=== PATIENT | female | born 2000 | race Caucasian/White ===

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

== ENCOUNTER 2018-01-03 22:32 | Outpatient (CLI) | payer OTHER ==
[2018-01-03 23:14] VITALS: BP 131/63; PULSE 95; RESP 16; TEMP 97.7
--- NOTE | 2018-01-04 09:15 | P.MSEPDOC ---
Presenting Problems - Arrival Data Date of Arrival on Unit: 01/03/18 Time of Arrival on Unit: 22:32 Mode of Transport: Ambulatory - Complaint OB-Reason for Admission/Chief Complaint: Decreased Movement Comment: pt reports she hasn't felt baby movement since last night. Medical History - Information : 1 Para: 0 Term: 0 : 0 Abortions: Spontaneous or Elective: 0 Number of Living Children: 0 - Gestational Age Gestational Age by HEIDY (wks/days): 24 Weeks and 1 Days Review of Systems - Review of Systems Constitutional: No problems Breast: No problems ENT: No problems Cardiovascular: No problems Respiratory: No problems Gastrointestinal: No problems Genitourinary: No problems Musculoskeletal: No problems Neurological: No problems Skin: No problems Vital Signs - Temperature Temperature: 97.7 F Temperature Source: Temporal Artery Scan - Pulse Left Pulse Rate: 95 Pulse Assessment Method: Pulse Oximetry - Respirations Respiratory Rate: 16 Oxygen Delivery Method: Room Air O2 Sat by Pulse Oximetry: 97 - Blood Pressure Right Arm Blood Pressure: 131/63 Blood Pressure Mean: 85 Blood Pressure Source: Automatic Cuff Medical Screen Scoring (Pre) - Cervical Exam Dilation: Exam Deferred Effacement: Exam Deferred Membranes: Intact - Uterine Contractions Frequency: N/A Duration: N/A Intensity: N/A - Maternal Vital Signs Maternal Temperature: N/A Maternal Blood Pressure: N/A Signs of Preeclampsia: N/A Maternal Respirations: N/A - Pain Assessment Pain Location and Character: Generalized Pain Scale Used: Numeric (1 - 10) Pain Intensity: 0 Pain Management Goal: 0 Pain Behavior: None Exhibited, Vocalization - Maternal Trauma Maternal Trauma: N/A - Assessment Baseline FHR: 150 Heart Rate - NICHD Category: Category I (Normal) = 0 NST: Reactive Position: N/A Station: N/A - Total Score Total Score (Pre): 0 - Level of Risk Level of Risk: Low (0-5) Physician Notification (Pre) - Physician Notified Physician Notified Date: 01/03/18 Physician Notified Time: 22:52 Physician/Practitioner Notifed:: Dr. Vance Spoke With: Dr. Vance - Notification Comment Comment: Order for discharge home with follow up instructions at this time. Disposition - Disposition OB Disposition: Discharge to home Discharge Date: 01/03/18 Discharge Time: 22:52 I agree with the RN Medical Screening Exam: Yes Risk & Benefit of care provided described in d/c instruction: Yes Diagnosis: DECREASED MOVEMENTS, SECOND TRIMESTER, FETUS 1
== END 2018-01-03 22:56 | disposition home or self-care (01) ==
LOC: FBPOP 22:32
PROVIDERS: ATTEND Obstetrics & Gynecology
DX: O36.8121 Decreased fetal movements, second trimester, fetus 1 (principal); Z3A.24 24 weeks gestation of pregnancy
CPT/HCPCS: 99213

== ENCOUNTER 2018-02-23 11:57 | Outpatient (CLI) | payer OTHER ==
[2018-02-23 13:52] VITALS: BP 131/60; PULSE 104; RESP 18; TEMP 99
--- NOTE | 2018-02-23 14:50 | P.MSEPDOC ---
Presenting Problems - Arrival Data Date of Arrival on Unit: 02/23/18 Time of Arrival on Unit: 11:57 Mode of Transport: Ambulatory - Complaint OB-Reason for Admission/Chief Complaint: Headache Comment: 1Pt reports to triage with a headache 10/29-states was treated for a migraine at [facility] last night. Pt see's Dr. Parikh-did not call prior to coming to [facility]. Medical History - Information : 1 Para: 0 Term: 0 : 0 Abortions: Spontaneous or Elective: 0 Number of Living Children: 0 - Gestational Age Gestational Age by HEIDY (wks/days): 31 Weeks and 3 Days - History Comment: Pt states hx of bipolar depression and hypothyroid. Review of Systems - Review of Systems Constitutional: No problems Breast: No problems ENT: No problems Cardiovascular: No problems Respiratory: No problems Gastrointestinal: No problems Genitourinary: No problems Musculoskeletal: No problems Neurological: No problems Skin: No problems Vital Signs - Temperature Temperature: 99 F Temperature Source: Oral - Pulse Right Sitting Brachial Pulse Rate: 104 Pulse Assessment Method: Automatic Cuff - Respirations Respiratory Rate: 18 Oxygen Delivery Method: Room Air O2 Sat by Pulse Oximetry: 97 - Blood Pressure Right Arm Sitting Blood Pressure: 131/60 Blood Pressure Mean: 83 Blood Pressure Source: Automatic Cuff Medical Screen Scoring (Pre) - Cervical Exam Dilation: Exam Deferred Effacement: Exam Deferred Membranes: Intact - Uterine Contractions Frequency: N/A - Maternal Vital Signs Maternal Temperature: N/A Maternal Blood Pressure: N/A Maternal Respirations: N/A - Assessment Baseline FHR: 145 Heart Rate - NICHD Category: Category I (Normal) = 0 NST: Reactive Position: N/A Station: N/A - Total Score Total Score (Pre): 0 - Level of Risk Level of Risk: Low (0-5) Physician Notification (Pre) - Physician Notified Physician Notified Date: 02/23/18 Physician Notified Time: 13:28 Physician/Practitioner Notifed:: Miladis Spoke With: Miladis New Order Received: Yes - Notification Comment Comment: Spk c\Dr. Redding, advsd , 31 3, pt of Dr. Parikh, reports with triage c\GROSSMAN 10/29-was treated for a migraine at [facility] last evening. Pt denies nausea , no swelling, no epigastric pain, reflexes 2+, clonus absent. Labs obtained at [facility] on 02/22 and 02/17 reviewed. Pt to be discharged home, to follow up with Dr. Parikh. Disposition - Disposition OB Disposition: Discharge to home, Written follow up instructions reviewed Discharge Date: 02/23/18 Discharge Time: 13:40 I agree with the RN Medical Screening Exam: Yes Risk & Benefit of care provided described in d/c instruction: Yes Diagnosis: RELATED CONDITIONS, UNSPECIFIED, THIRD TRIMESTER
== END 2018-02-23 13:40 | disposition home or self-care (01) ==
LOC: FBPOP 11:57
PROVIDERS: ATTEND Obstetrics & Gynecology
DX: O26.93 Pregnancy related conditions, unspecified, third trimester (principal); Z3A.31 31 weeks gestation of pregnancy
CPT/HCPCS: 59025; G0463; 99213

== ENCOUNTER 2018-06-25 22:44 | Emergency (ER) | payer OTHER ==
--- NOTE | 2018-06-25 23:22 | ED ---
Psych HPI - General Chief Complaint: Psychiatric Symptoms Stated Complaint: Overdose Time Seen by Provider: 06/25/18 22:45 Source: patient Mode of arrival: ambulatory - History of Present Illness Initial Comments: This patient is 18-year-old woman who states that she has history of bipolar disorder, and presents tonight complaint that she had taken 7 Unisom tablets. The patient states that she had been feeling more depressed than usual going on about one-week. The patient states that she had a child approximately 2 months ago and that she has been feeling a little depressed since that time. She denies feeling any homicidal ideation towards the . The patient denies having symptoms related to the overdose. She is not having abdominal pain, nausea or vomiting, chest pain, dyspnea, or other symptoms. She had taken the pills approximately 2-3 hours ago. MD Complaint: suicidal ideation, feels depressed Onset/Timin -: week(s) Associated Psychiatric Symptoms: depression, suicidal ideation Quality: getting worse Improves With: none Worsens With: none - Related Data Home Medications Medication Instructions Recorded Confirmed Levothyroxine Sodium 25 mcg PO DAILY 01/03/18 06/25/18 OXcarbazepine [Trileptal] 300 mg PO BID 06/25/18 06/25/18 Sertraline [Zoloft] 100 mg PO DAILY 06/25/18 06/25/18 Allergies Allergy/AdvReac Type Severity Reaction Status Date / Time vancomycin Allergy Anaphylaxis Verified 06/25/18 22:58 lorazepam [From Ativan] AdvReac Rapid Verified 06/25/18 22:58 Heart Rate Review of Systems ROS Statement: Those systems with pertinent positive or pertinent negative responses have been documented in the HPI. ROS Other: All systems not noted in ROS Statement are negative. Constitutional: Denies: fever, chills Respiratory: Denies: cough, dyspnea Cardiovascular: Denies: chest pain, palpitations Gastrointestinal: Denies: abdominal pain, nausea, vomiting, diarrhea Genitourinary: Denies: dysuria, hematuria Musculoskeletal: Denies: back pain Neurological: Denies: headache, weakness, numbness Psychiatric: Reports: depression, suicidal thoughts. Denies: anxiety, auditory hallucinations, visual hallucinations, homicidal thoughts Past Medical History Past Medical History: No Reported History History of Any Multi-Drug Resistant Organisms: None Reported Past Surgical History: Adenoidectomy, Section, Ear Surgery, Orthopedic Surgery, Tonsillectomy Additional Past Surgical History / Comment(s): Patient states that she has had multiple surgeries to her ears for tube placement. Past Anesthesia/Blood Transfusion Reactions: No Reported Reaction Past Psychological History: Anxiety, Bipolar, Depression Smoking Status: Never smoker - Past Family History Mother Family Medical History: Diabetes Mellitus, Hypertension Father History Unknown: Yes Sister(s) Additional Family Medical History / Comment(s): social anxiety disorder General Exam Limitations: no limitations General appearance: alert, in no apparent distress, obese Head exam: Present: atraumatic, normocephalic Eye exam: Present: normal appearance. Absent: scleral icterus, conjunctival injection Neck exam: Present: normal inspection, full ROM Respiratory exam: Present: normal lung sounds bilaterally. Absent: respiratory distress, wheezes, rales, rhonchi, stridor Cardiovascular Exam: Present: regular rate, normal rhythm, normal heart sounds. Absent: systolic murmur, diastolic murmur, rubs, gallop GI/Abdominal exam: Present: soft. Absent: distended, tenderness, guarding, rebound, rigid, mass Extremities exam: Present: normal inspection, normal capillary refill. Absent: pedal edema, calf tenderness Back exam: Present: normal inspection. Absent: CVA tenderness (R), CVA tenderness (L) Neurological exam: Present: alert Psychiatric exam: Present: normal affect, depressed, suicidal ideation. Absent : agitated, anxious, flat affect, manic, homicidal ideation Skin exam: Present: warm, dry, intact, normal color. Absent: rash Course Vital Signs 06/25/18 06/26/18 06/26/18 22:51 01:00 02:00 Temperature 98.1 F 98 F 98 F Pulse Rate 91 88 87 Respiratory 18 20 18 Rate Blood Pressure 136/89 129/79 126/76 O2 Sat by Pulse 99 97 97 Oximetry 06/26/18 05:16 Temperature 98 F Pulse Rate 86 Respiratory 18 Rate Blood Pressure 127/87 O2 Sat by Pulse 98 Oximetry Medical Decision Making - Medical Decision Making This patient is 18-year-old woman presenting after taking extra doses of Unisom. The patient is also evaluated by behavioral health. The patient is remorseful and is bethel for safety. The patient's mother will be able to help supervise. They are agreeable with course of outpatient follow-up, returning should there be any worsening of her mood or other changes. - Lab Data Result diagrams: 06/25/18 22:50 06/25/18 22:50 Lab Results 06/25/18 06/25/18 06/25/18 Range/Units 22:50 22:50 23:42 WBC 4.6 (4.0-11.0) k/uL RBC 4.66 (3.80-5.40) m/uL Hgb 13.9 (11.4-16.0) gm/dL Hct 41.3 (34.0-46.0) % MCV 88.6 (80.0-100.0) fL MCH 29.9 (25.0-35.0) pg MCHC 33.7 (31.0-37.0) g/dL RDW 13.3 (11.5-15.5) % Plt Count 203 (150-450) k/uL Neutrophils % 40 % Lymphocytes % 47 % Monocytes % 8 % Eosinophils % 2 % Basophils % 1 % Neutrophils # 1.8 (1.3-7.7) k/uL Lymphocytes # 2.2 (1.0-4.8) k/uL Monocytes # 0.4 (0-1.0) k/uL Eosinophils # 0.1 (0-0.7) k/uL Basophils # 0.0 (0-0.2) k/uL Sodium 140 (137-145) mmol/L Potassium 4.0 (3.5-5.1) mmol/L Chloride 106 (98-107) mmol/L Carbon Dioxide 27 (22-30) mmol/L Anion Gap 7 mmol/L BUN 9 (7-17) mg/dL Creatinine 0.90 (0.52-1.04) mg/dL Est GFR (CKD-EPI)AfAm >90 (>60 ml/min/1.73 sqM) Est GFR (CKD-EPI)NonAf >90 (>60 ml/min/1.73 sqM) Glucose 84 (74-99) mg/dL Calcium 9.3 (8.4-10.2) mg/dL Magnesium 1.8 (1.6-2.3) mg/dL Total Bilirubin 0.4 (0.2-1.3) mg/dL AST 27 (14-36) U/L ALT 32 (9-52) U/L Alkaline Phosphatase 71 (38-126) U/L Total Protein 7.1 (6.3-8.2) g/dL Albumin 4.0 (3.5-5.0) g/dL Urine HCG, Qual (Not Detectd) Salicylates <1.0 mg/dL Urine Opiates Screen Not Detected (NotDetected) Ur Oxycodone Screen Not Detected (NotDetected) Urine Methadone Screen Not Detected (NotDetected) Ur Propoxyphene Screen Not Detected (NotDetected) Acetaminophen <10.0 ug/mL Ur Barbiturates Screen Not Detected (NotDetected) U Tricyclic Antidepress Not Detected (NotDetected) Ur Phencyclidine Scrn Not Detected (NotDetected) Ur Amphetamines Screen Not Detected (NotDetected) U Methamphetamines Scrn Not Detected (NotDetected) U Benzodiazepines Scrn Not Detected (NotDetected) Urine Cocaine Screen Not Detected (NotDetected) U Marijuana (THC) Screen Not Detected (NotDetected) Serum Alcohol <10 mg/dL 06/25/18 Range/Units 23:42 WBC (4.0-11.0) k/uL RBC (3.80-5.40) m/uL Hgb (11.4-16.0) gm/dL Hct (34.0-46.0) % MCV (80.0-100.0) fL MCH (25.0-35.0) pg MCHC (31.0-37.0) g/dL RDW (11.5-15.5) % Plt Count (150-450) k/uL Neutrophils % % Lymphocytes % % Monocytes % % Eosinophils % % Basophils % % Neutrophils # (1.3-7.7) k/uL Lymphocytes # (1.0-4.8) k/uL Monocytes # (0-1.0) k/uL Eosinophils # (0-0.7) k/uL Basophils # (0-0.2) k/uL Sodium (137-145) mmol/L Potassium (3.5-5.1) mmol/L Chloride (98-107) mmol/L Carbon Dioxide (22-30) mmol/L Anion Gap mmol/L BUN (7-17) mg/dL Creatinine (0.52-1.04) mg/dL Est GFR (CKD-EPI)AfAm (>60 ml/min/1.73 sqM) Est GFR (CKD-EPI)NonAf (>60 ml/min/1.73 sqM) Glucose (74-99) mg/dL Calcium (8.4-10.2) mg/dL Magnesium (1.6-2.3) mg/dL Total Bilirubin (0.2-1.3) mg/dL AST (14-36) U/L ALT (9-52) U/L Alkaline Phosphatase (38-126) U/L Total Protein (6.3-8.2) g/dL Albumin (3.5-5.0) g/dL Urine HCG, Qual Not Detected (Not Detectd) Salicylates mg/dL Urine Opiates Screen (NotDetected) Ur Oxycodone Screen (NotDetected) Urine Methadone Screen (NotDetected) Ur Propoxyphene Screen (NotDetected) Acetaminophen ug/mL Ur Barbiturates Screen (NotDetected) U Tricyclic Antidepress (NotDetected) Ur Phencyclidine Scrn (NotDetected) Ur Amphetamines Screen (NotDetected) U Methamphetamines Scrn (NotDetected) U Benzodiazepines Scrn (NotDetected) Urine Cocaine Screen (NotDetected) U Marijuana (THC) Screen (NotDetected) Serum Alcohol mg/dL Disposition Clinical Impression: Mood disorder, Overdose Disposition: HOME SELF-CARE Condition: Fair Instructions: Depression (DC), Adult Overdose (ED) Is patient prescribed a controlled substance at d/c from ED?: No Referrals: None,Stated [Primary Care Provider] - 1-2 days
[2018-06-25 23:27] LABS: Basophils % (A) 1 %; Eosinophils # (A) 0.1 k/uL (0-0.7); Eosinophils % (A) 2 %; HCT 41.3 % (34.0-46.0); HGB 13.9 gm/dL (11.4-16.0); Lymphocytes # (A) 2.2 k/uL (1.0-4.8); Lymphocytes % (A) 47 %; MCH 29.9 pg (25.0-35.0); MCHC 33.7 g/dL (31.0-37.0); MCV 88.6 fL (80.0-100.0); Mean Platelet Volume 7.5; Monocytes # (A) 0.4 k/uL (0-1.0); Monocytes % (A) 8 %; Neutrophils # (A) 1.8 k/uL (1.3-7.7); Neutrophils % (A) 40 %; Platelet Count 203 k/uL (150-450); RBC 4.66 m/uL (3.80-5.40); RDW 13.3 % (11.5-15.5); WBC 4.6 k/uL (4.0-11.0)
[2018-06-25 23:37] LABS: ALT 32 U/L (9-52); AST 27 U/L (14-36); Acetaminophen <10.0 ug/mL; Alcohol <10 mg/dL; Alkaline Phosphatase 71 U/L (38-126); Anion Gap 7 mmol/L; Blood Urea Nitrogen 9 mg/dL (7-17); Calcium 9.3 mg/dL (8.4-10.2); Carbon Dioxide 27 mmol/L (22-30); Chloride 106 mmol/L (98-107); Glucose 84 mg/dL (74-99); Magnesium 1.8 mg/dL (1.6-2.3); Salicylate <1.0 mg/dL; Sodium 140 mmol/L (137-145); Total Bilirubin 0.4 mg/dL (0.2-1.3); Total Protein 7.1 g/dL (6.3-8.2)
[2018-06-26 00:06] LABS: Amphetamine Screen,Urine Not Detected (NotDetected); Barbiturate Screen,Urine Not Detected (NotDetected); Benzodiazepines Screen,Urine Not Detected (NotDetected); Cocaine Screen,Urine Not Detected (NotDetected); Methadone Screen, Urine Not Detected (NotDetected); Opiate Screen,Urine Not Detected (NotDetected); Oxycodone Screen, Urine Not Detected (NotDetected); Phencyclidine Screen,Urine Not Detected (NotDetected); Tricyclic Antidepressant,Urine Not Detected (NotDetected); Urn Cannabinoid Scrn Not Detected (NotDetected)
[2018-06-26 01:03] VITALS: TEMP 98
[2018-06-26 02:32] VITALS: RESP 18
[2018-06-26 05:19] VITALS: BP 127/87; PULSE 86
== END 2018-06-26 05:19 | disposition home or self-care (01) ==
LOC: EC 22:44
DX: T45.0X2A Poisoning by antiallergic and antiemetic drugs, intentional self-harm, initial encounter (principal); F39 Unspecified mood [affective] disorder; F31.9 Bipolar disorder, unspecified; Z79.899 Other long term (current) drug therapy; Z88.1 Allergy status to other antibiotic agents; Z88.8 Allergy status to other drugs, medicaments and biological substances
CPT/HCPCS: 36415; 93005 ×2; 80053; 83735; 85025; 81025; 80306; 83520 ×2; 99285; G0480; 80320

== ENCOUNTER 2019-01-25 13:38 | Inpatient (IN) | payer MEDICAID, OTHER ==
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
[2019-01-25 14:43] LABS: Basophils % (A) 0 %; Eosinophils # (A) 0.2 k/uL (0-0.7); Eosinophils % (A) 2 %; HCT 39.1 % (34.0-46.0); HGB 13.4 gm/dL (11.4-16.0); Lymphocytes # (A) 2.7 k/uL (1.0-4.8); Lymphocytes % (A) 35 %; MCH 29.9 pg (25.0-35.0); MCHC 34.3 g/dL (31.0-37.0); MCV 87.1 fL (80.0-100.0); Mean Platelet Volume 7.9; Monocytes # (A) 0.3 k/uL (0-1.0); Monocytes % (A) 4 %; Neutrophils # (A) 4.2 k/uL (1.3-7.7); Neutrophils % (A) 56 %; Platelet Count 289 k/uL (150-450); RBC 4.49 m/uL (3.80-5.40); WBC 7.6 k/uL (4.0-11.0)
[2019-01-25 14:55] LABS: ALT 49 U/L (9-52); AST 27 U/L (14-36); Acetaminophen <10.0 ug/mL; African American GFR (CKD) >90 (>60 ml/min/1.73 sqM); Albumin 4.1 g/dL (3.5-5.0); Alkaline Phosphatase 74 U/L (38-126); Anion Gap 8 mmol/L; Blood Urea Nitrogen 11 mg/dL (7-17); Calcium 9.2 mg/dL (8.4-10.2); Carbon Dioxide 25 mmol/L (22-30); Chloride 107 mmol/L (98-107); Glucose 93 mg/dL (74-99); Potassium 4.1 mmol/L (3.5-5.1); Salicylate <1.0 mg/dL; Sodium 140 mmol/L (137-145); Total Bilirubin 0.5 mg/dL (0.2-1.3); Total Protein 6.9 g/dL (6.3-8.2)
[2019-01-25] MEDS ORDERED: ACETAMINOPHEN TAB 325 MG TAB PO STA (16:49)
[2019-01-25 17:04] LABS: Amorphous Sediment,Urine Occasional /hpf; Appearance,Urine Cloudy (Clear); Bilirubin,Urine Negative (Negative); Blood,Urine Negative (Negative); Color,Urine Yellow; Glucose,Urine (UA) Negative (Negative); Ketones,Urine Trace (Negative); Leukocyte Esterase,Urine Negative (Negative); Mucus,Urine Many /hpf; Nitrite,Urine Negative (Negative); PH, Urine 5.5 (5.0-8.0); Protein,Urine Trace (Negative); RBC,Urine 1 /hpf (0-5); Specific Gravity,Urine 1.031 (1.001-1.035); Squamous Epithelial Cell,Urine 8 /hpf (0-4); Urobilinogen,Urine <2.0 mg/dL (<2.0); WBC,Urine 2 /hpf (0-5)
[2019-01-25] MEDS ORDERED: MAGNESIUM HYDROXIDE 2,400 MG/10 ML CUP PO PRN (17:18)
[2019-01-25] MEDS ORDERED: MAG HYDROX/AL HYDROX/SIMETH 30 ML CUP PO PRN (17:18)
[2019-01-25 17:19] LABS: Amphetamine Screen,Urine Not Detected (NotDetected); Barbiturate Screen,Urine Not Detected (NotDetected); Benzodiazepines Screen,Urine Not Detected (NotDetected); Cocaine Screen,Urine Not Detected (NotDetected); Methadone Screen, Urine Not Detected (NotDetected); Opiate Screen,Urine Not Detected (NotDetected); Oxycodone Screen, Urine Not Detected (NotDetected); Phencyclidine Screen,Urine Not Detected (NotDetected); Tricyclic Antidepressant,Urine Not Detected (NotDetected); Urn Cannabinoid Scrn Not Detected (NotDetected)
[2019-01-25 20:58] VITALS: BMI 43.4
[2019-01-26] MEDS: LEVOTHYROXINE 50 MCG TAB PO SCH (06:22)
[2019-01-26] MEDS: OXcarbazepine 300 MG TAB PO SCH (08:40)
[2019-01-26 09:27] LABS: Basophils % (A) 0 %; Eosinophils # (A) 0.2 k/uL (0-0.7); Eosinophils % (A) 2 %; HGB 12.9 gm/dL (11.4-16.0); Lymphocytes # (A) 2.7 k/uL (1.0-4.8); Lymphocytes % (A) 37 %; MCH 30.4 pg (25.0-35.0); MCHC 33.9 g/dL (31.0-37.0); MCV 89.8 fL (80.0-100.0); Mean Platelet Volume 7.3; Monocytes # (A) 0.3 k/uL (0-1.0); Monocytes % (A) 4 %; Neutrophils # (A) 3.9 k/uL (1.3-7.7); Neutrophils % (A) 54 %; Platelet Count 272 k/uL (150-450); RBC 4.23 m/uL (3.80-5.40); RDW 12.3 % (11.5-15.5); WBC 7.2 k/uL (4.0-11.0)
[2019-01-26 10:10] LABS: ALT 27 U/L (9-52); AST 25 U/L (14-36); African American GFR (CKD) >90 (>60 ml/min/1.73 sqM); Alkaline Phosphatase 64 U/L (38-126); Anion Gap 11 mmol/L; Blood Urea Nitrogen 12 mg/dL (7-17); Calcium 9.2 mg/dL (8.4-10.2); Carbon Dioxide 26 mmol/L (22-30); Chloride 102 mmol/L (98-107); Cholesterol 142 mg/dL (<200); Glucose 138 mg/dL (74-99); HDL Cholesterol 33 mg/dL (40-60); LDL Cholesterol,Calculated 63 mg/dL (0-99); Potassium 4.1 mmol/L (3.5-5.1); Sodium 139 mmol/L (137-145); Total Bilirubin 0.4 mg/dL (0.2-1.3); Total Protein 6.6 g/dL (6.3-8.2); Triglycerides 228 mg/dL (<150)
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
[2019-01-26] MEDS: VRAYLAR 6 MG PO SCH (12:32)
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
[2019-01-26 17:18] LABS: Hemoglobin A1C 5.4 % (4.0-6.0)
[2019-01-27] MEDS: LEVOTHYROXINE 50 MCG TAB PO SCH (06:23)
[2019-01-27] MEDS: VRAYLAR 6 MG PO SCH (08:35)
[2019-01-27] MEDS: OXcarbazepine 300 MG TAB PO SCH ×2 (08:36→20:05)
[2019-01-27] MEDS ORDERED: ERGOCALCIFEROL 50,000 UNIT CAP PO SCH (09:00)
--- NOTE | 2019-01-27 12:31 | P.PN ---
Progress Note - Text Progress Note Date: 01/27/19 Interval History: Patient is a 18-year-old female who was seen today and she reports that she went to bed late last night, isn't feeling depressed reports no suicidal ideation. She states that she is attending groups and these went well. She states that she hadn't been taking her meds prior to coming into the hospital and now that she's restarted them she reports feeling better. She reports no current suicidal thoughts. Patient states that she has been attending groups. Mental Status: Appearance/Attitude: Patient is neatly and appropriately dressed, makes eye contact and was cooperative. Behavior: Patient does not display any psychomotor agitation or retardation Speech/Language: Speech is spontaneous of normal volume and rhythm and she is coherent Thought Process: Patient is goal-directed there is no evidence of loose association or flight of ideas Thought Content: Patient denies any auditory or visual hallucinations and no delusions or paranoid ideation or elicited. Patient and I discussed her concerns about the father of her child, she is not going to insist on DNA testin g, he remains in incarcerated until March. Patient is more comfortable knowing that it is unlikely he will be given custody, should he even request this. Patient states that she slept well and is eating well. Suicidal/Homicidal Ideation: She denies any current suicidal or homicidal ideation Sensorium/Cognition: Patient is alert and oriented to person, place, and time, her recent and remote memory are grossly intact Mood/Affect: patient's mood is less depressed and her affect is appropriate Insight/Judgment: patient's insight and judgment are fair Assessment: patient states that she is not feeling as depressed, she went to bed late yesterday and slept fairly well. She states she is not having any suicidal thoughts. She states she feels better now that she's restarted taking her med ication correctly. Patient and I discussed her concerns about the father of her son, she will not be requesting DNA testing and he as yet has not. Patient and I discussed her concerns over his requesting custody and the likelihood of this occurring. Patient states that she is attending groups and is found them helpful. Plan: patient will continue on vryalar 6 mg in the morning and will increase the Trileptal to 300 mg twice a day which was her prior dose. Patient and I discussed possible discharge later in the week should the patient continue to improve.
--- NOTE | 2019-01-27 19:56 | P.PN ---
Subjective Progress Note Date: 01/27/19 Pt seen and examined in [facility]. She states she had trouble getting to sleep last night so missed some morning group sessions. She is no longer suicidal and attributes this to being back on medication. Objective - Vital Signs Vital signs: Vital Signs Temp 97.7 F 01/27/19 06:59 Pulse 76 01/27/19 06:59 Resp 14 01/27/19 06:59 BP 89/52 01/27/19 06:59 Pulse Ox 100 01/25/19 14:13 - Exam General: well groomed, pleasant, NAD CV: RRR Lungs: clear throughout Neuro: good eye contact, thought content logical and goal directed - Labs CBC & Chem 7: 01/26/19 08:58 01/26/19 08:58 Assessment and Plan Assessment: 1. Suicidal. Medication noncompliance. Treatment per inpatient psych 2. Hypothyroidism. Continue home synthroid 3. Low back pain. Tylenol 500 mg q6h prn
[2019-01-27] MEDS: MELATONIN 5 MG TABLET PO SCH (22:52)
[2019-01-28] MEDS: LEVOTHYROXINE 50 MCG TAB PO SCH (06:32)
[2019-01-28] MEDS: VRAYLAR 6 MG PO SCH (08:39)
[2019-01-28] MEDS: OXcarbazepine 300 MG TAB PO SCH ×2 (08:40→21:36)
--- NOTE | 2019-01-28 09:40 | P.PN ---
Subjective Progress Note Date: 01/28/19 Pt seen and examined in [facility]. She slept well last night and reports good mood today. She feels she is ready to leave the hospital but understands it could be another few days. Denies SI. Objective - Vital Signs Vital signs: Vital Signs Temp 98.1 F 01/28/19 06:58 Pulse 73 01/28/19 06:58 Resp 16 01/28/19 06:58 BP 114/57 01/28/19 06:58 Pulse Ox 100 01/25/19 14:13 - Exam General: well groomed, pleasant, NAD CV: RRR Lungs: clear throughout Neuro: good eye contact, thought content logical and goal directed - Labs CBC & Chem 7: 01/26/19 08:58 01/26/19 08:58 Assessment and Plan Assessment: 1. Suicidal. Medication noncompliance. Treatment per inpatient psych 2. Hypothyroidism. Continue home synthroid 3. Low back pain. Tylenol 500 mg q6h prn
--- NOTE | 2019-01-28 11:44 | P.PN ---
Progress Note - Text Progress Note Date: 01/28/19 Interval History: Patient is a 18-year-old female who was seen today and she reports that she is doing quite well. She states that she sees she needs to stay on her medications because she does much better when she takes them. She states that she is ready to go home and her mother will keep her son for a bit a time until she gets adjusted to being home again. Patient states that she is not feeling depressed and reports that she's not feeling suicidal. She states that she slept well last night after taking some melatonin. Mental Status: Appearance/Attitude: Patient is neatly and appropriately dressed, makes good eye contact and was cooperative Behavior: Patient does not display any psychomotor agitation or retardation. Speech/Language: Patient's speech is spontaneous of normal volume and rhythm and she is coherent. Thought Process: Patient is goal-directed there is no evidence of loose association or flight of ideas Thought Content: Patient denies any auditory or visual hallucinations and no paranoid or delusional ideation is elicited. patient states that she is sleeping well and her appetite is good. She states that she is feeling more motivated and interested to do things has more energy. Patient states she is not ruminating about the father of her son, custody concerns. Suicidal/Homicidal Ideation: Patient denies any current suicidal or homicidal ideation Sensorium/Cognition: Patient is alert and oriented to person place and time and her recent and remote memory are grossly intact. Mood/Affect: Patient's mood is bright and her affect is appropriate Insight/Judgment: Patient's insight and judgment are fair Assessment: Patient states that she slept well last night and requested melatonin be started. Patient reports no side effects from medications. She is attending most groups. Patient states that she is not feeling suicidal and no longer feeling depressed. She states her interest or motivation to do things has improved as well as her energy level. Patient states she is not ruminating about the father of her son as much as she was. Patient states that she is aware she needs to take her medications consistently with them to be effective for her. Plan: Patient will continue on Trileptal 300 mg twice a day and vryalar 6 mg in the morning to target her mood. Patient will also continue on melatonin 5 mg at bedtime to assist with her sleep. Patient and I discussed discharge tomorrow and the patient was agreeable with this plan. Patient states that her mother will keep her son for a period of time so that the patient can get things organized at home.
[2019-01-28] MEDS: ACETAMINOPHEN TAB 500 MG TAB PO PRN (21:35)
[2019-01-28] MEDS: MELATONIN 5 MG TABLET PO SCH (21:36)
[2019-01-29 06:18] VITALS: BP 107/53; PULSE 83; RESP 18; TEMP 97.8
[2019-01-29] MEDS: LEVOTHYROXINE 50 MCG TAB PO SCH (06:19)
[2019-01-29] MEDS: VRAYLAR 6 MG PO SCH (07:42)
[2019-01-29] MEDS: OXcarbazepine 300 MG TAB PO SCH (07:43)
[2019-01-29] MEDS: ACETAMINOPHEN TAB 500 MG TAB PO PRN (07:44)
[2019-01-29] MEDS ORDERED: IBUPROFEN 200 MG TAB PO STA (09:48)
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
--- NOTE | 2019-01-29 11:07 | P.PN ---
Subjective Progress Note Date: 01/29/19 Pt seen and examined in MHU. She is feeling well today, reports some abd cramping thinks her period is about to start. Denies SI or side effects with her psychiatric medications Objective - Vital Signs Vital signs: Vital Signs Temp 97.8 F 01/29/19 06:17 Pulse 83 01/29/19 06:17 Resp 18 01/29/19 06:17 BP 107/53 01/29/19 06:17 Pulse Ox 100 01/25/19 14:13 - Exam General: well groomed, pleasant, NAD CV: RRR Lungs: clear throughout Neuro: good eye contact, thought content logical and goal directed - Labs CBC & Chem 7: 01/26/19 08:58 01/26/19 08:58 Assessment and Plan Assessment: 1. Suicidal. Medication noncompliance. Treatment per inpatient psych 2. Hypothyroidism. Continue home synthroid 3. Low back pain. Tylenol 500 mg q6h prn 4. Abdominal cramping. Ibuprofen 200 mg q6h prn
== END 2019-01-29 15:51 | disposition home or self-care (01) | DRG 885 ==
LOC: EC 13:38 → 3MHU 17:14
PROVIDERS: ADMIT Psychiatry & Neurology Psychiatry; ATTEND Psychiatry & Neurology Psychiatry
DX: F31.30 Bipolar disorder, current episode depressed, mild or moderate severity, unspecified (principal); E03.9 Hypothyroidism, unspecified; Z91.5 Personal history of self-harm; Z79.890 Hormone replacement therapy; Z79.899 Other long term (current) drug therapy; Z82.49 Family history of ischemic heart disease and other diseases of the circulatory system; Z83.3 Family history of diabetes mellitus; Z81.8 Family history of other mental and behavioral disorders; Z90.49 Acquired absence of other specified parts of digestive tract; T43.96XA Underdosing of unspecified psychotropic drug, initial encounter; Z91.128 Patient's intentional underdosing of medication regimen for other reason; Z91.19 Patient's noncompliance with other medical treatment and regimen; F41.9 Anxiety disorder, unspecified; Z88.1 Allergy status to other antibiotic agents; Z88.8 Allergy status to other drugs, medicaments and biological substances
CPT/HCPCS: 36415; 80053; 80061; 80306; 80329; 81001; 81025; 82075; 83036; 83520; 84443; 85025; 93005; 99285

== ENCOUNTER 2019-03-17 17:01 | Emergency (ER) | payer OTHER ==
[2019-03-17] MEDS ORDERED: ONDANSETRON 4 MG/2 ML VIAL IVP STA (19:00)
[2019-03-17] MEDS ORDERED: SODIUM CHLORIDE 0.9% 1,000 ML IV STA ×2 (19:00)
[2019-03-17] MEDS ORDERED: PANTOPRAZOLE 40 MG/10 ML VIAL IVP STA (19:00)
--- NOTE | 2019-03-17 19:01 | ED ---
Abdominal Pain HPI - General Chief Complaint: Abdominal Pain Stated Complaint: ABDOMINAL PAIN Time Seen by Provider: 03/17/19 18:47 Source: patient, RN notes reviewed, old records reviewed Mode of arrival: ambulatory Limitations: no limitations - History of Present Illness Initial Comments: Patient is a 18-year-old female presents today with diffuse abdominal pain for the past week. Patient reports his history and the upper abdominal pain, feels like someone is stepping on her abdomen. Patient reports that she has had some diarrhea. She is concerned for possible . Her last missed her period was February 25 but she states that that was abnormal time for her. Patient states that she's had no fevers or chills. Denies any chest pain or shortness of breath. She reports no bloody stools. She denies any vomiting. - Related Data Home Medications Medication Instructions Recorded Confirmed Levothyroxine Sodium [Synthroid] 50 mcg PO DAILY 01/25/19 03/17/19 Cariprazine HCl [Vraylar] 6 mg PO DAILY 03/17/19 03/17/19 Dane Carbonate 300 mg PO BID 03/17/19 03/17/19 OXcarbazepine [Trileptal] 150 mg PO BID 03/17/19 03/17/19 Previous Rx's Medication Instructions Recorded Dicyclomine [Bentyl] 10 mg PO TID #12 capsule 03/17/19 Allergies Allergy/AdvReac Type Severity Reaction Status Date / Time vancomycin Allergy Anaphylaxis Verified 03/17/19 19:20 lorazepam [From Ativan] AdvReac Rapid Verified 03/17/19 19:20 Heart Rate Review of Systems ROS Statement: Those systems with pertinent positive or pertinent negative responses have been documented in the HPI. ROS Other: All systems not noted in ROS Statement are negative. Past Medical History Past Medical History: No Reported History, Thyroid Disorder History of Any Multi-Drug Resistant Organisms: None Reported Past Surgical History: Adenoidectomy, Section, Cholecystectomy, Ear Surgery, Orthopedic Surgery, Tonsillectomy Additional Past Surgical History / Comment(s): Patient states that she has had multiple surgeries to her ears for tube placement. Past Anesthesia/Blood Transfusion Reactions: No Reported Reaction Past Psychological History: Anxiety, Bipolar, Depression Smoking Status: Never smoker Past Alcohol Use History: Occasional Past Drug Use History: None Reported - Past Family History Mother Family Medical History: Diabetes Mellitus, Hypertension Father History Unknown: Yes Sister(s) Additional Family Medical History / Comment(s): social anxiety disorder General Exam Limitations: no limitations General appearance: alert, in no apparent distress Head exam: Present: atraumatic, normocephalic, normal inspection Eye exam: Present: normal appearance, PERRL, EOMI. Absent: scleral icterus, conjunctival injection, periorbital swelling ENT exam: Present: normal exam, mucous membranes moist Neck exam: Present: normal inspection. Absent: tenderness, meningismus, lymphadenopathy Respiratory exam: Present: normal lung sounds bilaterally. Absent: respiratory distress, wheezes, rales, rhonchi, stridor Cardiovascular Exam: Present: regular rate, normal rhythm, normal heart sounds. Absent: systolic murmur, diastolic murmur, rubs, gallop, clicks GI/Abdominal exam: Present: soft, normal bowel sounds. Absent: distended, tenderness, guarding, rebound, rigid Extremities exam: Present: normal inspection, full ROM, normal capillary refill. Absent: tenderness, pedal edema, joint swelling, calf tenderness Back exam: Present: normal inspection Neurological exam: Present: alert Psychiatric exam: Present: normal affect, normal mood Skin exam: Present: warm, dry, intact, normal color. Absent: rash Course Vital Signs 03/17/19 17:36 Temperature 98.6 F Pulse Rate 101 H Respiratory 16 Rate Blood Pressure 160/80 O2 Sat by Pulse 97 Oximetry Medical Decision Making - Medical Decision Making Patient's 18-year-old female presents with diffuse abdominal pain for 2 weeks complaining of diarrhea. She also is concerned . HCG is negative. Blood work was reviewed and unremarkable given IV fluids Protonix and Zofran. Discussed the Patient that she otherwise is well-appearing. Discussed appropriate return parameters. Discussed putting the Patient on Bentyl and monitoring her diet. All questions ANSWERED. - Lab Data Result diagrams: 03/17/19 19:20 03/17/19 19:20 Lab Results 03/17/19 03/17/19 03/17/19 Range/Units 19:20 19:20 19:20 WBC (4.0-11.0) k/uL RBC (3.80-5.40) m/uL Hgb (11.4-16.0) gm/dL Hct (34.0-46.0) % MCV (80.0-100.0) fL MCH (25.0-35.0) pg MCHC (31.0-37.0) g/dL RDW (11.5-15.5) % Plt Count (150-450) k/uL Neutrophils % % Lymphocytes % % Monocytes % % Eosinophils % % Basophils % % Neutrophils # (1.3-7.7) k/uL Lymphocytes # (1.0-4.8) k/uL Monocytes # (0-1.0) k/uL Eosinophils # (0-0.7) k/uL Basophils # (0-0.2) k/uL PT (9.0-12.0) sec INR (<1.2) APTT (22.0-30.0) sec Sodium 139 (137-145) mmol/L Potassium 3.9 (3.5-5.1) mmol/L Chloride 103 (98-107) mmol/L Carbon Dioxide 25 (22-30) mmol/L Anion Gap 11 mmol/L BUN 13 (7-17) mg/dL Creatinine 0.85 (0.52-1.04) mg/dL Est GFR (CKD-EPI)AfAm >90 (>60 ml/min/1.73 sqM) Est GFR (CKD-EPI)NonAf >90 (>60 ml/min/1.73 sqM) Glucose 111 H (74-99) mg/dL Calcium 9.6 (8.4-10.2) mg/dL Total Bilirubin 0.4 (0.2-1.3) mg/dL AST 25 (14-36) U/L ALT 23 (9-52) U/L Alkaline Phosphatase 74 (38-126) U/L Total Protein 7.4 (6.3-8.2) g/dL Albumin 4.4 (3.5-5.0) g/dL Amylase 50 (30-110) U/L Lipase 97 (23-300) U/L HCG, Quant <2.4 mIU/mL Urine Color Yellow Urine Appearance Cloudy H (Clear) Urine pH 6.5 (5.0-8.0) Ur Specific [place] 1.049 H (1.001-1.035) Urine Protein 1+ H (Negative) Urine Glucose (UA) Negative (Negative) Urine Ketones Trace H (Negative) Urine Blood Negative (Negative) Urine Nitrite Negative (Negative) Urine Bilirubin Negative (Negative) Urine Urobilinogen 2.0 (<2.0) mg/dL Ur Leukocyte Esterase Negative (Negative) Urine RBC 1 (0-5) /hpf Urine WBC 3 (0-5) /hpf Ur Squamous Epith Cells 10 H (0-4) /hpf Urine Mucus Many H (None) /hpf Urine HCG, Qual Not Detected (Not Detectd) 03/17/19 03/17/19 Range/Units 19:20 19:20 WBC 8.9 (4.0-11.0) k/uL RBC 4.68 (3.80-5.40) m/uL Hgb 14.1 (11.4-16.0) gm/dL Hct 42.1 (34.0-46.0) % MCV 90.1 (80.0-100.0) fL MCH 30.1 (25.0-35.0) pg MCHC 33.4 (31.0-37.0) g/dL RDW 12.4 (11.5-15.5) % Plt Count 286 (150-450) k/uL Neutrophils % 70 % Lymphocytes % 22 % Monocytes % 5 % Eosinophils % 2 % Basophils % 0 % Neutrophils # 6.2 (1.3-7.7) k/uL Lymphocytes # 1.9 (1.0-4.8) k/uL Monocytes # 0.4 (0-1.0) k/uL Eosinophils # 0.2 (0-0.7) k/uL Basophils # 0.0 (0-0.2) k/uL PT 9.7 (9.0-12.0) sec INR 0.9 (<1.2) APTT 26.4 (22.0-30.0) sec Sodium (137-145) mmol/L Potassium (3.5-5.1) mmol/L Chloride (98-107) mmol/L Carbon Dioxide (22-30) mmol/L Anion Gap mmol/L BUN (7-17) mg/dL Creatinine (0.52-1.04) mg/dL Est GFR (CKD-EPI)AfAm (>60 ml/min/1.73 sqM) Est GFR (CKD-EPI)NonAf (>60 ml/min/1.73 sqM) Glucose (74-99) mg/dL Calcium (8.4-10.2) mg/dL Total Bilirubin (0.2-1.3) mg/dL AST (14-36) U/L ALT (9-52) U/L Alkaline Phosphatase (38-126) U/L Total Protein (6.3-8.2) g/dL Albumin (3.5-5.0) g/dL Amylase (30-110) U/L Lipase (23-300) U/L HCG, Quant mIU/mL Urine Color Urine Appearance (Clear) Urine pH (5.0-8.0) Ur Specific [place] (1.001-1.035) Urine Protein (Negative) Urine Glucose (UA) (Negative) Urine Ketones (Negative) Urine Blood (Negative) Urine Nitrite (Negative) Urine Bilirubin (Negative) Urine Urobilinogen (<2.0) mg/dL Ur Leukocyte Esterase (Negative) Urine RBC (0-5) /hpf Urine WBC (0-5) /hpf Ur Squamous Epith Cells (0-4) /hpf Urine Mucus (None) /hpf Urine HCG, Qual (Not Detectd) - Radiology Data Radiology results: report reviewed KUB shows no objective bowel gas pattern. Disposition Clinical Impression: Abdominal pain, Diarrhea Disposition: HOME SELF-CARE Condition: Good Instructions (If sedation given, give patient instructions): Abdominal Pain (ED) Additional Instructions: Please use medication as discussed. Please follow up with family doctor if symptoms have not improved over the next two days. Please return to the emergency room if your symptoms increase or worsen or for any other concerns. Prescriptions: Dicyclomine [Bentyl] 10 mg PO TID #12 capsule Is patient prescribed a controlled substance at d/c from ED?: No Referrals: Geraldine Vitale DO [Primary Care Provider] - 1-2 days Time of Disposition: 20:47
[2019-03-17 19:49] LABS: Basophils % (A) 0 %; Eosinophils # (A) 0.2 k/uL (0-0.7); Eosinophils % (A) 2 %; HCT 42.1 % (34.0-46.0); HGB 14.1 gm/dL (11.4-16.0); Lymphocytes # (A) 1.9 k/uL (1.0-4.8); Lymphocytes % (A) 22 %; MCH 30.1 pg (25.0-35.0); MCHC 33.4 g/dL (31.0-37.0); MCV 90.1 fL (80.0-100.0); Mean Platelet Volume 7.1; Monocytes # (A) 0.4 k/uL (0-1.0); Monocytes % (A) 5 %; Neutrophils # (A) 6.2 k/uL (1.3-7.7); Neutrophils % (A) 70 %; Platelet Count 286 k/uL (150-450); RBC 4.68 m/uL (3.80-5.40); RDW 12.4 % (11.5-15.5); WBC 8.9 k/uL (4.0-11.0)
[2019-03-17 19:51] LABS: Appearance,Urine Cloudy (Clear); Bilirubin,Urine Negative (Negative); Blood,Urine Negative (Negative); Color,Urine Yellow; Glucose,Urine (UA) Negative (Negative); Ketones,Urine Trace (Negative); Leukocyte Esterase,Urine Negative (Negative); Mucus,Urine Many /hpf; Nitrite,Urine Negative (Negative); PH, Urine 6.5 (5.0-8.0); Protein,Urine 1+ (Negative); RBC,Urine 1 /hpf (0-5); Squamous Epithelial Cell,Urine 10 /hpf (0-4); WBC,Urine 3 /hpf (0-5)
[2019-03-17 19:52] LABS: Specific Gravity,Urine 1.049 (1.001-1.035)
[2019-03-17 20:00] LABS: INR 0.9 (<1.2); Partial Thromboplastin Time 26.4 sec (22.0-30.0); Prothrombin Time 9.7 sec (9.0-12.0)
[2019-03-17 20:08] LABS: ALT 23 U/L (9-52); AST 25 U/L (14-36); African American GFR (CKD) >90 (>60 ml/min/1.73 sqM); Albumin 4.4 g/dL (3.5-5.0); Alkaline Phosphatase 74 U/L (38-126); Amylase 50 U/L (30-110); Anion Gap 11 mmol/L; Blood Urea Nitrogen 13 mg/dL (7-17); Calcium 9.6 mg/dL (8.4-10.2); Carbon Dioxide 25 mmol/L (22-30); Chloride 103 mmol/L (98-107); Glucose 111 mg/dL (74-99); Potassium 3.9 mmol/L (3.5-5.1); Sodium 139 mmol/L (137-145); Total Bilirubin 0.4 mg/dL (0.2-1.3); Total Protein 7.4 g/dL (6.3-8.2)
[2019-03-17 20:25] LABS: HCG,Quantitative Serum <2.4 mIU/mL
[2019-03-17 21:12] VITALS: BP 150/75; PULSE 78; RESP 17; TEMP 97.9
--- NOTE | 2019-03-17 21:32 | XR ---
EXAMINATION TYPE: XR KUB DATE OF EXAM: 03/17/2019 7:59 PM CLINICAL HISTORY: Mid abdominal pain with dizziness TECHNIQUE: 2 upright views COMPARISON: None. FINDINGS: Scattered gas is seen in non-distended small bowel loops. Gas and fecal material is seen in non-distended colon. There is no visceromegaly, pneumoperitoneum, or abnormal calcification apprecia corinna. The lung bases are clear and the osseous structures are intact. IMPRESSION: No acute radiographic process.
== END 2019-03-17 21:12 | disposition home or self-care (01) ==
LOC: EC 17:01
DX: R10.84 Generalized abdominal pain (principal); R19.7 Diarrhea, unspecified; Z32.02 Encounter for pregnancy test, result negative; E07.9 Disorder of thyroid, unspecified; F31.9 Bipolar disorder, unspecified; Z79.899 Other long term (current) drug therapy; Z88.1 Allergy status to other antibiotic agents; Z88.8 Allergy status to other drugs, medicaments and biological substances; Z90.49 Acquired absence of other specified parts of digestive tract; Z90.89 Acquired absence of other organs
CPT/HCPCS: 36415; 80053; 82150; 83690; 85025; 85610; 85730; 81001; 81025; 84702; 74018; 99284; 96374; 96375; 96361; J2405; C9113

== ENCOUNTER 2019-04-02 23:21 | Emergency (ER) | payer OTHER ==
[2019-04-03 00:07] LABS: Basophils # (A) 0.1 k/uL (0-0.2); Basophils % (A) 1 %; Eosinophils # (A) 0.3 k/uL (0-0.7); Eosinophils % (A) 3 %; HCT 39.9 % (34.0-46.0); HGB 13.6 gm/dL (11.4-16.0); Lymphocytes # (A) 3.6 k/uL (1.0-4.8); Lymphocytes % (A) 38 %; MCH 30.9 pg (25.0-35.0); MCHC 34.2 g/dL (31.0-37.0); MCV 90.3 fL (80.0-100.0); Mean Platelet Volume 7.4; Monocytes # (A) 0.5 k/uL (0-1.0); Monocytes % (A) 5 %; Neutrophils # (A) 4.9 k/uL (1.3-7.7); Neutrophils % (A) 52 %; Platelet Count 347 k/uL (150-450); RBC 4.42 m/uL (3.80-5.40); RDW 14.9 % (11.5-15.5); WBC 9.5 k/uL (4.0-11.0)
--- NOTE | 2019-04-03 00:09 | ED ---
Psych HPI - General Chief Complaint: Psychiatric Symptoms Stated Complaint: OD Source: police Mode of arrival: ambulatory - History of Present Illness Initial Comments: Yolanda is a pleasant 18-year-old female who presents to the emergency department today after an intentional overdose. Patient reports that she suffered from depression for a long period of time, she states that over the past couple of weeks she has had some increased stress because she is not started her menstrual period. Patient states that she doesn't have any concern for being but is irritated by irregularities in her body. Patient states that her periods been irregular since November. She states that this just stresses her out because nothing in her life is consistent and she feels blood down that she can even rely on her body to be consistent. Patient reports that this evening she took 10 of each of her Trileptal and her Vraylar an attempt to harm herself. Should today's of the other ingestions. She denies any self-harm. - Related Data Home Medications Medication Instructions Recorded Confirmed Levothyroxine Sodium [Synthroid] 50 mcg PO DAILY 01/25/19 03/17/19 Cariprazine HCl [Vraylar] 6 mg PO DAILY 03/17/19 03/17/19 [place] Carbonate 300 mg PO BID 03/17/19 03/17/19 OXcarbazepine [Trileptal] 150 mg PO BID 03/17/19 03/17/19 Previous Rx's Medication Instructions Recorded Dicyclomine [Bentyl] 10 mg PO TID #12 capsule 03/17/19 Allergies Allergy/AdvReac Type Severity Reaction Status Date / Time vancomycin Allergy Anaphylaxis Verified 04/02/19 23:28 lorazepam [From Ativan] AdvReac Rapid Verified 04/02/19 23:28 Heart Rate Review of Systems ROS Statement: Those systems with pertinent positive or pertinent negative responses have been documented in the HPI. ROS Other: All systems not noted in ROS Statement are negative. Past Medical History Past Medical History: No Reported History, Thyroid Disorder History of Any Multi-Drug Resistant Organisms: None Reported Past Surgical History: Adenoidectomy, Section, Cholecystectomy, Ear Surgery, Orthopedic Surgery, Tonsillectomy Additional Past Surgical History / Comment(s): Patient states that she has had multiple surgeries to her ears for tube placement. Past Anesthesia/Blood Transfusion Reactions: No Reported Reaction Past Psychological History: Anxiety, Bipolar, Depression Smoking Status: Never smoker Past Alcohol Use History: Occasional Past Drug Use History: None Reported - Past Family History Mother Family Medical History: Diabetes Mellitus, Hypertension Father History Unknown: Yes Sister(s) Additional Family Medical History / Comment(s): social anxiety disorder General Exam - General Exam Comments Initial Comments: Physical Exam GENERAL: Patient is well-developed and well-nourished. Patient is nontoxic and well- hydrated and is in no distress. HENT: Normocephalic, Atraumatic. EYES: PERRL, EOMI PULMONARY: Unlabored respirations. No audible rales rhonchi or wheezing was noted. CARDIOVASCULAR: There is a regular rate and rhythm without any murmurs gallops or rubs. ABDOMEN: Soft and nontender with normal bowel sounds. SKIN: Skin is clear with no lesions or rashes and otherwise unremarkable. : Deferred NEUROLOGIC: Patient is alert and oriented x3. Moving all extremities spontaneously MUSCULOSKELETAL: Normal extremities with adequate strength and full range of motion. No lower e xtremity swelling or edema. No calf tenderness. PSYCHIATRIC: Depressed. Limitations: no limitations Course Vital Signs 04/02/19 04/03/19 04/03/19 23:23 00:52 01:00 Temperature 98.6 F Pulse Rate 101 H 95 96 Respiratory 20 16 18 Rate Blood Pressure 175/105 127/86 120/70 O2 Sat by Pulse 97 98 95 Oximetry 04/03/19 04/03/19 02:00 03:00 Temperature Pulse Rate 96 98 Respiratory 18 18 Rate Blood Pressure 123/75 127/69 O2 Sat by Pulse 95 99 Oximetry Medical Decision Making - Medical Decision Making The patient was seen and evaluated history was obtained from patient and police Labs and EKG were ordered EKG was obtained due to complaint of overdose, EKG obtained at 12:07 AM, rate is 84 rhythm is sinus is normal axis, there are normal intervals, [place] 162, QRS 90, QTc is 451 there is no acute ST elevations or depressions no evidence of acute ischemia, infarction or arrhythmia. Labs unremarkable PAtient care discussed with poison control who recommend 4-6hrs of observation then medical clearance for transfer to psychiatric facility Patient medically cleared and evaluated by psychiatry who recommend inpatient evaluation Cert completed Patient remained hemodynamically stable throughout ER stay - Lab Data Result diagrams: 04/02/19 23:50 04/02/19 23:50 Lab Results 04/02/19 04/02/19 04/03/19 Range/Units 23:50 23:50 00:00 WBC 9.5 (4.0-11.0) k/uL RBC 4.42 (3.80-5.40) m/uL Hgb 13.6 (11.4-16.0) gm/dL Hct 39.9 (34.0-46.0) % MCV 90.3 (80.0-100.0) fL MCH 30.9 (25.0-35.0) pg MCHC 34.2 (31.0-37.0) g/dL RDW 14.9 (11.5-15.5) % Plt Count 347 (150-450) k/uL Neutrophils % 52 % Lymphocytes % 38 % Monocytes % 5 % Eosinophils % 3 % Basophils % 1 % Neutrophils # 4.9 (1.3-7.7) k/uL Lymphocytes # 3.6 (1.0-4.8) k/uL Monocytes # 0.5 (0-1.0) k/uL Eosinophils # 0.3 (0-0.7) k/uL Basophils # 0.1 (0-0.2) k/uL Sodium 140 (137-145) mmol/L Potassium 3.9 (3.5-5.1) mmol/L Chloride 105 (98-107) mmol/L Carbon Dioxide 24 (22-30) mmol/L Anion Gap 11 mmol/L BUN 12 (7-17) mg/dL Creatinine 0.91 (0.52-1.04) mg/dL Est GFR (CKD-EPI)AfAm >90 (>60 ml/min/1.73 sqM) Est GFR (CKD-EPI)NonAf >90 (>60 ml/min/1.73 sqM) Glucose 110 H (74-99) mg/dL Calcium 9.5 (8.4-10.2) mg/dL Total Bilirubin 0.2 (0.2-1.3) mg/dL AST 47 H (14-36) U/L ALT 29 (9-52) U/L Alkaline Phosphatase 73 (38-126) U/L Total Protein 7.2 (6.3-8.2) g/dL Albumin 4.2 (3.5-5.0) g/dL Urine Color Yellow Urine Appearance Clear (Clear) Urine pH 6.0 (5.0-8.0) Ur Specific [place] 1.016 (1.001-1.035) Urine Protein Negative (Negative) Urine Glucose (UA) Negative (Negative) Urine Ketones Negative (Negative) Urine Blood Negative (Negative) Urine Nitrite Negative (Negative) Urine Bilirubin Negative (Negative) Urine Urobilinogen <2.0 (<2.0) mg/dL Ur Leukocyte Esterase Large H (Negative) Urine RBC 3 (0-5) /hpf Urine WBC 33 H (0-5) /hpf Ur Squamous Epith Cells 5 H (0-4) /hpf Urine Mucus Rare H (None) /hpf Urine HCG, Qual (Not Detectd) Salicylates <1.0 mg/dL Urine Opiates Screen Not Detected (NotDetected) Ur Oxycodone Screen Not Detected (NotDetected) Urine Methadone Screen Not Detected (NotDetected) Ur Propoxyphene Screen Not Detected (NotDetected) Acetaminophen <10.0 ug/mL Ur Barbiturates Screen Not Detected (NotDetected) U Tricyclic Antidepress Not Detected (NotDetected) Ur Phencyclidine Scrn Not Detected (NotDetected) Ur Amphetamines Screen Not Detected (NotDetected) U Methamphetamines Scrn Not Detected (NotDetected) U Benzodiazepines Scrn Not Detected (NotDetected) [place] <0.2 mmol/L Urine Cocaine Screen Not Detected (NotDetected) U Marijuana (THC) Screen Not Detected (NotDetected) Serum Alcohol <10 mg/dL 04/03/19 Range/Units 00:00 WBC (4.0-11.0) k/uL RBC (3.80-5.40) m/uL Hgb (11.4-16.0) gm/dL Hct (34.0-46.0) % MCV (80.0-100.0) fL MCH (25.0-35.0) pg MCHC (31.0-37.0) g/dL RDW (11.5-15.5) % Plt Count (150-450) k/uL Neutrophils % % Lymphocytes % % Monocytes % % Eosinophils % % Basophils % % Neutrophils # (1.3-7.7) k/uL Lymphocytes # (1.0-4.8) k/uL Monocytes # (0-1.0) k/uL Eosinophils # (0-0.7) k/uL Basophils # (0-0.2) k/uL Sodium (137-145) mmol/L Potassium (3.5-5.1) mmol/L Chloride (98-107) mmol/L Carbon Dioxide (22-30) mmol/L Anion Gap mmol/L BUN (7-17) mg/dL Creatinine (0.52-1.04) mg/dL Est GFR (CKD-EPI)AfAm (>60 ml/min/1.73 sqM) Est GFR (CKD-EPI)NonAf (>60 ml/min/1.73 sqM) Glucose (74-99) mg/dL Calcium (8.4-10.2) mg/dL Total Bilirubin (0.2-1.3) mg/dL AST (14-36) U/L ALT (9-52) U/L Alkaline Phosphatase (38-126) U/L Total Protein (6.3-8.2) g/dL Albumin (3.5-5.0) g/dL Urine Color Urine Appearance (Clear) Urine pH (5.0-8.0) Ur Specific [place] (1.001-1.035) Urine Protein (Negative) Urine Glucose (UA) (Negative) Urine Ketones (Negative) Urine Blood (Negative) Urine Nitrite (Negative) Urine Bilirubin (Negative) Urine Urobilinogen (<2.0) mg/dL Ur Leukocyte Esterase (Negative) Urine RBC (0-5) /hpf Urine WBC (0-5) /hpf Ur Squamous Epith Cells (0-4) /hpf Urine Mucus (None) /hpf Urine HCG, Qual Not Detected (Not Detectd) Salicylates mg/dL Urine Opiates Screen (NotDetected) Ur Oxycodone Screen (NotDetected) Urine Methadone Screen (NotDetected) Ur Propoxyphene Screen (NotDetected) Acetaminophen ug/mL Ur Barbiturates Screen (NotDetected) U Tricyclic Antidepress (NotDetected) Ur Phencyclidine Scrn (NotDetected) Ur Amphetamines Screen (NotDetected) U Methamphetamines Scrn (NotDetected) U Benzodiazepines Scrn (NotDetected) [place] mmol/L Urine Cocaine Screen (NotDetected) U Marijuana (THC) Screen (NotDetected) Serum Alcohol mg/dL Disposition Clinical Impression: Depression, Major depressive disorder, recurrent episode, severe, Suicide attempt Disposition: TRANSFER TO PSYCH HOSP/UNIT Condition: Serious Referrals: Geraldine Vitale DO [Primary Care Provider] - 1-2 days
[2019-04-03 00:11] LABS: ALT 29 U/L (9-52); AST 47 U/L (14-36); Acetaminophen <10.0 ug/mL; African American GFR (CKD) >90 (>60 ml/min/1.73 sqM); Albumin 4.2 g/dL (3.5-5.0); Alcohol <10 mg/dL; Alkaline Phosphatase 73 U/L (38-126); Anion Gap 11 mmol/L; Blood Urea Nitrogen 12 mg/dL (7-17); Calcium 9.5 mg/dL (8.4-10.2); Carbon Dioxide 24 mmol/L (22-30); Chloride 105 mmol/L (98-107); Glucose 110 mg/dL (74-99); Lithium <0.2 mmol/L; Potassium 3.9 mmol/L (3.5-5.1); Salicylate <1.0 mg/dL; Sodium 140 mmol/L (137-145); Total Bilirubin 0.2 mg/dL (0.2-1.3); Total Protein 7.2 g/dL (6.3-8.2)
[2019-04-03 00:41] LABS: Appearance,Urine Clear (Clear); Bilirubin,Urine Negative (Negative); Blood,Urine Negative (Negative); Color,Urine Yellow; Glucose,Urine (UA) Negative (Negative); Ketones,Urine Negative (Negative); Leukocyte Esterase,Urine Large (Negative); Mucus,Urine Rare /hpf; Nitrite,Urine Negative (Negative); Protein,Urine Negative (Negative); RBC,Urine 3 /hpf (0-5); Specific Gravity,Urine 1.016 (1.001-1.035); Squamous Epithelial Cell,Urine 5 /hpf (0-4); Urobilinogen,Urine <2.0 mg/dL (<2.0); WBC,Urine 33 /hpf (0-5)
[2019-04-03 00:51] LABS: Amphetamine Screen,Urine Not Detected (NotDetected); Barbiturate Screen,Urine Not Detected (NotDetected); Benzodiazepines Screen,Urine Not Detected (NotDetected); Cocaine Screen,Urine Not Detected (NotDetected); Methadone Screen, Urine Not Detected (NotDetected); Opiate Screen,Urine Not Detected (NotDetected); Oxycodone Screen, Urine Not Detected (NotDetected); Phencyclidine Screen,Urine Not Detected (NotDetected); Tricyclic Antidepressant,Urine Not Detected (NotDetected); Urn Cannabinoid Scrn Not Detected (NotDetected)
[2019-04-03] MEDS ORDERED: LEVOTHYROXINE 50 MCG TAB PO SCH (07:00)
[2019-04-03] MEDS ORDERED: ONDANSETRON 4 MG/2 ML VIAL IVP STA (13:12)
[2019-04-03 13:52] VITALS: BP 127/80; PULSE 80; RESP 18; TEMP 98
== END 2019-04-03 13:40 ==
LOC: EC 23:21
DX: F33.2 Major depressive disorder, recurrent severe without psychotic features (principal); T65.92XA Toxic effect of unspecified substance, intentional self-harm, initial encounter; F41.9 Anxiety disorder, unspecified; Z79.890 Hormone replacement therapy; Z79.899 Other long term (current) drug therapy; Z88.1 Allergy status to other antibiotic agents; Z88.8 Allergy status to other drugs, medicaments and biological substances
CPT/HCPCS: 82075; 36415; 93005; 80053; 80178; 85025; 81001; 81025; 80306; 83520; 99285; 96374; G0480 ×2; J2405; 80320; 80329

== ENCOUNTER 2019-11-26 23:42 | Emergency (ER) | payer OTHER ==
[2019-11-26 23:52] VITALS: RESP 18; TEMP 97.8
[2019-11-27] MEDS ORDERED: SODIUM CHLORIDE 0.9% 1,000 ML IV STA (00:10)
--- NOTE | 2019-11-27 00:11 | ED ---
Chest Pain HPI - General Chief Complaint: Chest Pain Stated Complaint: LES, chest tightness Time Seen by Provider: 11/26/19 23:47 Source: patient, family, RN notes reviewed, old records reviewed Mode of arrival: ambulatory Limitations: no limitations - History of Present Illness Complaint: chest pain -: hour(s) Onset: during rest Pain Location: substernal, left chest, epigastric Pain Radiation: abdomen Severity: moderate Severity scale (1-10): 4 Quality: tightness, sharp Consistency: intermittent Improves With: nothing Worsens With: nothing Context: new medications (This is anterior medications or for diarrhea 1 for anxiety) Anginal Symptoms: nausea, vomiting, dyspnea Treatments Prior to Arrival: none - Related Data Home Medications Medication Instructions Recorded Confirmed Levothyroxine Sodium [Synthroid] 50 mcg PO DAILY 01/25/19 04/03/19 Cariprazine HCl [Vraylar] 6 mg PO DAILY 03/17/19 04/03/19 [place] Carbonate 300 mg PO BID 03/17/19 04/03/19 Ergocalciferol (Vitamin D2) 50,000 unit PO Q7D 04/03/19 04/03/19 [Drisdol] Etonogestrel/Ethinyl Estradiol 1 ring VAGINAL Q28D 04/03/19 04/03/19 [Nuvaring Vaginal Ring] OXcarbazepine [Trileptal] 300 mg PO BID 04/03/19 04/03/19 Allergies Allergy/AdvReac Type Severity Reaction Status Date / Time vancomycin Allergy Anaphylaxis Verified 11/26/19 23:53 lorazepam [From Ativan] AdvReac Rapid Verified 11/26/19 23:53 Heart Rate Review of Systems ROS Statement: Those systems with pertinent positive or pertinent negative responses have been documented in the HPI. ROS Other: All systems not noted in ROS Statement are negative. Past Medical History Past Medical History: Thyroid Disorder Additional Past Medical History / Comment(s): bipolar History of Any Multi-Drug Resistant Organisms: None Reported Past Surgical History: Adenoidectomy, Section, Cholecystectomy, Ear Surgery, Orthopedic Surgery, Tonsillectomy Additional Past Surgical History / Comment(s): Patient states that she has had multiple surgeries to her ears for tube placement. Past Anesthesia/Blood Transfusion Reactions: No Reported Reaction Past Psychological History: Anxiety, Bipolar, Depression Smoking Status: Never smoker Past Alcohol Use History: Occasional Past Drug Use History: None Reported - Past Family History Mother Family Medical History: Diabetes Mellitus, Hypertension Father History Unknown: Yes Sister(s) Additional Family Medical History / Comment(s): social anxiety disorder General Exam Limitations: no limitations General appearance: alert, in no apparent distress, obese Head exam: Present: atraumatic, normocephalic, normal inspection Eye exam: Present: normal appearance, PERRL, EOMI. Absent: scleral icterus, conjunctival injection, periorbital swelling ENT exam: Present: normal exam, mucous membranes moist Neck exam: Present: normal inspection. Absent: tenderness, meningismus, lymphadenopathy Respiratory exam: Present: normal lung sounds bilaterally. Absent: respiratory distress, wheezes, rales, rhonchi, stridor Cardiovascular Exam: Present: regular rate, normal rhythm, normal heart sounds. Absent: systolic murmur, diastolic murmur, rubs, gallop, clicks GI/Abdominal exam: Present: soft, normal bowel sounds. Absent: distended, tenderness, guarding, rebound, rigid Extremities exam: Present: normal inspection, full ROM, normal capillary refill. Absent: tenderness, pedal edema, joint swelling, calf tenderness Back exam: Present: normal inspection Neurological exam: Present: alert, oriented X3, CN II-XII intact Psychiatric exam: Present: normal affect, normal mood Skin exam: Present: warm, dry, intact, normal color. Absent: rash Course Vital Signs 11/26/19 11/27/19 11/27/19 23:48 00:37 00:40 Temperature 97.8 F Pulse Rate 96 96 85 Respiratory 18 Rate Blood Pressure 117/69 115/71 O2 Sat by Pulse 99 96 Oximetry 11/27/19 11/27/19 11/27/19 01:10 01:20 01:30 Temperature Pulse Rate 85 86 89 Respiratory Rate Blood Pressure 133/74 141/71 141/71 O2 Sat by Pulse 99 99 98 Oximetry 11/27/19 11/27/19 01:40 01:50 Temperature Pulse Rate 88 81 Respiratory Rate Blood Pressure 141/72 144/77 O2 Sat by Pulse 97 97 Oximetry Disposition Clinical Impression: Atypical chest pain, Chest pain, Pancreatitis Disposition: HOME SELF-CARE Condition: Good Instructions (If sedation given, give patient instructions): Chest Pain (ED), Pancreatitis (ED) Is patient prescribed a controlled substance at d/c from ED?: No Referrals: Geraldine Vitale DO [Primary Care Provider] - 1-2 days
[2019-11-27 00:34] LABS: Basophils % (A) 0 %; Eosinophils # (A) 0.2 k/uL (0-0.7); Eosinophils % (A) 2 %; HGB 13.2 gm/dL (11.4-16.0); Lymphocytes # (A) 3.4 k/uL (1.0-4.8); Lymphocytes % (A) 36 %; MCHC 32.1 g/dL (31.0-37.0); MCV 90.3 fL (80.0-100.0); Mean Platelet Volume 8.1; Monocytes # (A) 0.4 k/uL (0-1.0); Monocytes % (A) 5 %; Neutrophils # (A) 5.2 k/uL (1.3-7.7); Neutrophils % (A) 55 %; Platelet Count 279 k/uL (150-450); RBC 4.55 m/uL (3.80-5.40); RDW 12.4 % (11.5-15.5); WBC 9.5 k/uL (3.8-10.6)
[2019-11-27 00:47] LABS: ALT 37 U/L (4-34); AST 29 U/L (14-36); African American GFR (CKD) >90 (>60 ml/min/1.73 sqM); Alkaline Phosphatase 75 U/L (38-126); Anion Gap 8 mmol/L; Blood Urea Nitrogen 11 mg/dL (7-17); Carbon Dioxide 28 mmol/L (22-30); Chloride 103 mmol/L (98-107); Glucose 111 mg/dL (74-99); Magnesium 1.9 mg/dL (1.6-2.3); Non-African American GFR(CKD) >90 (>60 ml/min/1.73 sqM); Potassium 3.9 mmol/L (3.5-5.1); Sodium 139 mmol/L (137-145); Total Bilirubin 0.3 mg/dL (0.2-1.3); Total Protein 6.8 g/dL (6.3-8.2)
--- NOTE | 2019-11-27 00:54 | XR ---
EXAMINATION TYPE: XR chest 2V DATE OF EXAM: 11/27/2019 COMPARISON: NONE HISTORY: Difficulty breathing. Chest pain TECHNIQUE: 2 views FINDINGS: Heart and mediastinum are normal. Lungs are clear. Diaphragm is normal. Bony thorax appears normal. IMPRESSION: Normal chest.
[2019-11-27 01:06] LABS: D-Dimer 0.33 mg/L FEU (<0.60); Partial Thromboplastin Time 24.1 sec (22.0-30.0)
[2019-11-27 01:56] VITALS: BP 144/77; PULSE 81
== END 2019-11-27 02:16 | disposition home or self-care (01) ==
LOC: EC 23:42
DX: K85.90 Acute pancreatitis without necrosis or infection, unspecified (principal); R07.89 Other chest pain; E07.9 Disorder of thyroid, unspecified; F31.9 Bipolar disorder, unspecified; Z79.890 Hormone replacement therapy; Z79.899 Other long term (current) drug therapy; Z79.3 Long term (current) use of hormonal contraceptives; Z88.1 Allergy status to other antibiotic agents; Z88.8 Allergy status to other drugs, medicaments and biological substances
CPT/HCPCS: 36415; 71046; 80053; 83690; 83735; 83880; 84484; 85025; 85379; 85610; 85730; 96360; 99285

== ENCOUNTER → 2020-03-03 | Outpatient (CLI) | payer OTHER ==
[2020-03-03 14:38] VITALS: BP 122/80; PULSE 70; RESP 16; TEMP 97.5; BMI 50.0
--- NOTE | 2020-03-03 19:09 | P.HPBAR ---
Bariatric H&P - History & Physicial H&P Date: 03/03/20 History & Physicial: Visit/CC: Initial Patient initial contact: Initial weight: 146.057 kg Initial weight in pounds: 322.00 Height: 5 ft 7.25 in Initial BMI: 50.0 Last weight: Current weight: 146.057 kg Current weight in pounds: 322.00 Current BMI: 50.0 [place] body weight (based on NIH guidelines): 61.802 kg Excess body weight loss: 0.0% The patient is a 19 year-old F who presents for Bariatric Assessment. 19-year-old female here today to discuss bariatric surgery. Patient is interested in sleeve gastrectomy. Patient suffers from bipolar disorder, hypothyroidism. BMI 50. Denies DVT or dysphagia. No heartburn. Patient is on her third out of 6 month supervised weight loss. Abdominal surgeries include laparoscopic cholecystectomy and . Denies tobacco use. Review of Systems The patient denies any acute changes in vision or hearing, no dysphagia or odynophagia, no chest pain or shortness of breath, no dysuria or hematuria, no headache, no runny nose, no rectal bleeding or melena, no unexplained weight loss Past Medical History Past Medical History: Thyroid Disorder Additional Past Medical History / Comment(s): bipolar History of Any Multi-Drug Resistant Organisms: None Reported Past Surgical History: Adenoidectomy, Section, Cholecystectomy, Ear Surgery, Orthopedic Surgery, Tonsillectomy Additional Past Surgical History / Comment(s): Patient states that she has had multiple surgeries to her ears for tube placement. Past Anesthesia/Blood Transfusion Reactions: No Reported Reaction Smoking Status: Never smoker - Past Family History Mother Family Medical History: Diabetes Mellitus, Hypertension Father History Unknown: Yes Sister(s) Additional Family Medical History / Comment(s): social anxiety disorder Surgical - Exam Vital Signs Temp Pulse Resp BP 97.5 F L 70 16 122/80 03/03/20 14:37 03/03/20 14:37 03/03/20 14:37 03/03/20 14:37 Physical exam: General: Well-developed, well-nourished HEENT: Normocephalic, sclerae nonicteric Abdomen: Nontender, nondistended Extremities: No edema Neuro: Alert and oriented Bariatric Assessment & Plan (1) Morbid obesity Narrative/Plan: 19-year-old female interested in sleeve gastrectomy. Recommend she continue her supervised weight loss requirements. We'll plan upper endoscopy in 2-3 months. We'll obtain medical and psychiatric clearance. Follow-up in the office after EGD performed. Risks and benefits of the surgical options reviewed in detail with the patient today. All questions answered. Status: Acute Bariatric Checklist Checklist: Plan: Checklist: EGD: 1. Hiatal hernia: 2. H. Pylori: HgbA1c: Vitamin D: Smoking: Never smoker Primary care physician referral: Geraldine Vitale DO Psychiatry clearance: Cardiology clearance: Sleep study: Diet journal: VTE risk score: VTE risk level: Rehab needs at discharge:
== END | disposition home or self-care (01) ==
LOC: BARWHC3 14:05
PROVIDERS: ATTEND Surgery
DX: E66.01 Morbid (severe) obesity due to excess calories (principal); Z68.43 Body mass index [BMI] 50.0-59.9, adult
CPT/HCPCS: 99211

== ENCOUNTER 2020-03-04 18:01 | Emergency (ER) | payer OTHER ==
[2020-03-04 18:48] VITALS: BP 137/82; PULSE 89; RESP 16; TEMP 98.3
[2020-03-04] MEDS ORDERED: KETOROLAC 15 MG/ML 1 ML VIAL IM STA (19:47)
[2020-03-04] MEDS ORDERED: ORPHENADRINE 30 MG/ML 2 ML VIAL IM STA (19:47)
--- NOTE | 2020-03-04 19:54 | ED ---
General Adult HPI - General Chief complaint: Back Pain/Injury Stated complaint: Lower back pain Time Seen by Provider: 03/04/20 19:40 Source: patient, RN notes reviewed Mode of arrival: ambulatory Limitations: no limitations - History of Present Illness Initial comments: Patient is a 19-year-old female sitting to the emergency room for back pain. Patient reports one week ago she was carrying her son in a car seat up the stairs and felt a pull in her back. Patient states she saw the chiropractor and was given an injection of steroids and Toradol and this helped the pain for a few days. However yesterday she went to pick her son up and felt the same pain. Patient denies any weakness in the legs. Denies any numbness or tingling in the groin or buttock. Denies fevers or chills. Denies history of IV drug abuse. Denies bladder or bowel changes.Patient has no other complaints at this time including shortness of breath, chest pain, abdominal pain, nausea or vomiting, headache, or visual changes. - Related Data Home Medications Medication Instructions Recorded Confirmed Levothyroxine Sodium [Synthroid] 50 mcg PO DAILY 01/25/19 03/03/20 Cariprazine HCl [Vraylar] 6 mg PO DAILY 03/17/19 03/03/20 [place] Carbonate 300 mg PO BID 03/17/19 03/03/20 Ergocalciferol (Vitamin D2) 50,000 unit PO Q7D 04/03/19 03/03/20 [Drisdol] OXcarbazepine [Trileptal] 300 mg PO BID 04/03/19 03/03/20 Allergies Allergy/AdvReac Type Severity Reaction Status Date / Time vancomycin Allergy Anaphylaxis Verified 03/04/20 18:48 lorazepam [From Ativan] AdvReac Rapid Verified 03/04/20 18:48 Heart Rate Review of Systems ROS Statement: Those systems with pertinent positive or pertinent negative responses have been documented in the HPI. ROS Other: All systems not noted in ROS Statement are negative. Past Medical History Past Medical History: Thyroid Disorder Additional Past Medical History / Comment(s): bipolar History of Any Multi-Drug Resistant Organisms: None Reported Past Surgical History: Adenoidectomy, Section, Cholecystectomy, Ear Surgery, Orthopedic Surgery, Tonsillectomy Additional Past Surgical History / Comment(s): Patient states that she has had multiple surgeries to her ears for tube placement. Past Anesthesia/Blood Transfusion Reactions: No Reported Reaction Past Psychological History: Anxiety, Bipolar, Depression Smoking Status: Never smoker Past Alcohol Use History: None Reported Past Drug Use History: None Reported - Past Family History Mother Family Medical History: Diabetes Mellitus, Hypertension Father History Unknown: Yes Sister(s) Additional Family Medical History / Comment(s): social anxiety disorder General Exam Limitations: no limitations (obese) General appearance: alert, in no apparent distress Head exam: Present: atraumatic, normocephalic, normal inspection Eye exam: Present: normal appearance, PERRL, EOMI. Absent: scleral icterus, conjunctival injection ENT exam: Present: normal exam, mucous membranes moist Neck exam: Present: normal inspection, full ROM. Absent: tenderness, meningismus, lymphadenopathy Respiratory exam: Present: normal lung sounds bilaterally. Absent: respiratory distress, wheezes, rales, rhonchi, stridor Cardiovascular Exam: Present: regular rate, normal rhythm, normal heart sounds. Absent: systolic murmur, diastolic murmur, rubs, gallop, clicks GI/Abdominal exam: Present: soft, normal bowel sounds. Absent: distended, tenderness, guarding, rebound, rigid Extremities exam: Present: normal capillary refill (capillary refill less than 2 seconds, DP pulse 2+ in lower ext bilaterally. Sensation intact.) Neurological exam: Present: normal gait Course Vital Signs 03/04/20 18:43 Temperature 98.3 F Pulse Rate 89 Respiratory 16 Rate Blood Pressure 137/82 O2 Sat by Pulse 97 Oximetry Medical Decision Making - Medical Decision Making HPI and physical exam as documented. No red flag symptoms. Patient ambulatory.X-ray of the lumbar spine shows a normal exam. patient was given Toradol and Norflex and did have some improvement in pain. Patient will be given Tylenol 3 that she will take at night. Discussed not driving or operating machinery.patient will follow-up with her doctor. She will also be referred to orthopedics. She will return here for any worsening symptoms. - Lab Data Lab Results 03/04/20 Range/Units 19:06 Urine HCG, Qual Not Detected (Not Detectd) Disposition Clinical Impression: Mechanical back pain Disposition: HOME SELF-CARE Condition: Good Instructions (If sedation given, give patient instructions): Acute Low Back Pain (ED) Additional Instructions: take Tylenol 3 for pain but do not take this while driving or operating machinery. Follow up with your doctor or orthopedics. Return to the emergency room for any worsening symptoms such as weakness in the legs, difficulty walking, fevers, or bladder or bowel changes. Is patient prescribed a controlled substance at d/c from ED?: No Referrals: Geraldine Vitale DO [Primary Care Provider] - 1-2 days Kevin Brandon MD [STAFF PHYSICIAN] - 1-2 days Time of Disposition: 20:26
--- NOTE | 2020-03-04 20:13 | XR ---
EXAMINATION TYPE: XR lumbar spine 2 or 3V DATE OF EXAM: 03/04/2020 COMPARISON: NONE HISTORY: Back pain TECHNIQUE: 3 views FINDINGS: Vertebra have normal alignment. Posterior elements are intact. Sacroiliac joints appear nor mal. There is no compression fracture. There are clips from cholecystectomy. Disc spaces are normal. IMPRESSION: Normal lumbar spine exam.
[2020-03-04] MEDS ORDERED: ACET/COD 300 MG/30 MG STARTER PACK 6 TAB BTL PO STA (20:27)
== END 2020-03-04 20:41 | disposition home or self-care (01) ==
LOC: EC 18:01
DX: M54.5 Low back pain (principal); E07.9 Disorder of thyroid, unspecified; F31.9 Bipolar disorder, unspecified; F41.9 Anxiety disorder, unspecified; Z79.899 Other long term (current) drug therapy; Z79.890 Hormone replacement therapy; Z88.8 Allergy status to other drugs, medicaments and biological substances; Z88.1 Allergy status to other antibiotic agents
CPT/HCPCS: 81025; 72100; 99283; 96372 ×2; J2360; J1885

== ENCOUNTER 2020-04-26 14:48 | Inpatient (IN) | payer MEDICAID, OTHER ==
--- NOTE | 2020-04-26 15:19 | ED ---
General Adult HPI - General Chief complaint: Psychiatric Symptoms Stated complaint: Mental Health Time Seen by Provider: 04/26/20 15:06 Source: patient Mode of arrival: ambulatory Limitations: no limitations - History of Present Illness Initial comments: Dictation was produced using [employer] dictation software. please excuse any grammatical, word or spelling errors. This patient was cared for during a federal and state declared state of emergency secondary to Covid 19 Chief Complaint: 19-year-old female past medical history of thyroid disease, bipolar disorder presents with suicidal ideation. History of Present Illness: 19-year-old female presents today with her therapist. Patient has been feeling suicidal for the last couple days. She doesn't have a specific plan. Patient has history of suicide attempt in the past from cutting her wrists to taking pills. She was brought in here for medical evaluation. Denies any homicidal ideation. No visual or auditory hallucinations. The ROS documented in this emergency department record has been reviewed and confirmed by me. Those systems with pertinent positive or negative responses have been documented in the HPI. All other systems are other negative and/or noncontributory. PHYSICAL EXAM: General Impression: Alert and oriented x3, not in acute distress HEENT: Normocephalic atraumatic, extra-ocular movements intact, pupils equal and reactive to light bilaterally, mucous membranes moist. Cardiovascular: Heart regular rate and rhythm Chest: Able to complete full sentences, no retractions, no tachypnea Abdomen: abdomen soft, non-tender, non-distended, no organomegaly Musculoskeletal: Pulses present and equal in all extremities, no peripheral edema Motor: no focal deficits noted Neurological: CN II-XII grossly intact, no focal motor or sensory deficits noted Skin: Intact with no visualized rashes Psych: Normal affect and mood ED course: 19-year-old female presents with suicidal ideation. She does have a specific plan. She has a history of psychiatric disease. Signs upon arrival are within acceptable limits. Patient medically cleared for EPS evaluation. Patient evaluated by EPS. will be admitted to inpatient psychiatry. - Related Data Home Medications Medication Instructions Recorded Confirmed [place] Carbonate 300 mg PO DAILY 03/17/19 04/26/20 Cariprazine HCl [Vraylar] 3 mg PO DAILY 04/26/20 04/26/20 Vortioxetine Hydrobromide 20 mg PO DAILY 04/26/20 04/26/20 [Trintellix] Allergies Allergy/AdvReac Type Severity Reaction Status Date / Time vancomycin Allergy Anaphylaxis Verified 04/26/20 16:26 lorazepam [From Ativan] AdvReac Rapid Verified 04/26/20 16:26 Heart Rate Review of Systems ROS Statement: Those systems with pertinent positive or pertinent negative responses have been documented in the HPI. ROS Other: All systems not noted in ROS Statement are negative. Past Medical History Past Medical History: Thyroid Disorder Additional Past Medical History / Comment(s): bipolar History of Any Multi-Drug Resistant Organisms: None Reported Past Surgical History: Adenoidectomy, Section, Cholecystectomy, Ear Surgery, Orthopedic Surgery, Tonsillectomy Additional Past Surgical History / Comment(s): Patient states that she has had multiple surgeries to her ears for tube placement. Past Anesthesia/Blood Transfusion Reactions: No Reported Reaction Past Psychological History: Anxiety, Bipolar, Depression Smoking Status: Never smoker Past Alcohol Use History: None Reported Past Drug Use History: None Reported - Past Family History Mother Family Medical History: Diabetes Mellitus, Hypertension Father History Unknown: Yes Sister(s) Additional Family Medical History / Comment(s): social anxiety disorder General Exam Limitations: no limitations Course Vital Signs 04/26/20 14:58 Temperature 97.7 F Pulse Rate 60 Respiratory 18 Rate Blood Pressure 110/77 O2 Sat by Pulse 96 Oximetry Medical Decision Making - Lab Data Lab Results 04/26/20 Range/Units 15:28 Urine HCG, Qual Not Detected (Not Detectd) Disposition Clinical Impression: Suicidal ideation Disposition: ADMITTED IP TO THIS [facility] Condition: Fair Referrals: Geraldine Vitale DO [Primary Care Provider] - 1-2 days Decision Time: 17:11
[2020-04-26] MEDS ORDERED: ZIPRASIDONE 20 MG VIAL IM PRN (17:21)
[2020-04-26] MEDS ORDERED: MAGNESIUM HYDROXIDE 2,400 MG/10 ML CUP PO PRN (17:21)
[2020-04-26] MEDS ORDERED: MAG HYDROX/AL HYDROX/SIMETH 30 ML CUP PO PRN (17:21)
[2020-04-26] MEDS ORDERED: hydrOXYzine pamoate 25 MG CAP PO PRN (17:28)
[2020-04-27] MEDS: ACETAMINOPHEN TAB 325 MG TAB PO PRN ×2 (01:07→17:04)
[2020-04-27 06:18] VITALS: RESP 16
[2020-04-27 08:11] LABS: Basophils % (A) 1 %; Eosinophils # (A) 0.2 k/uL (0-0.7); Eosinophils % (A) 3 %; HCT 42.6 % (34.0-46.0); HGB 13.9 gm/dL (11.4-16.0); Lymphocytes # (A) 3.8 k/uL (1.0-4.8); Lymphocytes % (A) 46 %; MCH 29.8 pg (25.0-35.0); MCHC 32.6 g/dL (31.0-37.0); MCV 91.4 fL (80.0-100.0); Monocytes # (A) 0.4 k/uL (0-1.0); Monocytes % (A) 5 %; Neutrophils # (A) 3.6 k/uL (1.3-7.7); Neutrophils % (A) 44 %; Platelet Count 280 k/uL (150-450); RBC 4.66 m/uL (3.80-5.40); RDW 12.4 % (11.5-15.5); WBC 8.3 k/uL (3.8-10.6)
[2020-04-27 08:28] LABS: ALT 51 U/L (4-34); AST 39 U/L (14-36); African American GFR (CKD) >90 (>60 ml/min/1.73 sqM); Albumin 3.9 g/dL (3.5-5.0); Alkaline Phosphatase 72 U/L (38-126); Anion Gap 7 mmol/L; Blood Urea Nitrogen 15 mg/dL (7-17); Calcium 9.1 mg/dL (8.4-10.2); Carbon Dioxide 28 mmol/L (22-30); Chloride 102 mmol/L (98-107); Cholesterol 162 mg/dL (<200); Glucose 101 mg/dL (74-99); HDL Cholesterol 36 mg/dL (40-60); LDL Cholesterol,Calculated 85 mg/dL (0-99); Non-African American GFR(CKD) >90 (>60 ml/min/1.73 sqM); Potassium 4.6 mmol/L (3.5-5.1); Sodium 137 mmol/L (137-145); Total Bilirubin 0.7 mg/dL (0.2-1.3); Total Protein 6.9 g/dL (6.3-8.2); Triglycerides 203 mg/dL (<150)
[2020-04-27] MEDS ORDERED: MELATONIN 5 MG TABLET PO PRN (11:45)
--- NOTE | 2020-04-27 12:35 | P.HP ---
Psychiatric H&P - . H&P Date: 04/27/20 History & Physical: Allergies Allergy/AdvReac Type Severity Reaction Status Date / Time vancomycin Allergy Anaphylaxis Verified 04/26/20 16:26 lorazepam From Ativan AdvReac Rapid Verified 04/26/20 16:26 Heart Rate Vital Signs Temp 98.4 F 04/27/20 06:18 Pulse 67 04/27/20 06:18 Resp 16 04/27/20 06:18 BP 125/57 04/27/20 06:18 Pulse Ox 98 04/27/20 06:18 Intake & Output 04/26/20 04/27/20 04/27/20 18:59 06:59 18:59 Weight 146.7 kg Laboratory Last Values WBC 8.3 k/uL (3.8-10.6) 04/27/20 07:27 RBC 4.66 m/uL (3.80-5.40) 04/27/20 07:27 Hgb 13.9 gm/dL (11.4-16.0) 04/27/20 07:27 Hct 42.6 % (34.0-46.0) 04/27/20 07:27 MCV 91.4 fL (80.0-100.0) 04/27/20 07:27 MCH 29.8 pg (25.0-35.0) 04/27/20 07:27 MCHC 32.6 g/dL (31.0-37.0) 04/27/20 07:27 RDW 12.4 % (11.5-15.5) 04/27/20 07:27 Plt Count 280 k/uL (150-450) 04/27/20 07:27 Neutrophils % 44 % 04/27/20 07:27 Lymphocytes % 46 % 04/27/20 07:27 Monocytes % 5 % 04/27/20 07:27 Eosinophils % 3 % 04/27/20 07:27 Basophils % 1 % 04/27/20 07:27 Neutrophils # 3.6 k/uL (1.3-7.7) 04/27/20 07:27 Lymphocytes # 3.8 k/uL (1.0-4.8) 04/27/20 07:27 Monocytes # 0.4 k/uL (0-1.0) 04/27/20 07:27 Eosinophils # 0.2 k/uL (0-0.7) 04/27/20 07:27 Basophils # 0.0 k/uL (0-0.2) 04/27/20 07:27 Sodium 137 mmol/L (137-145) 04/27/20 07:27 Potassium 4.6 mmol/L (3.5-5.1) 04/27/20 07:27 Chloride 102 mmol/L (98-107) 04/27/20 07:27 Carbon Dioxide 28 mmol/L (22-30) 04/27/20 07:27 Anion Gap 7 mmol/L 04/27/20 07:27 BUN 15 mg/dL (7-17) 04/27/20 07:27 Creatinine 0.83 mg/dL (0.52-1.04) 04/27/20 07:27 Est GFR (CKD-EPI)AfAm >90 (>60 ml/min/1.73 sqM) 04/27/20 07: Est GFR (CKD-EPI)NonAf >90 (>60 ml/min/1.73 sqM) 04/27/20 07:27 Glucose 101 mg/dL (74-99) H 04/27/20 07:27 Calcium 9.1 mg/dL (8.4-10.2) 04/27/20 07:27 Total Bilirubin 0.7 mg/dL (0.2-1.3) 04/27/20 07:27 AST 39 U/L (14-36) H 04/27/20 07:27 ALT 51 U/L (4-34) H 04/27/20 07:27 Alkaline Phosphatase 72 U/L (38-126) 04/27/20 07:27 Total Protein 6.9 g/dL (6.3-8.2) 04/27/20 07:27 Albumin 3.9 g/dL (3.5-5.0) 04/27/20 07:27 Triglycerides 203 mg/dL (<150) H 04/27/20 07:27 Cholesterol 162 mg/dL (<200) 04/27/20 07:27 LDL Cholesterol, Calc 85 mg/dL (0-99) 04/27/20 07:27 HDL Cholesterol 36 mg/dL (40-60) L 04/27/20 07:27 TSH 2.260 mIU/L (0.465-4.680) 04/27/20 07:27 Urine HCG, Qual Not Detected (Not Detectd) 04/26/20 15:28 04/27/20 11:16 IDENTIFYING DATA: Patient is a 19-year-old female who currently lives with her son who is 2 years old and apartment a single [facility]. HPI: Patient presented to the hospital yesterday according to ER report complaining of suicidal ideations for the past few days with no plan. Patient was admitted to the mental health unit for evaluation and treatment. Patient was seen today by securities underwriter and agreeable to speak in the office. Patient claims that she has been feeling "stressed" for the past few days. She claims that she has been off of her medications for the past 2 weeks and states that she was previously on vraylar, trintellix and lithium. She states that she "forgot to take them" and states that after she remembered she restarted them and states that they were at a "higher dose" and claims that she began experiencing side effects to the medications at that time and then stopped taking them once again altogether. She states that she was feeling suicidal briefly and claims that she called her mother and told her that she was wanting to kill herself and hung up the phone and that's when her mother brought her into the hospital. She claims that she did that out of anger and did not actually want to kill herself. She claims that currently her mood is "okay" however does admit to depression in the past. She denied any depression or anxiety today. She did claim that she is had manic episodes in the past where she has felt hypersexual and a decreased need for sleep. Currently today she denies any flight of ideas. Patient denies any suicidal or homicidal ideations intent or plan. At this time patient denies any auditory or visual hallucinations. Patient denies any flight of ideas racing thoughts and increased in goal directed behavior. Patient admits to using no recreational drugs. PAST PSYCHIATRIC HISTORY: Patient states that she has a history of bipolar disorder.. She claims that she is previously on lithium, vraylar and trintellix which were prescribed by her PCP. She claims that she was last admitted one year ago January 2019 on the mental health unit. Patient denies any psychiatric outpatient follow-up however she does claim that she has a therapist that she sees at [facility]. She claims that she has had several suicide attempts in the past including overdosing and cutting. PMH: Obesity and thyroid disorder ALLERGIES: as per EMR CHEMICAL DEPENDENCY HISTORY: as per HPI FAMILY PSYCHIATRIC/SUBSTANCE USE HISTORY: denies SOCIAL HISTORY: Patient was born and raised in [facility] and claims that she completed her GED. She denies any legal problems in the past. She claims that she currently lives in a apartment with her son who is 2 years old and collects Social Security. MENTAL STATUS EXAM: General Appearance: Patient appears to be overweight, stated age is alert, directable, and attempts to cooperate. Patient appears to have poor hygiene and grooming. Behavior: Patient is seated without any agitated behavior. Speech: Patient's speech is fluent and nonpressured. Mood/Affect: Patient reports their mood is "okay now", affect is congruent and constricted. Suicidality/Homicidality: Patient denies having any homicidal ideation intent or plan. Denies any suicidal ideations intent or plan Perceptions: Patient denies any visual hallucinations and denies any auditory hallucinations Though content/process: There is no evidence of any delusional thought content and thought process is linear and goal-directed. Memory and concentration: AOX3, grossly intact for the purposes of this session. Can spell "WORLD" backwards Judgment and insight: poor STRENGTHS/WEAKNESSES: strength is that patient is resilient. Weakness is that patient has chronic mental illness and is impulsive INTELLECT: average IMPRESSIONS: Bipolar disorder type I, mixed features PLAN: -Patient is admitted under voluntary status to MHU for stabilization of psychiatric symptoms and safety. Patient has signed adult voluntary form and medication consent and is placed in patient's chart. -Medications : Will start patient on Abilify 5 mg daily by mouth for mood stabilization/irritability. Patient is agreeable to have her medications simplified and is also agreeable to be started on Abilify Maintenna when she is stabilized on a good dose of Abilify by mouth to help her with med compliance. vistaril prn for anxietyy. Melatonin 5mg hs prn for insomnia -Ativan and Geodon PRN for agitation/aggression -Patient was informed of the risks, benefits and side effects of the medication and patient verbally consented to taking the medications. Patient signed med consent form and was placed in chart. -Internal Medicine consult to perform medical evaluation and physical. -NRT -not needed as patient does not smoke -SW on board for discharge planning. Encourage patient to participate in groups to work on coping skills. 04/27/20 12:28 04/27/20 12:34
[2020-04-27] MEDS: ARIPiprazole 5 MG TAB PO SCH (12:52)
[2020-04-27 18:52] LABS: Hemoglobin A1C 5.3 % (4.0-6.0)
--- NOTE | 2020-04-27 23:25 | P.CONS ---
History of Present Illness - Reason for Consult Consult date: 04/27/20 medical eval - Chief Complaint suicidal - History of Present Illness Yolanda Turner is a 19 yo F with PMH of bipolar disorder, previous suicide attempt who was brought to the ED by her mother with suicidal ideation. She states that she stopped taking her medications for the past 2 weeks or so as she forgot and complains of side effects. Her mood has progressively worsened and she had been feeling stressed and overwhelmed. She denies any specific plan. She denies chest pain, shortness of breath, nausea, vomiting, fever or chills. Review of Systems All systems: negative Constitutional: Denies chills, Denies fever Eyes: denies blurred vision, denies pain Ears, nose, mouth and throat: Denies headache, Denies sore throat Cardiovascular: Denies chest pain, Denies shortness of breath Respiratory: Denies cough Gastrointestinal: Denies abdominal pain, Denies diarrhea, Denies nausea, Denies vomiting Genitourinary: Denies dysuria, Denies hematuria Musculoskeletal: Denies myalgias Integumentary: Denies pruritus, Denies rash Neurological: Denies numbness, Denies weakness Psychiatric: Reports anxiety, Reports depression, Reports suicidal ideation Endocrine: Denies fatigue, Denies weight change Past Medical History Past Medical History: Thyroid Disorder Additional Past Medical History / Comment(s): bipolar History of Any Multi-Drug Resistant Organisms: None Reported Past Surgical History: Adenoidectomy, Section, Cholecystectomy, Ear Surgery, Orthopedic Surgery, Tonsillectomy Additional Past Surgical History / Comment(s): Patient states that she has had multiple surgeries to her ears for tube placement. Past Anesthesia/Blood Transfusion Reactions: No Reported Reaction Past Psychological History: Anxiety, Bipolar, Depression Smoking Status: Never smoker Past Alcohol Use History: None Reported Past Drug Use History: None Reported Additional Drug Use History / Comment(s): Patient states that she has a history of smoking MJ three times in the past. - Past Family History Mother Family Medical History: Diabetes Mellitus, Hypertension Father History Unknown: Yes Sister(s) Additional Family Medical History / Comment(s): social anxiety disorder Medications and Allergies Home Medications Medication Instructions Recorded Confirmed Type [place] Carbonate 300 mg PO DAILY 03/17/19 04/26/20 History Cariprazine HCl [Vraylar] 3 mg PO DAILY 04/26/20 04/26/20 History Vortioxetine Hydrobromide 20 mg PO DAILY 04/26/20 04/26/20 History [Trintellix] Allergies Allergy/AdvReac Type Severity Reaction Status Date / Time vancomycin Allergy Anaphylaxis Verified 04/26/20 16:26 lorazepam [From Ativan] AdvReac Rapid Verified 04/26/20 16:26 Heart Rate Physical Exam Vitals: Vital Signs Temp Pulse Resp BP Pulse Ox 04/27/20 06:18 98.4 F 67 16 125/57 98 General: well nourished, well developed, NAD. Vitals reviewed Eyes: PERRL, EOMI, conjunctiva normal HENT: normocephalic, mucus membranes moist Neck: supple, no JVD Lungs: normal respiratory effort, no wheezes or rales CV: Regular rate and rhythm, no murmur. Peripheral pulses 2+ Abdomen: soft, nondistended, no organomegaly Lymph: no cervical or axillary LAD Skin: warm and dry. Neuro: A&Ox3, depressed mood and affect Results CBC & Chem 7: 04/27/20 07:27 04/27/20 07:27 Labs: Abnormal Lab Results - Last 24 Hours (Table) 04/27/20 Range/Units 07:27 Glucose 101 H (74-99) mg/dL AST 39 H (14-36) U/L ALT 51 H (4-34) U/L Triglycerides 203 H (<150) mg/dL HDL Cholesterol 36 L (40-60) mg/dL Assessment and Plan (1) Suicidal ideation Current Visit: Yes Status: Acute Code(s): R45.851 - SUICIDAL IDEATIONS SNOMED Code(s): 2340707 (2) Borderline personality disorder in adult Current Visit: No Status: Acute Code(s): F60.3 - BORDERLINE PERSONALITY DISORDER SNOMED Code(s): 34558038 (3) Major depressive disorder, recurrent episode, severe Current Visit: No Status: Acute Code(s): F33.2 - MAJOR DEPRESSV DISORDER, RECURRENT SEVERE W/O PSYCH FEATURES SNOMED Code(s): 884512307017 Plan: 1. Suicidal ideation, major depression. Agree with abilify, pt will continue with therapy
[2020-04-28] MEDS: ARIPiprazole 5 MG TAB PO SCH (08:04)
[2020-04-28] MEDS ORDERED: ARIPiprazole IM 400 MG VIAL (NO COST) PHARMACY STOCK IM ONE (16:03)
[2020-04-28] MEDS ORDERED: ARIPiprazole IM SYRINGE 400 MG (NO CHARGE) PHARMACY STOCK IM ONE (16:15)
[2020-04-28] MEDS: ACETAMINOPHEN TAB 325 MG TAB PO PRN ×2 (17:09→22:23)
--- NOTE | 2020-04-28 17:11 | PN ---
PROGRESS NOTE DATE OF SERVICE: 04/28/2020 CHIEF COMPLAINT: The patient was depressed, with suicidal thinking. She stated feeling stressed in the last few days. She has a history of a diagnosis of bipolar disorder going back to age 8. INTERVAL HISTORY: Patient has been doing fair. For the most part she seemed to have a quiet day yesterday. She attended groups. It is noted she did appear to have some intensity in her manner at least during one of the groups. She comes out in the day area. Mostly she has a quiet manner. She slept fairly well last night. Today she has been up. Again she has been attending groups. It is noteworthy that in the 2:30 group the following was documented: "Patient needed multiple redirections secondary to speaking during peer's turn. The patient was inconsistently redirectable." The patient discussed her history of having problems being consistent with medications. She says that when she has been living at home by herself with her child she will miss her medications for a few days, then when she restarts her medications she will often get an upset stomach. She notes that she has been prescribed medications by her family doctor, though in the past she had seen a nurse practitioner, Tali, through [facility]. Medications on admission included Vraylar 3 mg a day, Trintellix 20 mg a day, lithium carbonate 300 mg a day. As noted, Dr. Bennett has recommended that she be switched to Abilify. The patient was in agreement with that for a couple of reasons: She would prefer to be on just one medication rather than a combination, and she also is in agreement with being on the long-acting injectable. She notes that she has been on Abilify oral in the past without difficulties. In regard to her diagnosis, she says that she was diagnosed around age 7 or 8 with bipolar disorder. She described manic episodes where she will have decreased need for sleep, hypersexuality, increased energy. She seemed to indicate that these symptoms would arise when she went off medications. She has been on some medications going back at least to age 7 or 8. She notes that the first medicine she was on was Abilify. She was also on trileptal and Lamictal as the only other medicines she could recall from her past. She notes that currently she lives independently with her 2-year-old daughter. Her mother has been taking care of the daughter. She says her mother checks in on her regularly and anticipates at discharge that she might either live with her mother for a period of time for adjustment or that her mother would see her on a daily basis to be sure things are stable for her. She tolerates her psychotropic medications. MENTAL STATUS: Patient sat with a little restlessness. She gave good eye contact. She answered questions appropriately. Her thoughts were clear, coherent and goal-directed. Her affect was in a reasonable range. She smiled. She had a friendly manner. Her mood was even. She did not appear to be depressed. There was no indication of manic or hypomanic symptoms. She did not appear to be significantly distressed. There was no indication of thought disorder. She denied thoughts of harm to self or others. Cognition was clear. ASSESSMENT: I will continue the current diagnosis and treatment plan. The patient is hopeful of being discharged soon because of family matters. She does appear to have a support system through her mother especially. Given that she has been on Abilify in the past and agreed to the plan of starting Abilify Maintena, I will initiate Abilify Maintena 400 mg IM one-time dose today. I reviewed medication issues with the patient, including indication, potential side effects, concerns related to metabolics and movement disorder. I will have Social Work look into the possibility of connecting her with [facility] for medication followup. She currently does see Odilia at [facility] for individual therapy. We will focus on stabilization and discharge planning. MMNIURKAL / RUBYN: [id number] /
[2020-04-29 06:40] VITALS: BP 116/61; PULSE 77; TEMP 98.1
[2020-04-29] MEDS: ARIPiprazole 5 MG TAB PO SCH (08:57)
--- NOTE | 2020-04-29 12:42 | DS ---
DISCHARGE SUMMARY DATE OF SERVICE: 04/29/2020. DATE OF ADMISSION: 04/26/2020 DATE OF DISCHARGE: 04/29/2020 ADMISSION AND DISCHARGE DIAGNOSES: Bipolar affect disorder 1, mixed features. HISTORY OF PRESENTING ILLNESS: Patient was admitted when she presented to the ED with complaints of suicidal thinking, which she said had occurred over the last few days due to stress she was experiencing. She noted that she had not been taking her medications for bipolar disorder consistently. She indicated that recently she had been living with her mother and taking medications consistently, though then moved on her own and started forgetting to take medications just in the last few days. She got more distressed, leading to her coming to the hospital. She does report that she was diagnosed with bipolar disorder going back to age 8. She described manic symptoms including episodes of decreased need for sleep, becoming hypersexual, having racing thoughts and impulsive behavior. She apparently had been prescribed Vraylar 3 mg a day, Trintellix 20 mg a day and lithium carbonate 300 mg a day from her primary care physician for her bipolar disorder. She was admitted for further evaluation. PAST MEDICAL HISTORY AND PHYSICAL EXAM: As per medical consultation. Please refer to notes of Dr. Vitale for details. MENTAL STATUS EXAM: Patient was cooperative. Hygiene and grooming appeared poor. She had normal psychomotor activity. Her speech was fluent and nonpressured. Her mood was fair. Affect constricted. There was no indication of thought disorder. Cognition was clear. COURSE OF HOSPITALIZATION: Patient was admitted for comprehensive medical psychiatric and psychosocial evaluation. We engaged the patient in individual and group therapeutic activities. Patient was taken off her other psychotropic medications and started on Abilify 5 mg a day. The plan was to switch her to Abilify Maintena. It is noted that the patient had previously been on Abilify without difficulties. She showed no signs of allergy to Abilify. Generally, she was doing fairly well. She acknowledged that when she misses her medications that is when her mood seems to slip, though on medications, she does fairly well. She believes that Abilify had been helpful in the past. She was started on Abilify 400 mg IM as of 04/28/2020, and would be due for a followup dose in 28 days. She showed a fairly stable mood. She was cooperative with care. She was able to engage in discharge planning. Condition at discharge, patient was stable. Her mood was improved. She was not showing signs of khai, hypomania, or depression. She tolerated her psychotropic medications well. RECOMMENDATIONS AND FOLLOWUP: Patient is discharged to home. She will continue on Abilify 5 mg oral and received Abilify Maintena 400 mg IM on 04/28/2020. She will have followup with [facility] for individual therapy and with her primary care physician for continued use of Abilify Maintena. I would anticipate her being able to go off oral Abilify over the next few weeks. MMODL / IJN: [id number] / MTDD
== END 2020-04-29 13:25 | disposition home or self-care (01) | DRG 885 ==
LOC: EC 14:48 → 3MHU 17:14
PROVIDERS: ADMIT Psychiatry & Neurology Psychiatry; ATTEND Psychiatry & Neurology Psychiatry
DX: F31.60 Bipolar disorder, current episode mixed, unspecified (principal); R45.851 Suicidal ideations; Z68.43 Body mass index [BMI] 50.0-59.9, adult; Z91.14 Patient's other noncompliance with medication regimen; F60.3 Borderline personality disorder; E07.9 Disorder of thyroid, unspecified; F41.9 Anxiety disorder, unspecified; E66.9 Obesity, unspecified; R45.87 Impulsiveness; Z91.5 Personal history of self-harm; Z79.899 Other long term (current) drug therapy; Z98.890 Other specified postprocedural states; Z90.49 Acquired absence of other specified parts of digestive tract; Z88.1 Allergy status to other antibiotic agents; Z88.8 Allergy status to other drugs, medicaments and biological substances; Z81.8 Family history of other mental and behavioral disorders; Z83.3 Family history of diabetes mellitus; Z82.49 Family history of ischemic heart disease and other diseases of the circulatory system
CPT/HCPCS: 80053; 80061; 81025; 82075; 83036; 84443; 85025; 99285

== ENCOUNTER → 2020-05-30 | Outpatient (CLI) | payer OTHER ==
[2020-05-30 13:55] VITALS: BMI 50.4
[2020-05-30 14:04] LABS: HCT 42.3 % (34.0-46.0); HGB 13.9 gm/dL (11.4-16.0); MCH 30.1 pg (25.0-35.0); MCV 91.2 fL (80.0-100.0); Mean Platelet Volume 8.1; Platelet Count 286 k/uL (150-450); RBC 4.64 m/uL (3.80-5.40); RDW 12.1 % (11.5-15.5); WBC 8.6 k/uL (3.8-10.6)
[2020-05-30 19:58] LABS: African American GFR (CKD) 121.3 (60.0-200.0); Albumin 4.2 g/dL (3.80-4.90); Albumin/Globulin Ratio 1.91 (1.60-3.17); Anion Gap 6.2 mmol/L (4.00-12.00); Calcium 9.5 mg/dL (8.7-10.3); Carbon Dioxide 28.8 mmol/L (21.6-31.8); Globulin 2.2 g/dL (1.6-3.3); Non-African American GFR(CKD) 104.6 (60.0-200.0); Potassium 4.9 mmol/L (3.5-5.5); Total Bilirubin 0.3 mg/dL (0.3-1.2); Total Protein 6.4 g/dL (6.2-8.2)
[2020-05-30 20:09] LABS: Folate, Serum 11.6 ng/mL
[2020-05-30 21:07] LABS: Hemoglobin A1C 5.3 % (4.0-6.0)
== END | disposition home or self-care (01) ==
LOC: BARWHC3 09:00
PROVIDERS: ATTEND Surgery
DX: E66.01 Morbid (severe) obesity due to excess calories (principal); K90.89 Other intestinal malabsorption; E55.9 Vitamin D deficiency, unspecified; Z68.43 Body mass index [BMI] 50.0-59.9, adult; Z71.3 Dietary counseling and surveillance
CPT/HCPCS: 80053; 82306; 82607; 82746; 83036; 83540; 84425; 85027; 93005; 97804

== ENCOUNTER → 2020-05-31 | Day surgery (SDC) | payer OTHER ==
[2020-05-30 12:25] VITALS: BMI 51.2
[~2020-05-31] MED LIST: GLYCOPYRROLATE 0.2 MG/ML 2 ML VIAL ONE; LACTATED RINGERS 1,000 ML IV ONE; LIDOCAINE 1% INJ 10MG/ML (20 ML MDV) ONE; PROPOFOL 10 MG/ML 20 ML VIAL IV ONE
[2020-05-31 11:29] VITALS: TEMP 97.2
--- NOTE | 2020-05-31 12:00 | P.GSHP ---
History of Present Illness H&P Date: 05/31/20 Chief Complaint: GERD, presurgical Patient here today for upper endoscopy. Patient being worked up for sleep apnea gastrectomy. Denies dysphagia. Past Medical History Past Medical History: Thyroid Disorder Additional Past Medical History / Comment(s): BIPOLAR History of Any Multi-Drug Resistant Organisms: None Reported Past Surgical History: Adenoidectomy, Section, Cholecystectomy, Ear Surgery, Orthopedic Surgery, Tonsillectomy Additional Past Surgical History / Comment(s): Patient states that she has had multiple surgeries to her ears for tube placement. LT HAND WOUND CLOSURE Past Anesthesia/Blood Transfusion Reactions: No Reported Reaction Smoking Status: Never smoker - Past Family History Mother Family Medical History: Diabetes Mellitus, Hypertension Father History Unknown: Yes Sister(s) Additional Family Medical History / Comment(s): social anxiety disorder Medications and Allergies Home Medications Medication Instructions Recorded Confirmed Type ARIPiprazole IM SYRINGE [Abilify 400 mg IM QMONTHLY 05/30/20 05/31/20 History Maintena Syringe] Geodon-Dose Unknown 1 tab PO DAILY 05/30/20 05/31/20 History Allergies Allergy/AdvReac Type Severity Reaction Status Date / Time vancomycin Allergy Anaphylaxis Verified 05/31/20 11:24 lorazepam [From Ativan] AdvReac Rapid Verified 05/31/20 11:24 Heart Rate Surgical - Exam Vital Signs Temp Pulse Resp BP Pulse Ox 97.2 F L 98 18 139/75 97 05/31/20 11:27 05/31/20 11:27 05/31/20 11:27 05/31/20 11:27 05/31/20 11:27 Physical exam: General: Well-developed, well-nourished HEENT: Normocephalic, sclerae nonicteric Abdomen: Nontender, nondistended Extremities: No edema Neuro: Alert and oriented Assessment and Plan (1) GERD (gastroesophageal reflux disease) Narrative/Plan: Will proceed with upper endoscopy Current Visit: Yes Status: Acute Code(s): K21.9 - GASTRO-ESOPHAGEAL REFLUX DISEASE WITHOUT ESOPHAGITIS SNOMED Code(s): 455778037
--- NOTE | 2020-05-31 12:07 | P.PCN ---
Date of Procedure: 05/31/20 Procedure(s) Performed: Preoperative Dx: GERD Postoperative Dx: Minimal gastritis Procedure: EGD with Bx Anesthesia: Sedation Endoscopist: Dr. Palumbo Specimens: Antrum Endoscopic Procedure: The patient was on the endoscopy table in the left decubitus position. The Olympus gastroscope was inserted into the oropharynx and passed under direct visualization to the region of the third portion of the duodenum. From that point the scope was slowly withdrawn inspecting all surfaces carefully. There were no neoplastic inflammatory or polypoid lesions throughout the duodenum. The pylorus was widely patent. The stomach was carefully inspected. There was minimal gastritis present. A biopsy of the antrum took place to rule out H. pylori. Retroflexion revealed a normal hiatus. The esophagus was then carefully examined. There were no neoplastic inflammatory or polypoid lesions throughout the visualized esophagus. The patient was then taken to the recovery room in stable condition per anesthesia guidelines. Recommendations: Resume diet. We'll proceed with sleeve gastrectomy in the near future.
[2020-05-31 12:39] VITALS: BP 125/81; PULSE 100; RESP 18
== END ==
LOC: ORWHC2ENDO 11:10
PROVIDERS: ATTEND Surgery
DX: K29.50 Unspecified chronic gastritis without bleeding (principal); K21.9 Gastro-esophageal reflux disease without esophagitis; E07.9 Disorder of thyroid, unspecified; F31.9 Bipolar disorder, unspecified; E66.9 Obesity, unspecified; Z88.1 Allergy status to other antibiotic agents; Z88.8 Allergy status to other drugs, medicaments and biological substances; Z90.89 Acquired absence of other organs; Z98.890 Other specified postprocedural states; Z90.49 Acquired absence of other specified parts of digestive tract; Z79.899 Other long term (current) drug therapy; Z68.43 Body mass index [BMI] 50.0-59.9, adult; Z83.3 Family history of diabetes mellitus; Z82.49 Family history of ischemic heart disease and other diseases of the circulatory system; Z81.8 Family history of other mental and behavioral disorders
CPT/HCPCS: 81025; 88305; 43239; J2001; J2704

== ENCOUNTER 2020-06-10 23:00 | Emergency (ER) | payer OTHER ==
--- NOTE | 2020-06-11 00:07 | XR ---
EXAMINATION TYPE: XR foot complete RT DATE OF EXAM: 06/10/2020 COMPARISON: NONE HISTORY: Rolled ankle. Foot pain TECHNIQUE: 3 views FINDINGS: Metatarsals are intact. I see no fracture nor dislocation. Joint spaces are normal. Soft ti ssues appear intact. IMPRESSION: Negative right foot exam. No fracture seen.
--- NOTE | 2020-06-11 00:08 | XR ---
EXAMINATION TYPE: XR ankle complete RT DATE OF EXAM: 06/10/2020 COMPARISON: NONE HISTORY: Rolled ankle. Pain. TECHNIQUE: 3 views FINDINGS: There is some widening of the lateral ankle mortise. There is mild lateral soft tissue swel ling. I see no fracture line. IMPRESSION: There is slight widening of the lateral ankle mortise consistent with ligamentous tear. N o fracture seen.
--- NOTE | 2020-06-11 00:13 | ED ---
Lower Extremity Injury HPI - General Chief Complaint: Extremity Injury, Lower Stated Complaint: right lower extremity injury Time Seen by Provider: 06/10/20 23:11 Source: patient, RN notes reviewed, old records reviewed Mode of arrival: ambulatory Limitations: no limitations - History of Present Illness Initial Comments: 18-year-old female presents with right ankle pain after she rolled her ankle standing in the doorway. She reports the previous ankles brains in the past. She denies any knee pain. She denies any foot pain. Patient reports pain with ambulation. Symptoms started 1 hour prior to arrival. She denies any other areas of injury.Patient denies any recent fever, chills, shortness of breath, chest pain, back pain, abdominal pain, nausea vomiting, numbness or tingling, dysuria or hematuria, constipation or diarrhea, headaches or visual changes, or any other current symptoms - Related Data Home Medications Medication Instructions Recorded Confirmed ARIPiprazole IM SYRINGE [Abilify 400 mg IM QMONTHLY 05/30/20 06/01/20 Maintena Syringe] Geodon-Dose Unknown 1 tab PO DAILY 05/30/20 06/01/20 Ziprasidone [Geodon] 40 mg PO DAILY 06/01/20 06/01/20 Allergies Allergy/AdvReac Type Severity Reaction Status Date / Time vancomycin Allergy Anaphylaxis Verified 06/10/20 23:07 lorazepam [From Ativan] AdvReac Rapid Verified 06/10/20 23:07 Heart Rate Review of Systems ROS Statement: Those systems with pertinent positive or pertinent negative responses have been documented in the HPI. ROS Other: All systems not noted in ROS Statement are negative. Past Medical History Past Medical History: Thyroid Disorder Additional Past Medical History / Comment(s): BIPOLAR History of Any Multi-Drug Resistant Organisms: None Reported Past Surgical History: Adenoidectomy, Section, Cholecystectomy, Ear Surgery, Orthopedic Surgery, Tonsillectomy Additional Past Surgical History / Comment(s): Patient states that she has had multiple surgeries to her ears for tube placement. LT HAND WOUND CLOSURE Past Anesthesia/Blood Transfusion Reactions: No Reported Reaction Past Psychological History: Anxiety, Bipolar, Depression Smoking Status: Never smoker Past Alcohol Use History: None Reported Past Drug Use History: None Reported - Past Family History Mother Family Medical History: Diabetes Mellitus, Hypertension Father History Unknown: Yes Sister(s) Additional Family Medical History / Comment(s): social anxiety disorder General Exam - General Exam Comments Initial Comments: 20-year-old female. Alert and oriented. No distress. Limitations: no limitations General appearance: alert, in no apparent distress Head exam: Present: atraumatic, normocephalic, normal inspection Eye exam: Present: normal appearance, PERRL, EOMI. Absent: scleral icterus, conjunctival injection, periorbital swelling ENT exam: Present: normal exam, mucous membranes moist Neck exam: Present: normal inspection. Absent: tenderness, meningismus, lymphadenopathy Respiratory exam: Present: normal lung sounds bilaterally. Absent: respiratory distress, wheezes, rales, rhonchi, stridor Cardiovascular Exam: Present: regular rate, normal rhythm, normal heart sounds. Absent: systolic murmur, diastolic murmur, rubs, gallop, clicks GI/Abdominal exam: Present: soft Extremities exam: Present: normal inspection, full ROM, normal capillary refill. Absent: tenderness, pedal edema, joint swelling, calf tenderness Right Upper Leg exam: Present: normal inspection, full ROM Knee exam: Present: normal inspection, full ROM Lower Leg exam: Present: normal inspection, full ROM Ankle exam: Present: tenderness (Chest tenderness and swelling over the lateral malleolus), swelling. Absent: normal inspection, full ROM Foot/Toe exam: Present: normal inspection, full ROM Neurovascular tendon exam: Present: no vascular compromise Gait: observed and normal Back exam: Present: normal inspection Neurological exam: Present: alert, oriented X3, CN II-XII intact Psychiatric exam: Present: normal affect, normal mood Skin exam: Present: warm, dry, intact, normal color. Absent: rash Course Vital Signs 06/10/20 23:03 Temperature 97.7 F Pulse Rate 90 Respiratory 18 Rate Blood Pressure 164/83 O2 Sat by Pulse 98 Oximetry Medical Decision Making - Medical Decision Making 20-year-old female presents emergency department today for ankle pain and swelling after rolling it. Patient's x-ray shows no evidence of fracture but evidence of widening space is a ligamentous injury. Discussed Patient instructed to follow up with orthopedic was given Felipe wrap and ankle stirrup air splint. Advised Patient to follow-up with the fourth toe and rest ice and elevate. All questions answered. - Radiology Data Radiology results: report reviewed Slight widening of the lateral ankle more T is consistent with ligamentous tear. No fracture seen. The right foot exam. No fracture. Disposition Clinical Impression: Ankle sprain Disposition: HOME SELF-CARE Condition: Good Instructions (If sedation given, give patient instructions): Ankle Sprain (ED) Additional Instructions: Rest, ice, and elevate ankle and foot. Patient can wear the Felipe wrap and Aircast as discussed. Patient informed with orthopedic if symptoms do not improve after resting for the next few days. Is patient prescribed a controlled substance at d/c from ED?: No Referrals: Geraldine Vitale DO [Primary Care Provider] - 1-2 days Dickson Segundo DO [Doctor of Osteopathic Medicine] - 1-2 days Time of Disposition: 00:13
[2020-06-11 01:17] VITALS: BP 114/69; PULSE 94; RESP 19; TEMP 98.6
== END 2020-06-11 00:53 | disposition home or self-care (01) ==
LOC: EC 23:00
DX: S93.401A Sprain of unspecified ligament of right ankle, initial encounter (principal); F41.9 Anxiety disorder, unspecified; F31.9 Bipolar disorder, unspecified; Z79.899 Other long term (current) drug therapy; Z88.0 Allergy status to penicillin; Z88.1 Allergy status to other antibiotic agents; Z88.8 Allergy status to other drugs, medicaments and biological substances; X50.1XXA Overexertion from prolonged static or awkward postures, initial encounter; Y93.01 Activity, walking, marching and hiking; Y92.000 Kitchen of unspecified non-institutional (private) residence as the place of occurrence of the external cause
CPT/HCPCS: 73610; 73630; 99284; 29515; L4350

== ENCOUNTER → 2020-06-21 | Outpatient (CLI) | payer OTHER ==
[2020-06-21 13:49] VITALS: BP 130/82; PULSE 97; RESP 16; TEMP 98.6
[2020-06-21 13:59] VITALS: BMI 50.8
--- NOTE | 2020-06-21 17:23 | P.BASOAP ---
Subjective Progress Note Date: 06/21/20 Principal diagnosis: Morbid obesity Patient returns to the clinic after recent EGD. EGD showed mild gastritis. No hiatal hernia or H. pylori was found. Patient completed her psychiatric evaluation. Patient getting medical clearance later this week. Recent labs were normal with the exception of a vitamin D which was low. Supplements were advised. No other changes to her recent history and physical other than a sprained ankle. Objective - Vital Signs Vital signs: Vital Signs Temp 98.6 F 06/21/20 13:40 Pulse 97 06/21/20 13:40 Resp 16 06/21/20 13:40 BP 130/82 06/21/20 13:40 Pulse Ox Intake & Output 06/20/20 06/21/20 06/21/20 18:59 06:59 18:59 Weight 148.325 kg - Exam Abdomen: Soft, nontender, nondistended Assessment/Plan (1) Morbid obesity Narrative/Plan: Patient doing well at this time. Surgical consent form reviewed in detail. Risks and benefits of the proposed sleeve gastrectomy and alternative procedures reviewed in detail. Patient understands and wishes to proceed. We'll tentatively schedule for July for elective sleeve gastrectomy. Plan: Date: 06/21/20 Initial Weight: 146.057 kg Initial BMI: 50.0 Current Weight: 148.325 kg Current BMI: 50.8 Type of Surgery: Vertical Sleeve Gastrectomy Total Volume in Band: Previous Volume: Volume Removed: Volume Added: Band Size:
== END | disposition home or self-care (01) ==
LOC: BARWHC3 13:10
PROVIDERS: ATTEND Surgery
DX: Z48.815 Encounter for surgical aftercare following surgery on the digestive system (principal); E66.01 Morbid (severe) obesity due to excess calories; Z98.84 Bariatric surgery status; Z68.43 Body mass index [BMI] 50.0-59.9, adult
CPT/HCPCS: 99211

== ENCOUNTER 2020-10-13 15:45 | Emergency (ER) | payer OTHER ==
[2020-10-13 15:50] VITALS: RESP 18
--- NOTE | 2020-10-13 20:49 | XR ---
EXAMINATION TYPE: XR chest 1V DATE OF EXAM: 10/13/2020 COMPARISON: 11/27/2019. HISTORY: Cough TECHNIQUE: Single frontal view of the chest is obtained. FINDINGS: There is no focal air space opacity, pleural effusion, or pneumothorax seen. The cardiac silhouette size is within normal limits. The osseous structures are intact. IMPRESSION: No acute process.
[2020-10-13] MEDS ORDERED: BAMLANIVIMAB 700 MG in SODIUM CHLORIDE 0.9% 50 ML IVPB ONE (21:20)
--- NOTE | 2020-10-13 21:29 | ED ---
SOB HPI - General Chief Complaint: Shortness of Breath Stated Complaint: Chest Pain, Cough, Runny Nose Time Seen by Provider: 10/13/20 20:04 Source: patient Mode of arrival: wheelchair Limitations: no limitations - History of Present Illness Initial Comments: 20-year-old female patient presents to the emergency department today for evaluation of cough, shortness of breath, chest discomfort. Patient states symptoms started 5-6 days ago. States that she has had fever and some chills. Denies nausea or vomiting. Denies diarrhea. Denies any rash. Denies taking any medication for her symptoms. Denies any known sick contacts. Patient denies any recent abdominal pain, constipation, back pain, numbness, tingling, dizziness, weakness, hematuria, dysuria, urinary urgency, urinary frequency, headache, visual changes, or any other complaints. - Related Data Home Medications Medication Instructions Recorded Confirmed ARIPiprazole IM SYRINGE [Abilify 400 mg IM QMONTHLY 05/30/20 06/21/20 Maintena Syringe] Geodon-Dose Unknown 1 tab PO DAILY 05/30/20 06/21/20 Ziprasidone [Geodon] 40 mg PO DAILY 06/01/20 06/21/20 Previous Rx's Medication Instructions Recorded Albuterol Sulfate [Proair Hfa] 1 - 2 puff INHALATION Q6HR PRN #1 10/13/20 inhaler guaiFENesin-DM 600/30MG [Mucinex 2 each PO Q12HR PRN #20 tab.er.12h 10/13/20 Dm] Allergies Allergy/AdvReac Type Severity Reaction Status Date / Time vancomycin Allergy Anaphylaxis Verified 10/13/20 15:51 lorazepam [From Ativan] AdvReac Rapid Verified 10/13/20 15:51 Heart Rate Review of Systems ROS Statement: Those systems with pertinent positive or pertinent negative responses have been documented in the HPI. ROS Other: All systems not noted in ROS Statement are negative. Past Medical History Past Medical History: Thyroid Disorder Additional Past Medical History / Comment(s): BIPOLAR History of Any Multi-Drug Resistant Organisms: None Reported Past Surgical History: Adenoidectomy, Section, Cholecystectomy, Ear Surgery, Orthopedic Surgery, Tonsillectomy Additional Past Surgical History / Comment(s): Patient states that she has had multiple surgeries to her ears for tube placement. LT HAND WOUND CLOSURE Past Anesthesia/Blood Transfusion Reactions: No Reported Reaction Past Psychological History: Anxiety, Bipolar, Depression Smoking Status: Never smoker Past Alcohol Use History: Occasional Past Drug Use History: None Reported - Past Family History Mother Family Medical History: Diabetes Mellitus, Hypertension Father History Unknown: Yes Sister(s) Additional Family Medical History / Comment(s): social anxiety disorder General Exam Limitations: no limitations General appearance: alert, in no apparent distress, other (This is a well- developed, well-nourished adult female patient in no vital signs upon presentation to degrees Fahrenheit, pulse 90, respirations 18, blood pressure 184/99, pulse ox 99% on room air.) Eye exam: Present: normal appearance, PERRL, EOMI. Absent: scleral icterus, conjunctival injection, periorbital swelling ENT exam: Present: normal exam, normal oropharynx, mucous membranes moist Respiratory exam: Present: normal lung sounds bilaterally. Absent: respiratory distress, wheezes, rales, rhonchi, stridor Cardiovascular Exam: Present: regular rate, normal rhythm, normal heart sounds. Absent: systolic murmur, diastolic murmur, rubs, gallop, clicks GI/Abdominal exam: Present: soft, normal bowel sounds. Absent: distended, tenderness, guarding, rebound, rigid Neurological exam: Present: alert, oriented X3, CN II-XII intact Psychiatric exam: Present: normal affect, normal mood Skin exam: Present: warm, dry, intact, normal color. Absent: rash Course Vital Signs 10/13/20 15:48 Temperature 98.0 F Pulse Rate 90 Respiratory 18 Rate Blood Pressure 184/99 O2 Sat by Pulse 99 Oximetry Medical Decision Making - Medical Decision Making 20-year-old female patient presents to the emergency department today for evaluation of upper respiratory symptoms of shortness of breath and chest discomfort. Physical examination is unremarkable. Lungs are clear to auscultation with good air movement. Vital signs show initial high blood pressure the patient is anxious. She does have good oxygen saturation. Chest x-ray was relatively unremarkable. Patient did test positive for COVID-19. She does qualify for bamlanivimab based on her BMI. I discussed this treatment with the patient including risks and benefits. She does agree to receive the medication. She will be discharged home to follow-up with her primary care physician for recheck in 1-2 days. She is instructed to quarantine for 10-14 days. Return parameters were discussed in detail. She verbalizes understanding and agrees with this plan. - Lab Data Lab Results 10/13/20 10/13/20 Range/Units 16:08 20:42 Urine HCG, Qual Not Detected (Not Detectd) Coronavirus (PCR) Detected A (Not Detectd) - Radiology Data Radiology results: report reviewed, image reviewed One view x-ray of the chest is obtained. Report is reviewed in its entirety. Impression by Dr. Knapp shows no acute process. Disposition Clinical Impression: COVID-19 Disposition: HOME SELF-CARE Condition: Good Instructions (If sedation given, give patient instructions): Coronavirus Disease 2019 (COVID-19) Additional Instructions: Take medications as directed. Follow-up through primary care physician for recheck in 1-2 days. Quarantine for 10 days after start of symptoms and you are fever free for 24 hours. Return to the emergency department for any new, worsening, or concerning symptoms. Prescriptions: guaiFENesin-DM 600/30MG [Mucinex Dm] 2 each PO Q12HR PRN #20 tab.er.12h PRN Reason: Cough Albuterol Sulfate [Proair Hfa] 1 - 2 puff INHALATION Q6HR PRN #1 inhaler PRN Reason: Shortness Of Breath Is patient prescribed a controlled substance at d/c from ED?: No Referrals: Geraldine Vitale DO [Primary Care Provider] - 1-2 days
[2020-10-13 23:00] VITALS: BP 142/90; PULSE 98; TEMP 98.4
== END 2020-10-13 23:15 | disposition home or self-care (01) ==
LOC: EC 15:45
DX: U07.1 COVID-19 (principal); F41.9 Anxiety disorder, unspecified; F32.9 Major depressive disorder, single episode, unspecified
CPT/HCPCS: 71045; 81025; 87635; 96374; 99284

== ENCOUNTER 2021-03-18 13:19 | Emergency (ER) | payer OTHER ==
[2021-03-18 13:23] VITALS: BP 114/72; PULSE 81; RESP 16; TEMP 98.5
--- NOTE | 2021-03-18 13:43 | ED ---
ENT HPI - General Chief complaint: ENT Stated complaint: nosebleeds, sent from Time Seen by Provider: 03/18/21 13:34 Source: patient, RN notes reviewed Mode of arrival: ambulatory Limitations: no limitations - History of Present Illness Initial comments: This a 20-year-old female presents emergency Department chief complaint nosebleed on the right. Patient had recurrences last 24 hours. No current pain she has is mild nasal congestion. No trauma denies headache dizziness fevers chills cough congestion. Patient has no major seasonal ALLERGIES she does have air conditioning at home. - Related Data Home Medications Medication Instructions Recorded Confirmed ARIPiprazole IM SYRINGE [Abilify 400 mg IM QMONTHLY 05/30/20 06/21/20 Maintena Syringe] Geodon-Dose Unknown 1 tab PO DAILY 05/30/20 06/21/20 Ziprasidone [Geodon] 40 mg PO DAILY 06/01/20 06/21/20 Previous Rx's Medication Instructions Recorded Albuterol Sulfate [Proair Hfa] 1 - 2 puff INHALATION Q6HR PRN #1 10/13/20 inhaler guaiFENesin-DM 600/30MG [Mucinex 2 each PO Q12HR PRN #20 tab.er.12h 10/13/20 Dm] Allergies Allergy/AdvReac Type Severity Reaction Status Date / Time vancomycin Allergy Anaphylaxis Verified 03/18/21 13:22 lorazepam [From Ativan] AdvReac Rapid Verified 03/18/21 13:22 Heart Rate Review of Systems ROS Statement: Those systems with pertinent positive or pertinent negative responses have been documented in the HPI. ROS Other: All systems not noted in ROS Statement are negative. Past Medical History Past Medical History: Thyroid Disorder Additional Past Medical History / Comment(s): BIPOLAR History of Any Multi-Drug Resistant Organisms: None Reported Past Surgical History: Adenoidectomy, Section, Cholecystectomy, Ear Surgery, Orthopedic Surgery, Tonsillectomy Additional Past Surgical History / Comment(s): Patient states that she has had multiple surgeries to her ears for tube placement. LT HAND WOUND CLOSURE Past Anesthesia/Blood Transfusion Reactions: No Reported Reaction Past Psychological History: Anxiety, Bipolar, Depression Smoking Status: Never smoker Past Alcohol Use History: Occasional Past Drug Use History: None Reported - Past Family History Mother Family Medical History: Diabetes Mellitus, Hypertension Father History Unknown: Yes Sister(s) Additional Family Medical History / Comment(s): social anxiety disorder General Exam Limitations: no limitations General appearance: alert, in no apparent distress Head exam: Present: atraumatic, normocephalic, normal inspection ENT exam: Present: normal oropharynx, mucous membranes moist, TM's normal bilaterally, normal external ear exam, other (Dry blood noted in the right nostril) Neck exam: Present: normal inspection. Absent: tenderness, meningismus, lymphadenopathy Respiratory exam: Present: normal lung sounds bilaterally. Absent: respiratory distress, wheezes, rales, rhonchi, stridor Cardiovascular Exam: Present: regular rate, normal rhythm, normal heart sounds. Absent: systolic murmur, diastolic murmur, rubs, gallop, clicks Course Vital Signs 03/18/21 13:22 Temperature 98.5 F Pulse Rate 81 Respiratory 16 Rate Blood Pressure 114/72 O2 Sat by Pulse 97 Oximetry Medical Decision Making - Medical Decision Making Patient has no active bleeding no be given nose clamp and Afrin.. Patient we discharged stable condition return parameters discussed. Disposition Clinical Impression: Epistaxis Disposition: HOME SELF-CARE Condition: Stable Instructions (If sedation given, give patient instructions): Nosebleed (ED) Additional Instructions: Please return to the Emergency Department if symptoms worsen or any other concerns. Is patient prescribed a controlled substance at d/c from ED?: No Referrals: Geraldine Vitale DO [Primary Care Provider] - 1-2 days Time of Disposition: 13:42
[2021-03-18] MEDS: OXYMETAZOLINE 0.05% NASL SPRAY 1 SPRAY BOTTLE NASAL STA (14:01)
== END 2021-03-18 14:05 | disposition home or self-care (01) ==
LOC: EC 13:19
DX: R04.0 Epistaxis (principal); Z88.1 Allergy status to other antibiotic agents; Z88.8 Allergy status to other drugs, medicaments and biological substances
CPT/HCPCS: 99283

== ENCOUNTER 2021-03-22 18:02 | Emergency (ER) | payer OTHER ==
[2021-03-22 18:07] VITALS: BP 119/60; PULSE 96; RESP 20; TEMP 98.3
[2021-03-22] MEDS ORDERED: IBUPROFEN 600 MG TAB PO STA (18:26)
--- NOTE | 2021-03-22 18:47 | XR ---
EXAMINATION TYPE: XR ankle complete LT DATE OF EXAM: 03/22/2021 COMPARISON: NONE HISTORY: Pain TECHNIQUE: 3 view FINDINGS: Ankle mortise is anatomic. I see no fracture nor dislocation. There is slight widening of t he lateral joint space. There is minimal soft tissue swelling on the lateral aspect. IMPRESSION: No fracture. There is possible ligamentous instability with slight widening of the latera l joint space.
--- NOTE | 2021-03-22 18:57 | ED ---
Lower Extremity Injury HPI - General Chief Complaint: Extremity Injury, Lower Stated Complaint: lt ankle injury Time Seen by Provider: 03/22/21 18:11 Source: patient Mode of arrival: wheelchair Limitations: no limitations - History of Present Illness Initial Comments: Patient is a 20-year-old female presenting to the emergency Department with complaints of left ankle pain after a piece of board she was leaning on fell right onto it. She is complaining pain over the lateral malleolus. She does have some mild swelling present, no obvious deformity. She denies any further injuries at this time. She denies any previous injuries or surgeries of her left ankle. - Related Data Home Medications Medication Instructions Recorded Confirmed ARIPiprazole IM SYRINGE [Abilify 400 mg IM QMONTHLY 05/30/20 06/21/20 Maintena Syringe] Geodon-Dose Unknown 1 tab PO DAILY 05/30/20 06/21/20 Ziprasidone [Geodon] 40 mg PO DAILY 06/01/20 06/21/20 Previous Rx's Medication Instructions Recorded Albuterol Sulfate [Proair Hfa] 1 - 2 puff INHALATION Q6HR PRN #1 10/13/20 inhaler guaiFENesin-DM 600/30MG [Mucinex 2 each PO Q12HR PRN #20 tab.er.12h 10/13/20 Dm] Allergies Allergy/AdvReac Type Severity Reaction Status Date / Time vancomycin Allergy Anaphylaxis Verified 03/22/21 18:04 lorazepam [From Ativan] AdvReac Rapid Verified 03/22/21 18:04 Heart Rate Review of Systems ROS Statement: Those systems with pertinent positive or pertinent negative responses have been documented in the HPI. ROS Other: All systems not noted in ROS Statement are negative. Past Medical History Past Medical History: Thyroid Disorder Additional Past Medical History / Comment(s): BIPOLAR History of Any Multi-Drug Resistant Organisms: None Reported Past Surgical History: Adenoidectomy, Section, Cholecystectomy, Ear Surgery, Orthopedic Surgery, Tonsillectomy Additional Past Surgical History / Comment(s): Patient states that she has had multiple surgeries to her ears for tube placement. LT HAND WOUND CLOSURE Past Anesthesia/Blood Transfusion Reactions: No Reported Reaction Past Psychological History: Anxiety, Bipolar, Depression Smoking Status: Never smoker Past Alcohol Use History: Occasional Past Drug Use History: None Reported - Past Family History Mother Family Medical History: Diabetes Mellitus, Hypertension Father History Unknown: Yes Sister(s) Additional Family Medical History / Comment(s): social anxiety disorder General Exam - General Exam Comments Initial Comments: GENERAL: Patient is well-developed and well-nourished. Patient is nontoxic and in no acute distress. HEAD: Atraumatic, normocephalic. EYES: Pupils equal round and reactive to light, extraocular movements intact, sclera anicteric, conjunctiva are normal. Eyelids were unremarkable. ENT: Moist mucous membranes. NECK: Normal range of motion, supple without lymphadenopathy or JVD. LUNGS: Unlabored respirations. Breath sounds clear to auscultation bilaterally and equal. No wheezes rales or rhonchi. HEART: Regular rate and rhythm without murmurs, rubs or gallops. MUSCULOSKELETAL: Patient has some mild swelling noted over the lateral malleolus, no obvious deformity, no bruising. No pain of the left foot. Neurovascular intact. No clubbing or cyanosis. SKIN: Warm, Dry, normal turgor, no rashes or lesions noted. Limitations: no limitations Course Vital Signs 03/22/21 18:04 Temperature 98.3 F Pulse Rate 96 Respiratory 20 Rate Blood Pressure 119/60 O2 Sat by Pulse 97 Oximetry Medical Decision Making - Medical Decision Making Patient is a 20-year-old female presenting with left ankle pain after a board fell onto a just prior to arrival. X-rays revealed no acute fractures dislocations, there could be some possible widening of the lateral joint space. I discussed these exhibit the patient. I recommended an Felipe wrap for support, elevation and Tylenol Motrin for discomfort. She is stable for discharge. She can follow up with her primary care. She is agreeable to this and is stable for discharge. Disposition Clinical Impression: Contusion of left ankle Disposition: HOME SELF-CARE Condition: Stable Instructions (If sedation given, give patient instructions): Foot Contusion (ED) Additional Instructions: Please return to the Emergency Department if symptoms worsen or any other concerns. Recommend ice the area, Felipe wrap for support. May take ibuprofen for any discomfort. Follow up with your primary care. Is patient prescribed a controlled substance at d/c from ED?: No Referrals: Geraldine Vitale DO [Primary Care Provider] - 1-2 days Time of Disposition: 18:57
== END 2021-03-22 19:10 | disposition home or self-care (01) ==
LOC: EC 18:02
DX: S90.02XA Contusion of left ankle, initial encounter (principal); F41.9 Anxiety disorder, unspecified; F31.9 Bipolar disorder, unspecified; Z90.89 Acquired absence of other organs; Z90.49 Acquired absence of other specified parts of digestive tract; Z88.1 Allergy status to other antibiotic agents; W20.8XXA Other cause of strike by thrown, projected or falling object, initial encounter
CPT/HCPCS: 99283

== ENCOUNTER 2021-06-23 11:48 | Emergency (ER) | payer OTHER ==
[2021-06-23] MEDS ORDERED: SODIUM CHLORIDE 0.9% 500 ML 500 ML IV ONE (12:15)
[2021-06-23 12:39] LABS: Basophils % (A) 1 %; Eosinophils # (A) 0.2 k/uL (0-0.7); Eosinophils % (A) 3 %; HCT 36.3 % (34.0-46.0); HGB 12.9 gm/dL (11.4-16.0); Lymphocytes # (A) 2.9 k/uL (1.0-4.8); Lymphocytes % (A) 33 %; MCH 31.5 pg (25.0-35.0); MCHC 35.4 g/dL (31.0-37.0); MCV 88.9 fL (80.0-100.0); Monocytes # (A) 0.4 k/uL (0-1.0); Monocytes % (A) 5 %; Neutrophils # (A) 5.1 k/uL (1.3-7.7); Neutrophils % (A) 58 %; Platelet Count 315 k/uL (150-450); RBC 4.08 m/uL (3.80-5.40); RDW 12.4 % (11.5-15.5); WBC 8.8 k/uL (3.8-10.6)
[2021-06-23] MEDS: MORPHINE SULFATE 4 MG/ML SYRINGE IVP STA ×2 (12:39→12:40)
[2021-06-23 12:50] LABS: Anion Gap 5 mmol/L; Blood Urea Nitrogen 13 mg/dL (7-17); Carbon Dioxide 25 mmol/L (22-30); Chloride 108 mmol/L (98-107); Glucose 94 mg/dL (74-99); Potassium 3.9 mmol/L (3.5-5.1); Sodium 138 mmol/L (137-145)
[2021-06-23 12:51] LABS: ALT 17 U/L (4-34); AST 17 U/L (14-36); African American GFR (CKD) >90 (>60 ml/min/1.73 sqM); Albumin 3.4 g/dL (3.5-5.0); Alkaline Phosphatase 70 U/L (38-126); Calcium 8.7 mg/dL (8.4-10.2); Magnesium 1.7 mg/dL (1.6-2.3); Non-African American GFR(CKD) >90 (>60 ml/min/1.73 sqM); Total Bilirubin 0.3 mg/dL (0.2-1.3); Total Protein 6.1 g/dL (6.3-8.2)
--- NOTE | 2021-06-23 12:53 | ED ---
General Adult HPI - General Chief complaint: Back Pain/Injury Stated complaint: lower back pain Time Seen by Provider: 06/23/21 11:58 Source: patient, EMS, RN notes reviewed, old records reviewed Mode of arrival: EMS Limitations: no limitations - History of Present Illness Initial comments: 21-year-old female presenting for evaluation of low back pain. Patient was seen at outside emergency department diagnosed with low back sprain and started on oral medication. She'll see her primary care physician who continued Callao. She continues to have low back pain which she states is on the right side radiating to the left. She denies any injury. She denies overuse. She denies any numbness or tingling to her legs. She denies any bowel or bladder d ysfunction. She has had some intermittent diarrhea over the past one week. No fevers. She denies hematuria or dysuria. - Related Data Home Medications Medication Instructions Recorded Confirmed ARIPiprazole IM SYRINGE [Abilify 400 mg IM QMONTHLY 05/30/20 06/23/21 Maintena Syringe] Ergocalciferol [Vitamin D2 (1250 1,250 mcg PO SA 06/23/21 06/23/21 Mcg = 89162 Iu)] HYDROcodone/APAP 5-325MG [[place]ao 1 tab PO Q8H PRN 06/23/21 06/23/21 5-325] Ibuprofen [Motrin Ib] 600 mg PO Q8H PRN 06/23/21 06/23/21 Levothyroxine Sodium [Synthroid] 100 mcg PO DAILY 06/23/21 06/23/21 Phentermine HCl [Adipex-P] 37.5 mg PO DAILY 06/23/21 06/23/21 lamoTRIgine [LaMICtal] 100 mg PO DAILY 06/23/21 06/23/21 metFORMIN HCL 500 mg PO DAILY 06/23/21 06/23/21 Previous Rx's Medication Instructions Recorded Ibuprofen [Motrin] 600 mg PO Q8HR PRN #24 tab 06/23/21 Allergies Allergy/AdvReac Type Severity Reaction Status Date / Time vancomycin Allergy Anaphylaxis Verified 06/23/21 12:30 lorazepam [From Ativan] AdvReac Rapid Verified 06/23/21 12:30 Heart Rate Review of Systems ROS Statement: Those systems with pertinent positive or pertinent negative responses have been documented in the HPI. ROS Other: All systems not noted in ROS Statement are negative. Past Medical History Past Medical History: Thyroid Disorder Additional Past Medical History / Comment(s): BIPOLAR History of Any Multi-Drug Resistant Organisms: None Reported Past Surgical History: Adenoidectomy, Section, Cholecystectomy, Ear Surgery, Orthopedic Surgery, Tonsillectomy Additional Past Surgical History / Comment(s): Patient states that she has had multiple surgeries to her ears for tube placement. LT HAND WOUND CLOSURE Past Anesthesia/Blood Transfusion Reactions: No Reported Reaction Past Psychological History: Anxiety, Bipolar, Depression Smoking Status: Never smoker Past Alcohol Use History: Occasional Past Drug Use History: None Reported - Past Family History Mother Family Medical History: Diabetes Mellitus, Hypertension Father History Unknown: Yes Sister(s) Additional Family Medical History / Comment(s): social anxiety disorder General Exam Limitations: no limitations Head exam: Present: atraumatic, normocephalic Eye exam: Present: normal appearance, PERRL ENT exam: Present: normal exam Neck exam: Present: normal inspection. Absent: tenderness, meningismus Respiratory exam: Present: normal lung sounds bilaterally. Absent: respiratory distress, wheezes Cardiovascular Exam: Present: regular rate, normal rhythm GI/Abdominal exam: Present: soft. Absent: distended, tenderness, guarding Extremities exam: Present: normal inspection, normal capillary refill. Absent: pedal edema Back exam: Present: CVA tenderness (R). Absent: vertebral tenderness Neurological exam: Present: alert, oriented X3 Skin exam: Present: warm, dry, intact. Absent: cyanosis, diaphoretic Course Vital Signs 06/23/21 06/23/21 11:49 13:52 Temperature 98.6 F Pulse Rate 86 65 Respiratory 18 20 Rate Blood Pressure 137/69 133/84 O2 Sat by Pulse 98 99 Oximetry Medical Decision Making - Medical Decision Making 21-year-old female evaluated for low back pain. Patient's normal CBC, normal CMP, negative urinalysis, negative test. I did perform CT of the abdomen and pelvis with lumbar reconstitution, showing multiple bulging disks predominantly at L5-S1. No spinal cord impingement. There is no red flags on exam. She will be started on Motrin. She'll given referral to a primary and orthopedics. - Lab Data Result diagrams: 06/23/21 12:27 06/23/21 12:27 Lab Results 06/23/21 06/23/21 06/23/21 Range/Units 12:27 12: 12:27 WBC 8.8 (3.8-10.6) k/uL RBC 4.08 (3.80-5.40) m/uL Hgb 12.9 (11.4-16.0) gm/dL Hct 36.3 (34.0-46.0) % MCV 88.9 (80.0-100.0) fL MCH 31.5 (25.0-35.0) pg MCHC 35.4 (31.0-37.0) g/dL RDW 12.4 (11.5-15.5) % Plt Count 315 (150-450) k/uL MPV 8.0 Neutrophils % 58 % Lymphocytes % 33 % Monocytes % 5 % Eosinophils % 3 % Basophils % 1 % Neutrophils # 5.1 (1.3-7.7) k/uL Lymphocytes # 2.9 (1.0-4.8) k/uL Monocytes # 0.4 (0-1.0) k/uL Eosinophils # 0.2 (0-0.7) k/uL Basophils # 0.0 (0-0.2) k/uL PT 10.2 (9.0-12.0) sec INR 0.9 (<1.2) APTT 24.4 (22.0-30.0) sec Sodium 138 (137-145) mmol/L Potassium 3.9 (3.5-5.1) mmol/L Chloride 108 H (98-107) mmol/L Carbon Dioxide 25 (22-30) mmol/L Anion Gap 5 mmol/L BUN 13 (7-17) mg/dL Creatinine 0.78 (0.52-1.04) mg/dL Est GFR (CKD-EPI)AfAm >90 (>60 ml/min/1.73 sqM) Est GFR (CKD-EPI)NonAf >90 (>60 ml/min/1.73 sqM) Glucose 94 (74-99) mg/dL Plasma Lactic Acid Saul (0.7-2.0) mmol/L Calcium 8.7 (8.4-10.2) mg/dL Magnesium 1.7 (1.6-2.3) mg/dL Total Bilirubin 0.3 (0.2-1.3) mg/dL AST 17 (14-36) U/L ALT 17 (4-34) U/L Alkaline Phosphatase 70 (38-126) U/L Total Protein 6.1 L (6.3-8.2) g/dL Albumin 3.4 L (3.5-5.0) g/dL Urine Color Urine Appearance (Clear) Urine pH (5.0-8.0) Ur Specific [place] (1.001-1.035) Urine Protein (Negative) Urine Glucose (UA) (Negative) Urine Ketones (Negative) Urine Blood (Negative) Urine Nitrite (Negative) Urine Bilirubin (Negative) Urine Urobilinogen (<2.0) mg/dL Ur Leukocyte Esterase (Negative) Urine RBC (0-5) /hpf Urine WBC (0-5) /hpf Ur Squamous Epith Cells (0-4) /hpf Hyaline Casts (0-2) /lpf Urine Mucus (None) /hpf Urine HCG, Qual (Not Detectd) 06/23/21 06/23/21 06/23/21 Range/Units 12:27 12:58 12:58 WBC (3.8-10.6) k/uL RBC (3.80-5.40) m/uL Hgb (11.4-16.0) gm/dL Hct (34.0-46.0) % MCV (80.0-100.0) fL MCH (25.0-35.0) pg MCHC (31.0-37.0) g/dL RDW (11.5-15.5) % Plt Count (150-450) k/uL MPV Neutrophils % % Lymphocytes % % Monocytes % % Eosinophils % % Basophils % % Neutrophils # (1.3-7.7) k/uL Lymphocytes # (1.0-4.8) k/uL Monocytes # (0-1.0) k/uL Eosinophils # (0-0.7) k/uL Basophils # (0-0.2) k/uL PT (9.0-12.0) sec INR (<1.2) APTT (22.0-30.0) sec Sodium (137-145) mmol/L Potassium (3.5-5.1) mmol/L Chloride (98-107) mmol/L Carbon Dioxide (22-30) mmol/L Anion Gap mmol/L BUN (7-17) mg/dL Creatinine (0.52-1.04) mg/dL Est GFR (CKD-EPI)AfAm (>60 ml/min/1.73 sqM) Est GFR (CKD-EPI)NonAf (>60 ml/min/1.73 sqM) Glucose (74-99) mg/dL Plasma Lactic Acid Saul 1.1 (0.7-2.0) mmol/L Calcium (8.4-10.2) mg/dL Magnesium (1.6-2.3) mg/dL Total Bilirubin (0.2-1.3) mg/dL AST (14-36) U/L ALT (4-34) U/L Alkaline Phosphatase (38-126) U/L Total Protein (6.3-8.2) g/dL Albumin (3.5-5.0) g/dL Urine Color Yellow Urine Appearance Cloudy H (Clear) Urine pH 5.5 (5.0-8.0) Ur Specific [place] 1.041 H (1.001-1.035) Urine Protein 1+ H (Negative) Urine Glucose (UA) Negative (Negative) Urine Ketones Trace H (Negative) Urine Blood Negative (Negative) Urine Nitrite Negative (Negative) Urine Bilirubin Negative (Negative) Urine Urobilinogen <2.0 (<2.0) mg/dL Ur Leukocyte Esterase Negative (Negative) Urine RBC 2 (0-5) /hpf Urine WBC 3 (0-5) /hpf Ur Squamous Epith Cells 3 (0-4) /hpf Hyaline Casts 32 H (0-2) /lpf Urine Mucus Moderate H (None) /hpf Urine HCG, Qual Not Detected (Not Detectd) Disposition Clinical Impression: Lumbar radiculopathy, acute Disposition: HOME SELF-CARE Condition: Good Instructions (If sedation given, give patient instructions): Acute Low Back Deepak n (ED) Prescriptions: Ibuprofen [Motrin] 600 mg PO Q8HR PRN #24 tab PRN Reason: Pain Is patient prescribed a controlled substance at d/c from ED?: No Referrals: Geraldine Vitale DO [Primary Care Provider] - 1-2 days Shar Garcia DO [Doctor of Osteopathic Medicine] - 1-2 days Time of Disposition: 15:25
[2021-06-23 12:54] LABS: INR 0.9 (<1.2); Partial Thromboplastin Time 24.4 sec (22.0-30.0); Prothrombin Time 10.2 sec (9.0-12.0)
[2021-06-23 13:25] LABS: Appearance,Urine Cloudy (Clear); Bilirubin,Urine Negative (Negative); Blood,Urine Negative (Negative); Color,Urine Yellow; Glucose,Urine (UA) Negative (Negative); Hyaline Casts,Urine 32 /lpf (0-2); Ketones,Urine Trace (Negative); Leukocyte Esterase,Urine Negative (Negative); Mucus,Urine Moderate /hpf; Nitrite,Urine Negative (Negative); PH, Urine 5.5 (5.0-8.0); Protein,Urine 1+ (Negative); RBC,Urine 2 /hpf (0-5); Specific Gravity,Urine 1.041 (1.001-1.035); Squamous Epithelial Cell,Urine 3 /hpf (0-4); Urobilinogen,Urine <2.0 mg/dL (<2.0); WBC,Urine 3 /hpf (0-5)
[2021-06-23] MEDS ORDERED: HYDROmorphone 0.5 MG/0.5 ML SYRINGE IVP STA (13:37)
[2021-06-23] MEDS ORDERED: KETOROLAC 30 MG/ML 1 ML VIAL IVP STA (13:37)
--- NOTE | 2021-06-23 14:50 | CT ---
EXAMINATION TYPE: CT abdomen pelvis w con DATE OF EXAM: 06/23/2021 COMPARISON: None INDICATION: Abdominal and back pain. DLP: 4502.4 mGycm, Automated exposure control for dose reduction was used. CONTRAST: 100 mL of Isovue 300. Study performed without Oral Contrast TECHNIQUE: Axial images were obtained from above the diaphragm to the pubic rami in the axial plane a t 5 mm thick sections. Reconstructed images are reviewed on the computer in the coronal plane. FINDINGS: Limited CT sections are obtained the lung bases. The lung bases are clear. CT ABDOMEN: Liver: Normal Spleen: Normal Pancreas: Normal Adrenal glands: The adrenal glands are normal. Gallbladder: Surgically absent Kidneys: No masses are evident. No hydronephrosis is present. No cysts are present. Delayed images were obtained through the kidneys, which remain unremarkable. Aorta: Normal Inferior vena cava: Normal. CT PELVIS: Loops of bowel within the abdomen and pelvis are normal. Studies performed without oral contrast limiting bowel dilation. A few small diverticuli may be within the sigmoid colon. Appendix: Normal as visualized. Urinary bladder: Normal. Genitourinary structures: Uterus is normal. Follicles are present on the left ovary. Right adnexa rosa ears normal. Osseous structures: No suspicious lytic or sclerotic lesions. IMPRESSIONS: 1. Unremarkable CT abdomen and pelvis
--- NOTE | 2021-06-23 14:53 | CT ---
EXAMINATION TYPE: CT lumbar spine w con DATE OF EXAM: 06/23/2021 COMPARISON: None HISTORY: Abdominal and back pain. CT DLP: 4502.04 mGycm CONTRAST: CT scan of the lumbar is performed with IV Contrast, patient injected with 100 mL of Isovue 300. TECHNIQUE: CT of the lumbar spine is performed on a spiral scan at 3 mm thick sections. Reconstructed images are performed in the coronal and sagittal planes. FINDINGS: T12-L1: No focal disc herniation or significant disc bulge is evident. No spinal canal stenosis or neural foraminal stenosis is present. L1-L2: No focal disc herniation or significant disc bulge is evident. No spinal canal stenosis or n eural foraminal stenosis is present L2-L3: No focal disc herniation or significant disc bulge is evident. No spinal canal stenosis or n eural foraminal stenosis is present L3-L4: Minimal disc bulge may be present with intrathecal sac contact. No AP spinal canal stenosis pr esent. Neural foramen are patent. L4-L5: Broad-based disc bulge is present L4-5 slightly greater into the left paracentral and lateral direction. This has mild intrathecal sac impression. No AP spinal canal stenosis is present. Neural f oramen are patent. L5-S1: Mild disc bulge is present. This may be slightly greater into the right paracentral region. No AP spinal canal stenosis is present. Mild bilateral foraminal narrowing is present. Vertebral alignment appears normal. IMPRESSION: 1. Disc bulging L5-S1 slightly greater to the right paracentral region. Correlate with right S1 radic ular symptoms. 2. Broad-based disc bulging slightly greater to the left paracentral region at L4-5. 3. Minimal disc bulge at L3-4 with minimal anterior thecal sac contact.
[2021-06-23 16:35] VITALS: BP 140/87; PULSE 65; RESP 15; TEMP 97.7
== END 2021-06-23 16:19 | disposition home or self-care (01) ==
LOC: EC 11:48
DX: M54.16 Radiculopathy, lumbar region (principal); F41.9 Anxiety disorder, unspecified; F31.9 Bipolar disorder, unspecified
CPT/HCPCS: 36415; 80053; 83605; 83735; 85025; 85610; 85730; 81001; 81025; 72132; 74177; 99284; 96374; 96375; 96361; J2270; J1885; J1170; Q9967

== ENCOUNTER 2021-11-19 14:29 | Emergency (ER) | payer OTHER ==
[2021-11-19 14:47] VITALS: RESP 18; TEMP 99.5
[2021-11-19] MEDS ORDERED: SODIUM CHLORIDE 0.9% 2,000 ML IV STA (15:00)
[2021-11-19] MEDS ORDERED: ONDANSETRON 4 MG/2 ML VIAL IVP STA (15:00)
[2021-11-19] MEDS ORDERED: ACETAMINOPHEN TAB 325 MG TAB PO STA (15:00)
[2021-11-19 15:22] LABS: Basophils % (A) 0 %; Eosinophils # (A) 0.1 k/uL (0-0.7); Eosinophils % (A) 2 %; HCT 42.1 % (34.0-46.0); HGB 14.3 gm/dL (11.4-16.0); Lymphocytes % (A) 19 %; MCH 31.2 pg (25.0-35.0); MCHC 33.9 g/dL (31.0-37.0); MCV 91.9 fL (80.0-100.0); Mean Platelet Volume 8.5; Monocytes # (A) 0.4 k/uL (0-1.0); Monocytes % (A) 7 %; Neutrophils # (A) 3.7 k/uL (1.3-7.7); Neutrophils % (A) 71 %; Platelet Count 236 k/uL (150-450); RBC 4.58 m/uL (3.80-5.40); RDW 12.8 % (11.5-15.5); WBC 5.2 k/uL (3.8-10.6)
[2021-11-19 15:36] LABS: ALT 33 U/L (4-34); AST 29 U/L (14-36); African American GFR (CKD) >90 (>60 ml/min/1.73 sqM); Albumin 3.9 g/dL (3.5-5.0); Alkaline Phosphatase 79 U/L (38-126); Anion Gap 11 mmol/L; Blood Urea Nitrogen 6 mg/dL (7-17); Calcium 9.1 mg/dL (8.4-10.2); Carbon Dioxide 22 mmol/L (22-30); Chloride 102 mmol/L (98-107); Glucose 86 mg/dL (74-99); Magnesium 1.6 mg/dL (1.6-2.3); Non-African American GFR(CKD) >90 (>60 ml/min/1.73 sqM); Potassium 3.6 mmol/L (3.5-5.1); Sodium 135 mmol/L (137-145); Total Bilirubin 0.6 mg/dL (0.2-1.3); Total Protein 7.2 g/dL (6.3-8.2)
--- NOTE | 2021-11-19 15:44 | ED ---
Dizziness HPI - General Chief Complaint: Dizziness Stated Complaint: Dizziness(14 weeks preg.) Time Seen by Provider: 11/19/21 14:50 Source: patient Mode of arrival: ambulatory Limitations: no limitations - History of Present Illness Initial Comments: Patient is a A0 female at 14 weeks presented to the emergency department with a chief complaint of lightheadedness. Patient states symptoms have been occurring for 2-3 weeks with worsening the past 2 days. Patient states her son was diagnosed with the flu yesterday and patient feels that she has the flu that is exacerbating her lightheadedness. Patient reports a dry cough and headache. She denies fever, chills, sore throat, congestion, shortness of breath, and chest pain. Patient did lose consciousness yesterday and fell onto the bathroom floor onto her abdomen. She states she initially had generalized abdominal pain that has since resolved. Patient woke up this morning with new-onset of nausea. She states she has not experienced morning sickness during this . No vomiting. No vaginal bleeding or burning with urination. No other concerns. No history of cardiac disease including arrhythmia or structural abnormalities. Patient's OB is Dr. Newsome in [facility]. Patient states she has not yet seen her doctor but has had an ultrasound for current which was normal. - Related Data Home Medications Medication Instructions Recorded Confirmed ARIPiprazole IM SYRINGE [Abilify 400 mg IM QMONTHLY 05/30/20 06/23/21 Maintena Syringe] Ergocalciferol [Vitamin D2 (1250 1,250 mcg PO SA 06/23/21 06/23/21 Mcg = 89168 Iu)] HYDROcodone/APAP 5-325MG [[place] 1 tab PO Q8H PRN 06/23/21 06/23/21 5-325] Ibuprofen [Motrin Ib] 600 mg PO Q8H PRN 06/23/21 06/23/21 Levothyroxine Sodium [Synthroid] 100 mcg PO DAILY 06/23/21 06/23/21 Phentermine HCl [Adipex-P] 37.5 mg PO DAILY 06/23/21 06/23/21 lamoTRIgine [LaMICtal] 100 mg PO DAILY 06/23/21 06/23/21 metFORMIN HCL 500 mg PO DAILY 06/23/21 06/23/21 Previous Rx's Medication Instructions Recorded Ibuprofen [Motrin] 600 mg PO Q8HR PRN #24 tab 06/23/21 Ondansetron Odt [Zofran Odt] 4 mg PO Q8HR PRN #21 tab 11/19/21 Allergies Allergy/AdvReac Type Severity Reaction Status Date / Time vancomycin Allergy Anaphylaxis Verified 06/23/21 12:30 lorazepam [From Ativan] AdvReac Rapid Verified 06/23/21 12:30 Heart Rate Review of Systems ROS Statement: Those systems with pertinent positive or pertinent negative responses have been documented in the HPI. ROS Other: All systems not noted in ROS Statement are negative. Past Medical History Past Medical History: Thyroid Disorder Additional Past Medical History / Comment(s): BIPOLAR History of Any Multi-Drug Resistant Organisms: None Reported Past Surgical History: Adenoidectomy, Section, Cholecystectomy, Ear Surgery, Orthopedic Surgery, Tonsillectomy Additional Past Surgical History / Comment(s): Patient states that she has had multiple surgeries to her ears for tube placement. LT HAND WOUND CLOSURE Past Anesthesia/Blood Transfusion Reactions: No Reported Reaction Past Psychological History: Anxiety, Bipolar, Depression Smoking Status: Never smoker Past Alcohol Use History: Occasional Past Drug Use History: None Reported - Past Family History Mother Family Medical History: Diabetes Mellitus, Hypertension Father History Unknown: Yes Sister(s) Additional Family Medical History / Comment(s): social anxiety disorder General Exam Limitations: no limitations Course Vital Signs 11/19/21 11/19/21 11/19/21 14:43 15:53 16:25 Temperature 99.5 F Pulse Rate 115 H 89 Respiratory 18 18 18 Rate Blood Pressure 114/70 112/59 Blood Pressure 140/63 [Sitting] Blood Pressure 128/60 [Standing] Blood Pressure 122/52 [Supine] O2 Sat by Pulse 97 100 Oximetry 11/19/21 17:00 Temperature Pulse Rate 88 Respiratory Rate Blood Pressure Blood Pressure [Sitting] Blood Pressure [Standing] Blood Pressure [Supine] O2 Sat by Pulse 97 Oximetry EKG Findings - EKG Comments: EKG Findings:: EKG taken at 15:47. Sinus rhythm, no ST elevation or depression. Ventricular rate 91. SC interval 151. QRS duration 85. QTC 421 Medical Decision Making - Medical Decision Making This is a 21 year old female who presents with worsening lightheadedness, dry cough, headache, and nausea. Thorough history and examination were performed. Patient had one episode of loss of consciousness yesterday and landed on her abdomen. No abdominal pain or vaginal bleeding. Patient is felt more lightheaded the past 2 days with concern for the flu since her son has the flu home. Her temperature is elevated temperature at 99.5F. Influenza A is detected. Laboratory studies are obtained. Patient has normal white count of 5.2. There are no electrolyte abnormalities. EKG shows sinus rhythm. Orthostatics are negative. Ultrasound was obtained which showed a single intrauterine viable . At this time there is no diagnostic studies to explain the patient is feeling lightheaded. Her worsening of the lightheadedness is likely due to influenza infection. Patient is instructed to follow-up with her PROFESSIONAL APPLICATION DESIGNER for further evaluation and management of her symptoms. She is instructed to take Tylenol for fever and increase fluids as tolerated. I will send her home with Zofran. Return parameters discussed. Patient verbalizes understanding and is agreeable to this plan. Dr. Quan is my attending. - Lab Data Result diagrams: 11/19/21 15:02 11/19/21 15:02 Lab Results 11/19/21 11/19/21 11/19/21 Range/Units 15:02 15:02 15:02 WBC 5.2 (3.8-10.6) k/uL RBC 4.58 (3.80-5.40) m/uL Hgb 14.3 (11.4-16.0) gm/dL Hct 42.1 (34.0-46.0) % MCV 91.9 (80.0-100.0) fL MCH 31.2 (25.0-35.0) pg MCHC 33.9 (31.0-37.0) g/dL RDW 12.8 (11.5-15.5) % Plt Count 236 (150-450) k/uL MPV 8.5 Neutrophils % 71 % Lymphocytes % 19 % Monocytes % 7 % Eosinophils % 2 % Basophils % 0 % Neutrophils # 3.7 (1.3-7.7) k/uL Lymphocytes # 1.0 (1.0-4.8) k/uL Monocytes # 0.4 (0-1.0) k/uL Eosinophils # 0.1 (0-0.7) k/uL Basophils # 0.0 (0-0.2) k/uL Sodium 135 L (137-145) mmol/L Potassium 3.6 (3.5-5.1) mmol/L Chloride 102 (98-107) mmol/L Carbon Dioxide 22 (22-30) mmol/L Anion Gap 11 mmol/L BUN 6 L (7-17) mg/dL Creatinine 0.61 (0.52-1.04) mg/dL Est GFR (CKD-EPI)AfAm >90 (>60 ml/min/1.73 sqM) Est GFR (CKD-EPI)NonAf >90 (>60 ml/min/1.73 sqM) Glucose 86 (74-99) mg/dL Calcium 9.1 (8.4-10.2) mg/dL Magnesium 1.6 (1.6-2.3) mg/dL Total Bilirubin 0.6 (0.2-1.3) mg/dL AST 29 (14-36) U/L ALT 33 (4-34) U/L Alkaline Phosphatase 79 (38-126) U/L Total Protein 7.2 (6.3-8.2) g/dL Albumin 3.9 (3.5-5.0) g/dL HCG, Quant 07137.6 mIU/mL Influenza Type A (PCR) Detected A (Not Detectd) Influenza Type B (PCR) Not Detected (Not Detectd) RSV (PCR) Not Detected (Not Detectd) SARS-CoV-2 (PCR) Not Detected (Not Detectd) Disposition Clinical Impression: Lightheadedness, , Influenza A Disposition: HOME SELF-CARE Condition: Good Instructions (If sedation given, give patient instructions): Lightheadedness (ED) Additional Instructions: Please take medication as directed. Increase fluids as tolerated. Follow-up with her PROFESSIONAL APPLICATION DESIGNER in 1-2 days. Return to the emergency department if you experience new, concerning, or worsening symptoms. Prescriptions: Ondansetron Odt [Zofran Odt] 4 mg PO Q8HR PRN #21 tab PRN Reason: Nausea Is patient prescribed a controlled substance at d/c from ED?: No Referrals: Geraldine Vitale DO [Primary Care Provider] - 1-2 days Time of Disposition: 16:49
--- NOTE | 2021-11-19 15:55 | US ---
EXAMINATION TYPE: Transabdominal DATE OF EXAM: 11/19/2021 3:43 PM COMPARISON: NONE CLINICAL HISTORY: fall on abdomen. EXAM PERFORMED: Transabdominal (TA) EXAM MEASUREMENTS: GESTATIONAL AGE / DATING Physician Established: (14 weeks/0 days) EDC: 05/20/2022 Dates by LMP: 08/13/2021 (14 weeks/0 days) EDC: 05/20/2022 Dates by First Scan: No previous this is first scan Dates by Current Scan for: (14 weeks/3 days) EDC: 05/17/2022 MATERNAL ANATOMY Uterus: 17.0 x 9.4 x 10.8 cm Right Ovary: not seen Left Ovary: not seen Post CDS / Adnexa: wnl Presence of free fluid: none GESTATION / SURVEY CRL: 8.4 cm (14 weeks/3 days) BPD: 2.6 cm 14 weeks 4 days FL: 1.4 cm 14 weeks 2 days Heart Rate: 158 bpm Rhythm: Normal IUP: Viable IUP Date of LMP: 08/13/2021 Beta HcG (if available): not available Viable IUP that correlates with patient's LMP. IMPRESSION: 1. Single viable intrauterine with an estimated age of approximately 14 weeks and 3 days. 2. No uterine or placental abnormalities 3. This examination was not performed for evaluation of anatomy or anomalies.
[2021-11-19 16:22] LABS: HCG,Quantitative Serum 44782.6 mIU/mL
[2021-11-19 16:26] VITALS: BP 122/52
[2021-11-19 17:09] LABS: Appearance,Urine Cloudy (Clear); Bilirubin,Urine Negative (Negative); Blood,Urine Negative (Negative); Color,Urine Yellow; Glucose,Urine (UA) Negative (Negative); Leukocyte Esterase,Urine Trace (Negative); Mucus,Urine Few /hpf; Nitrite,Urine Negative (Negative); Protein,Urine Trace (Negative); RBC,Urine 2 /hpf (0-5); Specific Gravity,Urine 1.028 (1.001-1.035); Squamous Epithelial Cell,Urine 18 /hpf (0-4); Urobilinogen,Urine <2.0 mg/dL (<2.0); WBC,Urine 4 /hpf (0-5)
[2021-11-19 17:13] VITALS: PULSE 88
[2021-11-19 17:18] LABS: Ketones,Urine 4+ (Negative)
== END 2021-11-19 17:33 | disposition home or self-care (01) ==
LOC: EC 14:29
DX: O99.512 Diseases of the respiratory system complicating pregnancy, second trimester (principal); E07.9 Disorder of thyroid, unspecified; Z20.822 Contact with and (suspected) exposure to COVID-19; Z79.1 Long term (current) use of non-steroidal anti-inflammatories (NSAID); Z88.1 Allergy status to other antibiotic agents; Z88.8 Allergy status to other drugs, medicaments and biological substances; Z3A.14 14 weeks gestation of pregnancy
CPT/HCPCS: 36415; 93005; 80053; 83735; 85025; 81001; 84702; 87636; 76801; 99284; 96374; 99285; J2405

== ENCOUNTER 2022-02-13 13:25 | Outpatient (CLI) | payer OTHER ==
[2022-02-13 14:32] LABS: Appearance,Urine Cloudy (Clear); Bacteria,Urine Rare /hpf; Bilirubin,Urine Negative (Negative); Blood,Urine Negative (Negative); Color,Urine Yellow; Glucose,Urine (UA) Negative (Negative); Hyaline Casts,Urine 1 /lpf (0-2); Ketones,Urine 2+ (Negative); Leukocyte Esterase,Urine Negative (Negative); Mucus,Urine Occasional /hpf; Nitrite,Urine Negative (Negative); PH, Urine 6.5 (5.0-8.0); Protein,Urine Trace (Negative); RBC,Urine <1 /hpf (0-5); Squamous Epithelial Cell,Urine 7 /hpf (0-4); Urobilinogen,Urine <2.0 mg/dL (<2.0); WBC,Urine 1 /hpf (0-5)
[2022-02-13 14:54] VITALS: BP 126/60; PULSE 89; RESP 16; TEMP 96.8
--- NOTE | 2022-02-21 00:38 | P.MSEPDOC ---
Presenting Problems - Arrival Data Date of Arrival on Unit: 02/13/22 Time of Arrival on Unit: 13:25 Mode of Transport: Ambulatory - Complaint OB-Reason for Admission/Chief Complaint: Pain Comment: Pelvic cramping and back pain since having intercourse 02/12 at 2300. Medical History - Information : 2 Para: 1 Term: 1 : 0 Number of Living Children: 1 - Gestational Age Gestational Age by HEIDY (wks/days): 26 Weeks and 2 Days - History Complications: Prior Comment: Pt states c/s for NRFHT 3.5yrs ago. Pt states she plans to . Review of Systems - Review of Systems Constitutional: No problems Breast: No problems ENT: No problems Cardiovascular: No problems Respiratory: No problems Gastrointestinal: No problems Genitourinary: No problems Musculoskeletal: No problems Neurological: No problems Skin: No problems Vital Signs - Temperature Temperature: 96.8 F Temperature Source: Temporal Artery Scan - Pulse Right Sitting Brachial Pulse Rate: 89 Pulse Assessment Method: Pulse Oximetry - Respirations Respiratory Rate: 16 Oxygen Delivery Method: Room Air O2 Sat by Pulse Oximetry: 98 - Blood Pressure Right Arm Sitting Blood Pressure: 126/60 Blood Pressure Mean: 82 Blood Pressure Source: Automatic Cuff Medical Screen Scoring - Cervical Exam Dilation (cm): 0 Effacement (%): 0 Membranes: Intact - Uterine Contractions Resting: Soft to palpation - Assessment - Baby A Baseline FHR: 140 Heart Rate - NICHD Category: Category I (Normal) Physician Notification - Physician Notified Physician Notified Date: 02/13/22 Physician Notified Time: 14:36 Physician: Bebe Auguste New Order Received: Yes - Notification Comment Comment: Spk c\Dr. Auguste, advsd pt of [facility], Dr. Newsome, , 24 08/28, c/o pelvic cramping and back pain since having intercourse last evening. SVE closed/thick/floating. No VB of LOF. Reviewed urine results. Orders rec'd to d/c pt, increase PO fluids, 64oz water per day, and to follow up c\OB. Maternal Triage Index - Maternal Triage Index Presenting for scheduled procedure w/no complaint: No - Stat/Priority 1 Stat Priority 1: No - Urgent/Priority 2 Urgent Priority 2: No - Prompt/Priority 3 Prompt Priority 3: No - Non-Urgent/Priority 4 Non-Urgent Priority 4: Yes Criteria Met for Priority 4: Discomforts of Disposition - Disposition OB Disposition: Physician follow up in office, Discharge to home, Written follow up instructions reviewed Discharge Date: 02/13/22 Discharge Time: 14:50 I agree with the RN Medical Screening Exam: Yes Case reviewed; plan agreed upon as documented in EMR&OBIX.: Yes Diagnosis: RELATED CONDITIONS, UNSPECIFIED, THIRD TRIMESTER
== END 2022-02-13 14:50 | disposition home or self-care (01) ==
LOC: FBPOP 13:25
PROVIDERS: ATTEND Obstetrics & Gynecology
DX: O26.892 Other specified pregnancy related conditions, second trimester (principal); M54.9 Dorsalgia, unspecified; Z3A.26 26 weeks gestation of pregnancy
CPT/HCPCS: 81001; G0463; 99213

== ENCOUNTER 2022-02-17 22:22 | Outpatient (CLI) | payer OTHER ==
[2022-02-18 00:05] VITALS: BP 118/57; PULSE 85; RESP 16; TEMP 96.9
--- NOTE | 2022-03-09 08:26 | P.MSEPDOC ---
Presenting Problems - Arrival Data Date of Arrival on Unit: 02/17/22 Time of Arrival on Unit: 22:22 Mode of Transport: Wheelchair - Complaint OB-Reason for Admission/Chief Complaint: Pain Comment: abdominal pain and cramping with walking, back pain and ligament pain. Medical History - Information : 2 Para: 1 Term: 1 : 0 Abortions: Spontaneous or Elective: 0 Number of Living Children: 1 - Gestational Age Gestational Age by HEIDY (wks/days): 27 Weeks and 0 Days Review of Systems - Review of Systems Constitutional: No problems Breast: No problems ENT: No problems Cardiovascular: No problems Respiratory: No problems Gastrointestinal: No problems Genitourinary: No problems Musculoskeletal: No problems Neurological: No problems Skin: No problems Vital Signs - Temperature Temperature: 96.9 F Temperature Source: Temporal Artery Scan - Pulse Right Brachial Pulse Rate: 85 Pulse Assessment Method: Automatic Cuff - Respirations Respiratory Rate: 16 Oxygen Delivery Method: Room Air O2 Sat by Pulse Oximetry: 98 - Blood Pressure Right Arm Blood Pressure: 118/57 Blood Pressure Mean: 77 Blood Pressure Source: Automatic Cuff Medical Screen Scoring - Cervical Exam Membranes: Intact - Assessment - Baby A Baseline FHR: 130 Heart Rate - NICHD Category: Category I (Normal) Physician Notification - Physician Notified Physician Notified Date: 02/18/22 Physician Notified Time: 22:38 Physician: Merced Benjamin Order Received: Yes - Notification Comment Comment: [id number]- RN called with report on patient that present to [facility] with c/o abdominal pain and cramping with walking, back pain and ligament pain that has been going on for 3 weeks. Orders recieved for FFN and cervical exam. [id number]- Updated that FFN was negative. Cervical exam closed/thick/high. Orders recieved for discharge. Maternal Triage Index - Maternal Triage Index Presenting for scheduled procedure w/no complaint: No - Stat/Priority 1 Stat Priority 1: No - Urgent/Priority 2 Urgent Priority 2: No - Prompt/Priority 3 Prompt Priority 3: No - Non-Urgent/Priority 4 Non-Urgent Priority 4: Yes Criteria Met for Priority 4: abdominal pain and cramping with walking, back pain and ligament pain. Disposition - Disposition OB Disposition: Discharge to home Discharge Date: 02/18/22 Discharge Time: 23:37 I agree with the RN Medical Screening Exam: Yes Case reviewed; plan agreed upon as documented in EMR&OBIX.: Yes Diagnosis: abdominal pain in
== END 2022-02-17 23:37 ==
LOC: FBPOP 22:22
PROVIDERS: ATTEND Obstetrics & Gynecology
DX: O26.892 Other specified pregnancy related conditions, second trimester (principal); R10.9 Unspecified abdominal pain; Z3A.27 27 weeks gestation of pregnancy; Z88.1 Allergy status to other antibiotic agents; Z88.8 Allergy status to other drugs, medicaments and biological substances
CPT/HCPCS: 82731; G0463; 99213

== ENCOUNTER 2022-02-23 14:12 | Emergency (ER) | payer OTHER ==
[2022-02-23 14:38] VITALS: RESP 18; TEMP 97.8
--- NOTE | 2022-02-23 14:55 | ED ---
General Adult HPI - General Source: patient, EMS, RN notes reviewed, old records reviewed Mode of arrival: EMS Limitations: no limitations - History of Present Illness -: days(s) (2) Location: head Severity scale (1-10): 8 Quality: aching Associated Symptoms: weakness, other (dizziness) <Mahendra Jones - Last Filed: 02/23/22 16:29> <Cristopher Mae - Last Filed: 02/23/22 23:32> - General Chief complaint: Weakness Stated complaint: anxiety Time Seen by Provider: 02/23/22 14:45 - History of Present Illness Initial comments: 21-year-old female, alert and oriented 4 presents to the emergency room with complaints of headache and dizziness this morning. Patient states she was seen last night because she is 28 weeks and hadn't felt the baby move. They did do heart tones which were within normal limits. Patient states that at that time they told her hemoglobin was 7 but she had no symptoms. Patient denies any vaginal bleeding. No rectal bleeding. No vomiting of blood. She states this is her second . She has a history of hypothyroidism. She did call her SIGNAL SUPERVISOR who can't get her in until Saturday and recommended she return to the emergency room. (Mahendra Jones) - Related Data Home Medications Medication Instructions Recorded Confirmed No Known Home Medications 02/23/22 02/23/22 Allergies Allergy/AdvReac Type Severity Reaction Status Date / Time vancomycin Allergy Anaphylaxis Verified 02/23/22 14:38 lorazepam [From Ativan] AdvReac Rapid Verified 02/23/22 14:38 Heart Rate Review of Systems ROS Other: All systems not noted in ROS Statement are negative. <Mahendra Jones - Last Filed: 02/23/22 16:29> ROS Other: All systems not noted in ROS Statement are negative. <Cristopher Mae - Last Filed: 02/23/22 23:32> ROS Statement: Those systems with pertinent positive or pertinent negative responses have been documented in the HPI. Past Medical History Past Medical History: Thyroid Disorder Additional Past Medical History / Comment(s): BIPOLAR History of Any Multi-Drug Resistant Organisms: None Reported Past Surgical History: Adenoidectomy, Section, Cholecystectomy, Ear Surgery, Orthopedic Surgery, Tonsillectomy Additional Past Surgical History / Comment(s): Patient states that she has had multiple surgeries to her ears for tube placement. LT HAND WOUND CLOSURE Past Anesthesia/Blood Transfusion Reactions: No Reported Reaction Past Psychological History: Anxiety, Bipolar, Depression Smoking Status: Never smoker Past Alcohol Use History: None Reported Past Drug Use History: None Reported - Past Family History Mother Family Medical History: Diabetes Mellitus, Hypertension Father History Unknown: Yes Sister(s) Additional Family Medical History / Comment(s): social anxiety disorder <Mahendra Jones - Last Filed: 02/23/22 16:29> General Exam Limitations: no limitations General appearance: alert, in no apparent distress Head exam: Present: atraumatic, normocephalic Eye exam: Present: normal appearance, other (Conjunctiva pink). Absent: scleral icterus, conjunctival injection, periorbital swelling, periorbital tenderness ENT exam: Present: mucous membranes moist Neck exam: Present: normal inspection, full ROM. Absent: tenderness, meningismus Respiratory exam: Present: normal lung sounds bilaterally. Absent: respiratory distress, accessory muscle use Cardiovascular Exam: Present: regular rate, normal rhythm, normal heart sounds GI/Abdominal exam: Present: soft. Absent: distended, tenderness, rigid Extremities exam: Present: normal capillary refill. Absent: pedal edema Back exam: Absent: tenderness, CVA tenderness (R), CVA tenderness (L) Neurological exam: Present: alert, oriented X3 Psychiatric exam: Present: normal affect, normal mood Skin exam: Present: warm, dry, normal color. Absent: cyanosis, diaphoretic <Mahendra Jones - Last Filed: 02/23/22 16:29> Course Vital Signs 02/23/22 02/23/22 02/23/22 14:33 15:08 18:03 Temperature 97.8 F Pulse Rate 85 72 Respiratory 18 18 Rate Blood Pressure 121/67 121/67 119/74 O2 Sat by Pulse 97 96 Oximetry EKG Findings - EKG Results: EKG: sinus rhythm (Ventricular rate 85, GA interval 0.152, QRS 0.80, QTC 0.418) <Mahendra Jones - Last Filed: 02/23/22 16:29> Medical Decision Making - Lab Data Result diagrams: 02/23/22 14:55 <Mahendra Jones Last Filed: 02/23/22 16:29> - Lab Data Result diagrams: 02/23/22 14:55 <Cristopher Mae - Last Filed: 02/23/22 23:32> - Medical Decision Making Patient seen this morning for complaints of not feeling her baby move. She states that she is 28 weeks . She denies any vaginal bleeding, no rectal bleeding no vomiting of blood no material. She was found to have a hemoglobin of 7.9 with a white count of 17. Patient did not have any signs or symptoms of anemia. There was concern that this may be a lab error. heart tones were obtained the patient was discharged home to follow up with her SIGNAL SUPERVISOR. Patient states she went home and that she started to feel dizzy and developed a headache which prompted her return to the emergency room. She denies any vaginal bleeding. No abdominal pain or cramping. Repeat hemoglobin today 12.6. Her blood type is A+. UA was done and shows no evidence of infection or bacteriuria. Patient was advised of the results. Case was signed out to Dr. Mae for follow-up with heart tones and to discharge patient. (Mahendra Jones) I evaluated the patient. States she was extremely anxious phone the laboratory study from yesterday and wanted to be reevaluated. Labs returned within normal limits including a normal hemoglobin value. When I spoke with her, she was resting comfortably without any symptoms or acute complaints. heart tones were found to be 136 bpm. I did do a quick bedside ultrasound for the patient as well which showed heart rate at approximately 135. Definitive IUP. Positive movements. I discussed with the patient strict return precautions. I answered questions that she had. She'll be discharged home with her SIGNAL SUPERVISOR for follow-up. I did explain that the hemoglobin level that was drawn previously, was likely inaccurate as she is no signs of anemia or source of bleeding. Repeat labs which were done on a clean line today are within normal limits. I placed the prior hemoglobin value was a lab error, in agreement with the previous ED physician. She expressed understanding was in agreement this plan. Was discharged home in good condition. (Cristopher Mae) - Lab Data Lab Results 02/23/22 02/23/22 02/23/22 Range/Units 14:55 14:55 14:55 WBC 9.5 (3.8-10.6) k/uL RBC 3.98 (3.80-5.40) m/uL Hgb 12.6 D (11.4-16.0) gm/dL Hct 36.9 (34.0-46.0) % MCV 92.8 (80.0-100.0) fL MCH 31.8 (25.0-35.0) pg MCHC 34.3 (31.0-37.0) g/dL RDW 12.8 (11.5-15.5) % Plt Count 222 (150-450) k/uL MPV 8.5 Neutrophils % 73 % Lymphocytes % 20 % Monocytes % 4 % Eosinophils % 2 % Basophils % 0 % Neutrophils # 7.0 (1.3-7.7) k/uL Lymphocytes # 1.9 (1.0-4.8) k/uL Monocytes # 0.4 (0-1.0) k/uL Eosinophils # 0.1 (0-0.7) k/uL Basophils # 0.0 (0-0.2) k/uL PT 10.1 (9.0-12.0) sec INR 0.9 (<1.2) Urine Color Urine Appearance (Clear) Urine pH (5.0-8.0) Ur Specific [place] (1.001-1.035) Urine Protein (Negative) Urine Glucose (UA) (Negative) Urine Ketones (Negative) Urine Blood (Negative) Urine Nitrite (Negative) Urine Bilirubin (Negative) Urine Urobilinogen (<2.0) mg/dL Ur Leukocyte Esterase (Negative) Urine RBC (0-5) /hpf Urine WBC (0-5) /hpf Ur Squamous Epith Cells (0-4) /hpf Urine Mucus (None) /hpf Blood Type A Positive Blood Type Confirm Blood Type Recheck No Previous Record Bld Type Recheck Status CABO Indicated Antibody Screen NEGATIVE Spec Expiration Date 02/26/2022 - 235402/23/22 02/23/22 Range/Units 15:00 15:14 WBC (3.8-10.6) k/uL RBC (3.80-5.40) m/uL Hgb (11.4-16.0) gm/dL Hct (34.0-46.0) % MCV (80.0-100.0) fL MCH (25.0-35.0) pg MCHC (31.0-37.0) g/dL RDW (11.5-15.5) % Plt Count (150-450) k/uL MPV Neutrophils % % Lymphocytes % % Monocytes % % Eosinophils % % Basophils % % Neutrophils # (1.3-7.7) k/uL Lymphocytes # (1.0-4.8) k/uL Monocytes # (0-1.0) k/uL Eosinophils # (0-0.7) k/uL Basophils # (0-0.2) k/uL PT (9.0-12.0) sec INR (<1.2) Urine Color Yellow Urine Appearance Cloudy H (Clear) Urine pH 6.5 (5.0-8.0) Ur Specific [place] 1.017 (1.001-1.035) Urine Protein Negative (Negative) Urine Glucose (UA) Negative (Negative) Urine Ketones 1+ H (Negative) Urine Blood Negative (Negative) Urine Nitrite Negative (Negative) Urine Bilirubin Negative (Negative) Urine Urobilinogen <2.0 (<2.0) mg/dL Ur Leukocyte Esterase Large H (Negative) Urine RBC 1 (0-5) /hpf Urine WBC 3 (0-5) /hpf Ur Squamous Epith Cells 14 H (0-4) /hpf Urine Mucus Occasional H (None) /hpf Blood Type Blood Type Confirm A Positive Blood Type Recheck Bld Type Recheck Status Antibody Screen Spec Expiration Date Disposition <Mahendra Jones - Last Filed: 02/23/22 16:29> Is patient prescribed a controlled substance at d/c from ED?: No Time of Disposition: 17:50 <Cristopher Mae - Last Filed: 02/23/22 23:32> Clinical Impression: Encounter for laboratory test Disposition: HOME SELF-CARE Condition: Good Referrals: Geraldine Vitale DO [Primary Care Provider] - 1-2 days
[2022-02-23] MEDS ORDERED: ACETAMINOPHEN TAB 500 MG TAB PO STA (14:57)
[2022-02-23 15:27] LABS: Basophils % (A) 0 %; Eosinophils # (A) 0.1 k/uL (0-0.7); Eosinophils % (A) 2 %; HCT 36.9 % (34.0-46.0); Lymphocytes # (A) 1.9 k/uL (1.0-4.8); Lymphocytes % (A) 20 %; MCH 31.8 pg (25.0-35.0); MCHC 34.3 g/dL (31.0-37.0); MCV 92.8 fL (80.0-100.0); Mean Platelet Volume 8.5; Monocytes # (A) 0.4 k/uL (0-1.0); Monocytes % (A) 4 %; Neutrophils % (A) 73 %; Platelet Count 222 k/uL (150-450); RBC 3.98 m/uL (3.80-5.40); RDW 12.8 % (11.5-15.5); WBC 9.5 k/uL (3.8-10.6)
[2022-02-23 15:32] LABS: Appearance,Urine Cloudy (Clear); Bilirubin,Urine Negative (Negative); Blood,Urine Negative (Negative); Color,Urine Yellow; Glucose,Urine (UA) Negative (Negative); Ketones,Urine 1+ (Negative); Leukocyte Esterase,Urine Large (Negative); Mucus,Urine Occasional /hpf; Nitrite,Urine Negative (Negative); PH, Urine 6.5 (5.0-8.0); Protein,Urine Negative (Negative); RBC,Urine 1 /hpf (0-5); Specific Gravity,Urine 1.017 (1.001-1.035); Squamous Epithelial Cell,Urine 14 /hpf (0-4); Urobilinogen,Urine <2.0 mg/dL (<2.0); WBC,Urine 3 /hpf (0-5)
[2022-02-23 15:40] LABS: HGB 12.6 gm/dL (11.4-16.0)
[2022-02-23 15:43] LABS: INR 0.9 (<1.2); Prothrombin Time 10.1 sec (9.0-12.0)
[2022-02-23 18:03] VITALS: BP 119/74; PULSE 72
== END 2022-02-23 18:06 | disposition home or self-care (01) ==
LOC: EC 14:12
DX: Z01.89 Encounter for other specified special examinations (principal); Z88.1 Allergy status to other antibiotic agents; Z88.8 Allergy status to other drugs, medicaments and biological substances
CPT/HCPCS: 36415; 81001; 85025; 85610; 86850; 86900; 86901; 93005

== ENCOUNTER 2022-03-20 08:20 | Outpatient (CLI) | payer OTHER ==
[2022-03-20 09:28] LABS: Basophils % (A) 0 %; Eosinophils # (A) 0.1 k/uL (0-0.7); Eosinophils % (A) 1 %; HCT 35.9 % (34.0-46.0); HGB 11.7 gm/dL (11.4-16.0); Lymphocytes % (A) 21 %; MCH 30.4 pg (25.0-35.0); MCHC 32.7 g/dL (31.0-37.0); MCV 92.8 fL (80.0-100.0); Mean Platelet Volume 8.5; Monocytes # (A) 0.4 k/uL (0-1.0); Monocytes % (A) 4 %; Neutrophils # (A) 6.9 k/uL (1.3-7.7); Neutrophils % (A) 73 %; Platelet Count 230 k/uL (150-450); RBC 3.87 m/uL (3.80-5.40); RDW 12.8 % (11.5-15.5); WBC 9.5 k/uL (3.8-10.6)
[2022-03-20 09:37] LABS: ALT 15 U/L (4-34); AST 15 U/L (14-36); African American GFR (CKD) >90 (>60 ml/min/1.73 sqM); Blood Urea Nitrogen 5 mg/dL (7-17); LDH 315 U/L (313-618); Non-African American GFR(CKD) >90 (>60 ml/min/1.73 sqM); Uric Acid 2.9 mg/dL (3.7-7.4)
[2022-03-20 09:46] LABS: Amorphous Sediment,Urine Moderate /hpf; Appearance,Urine Turbid (Clear); Bacteria,Urine Occasional /hpf; Bilirubin,Urine Negative (Negative); Blood,Urine Negative (Negative); Color,Urine Yellow; Glucose,Urine (UA) Negative (Negative); Ketones,Urine Negative (Negative); Leukocyte Esterase,Urine Large (Negative); Mucus,Urine Many /hpf; Nitrite,Urine Negative (Negative); PH, Urine 6.5 (5.0-8.0); Protein,Urine 1+ (Negative); RBC,Urine 3 /hpf (0-5); Specific Gravity,Urine 1.026 (1.001-1.035); Squamous Epithelial Cell,Urine 62 /hpf (0-4); Urobilinogen,Urine <2.0 mg/dL (<2.0); WBC,Urine 34 /hpf (0-5)
[2022-03-20 10:19] LABS: Creatinine,Urine Random 236.8 mg/dL; Protein/Creatinine Ratio,Urine 0.03
[2022-03-20 10:23] VITALS: BP 135/68; PULSE 98; RESP 16; TEMP 96.4
--- NOTE | 2022-03-22 07:51 | P.MSEPDOC ---
Presenting Problems - Arrival Data Date of Arrival on Unit: 03/20/22 Time of Arrival on Unit: 08:20 Mode of Transport: Ambulatory - Complaint OB-Reason for Admission/Chief Complaint: PIH Comment: pt bp at home 149/97 Medical History - Information : 2 Para: 1 Term: 1 : 0 Abortions: Spontaneous or Elective: 0 Number of Living Children: 1 - Gestational Age Gestational Age by HEIDY (wks/days): 31 Weeks and 2 Days - History Complications: Prior Review of Systems - Review of Systems Constitutional: No problems Breast: No problems ENT: No problems Cardiovascular: No problems Respiratory: No problems Gastrointestinal: No problems Genitourinary: No problems Musculoskeletal: No problems Neurological: No problems Skin: No problems Vital Signs - Temperature Temperature: 96.4 F Temperature Source: Temporal Artery Scan - Pulse Right Sitting Pulse Rate: 98 Pulse Assessment Method: Automatic Cuff - Respirations Respiratory Rate: 16 Oxygen Delivery Method: Room Air - Blood Pressure Right Arm Blood Pressure: 135/68 Blood Pressure Mean: 90 Blood Pressure Source: Automatic Cuff Medical Screen Scoring - Assessment - Baby A Baseline FHR: 135 Heart Rate - NICHD Category: Category I (Normal) NST: Reactive Physician Notification - Physician Notified Physician Notified Date: 03/20/22 Physician Notified Time: 09:58 Physician: Rosamaria Vance Order Received: Yes (d/c home if p/c ratio <0.3) Maternal Triage Index - Non-Urgent/Priority 4 Non-Urgent Priority 4: Yes Criteria Met for Priority 4: bp 120-130's/60's, headache Disposition - Disposition OB Disposition: Discharge to home Discharge Date: 03/20/22 Discharge Time: 10:35 I agree with the RN Medical Screening Exam: Yes Case reviewed; plan agreed upon as documented in EMR&OBIX.: Yes Diagnosis: GESTATIONAL HTN W/O SIGNIFICANT PROTEINURIA, THIRD TRIMESTER
== END 2022-03-20 10:35 | disposition home or self-care (01) ==
LOC: FBPOP 08:20
PROVIDERS: ATTEND Obstetrics & Gynecology
DX: O13.3 Gestational [pregnancy-induced] hypertension without significant proteinuria, third trimester (principal); Z3A.31 31 weeks gestation of pregnancy; Z88.1 Allergy status to other antibiotic agents; Z88.8 Allergy status to other drugs, medicaments and biological substances
CPT/HCPCS: 59025; 82570; 84156; 82565; 83615; 84450; 84460; 84520; 84550; 85025; 81001; G0463; 99215

== ENCOUNTER 2022-08-25 22:08 | Emergency (ER) | payer OTHER ==
[2022-08-25 22:14] VITALS: BP 124/67; PULSE 101; RESP 18; TEMP 98
[2022-08-25 23:19] LABS: Appearance,Urine Clear (Clear); Bilirubin,Urine Negative (Negative); Blood,Urine Negative (Negative); Color,Urine Yellow; Glucose,Urine (UA) Negative (Negative); Ketones,Urine Negative (Negative); Leukocyte Esterase,Urine Negative (Negative); Nitrite,Urine Negative (Negative); PH, Urine 5.5 (5.0-8.0); Protein,Urine Trace (Negative); Specific Gravity,Urine 1.032 (1.001-1.035)
[2022-08-25 23:36] LABS: Amphetamine Screen,Urine Not Detected (NotDetected); Barbiturate Screen,Urine Not Detected (NotDetected); Benzodiazepines Screen,Urine Not Detected (NotDetected); Cocaine Screen,Urine Not Detected (NotDetected); Methadone Screen, Urine Not Detected (NotDetected); Opiate Screen,Urine Not Detected (NotDetected); Oxycodone Screen, Urine Not Detected (NotDetected); Phencyclidine Screen,Urine Not Detected (NotDetected); Tricyclic Antidepressant,Urine Not Detected (NotDetected); Urn Cannabinoid Scrn Not Detected (NotDetected)
--- NOTE | 2022-08-26 00:40 | ED ---
Psych HPI - General Chief Complaint: Psychiatric Symptoms Stated Complaint: Suicidal Time Seen by Provider: 08/25/22 22:16 Source: patient, police Mode of arrival: ambulatory - History of Present Illness Initial Comments: Patient is a 22-year-old female presenting for mental health evaluation. Patient has history of bipolar disorder. I'm told that she called her boyfriend stating that she was going to take a bottle of blood pressure pills but did not take the pills. Patient states that she only wanted attention from him. Her boyfriend called the police after she threatened this. At this time patient denies any suicidal ideation. Denies homicidal ideation. No physical complaints at this time. - Related Data Home Medications Medication Instructions Recorded Confirmed Levothyroxine Sodium 100 mcg PO DAILY 03/08/22 03/20/22 Pnv No.154/Iron Fum/Folic Acid 1 each PO DAILY 03/08/22 03/20/22 [ Plus Vitamin Tablet] Allergies Allergy/AdvReac Type Severity Reaction Status Date / Time vancomycin Allergy Anaphylaxis Verified 08/25/22 22:14 lorazepam [From Ativan] AdvReac Rapid Verified 08/25/22 22:14 Heart Rate Review of Systems ROS Statement: Those systems with pertinent positive or pertinent negative responses have been documented in the HPI. ROS Other: All systems not noted in ROS Statement are negative. Past Medical History Past Medical History: Thyroid Disorder Additional Past Medical History / Comment(s): BIPOLAR History of Any Multi-Drug Resistant Organisms: None Reported Past Surgical History: Adenoidectomy, Section, Cholecystectomy, Ear Surgery, Orthopedic Surgery, Tonsillectomy Additional Past Surgical History / Comment(s): Patient states that she has had multiple surgeries to her ears for tube placement. LT HAND WOUND CLOSURE Past Anesthesia/Blood Transfusion Reactions: No Reported Reaction Past Psychological History: Anxiety, Bipolar, Depression Smoking Status: Never smoker Past Alcohol Use History: Occasional Past Drug Use History: None Reported - Past Family History Mother Family Medical History: Diabetes Mellitus, Hypertension Father History Unknown: Yes Sister(s) Additional Family Medical History / Comment(s): social anxiety disorder General Exam Limitations: no limitations General appearance: alert, in no apparent distress Head exam: Present: atraumatic, normocephalic, normal inspection Eye exam: Present: normal appearance Neck exam: Present: normal inspection, full ROM Respiratory exam: Present: normal lung sounds bilaterally. Absent: respiratory distress, wheezes, rales, rhonchi, stridor Cardiovascular Exam: Present: regular rate, normal rhythm, normal heart sounds. Absent: systolic murmur, diastolic murmur, rubs, gallop, clicks Neurological exam: Present: alert, oriented X3, CN II-XII intact Psychiatric exam: Present: normal affect, normal mood Skin exam: Present: warm, dry, intact, normal color. Absent: rash Course Vital Signs 08/25/22 22:09 Temperature 98.0 F Pulse Rate 101 H Respiratory 18 Rate Blood Pressure 124/67 O2 Sat by Pulse 98 Oximetry Medical Decision Making - Medical Decision Making Was pt. sent in by a medical professional or institution (, PA, HUMAN RESOURCE ADVISOR, urgent care, hospital, or [facility]...) When possible be specific @ -[No] Did you speak to anyone other than the patient for history (EMS, parent, family, police, friend...)? What history was obtained from this source @ -[No] Did you review nursing and triage notes (agree or disagree)? Why? @ -[I reviewed and agree with nursing and triage notes] Were old charts reviewed (outside hosp., previous admission, EMS record, old EKG, old radiological studies, urgent care reports/EKG's, [facility] records)? Report findings @ -[No old charts were reviewed] Differential Diagnosis (chest pain, altered mental status, abdominal pain women, abdominal pain men, vaginal bleeding, weakness, fever, dyspnea, syncope, headache, dizziness, GI bleed, back pain, seizure, CVA, palpatations, mental health)? @ Differential includes bipolar, anxiety, depression, psychosis, khai EKG interpreted by me (3pts min.). @ -[As above] X-rays interpreted by me (1pt min.). @ -[None done] CT interpreted by me (1pt min.). @ -[None done] U/S interpreted by me (1pt. min.). @ -[None done] What testing was considered but not performed or refused? (CT, X-rays, U/S, lab s)? Why? @ -[None] What meds were considered but not given or refused? Why? @ -[None] Did you discuss the management of the patient with other professionals (professionals i.e. , PA, HUMAN RESOURCE ADVISOR, lab, RT, psych nurse, public health social worker, manager biostatistics, teacher, search and rescue officer, case supervisor)? Give summary @ -[No] Was smoking cessation discussed for >3mins.? @ -[No] Was critical care preformed (if so, how long)? @ -[No] Were there social determinants of health that impacted care today? How? (Homelessness, low income, unemployed, alcoholism, drug addiction, transportation, low edu. Level, literacy, decrease access to med. care, retirement, rehab)? @ -[No] Was there de-escalation of care discussed even if they declined (Discuss DNR or withdrawal of care, Hospice)? DNR status @ -[No] What co-morbidities impacted this encounter? (DM, HTN, Smoking, COPD, CAD, Cancer, CVA, ARF, Chemo, Hep., AIDS, mental health diagnosis, sleep apnea, morbid obesity)? @ -Bipolar Was patient admitted / discharged? Hospital course, mention meds given and route, prescriptions, significant lab abnormalities, going to OR and other pe rtinent info. @ -Patient is a 22-year-old female with history of bipolar disorder presenting for mental health evaluation. Patient states that she threatened to harm herself so that her boyfriend would pay more attention to her. States that she did not have an actual intention of harming herself. Physical examination is unremarkable. Patient is evaluated by EPS, safety plan is developed. Patient is instructed to follow up with [facility] and her PCP. Follow-up with PCP. Report back to ER with any new or worsening symptoms. Discussed return parameters and answered all questions. Patient conveyed verbal understanding and agreed to the plan. I discussed this case in detail with my attending Dr. Cobb Undiagnosed new problem with uncertain prognosis? @ -[No] Drug Therapy requiring intensive monitoring for toxicity (Heparin, Nitro, Insulin, Cardizem)? @ -[No] Were any procedures done? @ -[No] Diagnosis/symptom? @ -Borderline personality disorder Acute, or Chronic, or Acute on Chronic? @ -Acute on chronic Uncomplicated (without systemic symptoms) or Complicated (systemic symptoms)? @ -Uncomplicated Side effects of treatment? @ -[No] Exacerbation, Progression, or Severe Exacerbation? @ -Exacerbation - Lab Data Lab Results 08/25/22 08/25/22 Range/Units 22:46 22:46 Urine Color Yellow Urine Appearance Clear (Clear) Urine pH 5.5 (5.0-8.0) Ur Specific [place] 1.032 (1.001-1.035) Urine Protein Trace H (Negative) Urine Glucose (UA) Negative (Negative) Urine Ketones Negative (Negative) Urine Blood Negative (Negative) Urine Nitrite Negative (Negative) Urine Bilirubin Negative (Negative) Urine Urobilinogen 2.0 (<2.0) mg/dL Ur Leukocyte Esterase Negative (Negative) Urine HCG, Qual Not Detected (Not Detectd) Urine Opiates Screen Not Detected (NotDetected) Ur Oxycodone Screen Not Detected (NotDetected) Urine Methadone Screen Not Detected (NotDetected) Ur Propoxyphene Screen Not Detected (NotDetected) Ur Barbiturates Screen Not Detected (NotDetected) U Tricyclic Antidepress Not Detected (NotDetected) Ur Phencyclidine Scrn Not Detected (NotDetected) Ur Amphetamines Screen Not Detected (NotDetected) U Methamphetamines Scrn Not Detected (NotDetected) U Benzodiazepines Scrn Not Detected (NotDetected) Urine Cocaine Screen Not Detected (NotDetected) U Marijuana (THC) Screen Not Detected (NotDetected) Disposition Clinical Impression: Borderline personality disorder in adult Disposition: HOME SELF-CARE Condition: Fair Instructions (If sedation given, give patient instructions): Bipolar Disorder (ED), Depression (ED), Help Prevent Suicide (ED) Additional Instructions: Follow-up with PCP. Report back to ER with any new or worsening symptoms. Follow-up with [facility] this week. Refer to safety plan developed at your visit today Is patient prescribed a controlled substance at d/c from ED?: No Referrals: Geraldine Vitale DO [Primary Care Provider] - 1-2 days Time of Disposition: 01:16
== END 2022-08-26 01:27 | disposition home or self-care (01) ==
LOC: EC 22:08
DX: F60.3 Borderline personality disorder (principal); E07.9 Disorder of thyroid, unspecified; F41.9 Anxiety disorder, unspecified; F31.9 Bipolar disorder, unspecified; Z88.1 Allergy status to other antibiotic agents; Z88.8 Allergy status to other drugs, medicaments and biological substances; Z79.890 Hormone replacement therapy
CPT/HCPCS: 80306; 81003; 81025; 82075; 99285

== ENCOUNTER → 2022-10-08 | Outpatient (CLI) | payer OTHER ==
[2022-10-09 11:57] LABS: HLA B27 NEGATIVE
== END | disposition home or self-care (01) ==
LOC: LABWHC1 08:26
PROVIDERS: ATTEND Family Medicine
DX: M25.50 Pain in unspecified joint (principal)
CPT/HCPCS: 36415; 86812

== ENCOUNTER 2022-10-18 18:36 | Emergency (ER) | payer OTHER ==
--- NOTE | 2022-10-18 20:10 | ED ---
General Adult HPI - General Chief complaint: Syncope Stated complaint: Syncope - [facility] Time Seen by Provider: 10/18/22 19:22 Source: patient, EMS Mode of arrival: EMS Limitations: no limitations - History of Present Illness Initial comments: This patient is a 22-year-old woman who presents 7 evaluation after she had an episode where she passed out at work. Patient states she has had problems with this in the past. She notes that she was not feeling 100% normal when she went to work today. Walking into work from the parking lot she says she felt gregg ewhat lightheaded. She states she had to move slowly at work because she kept feeling like she would pass out. Around sometime around 6 PM she was feeling worse and she went to sit down and then the next thing she knew she was coming to and had passed out. No reported seizure activity by the bystanders. No loss of continence. She denies any injury when she went to the ground. She has no headache, neck pain, chest, back or abdomen pain. She did not note any palpitations, chest pain or dyspnea. She states she has reported this previously to her physician and they have scheduled an outpatient MRI of the brain. No recent fever or chills, upper respiratory symptoms. No change in urination, bowel movements or menstrual cycle. Onset/Timin -: hour(s) Severity scale (1-10): 0 Consistency: constant Improves with: none Worsens with: none Associated Symptoms: syncope Treatments Prior to Arrival: none - Related Data Home Medications Medication Instructions Recorded Confirmed Levothyroxine Sodium 100 mcg PO QAM 03/08/22 09/04/22 ARIPiprazole [Abilify] 4 mg PO QAM 09/04/22 09/04/22 Cholecalciferol [Vitamin D3 (125 250 mcg PO BIRD 09/04/22 09/04/22 Mcg = 5000 Iu)] lamoTRIgine [LaMICtal] 100 mg PO BID 09/04/22 09/04/22 Allergies Allergy/AdvReac Type Severity Reaction Status Date / Time vancomycin Allergy Anaphylaxis Verified 10/18/22 18:42 lorazepam [From Ativan] AdvReac Rapid Verified 10/18/22 18:42 Heart Rate Review of Systems ROS Statement: Those systems with pertinent positive or pertinent negative responses have been documented in the HPI. ROS Other: All systems not noted in ROS Statement are negative. Constitutional: Denies: fever, chills Respiratory: Denies: cough, dyspnea Cardiovascular: Reports: syncope. Denies: chest pain, palpitations, orthopnea Gastrointestinal: Denies: abdominal pain, nausea, vomiting Genitourinary: Denies: dysuria, hematuria Musculoskeletal: Denies: back pain Skin: Denies: rash Neurological: Denies: headache, weakness, numbness, confusion Past Medical History Past Medical History: GERD/Reflux, Thyroid Disorder Additional Past Medical History / Comment(s): Back problems/pain. History of Any Multi-Drug Resistant Organisms: None Reported Past Surgical History: Adenoidectomy, Section, Cholecystectomy, Ear Surgery, Orthopedic Surgery, Tonsillectomy Additional Past Surgical History / Comment(s): Multiple surgeries to her ears f or tube placement, left hand wound closure, Section X2. Past Anesthesia/Blood Transfusion Reactions: No Reported Reaction Additional Past Anesthesia/Blood Transfusion Reaction / Comment(s): Mom slow to wake up. Past Psychological History: Anxiety, Bipolar, Depression Smoking Status: Never smoker Past Alcohol Use History: Occasional Past Drug Use History: Marijuana - Past Family History Mother Family Medical History: Diabetes Mellitus, Hypertension Father History Unknown: Yes Sister(s) Additional Family Medical History / Comment(s): Social anxiety disorder. General Exam Limitations: no limitations General appearance: alert, in no apparent distress Head exam: Present: atraumatic, normocephalic Eye exam: Present: normal appearance. Absent: scleral icterus, conjunctival injection Neck exam: Present: normal inspection, full ROM. Absent: meningismus Respiratory exam: Present: normal lung sounds bilaterally. Absent: respiratory distress, wheezes, rales, rhonchi, stridor Cardiovascular Exam: Present: regular rate, normal rhythm, normal heart sounds. Absent: systolic murmur, diastolic murmur, rubs, gallop GI/Abdominal exam: Present: soft. Absent: distended, tenderness, guarding, rebound, rigid, mass Extremities exam: Present: normal inspection, normal capillary refill. Absent: pedal edema, calf tenderness Back exam: Present: normal inspection. Absent: CVA tenderness (R), CVA tenderness (L) Neurological exam: Present: alert, oriented X3, CN II-XII intact. Absent: motor sensory deficit Skin exam: Present: warm, dry, intact, normal color. Absent: rash Course Vital Signs 10/18/22 10/18/22 10/18/22 18:38 18:52 19:00 Temperature 98.1 F Pulse Rate 87 79 83 Respiratory 18 20 24 Rate Blood Pressure 125/67 125/67 125/67 O2 Sat by Pulse 97 Oximetry 10/18/22 10/18/22 10/18/22 19:30 20:00 20:30 Temperature Pulse Rate 79 71 90 Respiratory 16 15 18 Rate Blood Pressure 124/59 122/68 125/75 O2 Sat by Pulse 100 100 98 Oximetry 10/18/22 10/18/22 10/18/22 21:00 21:30 22:40 Temperature 97.8 F Pulse Rate 78 Respiratory 16 Rate Blood Pressure 126/69 126/69 124/68 O2 Sat by Pulse 98 Oximetry EKG Findings - EKG Results: EKG: interpreted by SUNDAR, sinus rhythm (Rate 78 bpm), normal axis, normal QRS, normal ST/T, no acute changes - MS, Pacemaker, Normal: Normal tracing: normal tracing Medical Decision Making - Medical Decision Making This patient is a 22-year-old woman here for evaluation after syncopal episode. She did have workup including chest x-ray which I interpreted as not showing acute infiltrate, pneumothorax, or congestive heart failure. The workup unremarkable, patient stable to return home with appropriate follow-up. We discussed return parameters as well. Was pt. sent in by a medical professional or institution (HAKEEM Hanson, EXTRUDER, urgent care, hospital, or snf...) When possible be specific @ -[No] Did you speak to anyone other than the patient for history (EMS, parent, family, police, friend...)? What history was obtained from this source @ -[No] Did you review nursing and triage notes (agree or disagree)? Why? @ -[I reviewed and agree with nursing and triage notes] Were old charts reviewed (outside hosp., previous admission, EMS record, old EKG, old radiological studies, urgent care reports/EKG's, snf records)? Report findings @ -[No old charts were reviewed] Differential Diagnosis (chest pain, altered mental status, abdominal pain women, abdominal pain men, vaginal bleeding, weakness, fever, dyspnea, syncope, headache, dizziness, GI bleed, back pain, seizure, CVA, palpatations, mental health, musculoskeletal)? @ -[not applicable] EKG interpreted by me (3pts min.). @ -[As above] X-rays interpreted by me (1pt min.). @ -[As above CT interpreted by me (1pt min.). @ -[None done] U/S interpreted by me (1pt. min.). @ -[None done] What testing was considered but not performed or refused? (CT, X-rays, U/S, labs)? Why? @ -[None] What meds were considered but not given or refused? Why? @ -[None] Did you discuss the management of the patient with other professionals (professionals i.e. Dr., PA, EXTRUDER, lab, RT, psych nurse, social services manager, trial lawyer, teacher, enforcement officer, telephonic nurse case manager)? Give summary @ -[No] Was smoking cessation discussed for >3mins.? @ -[No] Was critical care preformed (if so, how long)? @ -[No] Were there social determinants of health that impacted care today? How? (Gilles elessness, low income, unemployed, alcoholism, drug addiction, transportation, low edu. Level, literacy, decrease access to med. care, fpc, rehab)? @ -[No] Was there de-escalation of care discussed even if they declined (Discuss DNR or withdrawal of care, Hospice)? DNR status @ -[No] What co-morbidities impacted this encounter? (DM, HTN, Smoking, COPD, CAD, Cancer, CVA, ARF, Chemo, Hep., AIDS, mental health diagnosis, sleep apnea, morbid obesity)? @ -[None] Was patient admitted / discharged? Hospital course, mention meds given and route, prescriptions, significant lab abnormalities, going to OR and other pertinent info. @ -[Discharged Undiagnosed new problem with uncertain prognosis? @ -[No] Drug Therapy requiring intensive monitoring for toxicity (Heparin, Nitro, Insulin, Cardizem)? @ -[No] Were any procedures done? @ -[No] Diagnosis/symptom? @ -[Acute syncope, uncomplicated Acute, or Chronic, or Acute on Chronic? @ -[default] Uncomplicated (without systemic symptoms) or Complicated (systemic symptoms)? @ -[default] Side effects of treatment? @ -[No] Exacerbation, Progression, or Severe Exacerbation? @ -[No] Poses a threat to life or bodily function? How? (Chest pain, USA, MS, pneumonia, PE, COPD, DKA, ARF, appy, cholecystitis, CVA, Diverticulitis, Homicidal, Suicidal, threat to staff... and all critical care pts) @ -[No] - Lab Data Result diagrams: 10/18/22 21:03 10/18/22 21:03 Lab Results 10/18/22 10/18/22 10/18/22 Range/Units 21:03 21:03 21:03 WBC 8.9 (3.8-10.6) k/uL RBC 4.48 (3.80-5.40) m/uL Hgb 12.8 (11.4-16.0) gm/dL Hct 39.1 (34.0-46.0) % MCV 87.2 (80.0-100.0) fL MCH 28.5 (25.0-35.0) pg MCHC 32.7 (31.0-37.0) g/dL RDW 13.2 (11.5-15.5) % Plt Count 291 (150-450) k/uL MPV 7.8 Neutrophils % 55 % Lymphocytes % 37 % Monocytes % 4 % Eosinophils % 2 % Basophils % 0 % Neutrophils # 4.9 (1.3-7.7) k/uL Lymphocytes # 3.3 (1.0-4.8) k/uL Monocytes # 0.4 (0-1.0) k/uL Eosinophils # 0.2 (0-0.7) k/uL Basophils # 0.0 (0-0.2) k/uL Sodium (137-145) mmol/L Potassium (3.5-5.1) mmol/L Chloride (98-107) mmol/L Carbon Dioxide (22-30) mmol/L Anion Gap mmol/L BUN (7-17) mg/dL Creatinine (0.52-1.04) mg/dL Est GFR (CKD-EPI)AfAm (>60 ml/min/1.73 sqM) Est GFR (CKD-EPI)NonAf (>60 ml/min/1.73 sqM) Glucose (74-99) mg/dL Calcium (8.4-10.2) mg/dL Total Bilirubin (0.2-1.3) mg/dL AST (14-36) U/L ALT (4-34) U/L Alkaline Phosphatase (38-126) U/L Troponin I (0.000-0.034) ng/mL Total Protein (6.3-8.2) g/dL Albumin (3.5-5.0) g/dL Urine Color Yellow Urine Appearance Clear (Clear) Urine pH 6.5 (5.0-8.0) Ur Specific [place] 1.024 (1.001-1.035) Urine Protein Trace H (Negative) Urine Glucose (UA) Negative (Negative) Urine Ketones Negative (Negative) Urine Blood Negative (Negative) Urine Nitrite Negative (Negative) Urine Bilirubin Negative (Negative) Urine Urobilinogen <2.0 (<2.0) mg/dL Ur Leukocyte Esterase Negative (Negative) Urine HCG, Qual Not Detected (Not Detectd) 10/18/22 10/18/22 Range/Units 21:03 21:03 WBC (3.8-10.6) k/uL RBC (3.80-5.40) m/uL Hgb (11.4-16.0) gm/dL Hct (34.0-46.0) % MCV (80.0-100.0) fL MCH (25.0-35.0) pg MCHC (31.0-37.0) g/dL RDW (11.5-15.5) % Plt Count (150-450) k/uL MPV Neutrophils % % Lymphocytes % % Monocytes % % Eosinophils % % Basophils % % Neutrophils # (1.3-7.7) k/uL Lymphocytes # (1.0-4.8) k/uL Monocytes # (0-1.0) k/uL Eosinophils # (0-0.7) k/uL Basophils # (0-0.2) k/uL Sodium 140 (137-145) mmol/L Potassium 4.0 (3.5-5.1) mmol/L Chloride 103 (98-107) mmol/L Carbon Dioxide 29 (22-30) mmol/L Anion Gap 8 mmol/L BUN 13 (7-17) mg/dL Creatinine 0.78 (0.52-1.04) mg/dL Est GFR (CKD-EPI)AfAm >90 (>60 ml/min/1.73 sqM) Est GFR (CKD-EPI)NonAf >90 (>60 ml/min/1.73 sqM) Glucose 82 (74-99) mg/dL Calcium 9.0 (8.4-10.2) mg/dL Total Bilirubin 0.4 (0.2-1.3) mg/dL AST 22 (14-36) U/L ALT 23 (4-34) U/L Alkaline Phosphatase 72 (38-126) U/L Troponin I <0.012 (0.000-0.034) ng/mL Total Protein 6.8 (6.3-8.2) g/dL Albumin 4.0 (3.5-5.0) g/dL Urine Color Urine Appearance (Clear) Urine pH (5.0-8.0) Ur Specific [place] (1.001-1.035) Urine Protein (Negative) Urine Glucose (UA) (Negative) Urine Ketones (Negative) Urine Blood (Negative) Urine Nitrite (Negative) Urine Bilirubin (Negative) Urine Urobilinogen (<2.0) mg/dL Ur Leukocyte Esterase (Negative) Urine HCG, Qual (Not Detectd) Disposition Clinical Impression: Syncope Disposition: HOME SELF-CARE Condition: Good Instructions (If sedation given, give patient instructions): Syncope (ED) Is patient prescribed a controlled substance at d/c from ED?: No Referrals: Geraldine Vitale DO [Primary Care Provider] - 1-2 days
[2022-10-18 21:21] LABS: Appearance,Urine Clear (Clear); Bilirubin,Urine Negative (Negative); Blood,Urine Negative (Negative); Color,Urine Yellow; Glucose,Urine (UA) Negative (Negative); Ketones,Urine Negative (Negative); Leukocyte Esterase,Urine Negative (Negative); Nitrite,Urine Negative (Negative); PH, Urine 6.5 (5.0-8.0); Protein,Urine Trace (Negative); Specific Gravity,Urine 1.024 (1.001-1.035); Urobilinogen,Urine <2.0 mg/dL (<2.0)
[2022-10-18 21:36] LABS: ALT 23 U/L (4-34); AST 22 U/L (14-36); African American GFR (CKD) >90 (>60 ml/min/1.73 sqM); Alkaline Phosphatase 72 U/L (38-126); Anion Gap 8 mmol/L; Basophils % (A) 0 %; Blood Urea Nitrogen 13 mg/dL (7-17); Carbon Dioxide 29 mmol/L (22-30); Chloride 103 mmol/L (98-107); Eosinophils # (A) 0.2 k/uL (0-0.7); Eosinophils % (A) 2 %; Glucose 82 mg/dL (74-99); HCT 39.1 % (34.0-46.0); HGB 12.8 gm/dL (11.4-16.0); Lymphocytes # (A) 3.3 k/uL (1.0-4.8); Lymphocytes % (A) 37 %; MCH 28.5 pg (25.0-35.0); MCHC 32.7 g/dL (31.0-37.0); MCV 87.2 fL (80.0-100.0); Mean Platelet Volume 7.8; Monocytes # (A) 0.4 k/uL (0-1.0); Monocytes % (A) 4 %; Neutrophils # (A) 4.9 k/uL (1.3-7.7); Neutrophils % (A) 55 %; Non-African American GFR(CKD) >90 (>60 ml/min/1.73 sqM); Platelet Count 291 k/uL (150-450); RBC 4.48 m/uL (3.80-5.40); RDW 13.2 % (11.5-15.5); Sodium 140 mmol/L (137-145); Total Bilirubin 0.4 mg/dL (0.2-1.3); Total Protein 6.8 g/dL (6.3-8.2); WBC 8.9 k/uL (3.8-10.6)
--- NOTE | 2022-10-18 21:58 | XR ---
EXAMINATION: XR chest 2V: 10/18/2022 9:30 PM CLINICAL INDICATION: syncope TECHNIQUE: Frontal and lateral views COMPARISON: 10/13/2020 AP upright portable FINDINGS: The overlying soft tissues are prominent. Lungs appear well-expanded and clear. The pleural spaces are negative. The cardiac silhouette is not enlarged. The remainder of the mediastinal silhouette is unremarkable. The skeletal structures and soft tissues are negative for acute findings. IMPRESSION: No acute radiographic process.
[2022-10-18 22:41] VITALS: BP 124/68; PULSE 78; RESP 16; TEMP 97.8
== END 2022-10-18 22:41 | disposition home or self-care (01) ==
LOC: EC 18:36
DX: R55 Syncope and collapse (principal); K21.9 Gastro-esophageal reflux disease without esophagitis; F31.9 Bipolar disorder, unspecified; F41.9 Anxiety disorder, unspecified; E07.9 Disorder of thyroid, unspecified; Z79.890 Hormone replacement therapy; Z79.899 Other long term (current) drug therapy; Z88.1 Allergy status to other antibiotic agents; Z88.8 Allergy status to other drugs, medicaments and biological substances; Z90.49 Acquired absence of other specified parts of digestive tract
CPT/HCPCS: 36415; 71046; 80053; 81003; 81025; 84484; 85025; 93005; 99285

== ENCOUNTER 2022-11-05 08:45 | Emergency (ER) | payer OTHER ==
[2022-11-05 09:03] VITALS: RESP 18; TEMP 97.9
[2022-11-05] MEDS ORDERED: methylPREDNISolone SOD SUCCI 125 MG/2 ML VIAL IM ONE (10:23)
[2022-11-05] MEDS ORDERED: KETOROLAC 15 MG/ML 1 ML VIAL IM STA (10:23)
--- NOTE | 2022-11-05 10:25 | ED ---
Back Pain HPI - General Chief Complaint: Back Pain/Injury Stated Complaint: back pain Time Seen by Provider: 11/05/22 09:10 Source: patient, RN notes reviewed Limitations: no limitations - History of Present Illness Initial Comments: 22-year-old female presents emergency Department with chief complaint low back pain. Patient states she's had some ongoing issues low back citrate circular was hanging onto her right hand when Fell twisting her back. Patient states she is increase in pain. She denies any falls denies any bowel, bladder incontinence or retention. Denies any saddle anesthesias no lower extremity paresthesias. Patient states she has not taken anything for the pain. - Related Data Home Medications Medication Instructions Recorded Confirmed Levothyroxine Sodium 100 mcg PO QAM 03/08/22 09/04/22 ARIPiprazole [Abilify] 4 mg PO QAM 09/04/22 09/04/22 Cholecalciferol [Vitamin D3 (125 250 mcg PO BIRD 09/04/22 09/04/22 Mcg = 5000 Iu)] lamoTRIgine [LaMICtal] 100 mg PO BID 09/04/22 09/04/22 Previous Rx's Medication Instructions Recorded Cyclobenzaprine [Flexeril] 10 mg PO TID PRN #15 tab 11/05/22 Ibuprofen [Motrin] 600 mg PO Q8HR PRN #20 tab 11/05/22 predniSONE 50 mg PO DAILY #5 tab 11/05/22 Allergies Allergy/AdvReac Type Severity Reaction Status Date / Time vancomycin Allergy Anaphylaxis Verified 11/05/22 09:02 lorazepam [From Ativan] AdvReac Rapid Verified 11/05/22 09:02 Heart Rate Review of Systems ROS Statement: Those systems with pertinent positive or pertinent negative responses have been documented in the HPI. ROS Other: All systems not noted in ROS Statement are negative. Past Medical History Past Medical History: GERD/Reflux, Thyroid Disorder Additional Past Medical History / Comment(s): Back problems/pain. History of Any Multi-Drug Resistant Organisms: None Reported Past Surgical History: Adenoidectomy, Section, Cholecystectomy, Ear Surgery, Orthopedic Surgery, Tonsillectomy Additional Past Surgical History / Comment(s): Multiple surgeries to her ears for tube placement, left hand wound closure, Section X2. Past Anesthesia/Blood Transfusion Reactions: No Reported Reaction Additional Past Anesthesia/Blood Transfusion Reaction / Comment(s): Mom slow to wake up. Past Psychological History: Anxiety, Bipolar, Depression Smoking Status: Never smoker Past Alcohol Use History: Occasional Past Drug Use History: Marijuana - Past Family History Mother Family Medical History: Diabetes Mellitus, Hypertension Father History Unknown: Yes Sister(s) Additional Family Medical History / Comment(s): Social anxiety disorder. General Exam Limitations: no limitations General appearance: alert, in no apparent distress Head exam: Present: atraumatic, normocephalic, normal inspection Eye exam: Present: normal appearance, PERRL, EOMI. Absent: scleral icterus, conjunctival injection, periorbital swelling Respiratory exam: Present: normal lung sounds bilaterally. Absent: respiratory distress, wheezes, rales, rhonchi, stridor Cardiovascular Exam: Present: regular rate, normal rhythm, normal heart sounds. Absent: systolic murmur, diastolic murmur, rubs, gallop, clicks GI/Abdominal exam: Present: soft, normal bowel sounds. Absent: distended, tenderness, guarding, rebound, rigid Extremities exam: Present: other (Lower extremity strength equal bilaterally neurovascular intact) Back exam: Present: full ROM (Pain with range of motion), tenderness, paraspinal tenderness. Absent: vertebral tenderness Neurological exam: Present: alert, reflexes normal. Absent: motor sensory deficit Course Vital Signs 11/05/22 11/05/22 09:00 10:42 Temperature 97.9 F Pulse Rate 70 72 Respiratory 18 18 Rate Blood Pressure 126/85 124/83 O2 Sat by Pulse 96 97 Oximetry Medical Decision Making - Medical Decision Making Was pt. sent in by a medical professional or institution (, PA, TICKET WRITER, urgent care, hospital, or half-way...) When possible be specific @ -No Did you speak to anyone other than the patient for history (EMS, parent, family, police, friend...)? What history was obtained from this source @ -No Did you review nursing and triage notes (agree or disagree)? Why? @ -I reviewed and agree with nursing and triage notes Were old charts reviewed (outside hosp., previous admission, EMS record, old EKG, old radiological studies, urgent care reports/EKG's, half-way records)? Report findings @ -Reviewed prior x-ray of lumbar spine showing no significant abnormality Differential Diagnosis (chest pain, altered mental status, abdominal pain women, abdominal pain men, vaginal bleeding, weakness, fever, dyspnea, syncope, headache, dizziness, GI bleed, back pain, seizure, CVA, palpatations, mental health, musculoskeletal)? @ -nDifferential Back Pain: Strain, zoster, cauda equina syndrome, epidural abscess, vertebral osteomyelitis, discitis, fracture, subluxation, disc herniation, DJD, spinal stenosis, dissection, AAA, pancreatitis, peptic ulcer disease, pyelonephritis, kidney stone, this is not meant to be an all-inclusive list.ble EKG interpreted by me (3pts min.). @ -None X-rays interpreted by me (1pt min.). @ -None done CT interpreted by me (1pt min.). @ -None done U/S interpreted by me (1pt. min.). @ -None done What testing was considered but not performed or refused? (CT, X-rays, U/S, labs)? Why? @ -MRI though this can be completed outpatient What meds were considered but not given or refused? Why? @ -None Did you discuss the management of the patient with other professionals (professionals i.e. , PA, TICKET WRITER, lab, RT, psych nurse, community mental health social worker, scuba diver, teacher, chief media officer, oil field caser)? Give summary @ -No Was smoking cessation discussed for >3mins.? @ -No Was critical care preformed (if so, how long)? @ -No Were there social determinants of health that impacted care today? How? (Homelessness, low income, unemployed, alcoholism, drug addiction, transp ortation, low edu. Level, literacy, decrease access to med. care, skilled nursing, rehab)? @ -No Was there de-escalation of care discussed even if they declined (Discuss DNR or withdrawal of care, Hospice)? DNR status @ -No What co-morbidities impacted this encounter? (DM, HTN, Smoking, COPD, CAD, Cancer, CVA, ARF, Chemo, Hep., AIDS, mental health diagnosis, sleep apnea, morbid obesity)? @ -None Was patient admitted / discharged? Hospital course, mention meds given and route, prescriptions, significant lab abnormalities, going to OR and other pertinent info. @ -Discharge patient is a lumbar strain she's had prior x-rays which were negative patient did not have a fall she has no red flag symptoms discharged in stable condition return parameters were discussed. Undiagnosed new problem with uncertain prognosis? @ -No Drug Therapy requiring intensive monitoring for toxicity (Heparin, Nitro, Insulin, Cardizem)? @ -No Were any procedures done? @ -No Diagnosis/symptom? @ -Lumbar strain Acute, or Chronic, or Acute on Chronic? @ -Acute Uncomplicated (without systemic symptoms) or Complicated (systemic symptoms)? @ -Uncomplicated Side effects of treatment? @ -No Exacerbation, Progression, or Severe Exacerbation? @ -No Poses a threat to life or bodily function? How? (Chest pain, USA, [place], pneumonia, PE, COPD, DKA, ARF, appy, cholecystitis, CVA, Diverticulitis, Homicidal, Suicidal, threat to staff... and all critical care pts) @ -No Disposition Clinical Impression: Strain of lumbar region Disposition: HOME SELF-CARE Condition: Stable Instructions (If sedation given, give patient instructions): Acute Low Back Pain (ED) Additional Instructions: Please return to the Emergency Department if symptoms worsen or any other concerns. Prescriptions: Cyclobenzaprine [Flexeril] 10 mg PO TID PRN #15 tab PRN Reason: Muscle Spasm Ibuprofen [Motrin] 600 mg PO Q8HR PRN #20 tab PRN Reason: Pain predniSONE 50 mg PO DAILY #5 tab Is patient prescribed a controlled substance at d/c from ED?: No Referrals: Geraldine Vitale DO [Primary Care Provider] - 1-2 days Time of Disposition: 10:25
[2022-11-05 11:11] VITALS: BP 124/83; PULSE 72
== END 2022-11-05 10:50 | disposition home or self-care (01) ==
LOC: EC 08:45
DX: S39.012A Strain of muscle, fascia and tendon of lower back, initial encounter (principal); F31.9 Bipolar disorder, unspecified; F41.9 Anxiety disorder, unspecified; K21.9 Gastro-esophageal reflux disease without esophagitis; F12.90 Cannabis use, unspecified, uncomplicated; E07.9 Disorder of thyroid, unspecified; Z79.1 Long term (current) use of non-steroidal anti-inflammatories (NSAID); Z79.52 Long term (current) use of systemic steroids; Z79.890 Hormone replacement therapy; Z79.899 Other long term (current) drug therapy; Z90.49 Acquired absence of other specified parts of digestive tract; Z88.1 Allergy status to other antibiotic agents; Z88.8 Allergy status to other drugs, medicaments and biological substances; X58.XXXA Exposure to other specified factors, initial encounter
CPT/HCPCS: 99283; 96372 ×2; J2930; J1885

== ENCOUNTER 2022-12-26 09:57 | Emergency (ER) | payer OTHER ==
[2022-12-26 10:04] VITALS: TEMP 98.4
[2022-12-26] MEDS ORDERED: SODIUM CHLORIDE 0.9% 1,000 ML IV STA (10:43)
[2022-12-26 11:34] LABS: Basophils % (A) 0 %; Eosinophils # (A) 0.3 k/uL (0-0.7); Eosinophils % (A) 2 %; HCT 41.2 % (34.0-46.0); HGB 13.7 gm/dL (11.4-16.0); Lymphocytes # (A) 4.4 k/uL (1.0-4.8); Lymphocytes % (A) 32 %; MCH 29.2 pg (25.0-35.0); MCHC 33.2 g/dL (31.0-37.0); Monocytes # (A) 0.6 k/uL (0-1.0); Monocytes % (A) 4 %; Neutrophils # (A) 8.3 k/uL (1.3-7.7); Neutrophils % (A) 61 %; Platelet Count 288 k/uL (150-450); RBC 4.68 m/uL (3.80-5.40); RDW 13.3 % (11.5-15.5); WBC 13.7 k/uL (3.8-10.6)
[2022-12-26 11:45] LABS: Appearance,Urine Cloudy (Clear); Bilirubin,Urine Negative (Negative); Blood,Urine Trace (Negative); Color,Urine Yellow; Glucose,Urine (UA) Negative (Negative); Ketones,Urine Negative (Negative); Leukocyte Esterase,Urine Moderate (Negative); Mucus,Urine Occasional /hpf; Nitrite,Urine Negative (Negative); Protein,Urine Trace (Negative); RBC,Urine 10 /hpf (0-5); Specific Gravity,Urine 1.023 (1.001-1.035); Squamous Epithelial Cell,Urine 43 /hpf (0-4); Urobilinogen,Urine <2.0 mg/dL (<2.0); WBC,Urine 7 /hpf (0-5)
--- NOTE | 2022-12-26 11:57 | ED ---
General Adult HPI - General Chief complaint: Dizziness Stated complaint: dizziness Time Seen by Provider: 12/26/22 10:25 Source: patient, RN notes reviewed Mode of arrival: ambulatory Limitations: no limitations - History of Present Illness Initial comments: 22-year-old female presents emergency department for chief complaint of dizziness. Patient states that he has been going on since Saturday. She states that she feels like the room is spinning. She states that has been constant. She reports that she recently had a Solu-Medrol infusion Saturday, , Saturday at her neurologist for "inflammation of a nerve." She does report burning with urination but denies urinary frequency. Denies fever, chills. - Related Data Home Medications Medication Instructions Recorded Confirmed Levothyroxine Sodium 100 mcg PO QAM 03/08/22 12/26/22 lamoTRIgine [LaMICtal] 100 mg PO BID 09/04/22 12/26/22 ARIPiprazole IM [Abilify Maintena] 400 mg IM Q28D 12/26/22 12/26/22 FLUoxetine HCL [PROzac] 20 mg PO HS 12/26/22 12/26/22 Norelgestromin/Ethin.estradiol 1 patch TRANSDERM WE 12/26/22 12/26/22 [Xulane 150-35 Mcg/Day Patch] Pantoprazole [Protonix] 40 mg PO DAILY 12/26/22 12/26/22 hydrOXYzine pamoate [Vistaril] 50 mg PO TID PRN 12/26/22 12/26/22 metroNIDAZOLE [Flagyl] 500 mg PO BID 12/26/22 12/26/22 predniSONE See Taper PO DIRECTED 12/26/22 12/26/22 Previous Rx's Medication Instructions Recorded Cephalexin [Keflex] 500 mg PO BID #14 cap 12/26/22 Allergies Allergy/AdvReac Type Severity Reaction Status Date / Time vancomycin Allergy Anaphylaxis Verified 12/26/22 17:24 lorazepam [From Ativan] AdvReac Rapid Verified 12/26/22 17:24 Heart Rate Review of Systems ROS Statement: Those systems with pertinent positive or pertinent negative responses have been documented in the HPI. ROS Other: All systems not noted in ROS Statement are negative. Past Medical History Past Medical History: GERD/Reflux, Thyroid Disorder Additional Past Medical History / Comment(s): Back problems/pain. History of Any Multi-Drug Resistant Organisms: None Reported Past Surgical History: Adenoidectomy, Section, Cholecystectomy, Ear Surgery, Orthopedic Surgery, Tonsillectomy Additional Past Surgical History / Comment(s): Multiple surgeries to her ears for tube placement, left hand wound closure, Section X2. Past Anesthesia/Blood Transfusion Reactions: No Reported Reaction Additional Past Anesthesia/Blood Transfusion Reaction / Comment(s): Mom slow to wake up. Past Psychological History: Anxiety, Bipolar, Depression Smoking Status: Never smoker Past Alcohol Use History: Occasional Past Drug Use History: Marijuana - Past Family History Mother Family Medical History: Diabetes Mellitus, Hypertension Father History Unknown: Yes Sister(s) Additional Family Medical History / Comment(s): Social anxiety disorder. General Exam Limitations: no limitations General appearance: alert, in no apparent distress Head exam: Present: atraumatic, normocephalic, normal inspection Eye exam: Present: normal appearance, PERRL, EOMI. Absent: scleral icterus, conjunctival injection, periorbital swelling ENT exam: Present: normal exam, mucous membranes moist Neck exam: Present: normal inspection. Absent: tenderness, meningismus, lymphadenopathy Respiratory exam: Present: normal lung sounds bilaterally. Absent: respiratory distress, wheezes, rales, rhonchi, stridor Cardiovascular Exam: Present: regular rate, normal rhythm, normal heart sounds. Absent: systolic murmur, diastolic murmur, rubs, gallop, clicks GI/Abdominal exam: Present: soft, normal bowel sounds. Absent: distended, tenderness, guarding, rebound, rigid Extremities exam: Present: normal inspection, full ROM, normal capillary refill. Absent: tenderness, pedal edema, joint swelling, calf tenderness Back exam: Present: normal inspection Neurological exam: Present: alert, oriented X3, CN II-XII intact Psychiatric exam: Present: normal affect, normal mood Skin exam: Present: warm, dry, intact, normal color. Absent: rash Course Vital Signs 12/26/22 12/26/22 10:01 13:00 Temperature 98.4 F Pulse Rate 79 73 Respiratory 20 18 Rate Blood Pressure 121/76 114/72 O2 Sat by Pulse 99 99 Oximetry Medical Decision Making - Medical Decision Making Was pt. sent in by a medical professional or institution (, PA, ETHYLBENZENE CRACKING SUPERVISOR, urgent care, hospital, or [place] [facility] facility...) When possible be specific @ -No Did you speak to anyone other than the patient for history (EMS, parent, family, police, friend...)? What history was obtained from this source @ -No Did you review nursing and triage notes (agree or disagree)? Why? @ -I reviewed and agree with nursing and triage notes Were old charts reviewed (outside hosp., previous admission, EMS record, old EKG, old radiological studies, urgent care reports/EKG's, [place] [facility] facility records)? Report findings @ -No old charts were reviewed Differential Diagnosis (chest pain, altered mental status, abdominal pain women, abdominal pain men, vaginal bleeding, weakness, fever, dyspnea, syncope, headache, dizziness, GI bleed, back pain, seizure, CVA, palpatations, mental health, musculoskeletal)? @ -Differential Dizziness: Benign paroxysmal positional Vertigo, Menieres disease, otitis media, acoustic neuroma, vertebrobasilar insufficiency, cerebellar stroke, encephalitis, hypovolemic, arrhythmia, coronary artery syndrome, anemia, this is not meant to be an all-inclusive list EKG interpreted by me (3pts min.). @ -EKG at 1153 sinus rhythm rate 63, NV 132, QRS 86, QTQTc 700178 X-rays interpreted by me (1pt min.). @ -None done CT interpreted by me (1pt min.). @ -None done U/S interpreted by me (1pt. min.). @ -None done What testing was considered but not performed or refused? (CT, X-rays, U/S, labs)? Why? @ -None What meds were considered but not given or refused? Why? @ -None Did you discuss the management of the patient with other professionals (professionals i.e. , PA, ETHYLBENZENE CRACKING SUPERVISOR, lab, RT, psych nurse, director of social media marketing, orthopedics nurse, teacher, correction officer, child support case officer)? Give summary @ -No Was smoking cessation discussed for >3mins.? @ -No Was critical care preformed (if so, how long)? @ -No Were there social determinants of health that impacted care today? How? (Homelessness, low income, unemployed, alcoholism, drug addiction, transportation, low edu. Level, literacy, decrease access to med. care, long-term, rehab)? @ -No Was there de-escalation of care discussed even if they declined (Discuss DNR or withdrawal of care, Hospice)? DNR status @ -No What co-morbidities impacted this encounter? (DM, HTN, Smoking, COPD, CAD, Cancer, CVA, ARF, Chemo, Hep., AIDS, mental health diagnosis, sleep apnea, morbid obesity)? @ -None Was patient admitted / discharged? Hospital course, mention meds given and route, prescriptions, significant lab abnormalities, going to OR and other per tinent info. @ -Discharged. Patient presented to the emergency department with chief complaint of dizziness. Patient states that she had a Solu-Medrol infusion on Saturday, , Saturday for "nerve inflammation "she states that the dizziness started after this. Patient reports burning with urination as well. CBC showed elevated white blood cell count likely from recent steroid infusion, CMP within normal limits, UA showed leukocyte esterase, small white blood cells. Patient was given 1 L normal saline, meclizine, Zofran and she reported improvement in her symptoms. Advised patient to follow up with her neurologist and return to the emergency department for new or worsening symptoms. Patient was agreeable with the plan. Patient discharged in stable condition Discussed with my attending, Dr. Kenyon Undiagnosed new problem with uncertain prognosis? @ -No Drug Therapy requiring intensive monitoring for toxicity (Heparin, Nitro, Insulin, Cardizem)? @ -No Were any procedures done? @ -No Diagnosis/symptom? @ -Dizziness Acute, or Chronic, or Acute on Chronic? @ -Acute Uncomplicated (without systemic symptoms) or Complicated (systemic symptoms)? @ -uncomplicated Side effects of treatment? @ -No Exacerbation, Progression, or Severe Exacerbation? @ -No Poses a threat to life or bodily function? How? (Chest pain, USA, CT, pneumonia, PE, COPD, DKA, ARF, appy, cholecystitis, CVA, Diverticulitis, Homicidal, Suicidal, threat to staff... and all critical care pts) @ -No Diagnosis/symptom? @ -Urinary tract infection Acute, or Chronic, or Acute on Chronic? @ -Acute Uncomplicated (without systemic symptoms) or Complicated (systemic symptoms)? @ -Uncomplicated Side effects of treatment? @ -none Exacerbation, Progression, or Severe Exacerbation] @ -no Poses a threat to life or bodily function? @ -no - Lab Data Result diagrams: 12/26/22 11:06 12/26/22 11:06 Lab Results 12/26/22 12/26/22 12/26/22 Range/Units 11:06 11:06 11:06 WBC 13.7 H (3.8-10.6) k/uL RBC 4.68 (3.80-5.40) m/uL Hgb 13.7 (11.4-16.0) gm/dL Hct 41.2 (34.0-46.0) % MCV 88.0 (80.0-100.0) fL MCH 29.2 (25.0-35.0) pg MCHC 33.2 (31.0-37.0) g/dL RDW 13.3 (11.5-15.5) % Plt Count 288 (150-450) k/uL MPV 8.0 Neutrophils % 61 % Lymphocytes % 32 % Monocytes % 4 % Eosinophils % 2 % Basophils % 0 % Neutrophils # 8.3 H (1.3-7.7) k/uL Lymphocytes # 4.4 (1.0-4.8) k/uL Monocytes # 0.6 (0-1.0) k/uL Eosinophils # 0.3 (0-0.7) k/uL Basophils # 0.0 (0-0.2) k/uL Sodium 139 (137-145) mmol/L Potassium 3.8 (3.5-5.1) mmol/L Chloride 100 (98-107) mmol/L Carbon Dioxide 33 H (22-30) mmol/L Anion Gap 6 mmol/L BUN 14 (7-17) mg/dL Creatinine 0.84 (0.52-1.04) mg/dL Est GFR (CKD-EPI)AfAm >90 (>60 ml/min/1.73 sqM) Est GFR (CKD-EPI)NonAf >90 (>60 ml/min/1.73 sqM) Glucose 92 (74-99) mg/dL Calcium 8.8 (8.4-10.2) mg/dL Total Bilirubin 0.3 (0.2-1.3) mg/dL AST 18 (14-36) U/L ALT 23 (4-34) U/L Alkaline Phosphatase 49 (38-126) U/L Total Protein 6.1 L (6.3-8.2) g/dL Albumin 3.6 (3.5-5.0) g/dL Urine Color Yellow Urine Appearance Cloudy H (Clear) Urine pH 6.0 (5.0-8.0) Ur Specific Brohman 1.023 (1.001-1.035) Urine Protein Trace H (Negative) Urine Glucose (UA) Negative (Negative) Urine Ketones Negative (Negative) Urine Blood Trace H (Negative) Urine Nitrite Negative (Negative) Urine Bilirubin Negative (Negative) Urine Urobilinogen <2.0 (<2.0) mg/dL Ur Leukocyte Esterase Moderate H (Negative) Urine RBC 10 H (0-5) /hpf Urine WBC 7 H (0-5) /hpf Ur Squamous Epith Cells 43 H (0-4) /hpf Urine Mucus Occasional H (None) /hpf Urine HCG, Qual (Not Detectd) 12/26/22 Range/Units 11:06 WBC (3.8-10.6) k/uL RBC (3.80-5.40) m/uL Hgb (11.4-16.0) gm/dL Hct (34.0-46.0) % MCV (80.0-100.0) fL MCH (25.0-35.0) pg MCHC (31.0-37.0) g/dL RDW (11.5-15.5) % Plt Count (150-450) k/uL MPV Neutrophils % % Lymphocytes % % Monocytes % % Eosinophils % % Basophils % % Neutrophils # (1.3-7.7) k/uL Lymphocytes # (1.0-4.8) k/uL Monocytes # (0-1.0) k/uL Eosinophils # (0-0.7) k/uL Basophils # (0-0.2) k/uL Sodium (137-145) mmol/L Potassium (3.5-5.1) mmol/L Chloride (98-107) mmol/L Carbon Dioxide (22-30) mmol/L Anion Gap mmol/L BUN (7-17) mg/dL Creatinine (0.52-1.04) mg/dL Est GFR (CKD-EPI)AfAm (>60 ml/min/1.73 sqM) Est GFR (CKD-EPI)NonAf (>60 ml/min/1.73 sqM) Glucose (74-99) mg/dL Calcium (8.4-10.2) mg/dL Total Bilirubin (0.2-1.3) mg/dL AST (14-36) U/L ALT (4-34) U/L Alkaline Phosphatase (38-126) U/L Total Protein (6.3-8.2) g/dL Albumin (3.5-5.0) g/dL Urine Color Urine Appearance (Clear) Urine pH (5.0-8.0) Ur Specific Brohman (1.001-1.035) Urine Protein (Negative) Urine Glucose (UA) (Negative) Urine Ketones (Negative) Urine Blood (Negative) Urine Nitrite (Negative) Urine Bilirubin (Negative) Urine Urobilinogen (<2.0) mg/dL Ur Leukocyte Esterase (Negative) Urine RBC (0-5) /hpf Urine WBC (0-5) /hpf Ur Squamous Epith Cells (0-4) /hpf Urine Mucus (None) /hpf Urine HCG, Qual Not Detected (Not Detectd) Disposition Clinical Impression: Dizziness, UTI (urinary tract infection) Disposition: HOME SELF-CARE Condition: Stable Instructions (If sedation given, give patient instructions): Dizziness (ED) Additional Instructions: Please follow up with your neurologist as scheduled. Return to the emergency department for new or worsening symptoms. Prescriptions: Cephalexin [Keflex] 500 mg PO BID #14 cap Is patient prescribed a controlled substance at d/c from ED?: No Referrals: Geraldine Vitale DO [Primary Care Provider] - 1-2 days Time of Disposition: 12:52
[2022-12-26 12:01] LABS: ALT 23 U/L (4-34); AST 18 U/L (14-36); African American GFR (CKD) >90 (>60 ml/min/1.73 sqM); Albumin 3.6 g/dL (3.5-5.0); Alkaline Phosphatase 49 U/L (38-126); Anion Gap 6 mmol/L; Blood Urea Nitrogen 14 mg/dL (7-17); Calcium 8.8 mg/dL (8.4-10.2); Carbon Dioxide 33 mmol/L (22-30); Chloride 100 mmol/L (98-107); Glucose 92 mg/dL (74-99); Non-African American GFR(CKD) >90 (>60 ml/min/1.73 sqM); Potassium 3.8 mmol/L (3.5-5.1); Sodium 139 mmol/L (137-145); Total Bilirubin 0.3 mg/dL (0.2-1.3); Total Protein 6.1 g/dL (6.3-8.2)
[2022-12-26] MEDS ORDERED: MECLIZINE 12.5 MG TAB PO STA (12:09)
[2022-12-26] MEDS ORDERED: ONDANSETRON 4 MG/2 ML VIAL IVP STA (12:18)
[2022-12-26 13:01] VITALS: BP 114/72; PULSE 73; RESP 18
== END 2022-12-26 13:01 | disposition home or self-care (01) ==
LOC: EC 09:57
DX: R42 Dizziness and giddiness (principal); N39.0 Urinary tract infection, site not specified; K21.9 Gastro-esophageal reflux disease without esophagitis; E07.9 Disorder of thyroid, unspecified; F41.9 Anxiety disorder, unspecified; F31.9 Bipolar disorder, unspecified; F12.90 Cannabis use, unspecified, uncomplicated; Z79.890 Hormone replacement therapy; Z79.899 Other long term (current) drug therapy
CPT/HCPCS: 36415; 93005; 80053; 85025; 81001; 81025; 99284; 96374; 96361 ×2; J2405

== ENCOUNTER → 2022-12-27 | Outpatient (CLI) | payer OTHER ==
--- NOTE | 2022-12-27 16:59 | USB ---
Reason for Exam: Clinical finding. Patient History: Menarche at age 10. First Full-Term at age 17. Technique: Method: Targeted. Findings: The upper section of the breast of the left breast, the axilla of the left breast and the retroareolar of the left breast were scanned. Targeted ultrasound superior aspect of the left breast 9:00 to 2:00 including the subareolar region and axilla. At the 9:00 position, 10 cm from the nipple, there is an oval echogenic area most suggestive of a lipoma measuring 1.4 x 0.9 x 0.6 cm. At the 10:00 position, 2 cm from the nipple, corresponding to the physician palpated side, there is a 3 mm benign cyst. No other solid or cystic lesion or axillary lymphadenopathy. No discrete abnormality seen at the patient's left axillary site of pain. Overall Assessment: Benign, BI-RAD 2 Management: Screening Mammogram of both breasts at age 38. Unless there is a clinical indication to start sooner. Further clinical management of patient's axillary pain. The physician palpated area at 10:00 near the nipple corresponds to a tiny 3 mm benign cyst. Patient should continue monthly self breast exams. Results were given to the patient verbally at the time of exam. Electronically signed and approved by: Ernst Melton M.D. Radiologist
== END | disposition home or self-care (01) ==
LOC: RADMAMWWP 13:19
PROVIDERS: ATTEND Family Medicine
DX: N64.4 Mastodynia (principal); N63.20 Unspecified lump in the left breast, unspecified quadrant

== ENCOUNTER 2023-05-03 14:24 | Emergency (ER) | payer OTHER ==
[2023-05-03 14:36] VITALS: RESP 18
--- NOTE | 2023-05-03 15:13 | ED ---
Upper Extremity HPI - General Chief Complaint: Extremity Injury, Upper Stated Complaint: left wrist injury Time Seen by Provider: 05/03/23 14:38 Source: patient, RN notes reviewed Mode of arrival: ambulatory Limitations: no limitations - History of Present Illness Initial Comments: 22-year-old female presents emergency Department chief complaint a left wrist pain. States that she was moving some paper boxes at work when she smashed her wrist against a cart. She states she is left-hand dominant she has pain, swelling and her left wrist she's had a prior fracture. - Related Data Home Medications Medication Instructions Recorded Confirmed Levothyroxine Sodium 100 mcg PO DAILY 03/08/22 05/03/23 lamoTRIgine [LaMICtal] 100 mg PO BID 09/04/22 05/03/23 ARIPiprazole IM [Abilify Maintena] 400 mg IM Q28D 12/26/22 05/03/23 FLUoxetine HCL [PROzac] 20 mg PO DAILY 12/26/22 05/03/23 Ergocalciferol (Vitamin D2) 1,250 mcg PO BIRD 05/03/23 05/03/23 [Drisdol (50,000 Iu)] Meloxicam [Mobic] 7.5 mg PO DAILY 05/03/23 05/03/23 Phentermine HCl [Adipex-P] 37.5 mg PO DAILY 05/03/23 05/03/23 Allergies Allergy/AdvReac Type Severity Reaction Status Date / Time vancomycin Allergy Anaphylaxis Verified 05/03/23 15:59 lorazepam [From Ativan] AdvReac Rapid Verified 05/03/23 15:59 Heart Rate Review of Systems ROS Statement: Those systems with pertinent positive or pertinent negative responses have been documented in the HPI. ROS Other: All systems not noted in ROS Statement are negative. Past Medical History Past Medical History: GERD/Reflux, Thyroid Disorder Additional Past Medical History / Comment(s): Back problems/pain. History of Any Multi-Drug Resistant Organisms: None Reported Past Surgical History: Adenoidectomy, Section, Cholecystectomy, Ear Surgery, Orthopedic Surgery, Tonsillectomy Additional Past Surgical History / Comment(s): Multiple surgeries to her ears for tube placement, left hand wound closure, Section X2. Past Anesthesia/Blood Transfusion Reactions: No Reported Reaction Additional Past Anesthesia/Blood Transfusion Reaction / Comment(s): Mom slow to wake up. Past Psychological History: Anxiety, Bipolar, Depression Smoking Status: Never smoker Past Alcohol Use History: Occasional Past Drug Use History: Marijuana - Past Family History Mother Family Medical History: Diabetes Mellitus, Hypertension Father History Unknown: Yes Sister(s) Additional Family Medical History / Comment(s): Social anxiety disorder. General Exam Limitations: no limitations General appearance: alert, in no apparent distress Head exam: Present: atraumatic, normocephalic, normal inspection Respiratory exam: Present: normal lung sounds bilaterally. Absent: respiratory distress, wheezes, rales, rhonchi, stridor Cardiovascular Exam: Present: regular rate, normal rhythm, normal heart sounds. Absent: systolic murmur, diastolic murmur, rubs, gallop, clicks Extremities exam: Present: other (Left wrist there is swelling noted, tenderness at the volar this ulnar aspect. Neurovascular intact) Course Vital Signs 05/03/23 05/03/23 14:32 16:25 Temperature 97.9 F 98 F Pulse Rate 105 H 91 Respiratory 18 18 Rate Blood Pressure 137/93 127/79 O2 Sat by Pulse 98 99 Oximetry Medical Decision Making - Medical Decision Making Was pt. sent in by a medical professional or institution (, PA, REGIONAL TRAINER, urgent care, hospital, or senior care...) When possible be specific @ -no Did you speak to anyone other than the patient for history (EMS, parent, family, police, friend...)? What history was obtained from this source @ -No Did you review nursing and triage notes (agree or disagree)? Why? @ -I reviewed and agree with nursing and triage notes Were old charts reviewed (outside hosp., previous admission, EMS record, old EKG, old radiological studies, urgent care reports/EKG's, senior care records)? Report findings @ -No old charts were reviewed Differential Diagnosis (chest pain, altered mental status, abdominal pain women, abdominal pain men, vaginal bleeding, weakness, fever, dyspnea, syncope, headache, dizziness, GI bleed, back pain, seizure, CVA, palpatations, mental health, musculoskeletal)? @ -Wrist sprain, wrist contusion, wrist fracture EKG interpreted by me (3pts min.). @ -None X-rays interpreted by me (1pt min.). @ -X-ray of the left wrist shows no acute fracture CT interpreted by me (1pt min.). @ -None done U/S interpreted by me (1pt. min.). @ -None done What testing was considered but not performed or refused? (CT, X-rays, U/S, labs)? Why? @ -None What meds were considered but not given or refused? Why? @ -None Did you discuss the management of the patient with other professionals (professionals i.e. DrJordyn, PA, REGIONAL TRAINER, lab, RT, psych nurse, 7th grade social studies teacher, facilitator, teacher, air control/anti air warfare officer, lead case manager)? Give summary @ -No Was smoking cessation discussed for >3mins.? @ -No Was critical care preformed (if so, how long)? @ -No Were there social determinants of health that impacted care today? How? (Homelessness, low income, unemployed, alcoholism, drug addiction, transportation, low edu. Level, literacy, decrease access to med. care, alf, rehab)? @ -No Was there de-escalation of care discussed even if they declined (Discuss DNR or withdrawal of care, Hospice)? DNR status @ -No What co-morbidities impacted this encounter? (DM, HTN, Smoking, COPD, CAD, Cancer, CVA, ARF, Chemo, Hep., AIDS, mental health diagnosis, sleep apnea, morbid obesity)? @ -None Was patient admitted / discharged? Hospital course, mention meds given and route, prescriptions, significant lab abnormalities, going to OR and other pertinent info. @ -Discharge x-rays are negative patient is a left wrist contusion will be discharged in stable condition Undiagnosed new problem with uncertain prognosis? @ -No Drug Therapy requiring intensive monitoring for toxicity (Heparin, Nitro, Insulin, Cardizem)? @ -No Were any procedures done? @ -No Diagnosis/symptom? @ -[Left wrist contusion Acute, or Chronic, or Acute on Chronic? @ -Acute Uncomplicated (without systemic symptoms) or Complicated (systemic symptoms)? @ -Uncomplicated Side effects of treatment? @ -No Exacerbation, Progression, or Severe Exacerbation? @ -No Poses a threat to life or bodily function? How? (Chest pain, USA, [place], pneumonia, PE, COPD, DKA, ARF, appy, cholecystitis, CVA, Diverticulitis, Homicidal, Suicidal, threat to staff... and all critical care pts) @ -No Disposition Clinical Impression: Contusion of left wrist Disposition: HOME SELF-CARE Condition: Stable Instructions (If sedation given, give patient instructions): Wrist Injury (ED) Additional Instructions: Please return to the Emergency Department if symptoms worsen or any other concerns. Is patient prescribed a controlled substance at d/c from ED?: No Referrals: None,Stated [REFERRING] - 1-2 days Time of Disposition: 16:15
--- NOTE | 2023-05-03 16:18 | XR ---
EXAMINATION TYPE: XR wrist complete LT DATE OF EXAM: 05/03/2023 COMPARISON: NONE HISTORY: 22-year-old female with medial sided wrist pain after injury TECHNIQUE: 4 views FINDINGS: The radiocarpal and distal radial ulnar joint as well as the midcarpal compartment appear i ntact. No acute fracture, subluxation, dislocation seen. IMPRESSION: No acute osseous abnormality seen.
[2023-05-03 16:35] VITALS: BP 127/79; PULSE 91; TEMP 98
== END 2023-05-03 16:27 | disposition home or self-care (01) ==
LOC: EC 14:24
DX: S60.212A Contusion of left wrist, initial encounter (principal); E07.9 Disorder of thyroid, unspecified; F41.9 Anxiety disorder, unspecified; F31.9 Bipolar disorder, unspecified; F12.90 Cannabis use, unspecified, uncomplicated; Z79.890 Hormone replacement therapy; Z79.899 Other long term (current) drug therapy; Z88.1 Allergy status to other antibiotic agents; Z88.8 Allergy status to other drugs, medicaments and biological substances; X50.0XXA Overexertion from strenuous movement or load, initial encounter
CPT/HCPCS: 99284

== ENCOUNTER 2023-06-12 11:40 | Emergency (ER) | payer OTHER ==
[2023-06-12 12:15] VITALS: BP 137/78; PULSE 71; RESP 18; TEMP 98.6
[2023-06-12 12:33] LABS: Basophils % (A) 0 %; Eosinophils # (A) 0.2 k/uL (0-0.7); Eosinophils % (A) 2 %; HCT 41.6 % (34.0-46.0); Lymphocytes # (A) 2.9 k/uL (1.0-4.8); Lymphocytes % (A) 41 %; MCH 30.3 pg (25.0-35.0); MCHC 33.7 g/dL (31.0-37.0); MCV 89.9 fL (80.0-100.0); Mean Platelet Volume 7.8; Monocytes # (A) 0.4 k/uL (0-1.0); Monocytes % (A) 6 %; Neutrophils # (A) 3.4 k/uL (1.3-7.7); Neutrophils % (A) 49 %; Platelet Count 267 k/uL (150-450); RBC 4.63 m/uL (3.80-5.40); RDW 12.6 % (11.5-15.5)
[2023-06-12 12:50] LABS: ALT 36 U/L (4-34); AST 34 U/L (14-36); African American GFR (CKD) >90 (>60 ml/min/1.73 sqM); Albumin 4.1 g/dL (3.5-5.0); Alkaline Phosphatase 67 U/L (38-126); Anion Gap 12 mmol/L; Blood Urea Nitrogen 11 mg/dL (7-17); Calcium 9.4 mg/dL (8.4-10.2); Carbon Dioxide 23 mmol/L (22-30); Chloride 105 mmol/L (98-107); Glucose 92 mg/dL (74-99); Non-African American GFR(CKD) >90 (>60 ml/min/1.73 sqM); Potassium 3.7 mmol/L (3.5-5.1); Sodium 140 mmol/L (137-145); Total Bilirubin 0.5 mg/dL (0.2-1.3); Total Protein 6.9 g/dL (6.3-8.2)
[2023-06-12 12:51] LABS: Appearance,Urine Clear (Clear); Bilirubin,Urine Negative (Negative); Blood,Urine Negative (Negative); Color,Urine Yellow; Glucose,Urine (UA) Negative (Negative); Ketones,Urine Negative (Negative); Leukocyte Esterase,Urine Negative (Negative); Nitrite,Urine Negative (Negative); PH, Urine 5.5 (5.0-8.0); Protein,Urine Negative (Negative); Specific Gravity,Urine 1.022 (1.001-1.035); Urobilinogen,Urine <2.0 mg/dL (<2.0)
--- NOTE | 2023-06-12 13:40 | ED ---
Abdominal Pain HPI - General Chief Complaint: Abdominal Pain Stated Complaint: possible eptopic Time Seen by Provider: 06/12/23 13:39 Source: patient, RN notes reviewed Mode of arrival: ambulatory Limitations: no limitations - History of Present Illness Initial Comments: 23-year-old female presents emergency Department concerning for possible ectopic or miscarriage. Patient states that she had a positive test states that her hCG was in the 80s. Patient states that she is not having bleeding but has mild cramping lower abdomen denies unilateral pain. - Related Data Home Medications Medication Instructions Recorded Confirmed Levothyroxine Sodium 100 mcg PO DAILY 03/08/22 05/03/23 lamoTRIgine [LaMICtal] 100 mg PO BID 09/04/22 05/03/23 ARIPiprazole IM [Abilify Maintena] 400 mg IM Q28D 12/26/22 05/03/23 FLUoxetine HCL [PROzac] 20 mg PO DAILY 12/26/22 05/03/23 Ergocalciferol (Vitamin D2) 1,250 mcg PO BIRD 05/03/23 05/03/23 [Drisdol (50,000 Iu)] Meloxicam [Mobic] 7.5 mg PO DAILY 05/03/23 05/03/23 Phentermine HCl [Adipex-P] 37.5 mg PO DAILY 05/03/23 05/03/23 Allergies Allergy/AdvReac Type Severity Reaction Status Date / Time vancomycin Allergy Anaphylaxis Verified 06/12/23 11:53 lorazepam [From Ativan] AdvReac Rapid Verified 06/12/23 11:53 Heart Rate Review of Systems ROS Statement: Those systems with pertinent positive or pertinent negative responses have been documented in the HPI. ROS Other: All systems not noted in ROS Statement are negative. Past Medical History Past Medical History: GERD/Reflux, Thyroid Disorder Additional Past Medical History / Comment(s): Back problems/pain. History of Any Multi-Drug Resistant Organisms: None Reported Past Surgical History: Adenoidectomy, Section, Cholecystectomy, Ear Surgery, Orthopedic Surgery, Tonsillectomy Additional Past Surgical History / Comment(s): Multiple surgeries to her ears for tube placement, left hand wound closure, Section X2. Past Anesthesia/Blood Transfusion Reactions: No Reported Reaction Additional Past Anesthesia/Blood Transfusion Reaction / Comment(s): Mom slow to wake up. Past Psychological History: Anxiety, Bipolar, Depression Smoking Status: Never smoker Past Alcohol Use History: Occasional Past Drug Use History: Marijuana - Past Family History Mother Family Medical History: Diabetes Mellitus, Hypertension Father History Unknown: Yes Sister(s) Additional Family Medical History / Comment(s): Social anxiety disorder. General Exam Limitations: no limitations General appearance: alert, in no apparent distress Head exam: Present: atraumatic, normocephalic, normal inspection Eye exam: Present: normal appearance, PERRL, EOMI. Absent: scleral icterus, conjunctival injection, periorbital swelling Respiratory exam: Present: normal lung sounds bilaterally. Absent: respiratory distress, wheezes, rales, rhonchi, stridor Cardiovascular Exam: Present: regular rate, normal rhythm, normal heart sounds. Absent: systolic murmur, diastolic murmur, rubs, gallop, clicks GI/Abdominal exam: Present: soft, normal bowel sounds. Absent: distended, tenderness, guarding, rebound, rigid Neurological exam: Present: alert Course Vital Signs 06/12/23 11:49 Temperature 98.6 F Pulse Rate 71 Respiratory 18 Rate Blood Pressure 137/78 O2 Sat by Pulse 100 Oximetry Medical Decision Making - Medical Decision Making Was pt. sent in by a medical professional or institution (, PA, MIX CRUSHER OPERATOR, urgent care, hospital, or senior care...) When possible be specific @ -No Did you speak to anyone other than the patient for history (EMS, parent, family, police, friend...)? What history was obtained from this source @ -No Did you review nursing and triage notes (agree or disagree)? Why? @ -I reviewed and agree with nursing and triage notes Were old charts reviewed (outside hosp., previous admission, EMS record, old EKG, old radiological studies, urgent care reports/EKG's, senior care records)? Report findings @ -No old charts were reviewed Differential Diagnosis (chest pain, altered mental status, abdominal pain women, abdominal pain men, vaginal bleeding, weakness, fever, dyspnea, syncope, headache, dizziness, GI bleed, back pain, seizure, CVA, palpatations, mental health, musculoskeletal)? @ -Differential Abdominal Pain Women: Appendicitis, Cholecystitis, diverticulosis, ischemic bowel, pancreatitis, hepatitis, UTI, gastroenteritis, AAA, incarcerated hernia, bowel obstruction, constipation, inflammatory bowel, hepatitis, peptic ulcer disease, splenic infarction, perforated viscus, vulvitis, ovarian torsion, PID, kidney stone, placenta abruption, this is not meant to be an all-inclusive liste EKG interpreted by me (3pts min.). @ -None X-rays interpreted by me (1pt min.). @ -None done CT interpreted by me (1pt min.). @ -None done U/S interpreted by me (1pt. min.). @ -None done What testing was considered but not performed or refused? (CT, X-rays, U/S, labs)? Why? @ -Consider ultrasound though patient has low hCG, no unilateral pain What meds were considered but not given or refused? Why? @ -None Did you discuss the management of the patient with other professionals (professionals i.e. , PA, MIX CRUSHER OPERATOR, lab, RT, psych nurse, manager social work, technician biological health, teacher, sustainability officer, pillowcase cutter)? Give summary @ -No Was smoking cessation discussed for >3mins.? @ -No Was critical care preformed (if so, how long)? @ -No Were there social determinants of health that impacted care today? How? (Homelessness, low income, unemployed, alcoholism, drug addiction, transportation, low edu. Level, literacy, decrease access to med. care, fdc, rehab)? @ -No Was there de-escalation of care discussed even if they declined (Discuss DNR or withdrawal of care, Hospice)? DNR status @ -No What co-morbidities impacted this encounter? (DM, HTN, Smoking, COPD, CAD, Cancer, CVA, ARF, Chemo, Hep., AIDS, mental health diagnosis, sleep apnea, morbid obesity)? @ -None Was patient admitted / discharged? Hospital course, mention meds given and route, prescriptions, significant lab abnormalities, going to OR and other pertinent info. @ -Discharged patient's hCG has dropped to 5 from previously elevated. Patient 7 miscarriage. Patient is to follow-up with [facility] return parameters discussed. Undiagnosed new problem with uncertain prognosis? @ -No Drug Therapy requiring intensive monitoring for toxicity (Heparin, Nitro, Insulin, Cardizem)? @ -No Were any procedures done? @ -No Diagnosis/symptom? @ -Miscarriage Acute, or Chronic, or Acute on Chronic? @ -Acute Uncomplicated (without systemic symptoms) or Complicated (systemic symptoms)? @ -Uncomplicated Side effects of treatment? @ -No Exacerbation, Progression, or Severe Exacerbation? @ -No Poses a threat to life or bodily function? How? (Chest pain, USA, OR, pneumonia, PE, COPD, DKA, ARF, appy, cholecystitis, CVA, Diverticulitis, Homicidal, Suicidal, threat to staff... and all critical care pts) @ -No - Lab Data Result diagrams: 06/12/23 12:06/12/23 12: Lab Results 06/12/23 06/12/23 06/12/23 Range/Units 12: 12: 12: WBC 7.0 (3.8-10.6) k/uL RBC 4.63 (3.80-5.40) m/uL Hgb 14.0 (11.4-16.0) gm/dL Hct 41.6 (34.0-46.0) % MCV 89.9 (80.0-100.0) fL MCH 30.3 (25.0-35.0) pg MCHC 33.7 (31.0-37.0) g/dL RDW 12.6 (11.5-15.5) % Plt Count 267 (150-450) k/uL MPV 7.8 Neutrophils % 49 % Lymphocytes % 41 % Monocytes % 6 % Eosinophils % 2 % Basophils % 0 % Neutrophils # 3.4 (1.3-7.7) k/uL Lymphocytes # 2.9 (1.0-4.8) k/uL Monocytes # 0.4 (0-1.0) k/uL Eosinophils # 0.2 (0-0.7) k/uL Basophils # 0.0 (0-0.2) k/uL Sodium 140 (137-145) mmol/L Potassium 3.7 (3.5-5.1) mmol/L Chloride 105 (98-107) mmol/L Carbon Dioxide 23 (22-30) mmol/L Anion Gap 12 mmol/L BUN 11 (7-17) mg/dL Creatinine 0.80 (0.52-1.04) mg/dL Est GFR (CKD-EPI)AfAm >90 (>60 ml/min/1.73 sqM) Est GFR (CKD-EPI)NonAf >90 (>60 ml/min/1.73 sqM) Glucose 92 (74-99) mg/dL Calcium 9.4 (8.4-10.2) mg/dL Total Bilirubin 0.5 (0.2-1.3) mg/dL AST 34 (14-36) U/L ALT 36 H (4-34) U/L Alkaline Phosphatase 67 (38-126) U/L Total Protein 6.9 (6.3-8.2) g/dL Albumin 4.1 (3.5-5.0) g/dL HCG, Quant 5.0 mIU/mL Urine Color Urine Appearance (Clear) Urine pH (5.0-8.0) Ur Specific [place] (1.001-1.035) Urine Protein (Negative) Urine Glucose (UA) (Negative) Urine Ketones (Negative) Urine Blood (Negative) Urine Nitrite (Negative) Urine Bilirubin (Negative) Urine Urobilinogen (<2.0) mg/dL Ur Leukocyte Esterase (Negative) Blood Type A Positive Blood Type Recheck A Pos Bld Type Recheck Status No 06/12/23 Range/Units 12:34 WBC (3.8-10.6) k/uL RBC (3.80-5.40) m/uL Hgb (11.4-16.0) gm/dL Hct (34.0-46.0) % MCV (80.0-100.0) fL MCH (25.0-35.0) pg MCHC (31.0-37.0) g/dL RDW (11.5-15.5) % Plt Count (150-450) k/uL MPV Neutrophils % % Lymphocytes % % Monocytes % % Eosinophils % % Basophils % % Neutrophils # (1.3-7.7) k/uL Lymphocytes # (1.0-4.8) k/uL Monocytes # (0-1.0) k/uL Eosinophils # (0-0.7) k/uL Basophils # (0-0.2) k/uL Sodium (137-145) mmol/L Potassium (3.5-5.1) mmol/L Chloride (98-107) mmol/L Carbon Dioxide (22-30) mmol/L Anion Gap mmol/L BUN (7-17) mg/dL Creatinine (0.52-1.04) mg/dL Est GFR (CKD-EPI)AfAm (>60 ml/min/1.73 sqM) Est GFR (CKD-EPI)NonAf (>60 ml/min/1.73 sqM) Glucose (74-99) mg/dL Calcium (8.4-10.2) mg/dL Total Bilirubin (0.2-1.3) mg/dL AST (14-36) U/L ALT (4-34) U/L Alkaline Phosphatase (38-126) U/L Total Protein (6.3-8.2) g/dL Albumin (3.5-5.0) g/dL HCG, Quant mIU/mL Urine Color Yellow Urine Appearance Clear (Clear) Urine pH 5.5 (5.0-8.0) Ur Specific [place] 1.022 (1.001-1.035) Urine Protein Negative (Negative) Urine Glucose (UA) Negative (Negative) Urine Ketones Negative (Negative) Urine Blood Negative (Negative) Urine Nitrite Negative (Negative) Urine Bilirubin Negative (Negative) Urine Urobilinogen <2.0 (<2.0) mg/dL Ur Leukocyte Esterase Negative (Negative) Blood Type Blood Type Recheck Bld Type Recheck Status Disposition Clinical Impression: Abdominal pain, Miscarriage Disposition: HOME SELF-CARE Condition: Stable Instructions (If sedation given, give patient instructions): Abdominal Pain (ED) Additional Instructions: Please return to the Emergency Department if symptoms worsen or any other concerns. Is patient prescribed a controlled substance at d/c from ED?: No Referrals: Geraldine Vitale DO [Primary Care Provider] - 1-2 days Time of Disposition: 13:40
== END 2023-06-12 13:48 | disposition home or self-care (01) ==
LOC: EC 11:40
DX: O03.9 Complete or unspecified spontaneous abortion without complication (principal); O99.280 Endocrine, nutritional and metabolic diseases complicating pregnancy, unspecified trimester; E07.9 Disorder of thyroid, unspecified; O99.619 Diseases of the digestive system complicating pregnancy, unspecified trimester; K21.9 Gastro-esophageal reflux disease without esophagitis; O99.320 Drug use complicating pregnancy, unspecified trimester; F12.90 Cannabis use, unspecified, uncomplicated; Z79.890 Hormone replacement therapy; Z79.899 Other long term (current) drug therapy; Z88.8 Allergy status to other drugs, medicaments and biological substances; Z88.6 Allergy status to analgesic agent; Z86.59 Personal history of other mental and behavioral disorders
CPT/HCPCS: 36415; 80053; 81003; 84702; 85025; 86900; 86901; 99283

== ENCOUNTER 2023-08-28 20:19 | Emergency (ER) | payer OTHER ==
[2023-08-28 20:37] VITALS: TEMP 98.6
--- NOTE | 2023-08-28 21:02 | ED ---
General Adult HPI - General Chief complaint: Dizziness Stated complaint: sob,dizzy Time Seen by Provider: 08/28/23 20:35 Source: patient, RN notes reviewed Mode of arrival: ambulatory Limitations: no limitations - History of Present Illness Initial comments: 23-year-old female presents to the emergency department for evaluation of lightheadedness that started today. Patient states that she has had 2 episodes of vomiting today. Patient is concerned that she is dehydrated. Patient also states that she took a urine test at home today which was positive. She does report that she typically gets the symptoms when she is . She denies any vaginal bleeding or cramping. Denies recent fever, chills. - Related Data Home Medications Medication Instructions Recorded Confirmed Levothyroxine Sodium 100 mcg PO DAILY 03/08/22 05/03/23 lamoTRIgine [LaMICtal] 100 mg PO BID 09/04/22 05/03/23 ARIPiprazole IM [Abilify Maintena] 400 mg IM Q28D 12/26/22 05/03/23 FLUoxetine HCL [PROzac] 20 mg PO DAILY 12/26/22 05/03/23 Ergocalciferol (Vitamin D2) 1,250 mcg PO BIRD 05/03/23 05/03/23 [Drisdol (50,000 Iu)] Meloxicam [Mobic] 7.5 mg PO DAILY 05/03/23 05/03/23 Phentermine HCl [Adipex-P] 37.5 mg PO DAILY 05/03/23 05/03/23 Allergies Allergy/AdvReac Type Severity Reaction Status Date / Time vancomycin Allergy Anaphylaxis Verified 08/28/23 20:24 lorazepam [From Ativan] AdvReac Rapid Verified 08/28/23 20:24 Heart Rate Review of Systems ROS Statement: Those systems with pertinent positive or pertinent negative responses have been documented in the HPI. ROS Other: All systems not noted in ROS Statement are negative. Past Medical History Past Medical History: GERD/Reflux, Thyroid Disorder Additional Past Medical History / Comment(s): Back problems/pain. History of Any Multi-Drug Resistant Organisms: None Reported Past Surgical History: Adenoidectomy, Section, Cholecystectomy, Ear Surgery, Orthopedic Surgery, Tonsillectomy Additional Past Surgical History / Comment(s): Multiple surgeries to her ears for tube placement, left hand wound closure, Section X2. Past Anesthesia/Blood Transfusion Reactions: No Reported Reaction Additional Past Anesthesia/Blood Transfusion Reaction / Comment(s): Mom slow to wake up. Past Psychological History: Anxiety, Bipolar, Depression Smoking Status: Never smoker Past Alcohol Use History: Occasional Past Drug Use History: Marijuana - Past Family History Mother Family Medical History: Diabetes Mellitus, Hypertension Father History Unknown: Yes Sister(s) Additional Family Medical History / Comment(s): Social anxiety disorder. General Exam Limitations: no limitations General appearance: alert, in no apparent distress Head exam: Present: atraumatic, normocephalic, normal inspection Eye exam: Present: normal appearance, PERRL, EOMI. Absent: scleral icterus, conjunctival injection, periorbital swelling ENT exam: Present: normal exam, mucous membranes moist, normal external ear exam. Absent: TM's normal bilaterally Neck exam: Present: normal inspection. Absent: tenderness, meningismus, lymphadenopathy Respiratory exam: Present: normal lung sounds bilaterally. Absent: respiratory distress, wheezes, rales, rhonchi, stridor Cardiovascular Exam: Present: regular rate, normal rhythm, normal heart sounds. Absent: systolic murmur, diastolic murmur, rubs, gallop, clicks GI/Abdominal exam: Present: soft, normal bowel sounds. Absent: distended, tenderness, guarding, rebound, rigid Extremities exam: Present: normal inspection, full ROM, normal capillary refill. Absent: tenderness, pedal edema, joint swelling, calf tenderness Back exam: Present: normal inspection Neurological exam: Present: alert, oriented X3, CN II-XII intact, normal gait Psychiatric exam: Present: normal affect, normal mood Skin exam: Present: warm, dry, intact, normal color. Absent: rash Course Vital Signs 08/28/23 08/28/23 08/28/23 20:21 21:44 22:45 Temperature 98.6 F 98.6 F Pulse Rate 103 H 89 65 Respiratory 18 16 16 Rate Blood Pressure 132/88 112/70 144/98 O2 Sat by Pulse 99 97 99 Oximetry Medical Decision Making - Medical Decision Making Was pt. sent in by a medical professional or institution (, PA, CRUISE AGENT, urgent care, hospital, or fci...) When possible be specific @ -No Did you speak to anyone other than the patient for history (EMS, parent, family, police, friend...)? What history was obtained from this source @ -No Did you review nursing and triage notes (agree or disagree)? Why? @ -I reviewed and agree with nursing and triage notes Were old charts reviewed (outside hosp., previous admission, EMS record, old EKG, old radiological studies, urgent care reports/EKG's, fci records)? Report findings @ -No old charts were reviewed Differential Diagnosis (chest pain, altered mental status, abdominal pain women, abdominal pain men, vaginal bleeding, weakness, fever, dyspnea, syncope, head ache, dizziness, GI bleed, back pain, seizure, CVA, palpatations, mental health, musculoskeletal)? @ -Differential Dizziness: Benign paroxysmal positional Vertigo, Menieres disease, otitis media, acoustic neuroma, vertebrobasilar insufficiency, cerebellar stroke, encephalitis, hypovolemic, arrhythmia, coronary artery syndrome, anemia, this is not meant to be an all-inclusive list EKG interpreted by me (3pts min.). @ -EKG at 2108 shows sinus rhythm rate 78, NV 173, QRS 82, QTQTc [id number] X-rays interpreted by me (1pt min.). @ -None done CT interpreted by me (1pt min.). @ -None done U/S interpreted by me (1pt. min.). @ -None done What testing was considered but not performed or refused? (CT, X-rays, U/S, labs)? Why? @ -None What meds were considered but not given or refused? Why? @ -None Did you discuss the management of the patient with other professionals (professionals i.e. , PA, CRUISE AGENT, lab, RT, psych nurse, secondary social studies teacher, hand gluer and slicer, teacher, air force senior officer, returned case inspector)? Give summary @ -No Was smoking cessation discussed for >3mins.? @ -No Was critical care preformed (if so, how long)? @ -No Were there social determinants of health that impacted care today? How? (Homel essness, low income, unemployed, alcoholism, drug addiction, transportation, low edu. Level, literacy, decrease access to med. care, [facility], rehab)? @ -No Was there de-escalation of care discussed even if they declined (Discuss DNR or withdrawal of care, Hospice)? DNR status @ -No What co-morbidities impacted this encounter? (DM, HTN, Smoking, COPD, CAD, Cancer, CVA, ARF, Chemo, Hep., AIDS, mental health diagnosis, sleep apnea, morbid obesity)? @ -None Was patient admitted / discharged? Hospital course, mention meds given and route, prescriptions, significant lab abnormalities, going to OR and other pertinent info. @ -Discharged. Patient presented to the emergency department for evaluation of lightheadedness. Patient states that she had a positive urine test yesterday. She does report that the symptoms typically occur when she is .Laboratory for it obtained. CBC shows a BC 9.6, hemoglobin 13.6; CMP within normal limits. Quantitative hCG 25.4. Patient does report that she had an hCG drawn on Saturday and was 6. UA showed negative nitrite, negative leukocyte esterase. Patient given 1 L normal saline symptoms are improved and patient will be discharged home. Understanding agreeable with discharge plan. Patient stable at time of discharge. Case discussed with Dr. Mae. Undiagnosed new problem with uncertain prognosis? @ -No Drug Therapy requiring intensive monitoring for toxicity (Heparin, Nitro, Insulin, Cardizem)? @ -No Were any procedures done? @ -No Diagnosis/symptom? @ -Lightheadedness, early Acute, or Chronic, or Acute on Chronic? @ -Acute Uncomplicated (without systemic symptoms) or Complicated (systemic symptoms)? @ -uncomplicated Side effects of treatment? @ -No Exacerbation, Progression, or Severe Exacerbation? @ -No Poses a threat to life or bodily function? How? (Chest pain, [place], [place], pneumonia, PE, COPD, DKA, ARF, appy, cholecystitis, CVA, Diverticulitis, Homicidal, Suicidal, threat to staff... and all critical care pts) @ -No - Lab Data Result diagrams: 08/28/23 21:08 08/28/23 21:08 Lab Results 08/28/23 08/28/23 08/28/23 Range/Units 21:08 21:08 21:08 WBC 9.6 (3.8-10.6) k/uL RBC 4.47 (3.80-5.40) m/uL Hgb 13.6 (11.4-16.0) gm/dL Hct 40.8 (34.0-46.0) % MCV 91.3 (80.0-100.0) fL MCH 30.5 (25.0-35.0) pg MCHC 33.4 (31.0-37.0) g/dL RDW 12.2 (11.5-15.5) % Plt Count 252 (150-450) k/uL MPV 8.2 Neutrophils % 55 % Lymphocytes % 37 % Monocytes % 4 % Eosinophils % 2 % Basophils % 0 % Neutrophils # 5.3 (1.3-7.7) k/uL Lymphocytes # 3.5 (1.0-4.8) k/uL Monocytes # 0.4 (0-1.0) k/uL Eosinophils # 0.2 (0-0.7) k/uL Basophils # 0.0 (0-0.2) k/uL PT 11.2 (10.0-12.5) sec INR 1.0 (<1.2) Sodium (137-145) mmol/L Potassium (3.5-5.1) mmol/L Chloride (98-107) mmol/L Carbon Dioxide (22-30) mmol/L Anion Gap mmol/L BUN (7-17) mg/dL Creatinine (0.52-1.04) mg/dL Est GFR (CKD-EPI)AfAm (>60 ml/min/1.73 sqM) Est GFR (CKD-EPI)NonAf (>60 ml/min/1.73 sqM) Glucose (74-99) mg/dL Calcium (8.4-10.2) mg/dL Total Bilirubin (0.2-1.3) mg/dL AST (14-36) U/L ALT (4-34) U/L Alkaline Phosphatase (38-126) U/L Total Protein (6.3-8.2) g/dL Albumin (3.5-5.0) g/dL HCG, Quant mIU/mL Urine Color Light Yellow Urine Appearance Clear (Clear) Urine pH 6.0 (5.0-8.0) Ur Specific Bond 1.021 (1.001-1.035) Urine Protein Negative (Negative) Urine Glucose (UA) Negative (Negative) Urine Ketones Negative (Negative) Urine Blood Negative (Negative) Urine Nitrite Negative (Negative) Urine Bilirubin Negative (Negative) Urine Urobilinogen <2.0 (<2.0) mg/dL Ur Leukocyte Esterase Negative (Negative) 02/07/24 Range/Units 21:08 WBC (3.8-10.6) k/uL RBC (3.80-5.40) m/uL Hgb (11.4-16.0) gm/dL Hct (34.0-46.0) % MCV (80.0-100.0) fL MCH (25.0-35.0) pg MCHC (31.0-37.0) g/dL RDW (11.5-15.5) % Plt Count (150-450) k/uL MPV Neutrophils % % Lymphocytes % % Monocytes % % Eosinophils % % Basophils % % Neutrophils # (1.3-7.7) k/uL Lymphocytes # (1.0-4.8) k/uL Monocytes # (0-1.0) k/uL Eosinophils # (0-0.7) k/uL Basophils # (0-0.2) k/uL PT (10.0-12.5) sec INR (<1.2) Sodium 139 (137-145) mmol/L Potassium 4.0 (3.5-5.1) mmol/L Chloride 107 (98-107) mmol/L Carbon Dioxide 26 (22-30) mmol/L Anion Gap 6 mmol/L BUN 10 (7-17) mg/dL Creatinine 0.66 (0.52-1.04) mg/dL Est GFR (CKD-EPI)AfAm >90 (>60 ml/min/1.73 sqM) Est GFR (CKD-EPI)NonAf >90 (>60 ml/min/1.73 sqM) Glucose 101 H (74-99) mg/dL Calcium 9.5 (8.4-10.2) mg/dL Total Bilirubin 0.4 (0.2-1.3) mg/dL AST 23 (14-36) U/L ALT 22 (4-34) U/L Alkaline Phosphatase 66 (38-126) U/L Total Protein 6.8 (6.3-8.2) g/dL Albumin 4.0 (3.5-5.0) g/dL HCG, Quant 25.4 mIU/mL Urine Color Urine Appearance (Clear) Urine pH (5.0-8.0) Ur Specific Bond (1.001-1.035) Urine Protein (Negative) Urine Glucose (UA) (Negative) Urine Ketones (Negative) Urine Blood (Negative) Urine Nitrite (Negative) Urine Bilirubin (Negative) Urine Urobilinogen (<2.0) mg/dL Ur Leukocyte Esterase (Negative) Disposition Clinical Impression: Early stage of , Lightheadedness Disposition: HOME SELF-CARE Condition: Stable Instructions (If sedation given, give patient instructions): Dizziness (ED) Additional Instructions: Please follow up with your STORAGE ENGINEER. Return to the emergency department for new or worsening symptoms. Is patient prescribed a controlled substance at d/c from ED?: No Referrals: Geraldine Vitale DO [Primary Care Provider] - 1-2 days
[2023-08-28] MEDS: SODIUM CHLORIDE 0.9% 1,000 ML IV STA (21:22)
[2023-08-28 21:29] LABS: Basophils % (A) 0 %; Eosinophils # (A) 0.2 k/uL (0-0.7); Eosinophils % (A) 2 %; HCT 40.8 % (34.0-46.0); HGB 13.6 gm/dL (11.4-16.0); Lymphocytes # (A) 3.5 k/uL (1.0-4.8); Lymphocytes % (A) 37 %; MCH 30.5 pg (25.0-35.0); MCHC 33.4 g/dL (31.0-37.0); MCV 91.3 fL (80.0-100.0); Mean Platelet Volume 8.2; Monocytes # (A) 0.4 k/uL (0-1.0); Monocytes % (A) 4 %; Neutrophils # (A) 5.3 k/uL (1.3-7.7); Neutrophils % (A) 55 %; Platelet Count 252 k/uL (150-450); RBC 4.47 m/uL (3.80-5.40); RDW 12.2 % (11.5-15.5); WBC 9.6 k/uL (3.8-10.6)
[2023-08-28 21:30] LABS: Appearance,Urine Clear (Clear); Bilirubin,Urine Negative (Negative); Blood,Urine Negative (Negative); Color,Urine Light Yellow; Glucose,Urine (UA) Negative (Negative); Ketones,Urine Negative (Negative); Leukocyte Esterase,Urine Negative (Negative); Nitrite,Urine Negative (Negative); Protein,Urine Negative (Negative); Specific Gravity,Urine 1.021 (1.001-1.035); Urobilinogen,Urine <2.0 mg/dL (<2.0)
[2023-08-28 21:43] LABS: Prothrombin Time 11.2 sec (10.0-12.5)
[2023-08-28 21:54] LABS: ALT 22 U/L (4-34); AST 23 U/L (14-36); African American GFR (CKD) >90 (>60 ml/min/1.73 sqM); Alkaline Phosphatase 66 U/L (38-126); Anion Gap 6 mmol/L; Blood Urea Nitrogen 10 mg/dL (7-17); Calcium 9.5 mg/dL (8.4-10.2); Carbon Dioxide 26 mmol/L (22-30); Chloride 107 mmol/L (98-107); Glucose 101 mg/dL (74-99); Non-African American GFR(CKD) >90 (>60 ml/min/1.73 sqM); Sodium 139 mmol/L (137-145); Total Bilirubin 0.4 mg/dL (0.2-1.3); Total Protein 6.8 g/dL (6.3-8.2)
[2023-08-28 21:57] VITALS: RESP 16
[2023-08-28 22:10] LABS: HCG,Quantitative Serum 25.4 mIU/mL
[2023-08-28 22:53] VITALS: BP 144/98; PULSE 65
== END 2023-08-28 22:45 | disposition home or self-care (01) ==
LOC: EC 20:19
DX: O26.899 Other specified pregnancy related conditions, unspecified trimester (principal); R42 Dizziness and giddiness; O99.280 Endocrine, nutritional and metabolic diseases complicating pregnancy, unspecified trimester; E07.9 Disorder of thyroid, unspecified; O99.340 Other mental disorders complicating pregnancy, unspecified trimester; F41.9 Anxiety disorder, unspecified; F31.9 Bipolar disorder, unspecified; O99.320 Drug use complicating pregnancy, unspecified trimester; F12.90 Cannabis use, unspecified, uncomplicated; Z3A.00 Weeks of gestation of pregnancy not specified; Z88.1 Allergy status to other antibiotic agents; Z88.8 Allergy status to other drugs, medicaments and biological substances
CPT/HCPCS: 36415; 80053; 81003; 84702; 85025; 85610; 93005; 96360; 99284

== ENCOUNTER 2023-09-07 14:16 | Emergency (ER) | payer OTHER ==
[2023-09-07 14:42] VITALS: TEMP 97.8
--- NOTE | 2023-09-07 16:25 | ED ---
General Adult HPI - General Chief complaint: Abdominal Pain Stated complaint: Cramping/Preg Time Seen by Provider: 09/07/23 16:04 Source: patient, RN notes reviewed Mode of arrival: ambulatory Limitations: no limitations - History of Present Illness Initial comments: 23-year-old female presents to the emergency department for evaluation of abdominal cramping in . Patient states that she believes she is around 5 weeks . Last menstrual period 24. Patient reports that cramping started yesterday. Is all in her lower pelvic area. She denies any significant pain. Denies vaginal bleeding. - Related Data Home Medications Medication Instructions Recorded Confirmed Levothyroxine Sodium 100 mcg PO DAILY 03/08/22 05/03/23 lamoTRIgine [LaMICtal] 100 mg PO BID 09/04/22 05/03/23 ARIPiprazole IM [Abilify Maintena] 400 mg IM Q28D 12/26/22 05/03/23 FLUoxetine HCL [PROzac] 20 mg PO DAILY 12/26/22 05/03/23 Ergocalciferol (Vitamin D2) 1,250 mcg PO BIRD 05/03/23 05/03/23 [Drisdol (50,000 Iu)] Meloxicam [Mobic] 7.5 mg PO DAILY 05/03/23 05/03/23 Phentermine HCl [Adipex-P] 37.5 mg PO DAILY 05/03/23 05/03/23 Allergies Allergy/AdvReac Type Severity Reaction Status Date / Time vancomycin Allergy Anaphylaxis Verified 09/07/23 14:24 lorazepam [From Ativan] AdvReac Rapid Verified 09/07/23 14:24 Heart Rate Review of Systems ROS Statement: Those systems with pertinent positive or pertinent negative responses have been documented in the HPI. ROS Other: All systems not noted in ROS Statement are negative. Past Medical History Past Medical History: GERD/Reflux, Thyroid Disorder Additional Past Medical History / Comment(s): Back problems/pain. History of Any Multi-Drug Resistant Organisms: None Reported Past Surgical History: Adenoidectomy, Section, Cholecystectomy, Ear Surgery, Orthopedic Surgery, Tonsillectomy Additional Past Surgical History / Comment(s): Multiple surgeries to her ears for tube placement, left hand wound closure, Section X2. Past Anesthesia/Blood Transfusion Reactions: No Reported Reaction Additional Past Anesthesia/Blood Transfusion Reaction / Comment(s): Mom slow to wake up. Past Psychological History: Anxiety, Bipolar, Depression Smoking Status: Never smoker Past Alcohol Use History: Occasional Past Drug Use History: Marijuana - Past Family History Mother Family Medical History: Diabetes Mellitus, Hypertension Father History Unknown: Yes Sister(s) Additional Family Medical History / Comment(s): Social anxiety disorder. General Exam Limitations: no limitations General appearance: alert, in no apparent distress Head exam: Present: atraumatic, normocephalic, normal inspection Eye exam: Present: normal appearance, PERRL, EOMI. Absent: scleral icterus, conjunctival injection, periorbital swelling ENT exam: Present: normal exam, mucous membranes moist Neck exam: Present: normal inspection. Absent: tenderness, meningismus, lymphadenopathy Respiratory exam: Present: normal lung sounds bilaterally. Absent: respiratory distress, wheezes, rales, rhonchi, stridor Cardiovascular Exam: Present: regular rate, normal rhythm, normal heart sounds. Absent: systolic murmur, diastolic murmur, rubs, gallop, clicks GI/Abdominal exam: Present: soft, normal bowel sounds. Absent: distended, tenderness, guarding, rebound, rigid Extremities exam: Present: normal inspection, full ROM, normal capillary refill. Absent: tenderness, pedal edema, joint swelling, calf tenderness Back exam: Present: normal inspection Neurological exam: Present: alert, oriented X3 Psychiatric exam: Present: normal affect, normal mood Skin exam: Present: warm, dry, intact, normal color. Absent: rash Course Vital Signs 09/07/23 09/07/23 09/07/23 14:23 16:16 19:33 Temperature 97.8 F Pulse Rate 92 82 58 L Respiratory 20 18 16 Rate Blood Pressure 135/84 135/80 113/75 O2 Sat by Pulse 98 100 100 Oximetry Medical Decision Making - Medical Decision Making Was pt. sent in by a medical professional or institution (, PA, HAND NAILER, urgent care, hospital, or skilled nursing...) When possible be specific @ -No Did you speak to anyone other than the patient for history (EMS, parent, family, police, friend...)? What history was obtained from this source @ -No Did you review nursing and triage notes (agree or disagree)? Why? @ -I reviewed and agree with nursing and triage notes Were old charts reviewed (outside hosp., previous admission, EMS record, old EKG, old radiological studies, urgent care reports/EKG's, skilled nursing records)? Report findings @ -No old charts were reviewed Differential Diagnosis (chest pain, altered mental status, abdominal pain women, abdominal pain men, vaginal bleeding, weakness, fever, dyspnea, syncope, heada daria, dizziness, GI bleed, back pain, seizure, CVA, palpatations, mental health, musculoskeletal)? @ -Normal early , threatened miscarriage, ectopic , this list is not all inclusive EKG interpreted by me (3pts min.). @ -None X-rays interpreted by me (1pt min.). @ -None done CT interpreted by me (1pt min.). @ -None done U/S interpreted by me (1pt. min.). @ -Obstetrics ultrasound shows small anechoic intrauterine cystic structure without evidence for yolk sac or pole at this time, thought to represent an early gestational sac What testing was considered but not performed or refused? (CT, X-rays, U/S, labs)? Why? @ -None What meds were considered but not given or refused? Why? @ -None Did you discuss the management of the patient with other professionals (dora avery i.e. , PA, HAND NAILER, lab, RT, psych nurse, social science manager, physical therapy aide, teacher, safety instruction police officer, keycase assembler)? Give summary @ -No Was smoking cessation discussed for >3mins.? @ -No Was critical care preformed (if so, how long)? @ -No Were there social determinants of health that impacted care today? How? (Homelessness, low income, unemployed, alcoholism, drug addiction, transportation, low edu. Level, literacy, decrease access to med. care, senior living, rehab)? @ -No Was there de-escalation of care discussed even if they declined (Discuss DNR or withdrawal of care, Hospice)? DNR status @ -No What co-morbidities impacted this encounter? (DM, HTN, Smoking, COPD, CAD, Cancer, CVA, ARF, Chemo, Hep., AIDS, mental health diagnosis, sleep apnea, morbid obesity)? @ -None Was patient admitted / discharged? Hospital course, mention meds given and route, prescriptions, significant lab abnormalities, going to OR and other pertinent info. @ -Discharge. Patient presented to the emergency department for cramping in .Laboratory studies obtained which are unremarkable including CBC, CMP, UA. Quantitative hCG positive at 1907.1. Ultrasound was obtained which shows a small anechoic intrauterine cystic structure without evidence for yolk sac or pole thought to represent an early gestational sac. Discussed with patient that it is too early to tell and that she needs to follow-up. Patient is understanding agreeable with plan. Patient stable at time of discharge. Case discussed with Dr. Aldana Undiagnosed new problem with uncertain prognosis? @ -No Drug Therapy requiring intensive monitoring for toxicity (Heparin, Nitro, Insulin, Cardizem)? @ -No Were any procedures done? @ -No Diagnosis/symptom? @ -Cramping in Acute, or Chronic, or Acute on Chronic? @ -acute Uncomplicated (without systemic symptoms) or Complicated (systemic symptoms)? @ -uncomplicated] Side effects of treatment? @ -No Exacerbation, Progression, or Severe Exacerbation? @ -No Poses a threat to life or bodily function? How? (Chest pain, [place], [place], pneumonia, PE, COPD, DKA, ARF, appy, cholecystitis, CVA, Diverticulitis, Homicidal, Suicidal, threat to staff... and all critical care pts) @ -No - Lab Data Result diagrams: 09/07/23 17:02 09/07/23 17:02 Lab Results 09/07/23 09/07/23 09/07/23 Range/Units 17:02 17:02 17:02 WBC 9.6 (3.8-10.6) k/uL RBC 4.57 (3.80-5.40) m/uL Hgb 14.0 (11.4-16.0) gm/dL Hct 41.9 (34.0-46.0) % MCV 91.8 (80.0-100.0) fL MCH 30.7 (25.0-35.0) pg MCHC 33.4 (31.0-37.0) g/dL RDW 12.5 (11.5-15.5) % Plt Count 289 (150-450) k/uL MPV 7.8 Neutrophils % 65 % Lymphocytes % 29 % Monocytes % 3 % Eosinophils % 2 % Basophils % 0 % Neutrophils # 6.2 (1.3-7.7) k/uL Lymphocytes # 2.8 (1.0-4.8) k/uL Monocytes # 0.3 (0-1.0) k/uL Eosinophils # 0.2 (0-0.7) k/uL Basophils # 0.0 (0-0.2) k/uL Sodium 138 (137-145) mmol/L Potassium 4.1 (3.5-5.1) mmol/L Chloride 107 (98-107) mmol/L Carbon Dioxide 25 (22-30) mmol/L Anion Gap 6 mmol/L BUN 9 (7-17) mg/dL Creatinine 0.61 (0.52-1.04) mg/dL Est GFR (CKD-EPI)AfAm >90 (>60 ml/min/1.73 sqM) Est GFR (CKD-EPI)NonAf >90 (>60 ml/min/1.73 sqM) Glucose 89 (74-99) mg/dL Calcium 9.2 (8.4-10.2) mg/dL Total Bilirubin 0.3 (0.2-1.3) mg/dL AST 30 (14-36) U/L ALT 28 (4-34) U/L Alkaline Phosphatase 74 (38-126) U/L Total Protein 6.7 (6.3-8.2) g/dL Albumin 4.0 (3.5-5.0) g/dL HCG, Quant 1907.1 mIU/mL Urine Color Colorless Urine Appearance Clear (Clear) Urine pH 5.5 (5.0-8.0) Ur Specific Red Level 1.011 (1.001-1.035) Urine Protein Negative (Negative) Urine Glucose (UA) Negative (Negative) Urine Ketones Negative (Negative) Urine Blood Negative (Negative) Urine Nitrite Negative (Negative) Urine Bilirubin Negative (Negative) Urine Urobilinogen <2.0 (<2.0) mg/dL Ur Leukocyte Esterase Negative (Negative) Disposition Clinical Impression: Early stage of , Abdominal cramping affecting Disposition: HOME SELF-CARE Condition: Stable Instructions (If sedation given, give patient instructions): (ED) Additional Instructions: Please follow up with your FLAVOR ROOM WORKER. Return to the emergency department for new or worsening symptoms. Is patient prescribed a controlled substance at d/c from ED?: No Referrals: Geraldine Vitale, [Primary Care Provider] - 1-2 days
[2023-09-07 17:22] LABS: Basophils % (A) 0 %; Eosinophils # (A) 0.2 k/uL (0-0.7); Eosinophils % (A) 2 %; HCT 41.9 % (34.0-46.0); Lymphocytes # (A) 2.8 k/uL (1.0-4.8); Lymphocytes % (A) 29 %; MCH 30.7 pg (25.0-35.0); MCHC 33.4 g/dL (31.0-37.0); MCV 91.8 fL (80.0-100.0); Mean Platelet Volume 7.8; Monocytes # (A) 0.3 k/uL (0-1.0); Monocytes % (A) 3 %; Neutrophils # (A) 6.2 k/uL (1.3-7.7); Neutrophils % (A) 65 %; Platelet Count 289 k/uL (150-450); RBC 4.57 m/uL (3.80-5.40); RDW 12.5 % (11.5-15.5); WBC 9.6 k/uL (3.8-10.6)
[2023-09-07 17:25] LABS: Appearance,Urine Clear (Clear); Bilirubin,Urine Negative (Negative); Blood,Urine Negative (Negative); Color,Urine Colorless; Glucose,Urine (UA) Negative (Negative); Ketones,Urine Negative (Negative); Leukocyte Esterase,Urine Negative (Negative); Nitrite,Urine Negative (Negative); PH, Urine 5.5 (5.0-8.0); Protein,Urine Negative (Negative); Specific Gravity,Urine 1.011 (1.001-1.035); Urobilinogen,Urine <2.0 mg/dL (<2.0)
[2023-09-07 17:31] LABS: ALT 28 U/L (4-34); AST 30 U/L (14-36); African American GFR (CKD) >90 (>60 ml/min/1.73 sqM); Alkaline Phosphatase 74 U/L (38-126); Anion Gap 6 mmol/L; Blood Urea Nitrogen 9 mg/dL (7-17); Calcium 9.2 mg/dL (8.4-10.2); Carbon Dioxide 25 mmol/L (22-30); Chloride 107 mmol/L (98-107); Glucose 89 mg/dL (74-99); Non-African American GFR(CKD) >90 (>60 ml/min/1.73 sqM); Potassium 4.1 mmol/L (3.5-5.1); Sodium 138 mmol/L (137-145); Total Bilirubin 0.3 mg/dL (0.2-1.3); Total Protein 6.7 g/dL (6.3-8.2)
[2023-09-07 17:48] LABS: HCG,Quantitative Serum 1907.1 mIU/mL
--- NOTE | 2023-09-07 19:04 | US ---
EXAMINATION TYPE: Transabdominal DATE OF EXAM: 09/07/2023 6:37 PM COMPARISON: NONE CLINICAL INDICATION: Female, 23 years old with history of cramping, 5 wks; cramping. Pt concerned bet a value is high for gestational age EXAM PERFORMED: Transvaginal (TV) and Transabdominal (TA) EXAM MEASUREMENTS: GESTATIONAL AGE / DATING Physician Established: Not yet established Dates by LMP: ( 4 weeks/4 days) EDC: 05/12/2024 Dates by First Scan: No previous this is first scan Dates by Current Scan for: ( 4 weeks/6 days) EDC: 05/10/2024 MATERNAL ANATOMY Uterus: 9.8x4.7x5.6 Right Ovary: 3.2x2.7x2.8 Left Ovary: 3.1x1.7x2.6 Post CDS / Adnexa: wnl Presence of free fluid: no Presence of corpus luteal cyst: hypoechoic area noted in right ovary measuring 1.0x1.2x0.8cm Presence of subchorionic bleed: no GESTATION / SURVEY CRL: not visualized MSD: 0.45 (4 weeks/6 days) Yolk Sac (normal less than 6mm): not visualized Heart Rate: not visualized Rhythm: not visualized IUP: possible gestational sac noted within endometrium Date of LMP: 08/06/2023 Beta HcG (if available): 1907 exam limited by bowel, body habitus, retroverted uterus, and early gestational age IMPRESSION: Small anechoic intrauterine cystic structure without evidence for yolk sac or pole at this time . This is thought to represent an early gestational sac with a positive beta hCG, however ectopic pre gnancy and abnormal intrauterine cannot be ruled out based on this exam alone. Follow-up [facility] pelvic ultrasound in 7-10 days and serial beta-hCG studies are recommended to en sure further deve lopment of the fetus. 2.
[2023-09-07 19:41] VITALS: BP 113/75; PULSE 58; RESP 16
== END 2023-09-07 19:34 | disposition home or self-care (01) ==
LOC: EC 14:16
DX: O26.891 Other specified pregnancy related conditions, first trimester (principal); R10.9 Unspecified abdominal pain; O99.341 Other mental disorders complicating pregnancy, first trimester; F41.9 Anxiety disorder, unspecified; F31.9 Bipolar disorder, unspecified; O99.321 Drug use complicating pregnancy, first trimester; F12.90 Cannabis use, unspecified, uncomplicated; O99.281 Endocrine, nutritional and metabolic diseases complicating pregnancy, first trimester; E07.9 Disorder of thyroid, unspecified; Z79.899 Other long term (current) drug therapy; Z3A.01 Less than 8 weeks gestation of pregnancy; Z79.890 Hormone replacement therapy; Z88.8 Allergy status to other drugs, medicaments and biological substances; Z88.1 Allergy status to other antibiotic agents
CPT/HCPCS: 36415; 76801; 76817; 80053; 81003; 84702; 85025; 99284

== ENCOUNTER 2023-09-15 18:43 | Emergency (ER) | payer OTHER ==
--- NOTE | 2023-09-15 19:16 | ED ---
Abdominal Pain HPI - General Chief Complaint: Abdominal Pain Stated Complaint: Adominal Pain Time Seen by Provider: 09/15/23 19:08 Source: patient Mode of arrival: ambulatory Limitations: no limitations - History of Present Illness Initial Comments: 23-year-old female presenting with chief complaint of abdominal pain. Patient is currently , estimated to be almost 6 weeks based on her LMP of August 06. . The pain started a few days ago but was worse today. This is a sharp pain to the right-sided abdomen. Surgical history includes cholecystectomy. No nausea, vomiting, chest pain, difficulty breathing, dysuria, hematuria, flank pain, fever, chills, diarrhea, hematochezia, melena, vaginal bleeding. - Related Data Home Medications Medication Instructions Recorded Confirmed Levothyroxine Sodium 100 mcg PO DAILY 03/08/22 05/03/23 lamoTRIgine [LaMICtal] 100 mg PO BID 09/04/22 05/03/23 ARIPiprazole IM [Abilify Maintena] 400 mg IM Q28D 12/26/22 05/03/23 FLUoxetine HCL [PROzac] 20 mg PO DAILY 12/26/22 05/03/23 Ergocalciferol (Vitamin D2) 1,250 mcg PO BIRD 05/03/23 05/03/23 [Drisdol (50,000 Iu)] Meloxicam [Mobic] 7.5 mg PO DAILY 05/03/23 05/03/23 Phentermine HCl [Adipex-P] 37.5 mg PO DAILY 05/03/23 05/03/23 Allergies Allergy/AdvReac Type Severity Reaction Status Date / Time vancomycin Allergy Anaphylaxis Verified 09/15/23 19:04 lorazepam [From Ativan] AdvReac Rapid Verified 09/15/23 19:04 Heart Rate Review of Systems ROS Statement: Those systems with pertinent positive or pertinent negative responses have been documented in the HPI. ROS Other: All systems not noted in ROS Statement are negative. Past Medical History Past Medical History: GERD/Reflux, Thyroid Disorder Additional Past Medical History / Comment(s): Back problems/pain. History of Any Multi-Drug Resistant Organisms: None Reported Past Surgical History: Adenoidectomy, Section, Cholecystectomy, Ear Surgery, Orthopedic Surgery, Tonsillectomy Additional Past Surgical History / Comment(s): Multiple surgeries to her ears for tube placement, left hand wound closure, Section X2. Past Anesthesia/Blood Transfusion Reactions: No Reported Reaction Additional Past Anesthesia/Blood Transfusion Reaction / Comment(s): Mom slow to wake up. Past Psychological History: Anxiety, Bipolar, Depression Smoking Status: Never smoker Past Alcohol Use History: Occasional Past Drug Use History: Marijuana - Past Family History Mother Family Medical History: Diabetes Mellitus, Hypertension Father History Unknown: Yes Sister(s) Additional Family Medical History / Comment(s): Social anxiety disorder. General Exam Limitations: no limitations General appearance: alert, in no apparent distress Head exam: Present: atraumatic, normocephalic Eye exam: Present: normal appearance Neck exam: Present: normal inspection Respiratory exam: Present: normal lung sounds bilaterally. Absent: respiratory distress, wheezes, rales, rhonchi, stridor Cardiovascular Exam: Present: regular rate, normal rhythm, normal heart sounds. Absent: systolic murmur, diastolic murmur, rubs, gallop, clicks GI/Abdominal exam: Present: soft, tenderness. Absent: distended, guarding, rebound, rigid Neurological exam: Present: alert, oriented X3 Psychiatric exam: Present: normal affect, normal mood Skin exam: Present: warm, dry Course Vital Signs 09/15/23 19:02 Temperature 98.2 F Pulse Rate 78 Respiratory 18 Rate Blood Pressure 156/88 O2 Sat by Pulse 100 Oximetry Medical Decision Making - Medical Decision Making Was pt. sent in by a medical professional or institution (Dr. PA, [employer] TECHNICIAN, urgent care, hospital, or detention...) When possible be specific @ -No Did you speak to anyone other than the patient for history (EMS, parent, family, police, friend...)? What history was obtained from this source @ -No Did you review nursing and triage notes (agree or disagree)? Why? @ -I reviewed and agree with nursing and triage notes Were old charts reviewed (outside hosp., previous admission, EMS record, old EKG, old radiological studies, urgent care reports/EKG's, detention records)? Report findings @ -No old charts were reviewed Differential Diagnosis (chest pain, altered mental status, abdominal pain women, abdominal pain men, vaginal bleeding, weakness, fever, dyspnea, syncope, headache, dizziness, GI bleed, back pain, seizure, CVA, palpatations, mental health, musculoskeletal)? @ -Differential includes spontaneous , missed , threatened , placental abruption, appendicitis, UTI, kidney stone, this is not an all-inclusive list EKG interpreted by me (3pts min.). @ -As above X-rays interpreted by me (1pt min.). @ -None done CT interpreted by me (1pt min.). @ -None done U/S interpreted by me (1pt. min.). @ -Ultrasound shows small anechoic intrauterine cystic structure without evidence for yolk sac or pole at this time. This is thought to represent an early gestational sac with a positive beta hCG, however ectopic and abnormal intrauterine cannot be ruled out based on this exam alone. Follow-up with pelvic ultrasound in 7 to 10 days and serial beta hCG studies are recommended to ensure further development of the fetus What testing was considered but not performed or refused? (CT, X-rays, U/S, labs )? Why? @ -None What meds were considered but not given or refused? Why? @ -None Did you discuss the management of the patient with other professionals (professionals i.e. , PA, [employer] TECHNICIAN, lab, RT, psych nurse, social secretary, sensitometrist, teacher, physics technical officer, case sealer)? Give summary @ -No Was smoking cessation discussed for >3mins.? @ -No Was critical care preformed (if so, how long)? @ -No Were there social determinants of health that impacted care today? How? (Homelessness, low income, unemployed, alcoholism, drug addiction, transportation, low edu. Level, literacy, decrease access to med. care, retirement, rehab)? @ -No Was there de-escalation of care discussed even if they declined (Discuss DNR or withdrawal of care, Hospice)? DNR status @ -No What co-morbidities impacted this encounter? (DM, HTN, Smoking, COPD, CAD, Cancer, CVA, ARF, Chemo, Hep., AIDS, mental health diagnosis, sleep apnea, morbid obesity)? @ -None Was patient admitted / discharged? Hospital course, mention meds given and route, prescriptions, significant lab abnormalities, going to OR and other pertinent info. @ -23-year-old female presenting with chief complaint of abdominal pain. She is almost 6 weeks . No vaginal bleeding. History and physical exam are conducted. Patient is given Tylenol and IV fluids. Lab work shows no cytosis or anemia. hCG is 19,375.9. Urine shows no infectious process or bleeding. Blood type is a positive. Ultrasound shows possible gestational sac, however this is difficult to determine by this study alone. I educated the patient on today's findings. Her CHUTE FEEDER is Dr. Rashad Posey. I provided the patient with an order for repeat beta hCG in 48 hours with instructions to forward the results to her CHUTE FEEDER. Follow-up with CHUTE FEEDER. Discharged home. Follow-up with PCP. Report back to ER with any new or worsening symptoms. Discussed return parameters and answered all questions. Patient conveyed verbal understanding and agreed to the plan. I discussed this case in detail with my attending Dr. Thompson Undiagnosed new problem with uncertain prognosis? @ -No Drug Therapy requiring intensive monitoring for toxicity (Heparin, Nitro, Insulin, Cardizem)? @ -No Were any procedures done? @ -No Diagnosis/symptom? @ -Threatened Acute, or Chronic, or Acute on Chronic? @ -Acute Uncomplicated (without systemic symptoms) or Complicated (systemic symptoms)? @ -Uncomplicated Side effects of treatment? @ -No Exacerbation, Progression, or Severe Exacerbation? @ -No Poses a threat to life or bodily function? How? (Chest pain, [place], [place], pneumonia, PE, COPD, DKA, ARF, appy, cholecystitis, CVA, Diverticulitis, Homicidal, Suicidal, threat to staff... and all critical care pts) @ -No - Lab Data Result diagrams: 09/15/23 19:31 09/15/23 19:31 Lab Results 09/15/23 09/15/23 09/15/23 Range/Units 19:31 19:31 19:31 WBC 8.8 (3.8-10.6) k/uL RBC 4.41 (3.80-5.40) m/uL Hgb 13.7 (11.4-16.0) gm/dL Hct 40.3 (34.0-46.0) % MCV 91.3 (80.0-100.0) fL MCH 31.1 (25.0-35.0) pg MCHC 34.0 (31.0-37.0) g/dL RDW 12.4 (11.5-15.5) % Plt Count 257 (150-450) k/uL MPV 7.9 Neutrophils % 59 % Lymphocytes % 33 % Monocytes % 4 % Eosinophils % 2 % Basophils % 0 % Neutrophils # 5.2 (1.3-7.7) k/uL Lymphocytes # 2.9 (1.0-4.8) k/uL Monocytes # 0.4 (0-1.0) k/uL Eosinophils # 0.2 (0-0.7) k/uL Basophils # 0.0 (0-0.2) k/uL Sodium 138 (137-145) mmol/L Potassium 3.8 (3.5-5.1) mmol/L Chloride 109 H (98-107) mmol/L Carbon Dioxide 22 (22-30) mmol/L Anion Gap 7 mmol/L BUN 10 (7-17) mg/dL Creatinine 0.58 (0.52-1.04) mg/dL Est GFR (CKD-EPI)AfAm >90 (>60 ml/min/1.73 sqM) Est GFR (CKD-EPI)NonAf >90 (>60 ml/min/1.73 sqM) Glucose 90 (74-99) mg/dL Calcium 9.3 (8.4-10.2) mg/dL Total Bilirubin 0.4 (0.2-1.3) mg/dL AST 28 (14-36) U/L ALT 21 (4-34) U/L Alkaline Phosphatase 63 (38-126) U/L Total Protein 6.7 (6.3-8.2) g/dL Albumin 4.0 (3.5-5.0) g/dL HCG, Quant 72065.9 mIU/mL Urine Color Yellow Urine Appearance Clear (Clear) Urine pH 6.5 (5.0-8.0) Ur Specific [place] 1.024 (1.001-1.035) Urine Protein Negative (Negative) Urine Glucose (UA) Negative (Negative) Urine Ketones Negative (Negative) Urine Blood Negative (Negative) Urine Nitrite Negative (Negative) Urine Bilirubin Negative (Negative) Urine Urobilinogen <2.0 (<2.0) mg/dL Ur Leukocyte Esterase Negative (Negative) Blood Type Blood Type Recheck Bld Type Recheck Status 09/15/23 Range/Units 19:34 WBC (3.8-10.6) k/uL RBC (3.80-5.40) m/uL Hgb (11.4-16.0) gm/dL Hct (34.0-46.0) % MCV (80.0-100.0) fL MCH (25.0-35.0) pg MCHC (31.0-37.0) g/dL RDW (11.5-15.5) % Plt Count (150-450) k/uL MPV Neutrophils % % Lymphocytes % % Monocytes % % Eosinophils % % Basophils % % Neutrophils # (1.3-7.7) k/uL Lymphocytes # (1.0-4.8) k/uL Monocytes # (0-1.0) k/uL Eosinophils # (0-0.7) k/uL Basophils # (0-0.2) k/uL Sodium (137-145) mmol/L Potassium (3.5-5.1) mmol/L Chloride (98-107) mmol/L Carbon Dioxide (22-30) mmol/L Anion Gap mmol/L BUN (7-17) mg/dL Creatinine (0.52-1.04) mg/dL Est GFR (CKD-EPI)AfAm (>60 ml/min/1.73 sqM) Est GFR (CKD-EPI)NonAf (>60 ml/min/1.73 sqM) Glucose (74-99) mg/dL Calcium (8.4-10.2) mg/dL Total Bilirubin (0.2-1.3) mg/dL AST (14-36) U/L ALT (4-34) U/L Alkaline Phosphatase (38-126) U/L Total Protein (6.3-8.2) g/dL Albumin (3.5-5.0) g/dL HCG, Quant mIU/mL Urine Color Urine Appearance (Clear) Urine pH (5.0-8.0) Ur Specific [place] (1.001-1.035) Urine Protein (Negative) Urine Glucose (UA) (Negative) Urine Ketones (Negative) Urine Blood (Negative) Urine Nitrite (Negative) Urine Bilirubin (Negative) Urine Urobilinogen (<2.0) mg/dL Ur Leukocyte Esterase (Negative) Blood Type A Positive Blood Type Recheck A Pos Bld Type Recheck Status No Disposition Clinical Impression: Threatened Disposition: HOME SELF-CARE Condition: Fair Instructions (If sedation given, give patient instructions): Threatened Miscarriage (ED) Additional Instructions: Follow-up with your CHUTE FEEDER. Report back to ER with any new or worsening symp toms. Obtain repeat beta hCG in 48 hours, order is provided for you. Is patient prescribed a controlled substance at d/c from ED?: No Referrals: Geraldine Vitale DO [Primary Care Provider] - 1-2 days Rashad Posey MD [REFERRING] - 1-2 days Time of Disposition: 21:21
[2023-09-15 19:27] VITALS: BP 156/88; PULSE 78; RESP 18; TEMP 98.2
[2023-09-15] MEDS: SODIUM CHLORIDE 0.9% 1,000 ML IV ONE (19:28)
[2023-09-15] MEDS: ACETAMINOPHEN TAB 500 MG TAB PO STA (19:29)
[2023-09-15 19:47] LABS: Basophils % (A) 0 %; Eosinophils # (A) 0.2 k/uL (0-0.7); Eosinophils % (A) 2 %; HCT 40.3 % (34.0-46.0); HGB 13.7 gm/dL (11.4-16.0); Lymphocytes # (A) 2.9 k/uL (1.0-4.8); Lymphocytes % (A) 33 %; MCH 31.1 pg (25.0-35.0); MCV 91.3 fL (80.0-100.0); Mean Platelet Volume 7.9; Monocytes # (A) 0.4 k/uL (0-1.0); Monocytes % (A) 4 %; Neutrophils # (A) 5.2 k/uL (1.3-7.7); Neutrophils % (A) 59 %; Platelet Count 257 k/uL (150-450); RBC 4.41 m/uL (3.80-5.40); RDW 12.4 % (11.5-15.5); WBC 8.8 k/uL (3.8-10.6)
[2023-09-15 19:54] LABS: Appearance,Urine Clear (Clear); Bilirubin,Urine Negative (Negative); Blood,Urine Negative (Negative); Color,Urine Yellow; Glucose,Urine (UA) Negative (Negative); Ketones,Urine Negative (Negative); Leukocyte Esterase,Urine Negative (Negative); Nitrite,Urine Negative (Negative); PH, Urine 6.5 (5.0-8.0); Protein,Urine Negative (Negative); Specific Gravity,Urine 1.024 (1.001-1.035); Urobilinogen,Urine <2.0 mg/dL (<2.0)
[2023-09-15 19:57] LABS: ALT 21 U/L (4-34); AST 28 U/L (14-36); African American GFR (CKD) >90 (>60 ml/min/1.73 sqM); Alkaline Phosphatase 63 U/L (38-126); Anion Gap 7 mmol/L; Blood Urea Nitrogen 10 mg/dL (7-17); Calcium 9.3 mg/dL (8.4-10.2); Carbon Dioxide 22 mmol/L (22-30); Chloride 109 mmol/L (98-107); Glucose 90 mg/dL (74-99); Non-African American GFR(CKD) >90 (>60 ml/min/1.73 sqM); Potassium 3.8 mmol/L (3.5-5.1); Sodium 138 mmol/L (137-145); Total Bilirubin 0.4 mg/dL (0.2-1.3); Total Protein 6.7 g/dL (6.3-8.2)
[2023-09-15 20:42] LABS: HCG,Quantitative Serum 19375.9 mIU/mL
--- NOTE | 2023-09-15 20:49 | US ---
EXAMINATION TYPE: Transabdominal DATE OF EXAM: 09/15/2023 8:22 PM COMPARISON: NONE CLINICAL INDICATION: Female, 23 years old with history of pain; RLQ pain EXAM PERFORMED: OBTA EXAM MEASUREMENTS: GESTATIONAL AGE / DATING Physician Established: (5 weeks/5 days) EDC: 05/12/2024 Dates by LMP: (5 weeks/5 days) EDC: 05/12/2024 Dates by First Scan: too early to date last exam Dates by Current Scan for: (6 weeks/1 days) EDC: 05/09/2024 MATERNAL ANATOMY Uterus: 11.3 x 6.4 x 4.8cm Right Ovary: 3.3 x 2.2 x 3.7cm Left Ovary: 3.0 x 2.1 x 2.1cm Post CDS / Adnexa: wnl Presence of free fluid: wnl Presence of corpus luteal cyst: 2.3 x 1.8 x 2.1cm Presence of subchorionic bleed: no GESTATION / SURVEY CRL: not seen on today's exam MSD: 1.4cm (6 weeks/1 days) Yolk Sac (normal less than 6mm): not seen yet IUP: gestational sac seen within fundus of [place] Date of LMP: 08/06/2023 Beta HcG (if available): not available IMPRESSION: Small anechoic intrauterine cystic structure without evidence for yolk sac or pole at this time . This is thought to represent an early gestational sac with a positive beta hCG, however ectopic pre gnancy and abnormal intrauterine cannot be ruled out based on this exam alone. Follow-up [facility] pelvic ultrasound in 7-10 days and serial beta-hCG studies are recommended to en sure further deve lopment of the fetus.
== END 2023-09-15 21:35 | disposition home or self-care (01) ==
LOC: EC 18:43
DX: O20.0 Threatened abortion (principal); O99.341 Other mental disorders complicating pregnancy, first trimester; F31.9 Bipolar disorder, unspecified; F41.9 Anxiety disorder, unspecified; O99.281 Endocrine, nutritional and metabolic diseases complicating pregnancy, first trimester; E07.9 Disorder of thyroid, unspecified; O99.321 Drug use complicating pregnancy, first trimester; F12.90 Cannabis use, unspecified, uncomplicated; Z79.890 Hormone replacement therapy; Z79.899 Other long term (current) drug therapy; Z88.1 Allergy status to other antibiotic agents; Z88.8 Allergy status to other drugs, medicaments and biological substances; Z90.49 Acquired absence of other specified parts of digestive tract; Z79.1 Long term (current) use of non-steroidal anti-inflammatories (NSAID); Z3A.01 Less than 8 weeks gestation of pregnancy
CPT/HCPCS: 36415; 76801; 80053; 81003; 84702; 85025; 86900; 86901; 96360; 99284

== ENCOUNTER 2023-12-31 21:54 | Inpatient (IN) | payer OTHER ==
[2023-12-31 22:37] LABS: Amphetamine Screen,Urine Detected (NotDetected); Barbiturate Screen,Urine Not Detected (NotDetected); Benzodiazepines Screen,Urine Not Detected (NotDetected); Cocaine Screen,Urine Not Detected (NotDetected); Methadone Screen, Urine Not Detected (NotDetected); Opiate Screen,Urine Not Detected (NotDetected); Oxycodone Screen, Urine Not Detected (NotDetected); Phencyclidine Screen,Urine Not Detected (NotDetected); Tricyclic Antidepressant,Urine Not Detected (NotDetected); Urn Cannabinoid Scrn Detected (NotDetected)
[2023-12-31 22:46] LABS: Basophils % (A) 1 %; Eosinophils # (A) 0.2 k/uL (0-0.7); Eosinophils % (A) 3 %; HCT 36.3 % (34.0-46.0); HGB 12.6 gm/dL (11.4-16.0); Lymphocytes # (A) 2.9 k/uL (1.0-4.8); Lymphocytes % (A) 37 %; MCH 31.1 pg (25.0-35.0); MCHC 34.7 g/dL (31.0-37.0); MCV 89.8 fL (80.0-100.0); Mean Platelet Volume 8.4; Monocytes # (A) 0.3 k/uL (0-1.0); Monocytes % (A) 4 %; Neutrophils # (A) 4.2 k/uL (1.3-7.7); Neutrophils % (A) 54 %; Platelet Count 268 k/uL (150-450); RBC 4.04 m/uL (3.80-5.40); RDW 12.7 % (11.5-15.5); WBC 7.8 k/uL (3.8-10.6)
[2023-12-31 23:01] LABS: Appearance,Urine Clear (Clear); Bilirubin,Urine Negative (Negative); Blood,Urine Negative (Negative); Color,Urine Colorless; Glucose,Urine (UA) Negative (Negative); Ketones,Urine Negative (Negative); Leukocyte Esterase,Urine Negative (Negative); Nitrite,Urine Negative (Negative); Protein,Urine Negative (Negative); Specific Gravity,Urine 1.016 (1.001-1.035); Urobilinogen,Urine <2.0 mg/dL (<2.0)
--- NOTE | 2023-12-31 23:03 | ED ---
General Adult HPI - General Chief complaint: Psychiatric Symptoms Stated complaint: Overdose Time Seen by Provider: 12/31/23 21:57 Source: patient, EMS, RN notes reviewed, old records reviewed Mode of arrival: EMS Limitations: no limitations - History of Present Illness Initial comments: 23-year-old female presenting to the ED as a transfer from [facility]. Patient reports that around 7 PM tonight she overdosed on her Prozac, 20 mg, levothyroxine, 100 mcg, and attempt to kill herself. Patient was then seen at [facility] who [facility] labs. UA there was significant for positive THC, otherwise no evidence of infection, negative PCP, cocaine, methamphetamine, opiates, amphetamines, benzo, tricyclic's, methadone, barbiturates, oxycodone, buprenorphine, negative test. CBC performed are largely unremarkable. Chemistry panel showed no significant electrolyte derangements. LFTs unremarkable. Patient sent here as there is concern for potential for delayed effects of levothyroxine including thyroid storm with necessity for possible ICU management. Patient only notes complaints of headache. Denies chest pain, shortness of breath, palpitations, fever, chills, abdominal pain, nausea, vomiting. No other complaints at this time. - Related Data Home Medications Medication Instructions Recorded Confirmed Levothyroxine Sodium 100 mcg PO DAILY 03/08/22 05/03/23 lamoTRIgine [LaMICtal] 100 mg PO BID 09/04/22 05/03/23 ARIPiprazole IM [Abilify Maintena] 400 mg IM Q28D 12/26/22 05/03/23 FLUoxetine HCL [PROzac] 20 mg PO DAILY 12/26/22 05/03/23 Ergocalciferol (Vitamin D2) 1,250 mcg PO BIRD 05/03/23 05/03/23 [Drisdol (50,000 Iu)] Meloxicam [Mobic] 7.5 mg PO DAILY 05/03/23 05/03/23 Phentermine HCl [Adipex-P] 37.5 mg PO DAILY 05/03/23 05/03/23 Allergies Allergy/AdvReac Type Severity Reaction Status Date / Time vancomycin Allergy Anaphylaxis Verified 09/15/23 19:04 lorazepam [From Ativan] AdvReac Rapid Verified 09/15/23 19:04 Heart Rate Review of Systems ROS Statement: Those systems with pertinent positive or pertinent negative responses have been documented in the HPI. ROS Other: All systems not noted in ROS Statement are negative. Past Medical History Past Medical History: GERD/Reflux, Thyroid Disorder Additional Past Medical History / Comment(s): Back problems/pain. History of Any Multi-Drug Resistant Organisms: None Reported Past Surgical History: Adenoidectomy, Section, Cholecystectomy, Ear Surgery, Orthopedic Surgery, Tonsillectomy Additional Past Surgical History / Comment(s): Multiple surgeries to her ears for tube placement, left hand wound closure, Section X2. Past Anesthesia/Blood Transfusion Reactions: No Reported Reaction Additional Past Anesthesia/Blood Transfusion Reaction / Comment(s): Mom slow to wake up. Past Psychological History: Anxiety, Bipolar, Depression Smoking Status: Never smoker Past Alcohol Use History: Occasional Past Drug Use History: Marijuana - Past Family History Mother Family Medical History: Diabetes Mellitus, Hypertension Father History Unknown: Yes Sister(s) Additional Family Medical History / Comment(s): Social anxiety disorder. General Exam Limitations: no limitations General appearance: alert, in no apparent distress Eye exam: Present: normal appearance Neck exam: Present: normal inspection Respiratory exam: Present: normal lung sounds bilaterally Cardiovascular Exam: Present: regular rate, normal rhythm GI/Abdominal exam: Present: soft, normal bowel sounds. Absent: distended, tenderness, guarding, rebound, rigid Neurological exam: Present: alert, oriented X3 Skin exam: Present: warm, dry Course Vital Signs 12/31/23 12/31/23 01/01/24 22:07 23:15 00:00 Temperature 97.8 F Pulse Rate 83 78 85 Respiratory 16 16 Rate Blood Pressure 125/65 121/59 O2 Sat by Pulse 97 97 Oximetry Medical Decision Making - Medical Decision Making Was pt. sent in by a medical professional or institution (, PA, HEEL GOUGER, urgent care, hospital, or assisted...) When possible be specific @ -Mateus Childers Did you speak to anyone other than the patient for history (EMS, parent, family, police, friend...)? What history was obtained from this source @ -No Did you review nursing and triage notes (agree or disagree)? Why? @ -I reviewed and agree with nursing and triage notes Were old charts reviewed (outside hosp., previous admission, EMS record, old EKG, old radiological studies, urgent care reports/EKG's, assisted records)? Report findings @ -Reviewed paperwork [facility]. For further details please see HPI. Differential Diagnosis (chest pain, altered mental status, abdominal pain women, abdominal pain men, vaginal bleeding, weakness, fever, dyspnea, syncope, headache, dizziness, GI bleed, back pain, seizure, CVA, palpatations, mental health, musculoskeletal)? @ -Differential Mental Health Depression, anxiety, bipolar, psychosis, schizophrenia, borderline personality, situational depression, adjustment disorder, behavioral disorder, brain tumor, malingering, substance abuse, encephalopathy, medication reaction, dementia, hypothyroidism, degenerative neurologic disorder, lupus.... This is not meant to be all-inclusive list EKG interpreted by me (3pts min.). @ -EKG interpreted me showing a sinus rhythm at [address] or T wave changes. MS 154, QRS 85, QT/QTc 388/420. X-rays interpreted by me (1pt min.). @ -None done CT interpreted by me (1pt min.). @ -None done U/S interpreted by me (1pt. min.). @ -None done What testing was considered but not performed or refused? (CT, X-rays, U/S, labs)? Why? @ -None What meds were considered but not given or refused? Why? @ -None Did you discuss the management of the patient with other professionals (professionals i.e. HAKEEM Hanson, HEEL GOUGER, lab, RT, psych nurse, social service technician, block cableman, teacher, combat information center officer, therapeutic case manager)? Give summary @ -Spoke to poison control. At this time recommends continuous cardiac monitoring. If patient does end up having electrolyte imbalances, repeat EKGs every 2 hours. No further recommendations at this time. Case discussed with CAM Linton. At this time no recommendations for ICU placement. Was smoking cessation discussed for >3mins.? @ -No Was critical care preformed (if so, how long)? @ -Yes, 35 minutes. Were there social determinants of health that impacted care today? How? (Homelessness, low income, unemployed, alcoholism, drug addiction, transportation, low edu. Level, literacy, decrease access to med. care, [place] [facility], rehab)? @ -No Was there de-escalation of care discussed even if they declined (Discuss DNR or withdrawal of care, Hospice)? DNR status @ -No What co-morbidities impacted this encounter? (DM, HTN, Smoking, COPD, CAD, Cancer, CVA, ARF, Chemo, Hep., AIDS, mental health diagnosis, sleep apnea, morbid obesity)? @ -None Was patient admitted / discharged? Hospital course, mention meds given and route, prescriptions, significant lab abnormalities, going to OR and other pertinent info. @ -Admission 23-year-old female transferred for possible ICU placement. Patient at 7 PM today reports that she took nearly full bottles of Prozac 20 mg, levothyroxine 100 mcg, and then attempt to hurt herself. At this time reports no symptoms other than headache. Patient was discussed with CAM Linton who discussed case with computerized table cutter. At this time, no recommendations for ICU but may be upgraded in the future if necessary. Patient will be admitted with telemetry for continued observation with consult to psychiatry. Undiagnosed new problem with uncertain prognosis? @ -No Drug Therapy requiring intensive monitoring for toxicity (Heparin, Nitro, Insulin, Cardizem)? @ -No Were any procedures done? @ -No Diagnosis/symptom? @ -Suicide attempt Acute, or Chronic, or Acute on Chronic? @ -Acute Uncomplicated (without systemic symptoms) or Complicated (systemic symptoms)? @ -Complicated Side effects of treatment? @ -No Exacerbation, Progression, or Severe Exacerbation? @ -No Poses a threat to life or bodily function? How? (Chest pain, [place], [place], pneumonia, PE, COPD, DKA, ARF, appy, cholecystitis, CVA, Diverticulitis, Homicidal, Suicidal, threat to staff... and all critical care pts) @ -Yes, suicide attempt - Lab Data Result diagrams: 12/31/23 22:39 12/31/23 22:39 Lab Results 12/31/23 12/31/23 12/31/23 Range/Units 22:00 22:34 22:39 WBC 7.8 (3.8-10.6) k/uL RBC 4.04 (3.80-5.40) m/uL Hgb 12.6 (11.4-16.0) gm/dL Hct 36.3 (34.0-46.0) % MCV 89.8 (80.0-100.0) fL MCH 31.1 (25.0-35.0) pg MCHC 34.7 (31.0-37.0) g/dL RDW 12.7 (11.5-15.5) % Plt Count 268 (150-450) k/uL MPV 8.4 Neutrophils % 54 % Lymphocytes % 37 % Monocytes % 4 % Eosinophils % 3 % Basophils % 1 % Neutrophils # 4.2 (1.3-7.7) k/uL Lymphocytes # 2.9 (1.0-4.8) k/uL Monocytes # 0.3 (0-1.0) k/uL Eosinophils # 0.2 (0-0.7) k/uL Basophils # 0.0 (0-0.2) k/uL Sodium (137-145) mmol/L Potassium (3.5-5.1) mmol/L Chloride (98-107) mmol/L Carbon Dioxide (22-30) mmol/L Anion Gap mmol/L BUN (7-17) mg/dL Creatinine (0.52-1.04) mg/dL Est GFR (CKD-EPI)AfAm (>60 ml/min/1.73 sqM) Est GFR (CKD-EPI)NonAf (>60 ml/min/1.73 sqM) Glucose (74-99) mg/dL Calcium (8.4-10.2) mg/dL Total Bilirubin (0.2-1.3) mg/dL AST (14-36) U/L ALT (4-34) U/L Alkaline Phosphatase (38-126) U/L Total Protein (6.3-8.2) g/dL Albumin (3.5-5.0) g/dL TSH (0.465-4.680) mIU/L Free T4 (0.78-2.19) ng/dL Urine Color Colorless Urine Appearance Clear (Clear) Urine pH 7.0 (5.0-8.0) Ur Specific [place] 1.016 (1.001-1.035) Urine Protein Negative (Negative) Urine Glucose (UA) Negative (Negative) Urine Ketones Negative (Negative) Urine Blood Negative (Negative) Urine Nitrite Negative (Negative) Urine Bilirubin Negative (Negative) Urine Urobilinogen <2.0 (<2.0) mg/dL Ur Leukocyte Esterase Negative (Negative) Urine Opiates Screen Not Detected (NotDetected) Ur Oxycodone Screen Not Detected (NotDetected) Urine Methadone Screen Not Detected (NotDetected) Ur Barbiturates Screen Not Detected (NotDetected) U Tricyclic Antidepress Not Detected (NotDetected) Ur Phencyclidine Scrn Not Detected (NotDetected) Ur Amphetamines Screen Detected H (NotDetected) U Methamphetamines Scrn Not Detected (NotDetected) U Benzodiazepines Scrn Not Detected (NotDetected) Urine Cocaine Screen Not Detected (NotDetected) U Marijuana (THC) Screen Detected H (NotDetected) 12/31/23 12/31/23 Range/Units 22:39 22:54 WBC (3.8-10.6) k/uL RBC (3.80-5.40) m/uL Hgb (11.4-16.0) gm/dL Hct (34.0-46.0) % MCV (80.0-100.0) fL MCH (25.0-35.0) pg MCHC (31.0-37.0) g/dL RDW (11.5-15.5) % Plt Count (150-450) k/uL MPV Neutrophils % % Lymphocytes % % Monocytes % % Eosinophils % % Basophils % % Neutrophils # (1.3-7.7) k/uL Lymphocytes # (1.0-4.8) k/uL Monocytes # (0-1.0) k/uL Eosinophils # (0-0.7) k/uL Basophils # (0-0.2) k/uL Sodium 138 (137-145) mmol/L Potassium 3.9 (3.5-5.1) mmol/L Chloride 107 (98-107) mmol/L Carbon Dioxide 25 (22-30) mmol/L Anion Gap 6 mmol/L BUN 11 (7-17) mg/dL Creatinine 0.66 (0.52-1.04) mg/dL Est GFR (CKD-EPI)AfAm >90 (>60 ml/min/1.73 sqM) Est GFR (CKD-EPI)NonAf >90 (>60 ml/min/1.73 sqM) Glucose 110 H (74-99) mg/dL Calcium 9.1 (8.4-10.2) mg/dL Total Bilirubin 0.4 (0.2-1.3) mg/dL AST 27 (14-36) U/L ALT 26 (4-34) U/L Alkaline Phosphatase 64 (38-126) U/L Total Protein 6.2 L (6.3-8.2) g/dL Albumin 3.9 (3.5-5.0) g/dL TSH <0.015 L (0.465-4.680) mIU/L Free T4 3.04 H (0.78-2.19) ng/dL Urine Color Urine Appearance (Clear) Urine pH (5.0-8.0) Ur Specific [place] (1.001-1.035) Urine Protein (Negative) Urine Glucose (UA) (Negative) Urine Ketones (Negative) Urine Blood (Negative) Urine Nitrite (Negative) Urine Bilirubin (Negative) Urine Urobilinogen (<2.0) mg/dL Ur Leukocyte Esterase (Negative) Urine Opiates Screen (NotDetected) Ur Oxycodone Screen (NotDetected) Urine Methadone Screen (NotDetected) Ur Barbiturates Screen (NotDetected) U Tricyclic Antidepress (NotDetected) Ur Phencyclidine Scrn (NotDetected) Ur Amphetamines Screen (NotDetected) U Methamphetamines Scrn (NotDetected) U Benzodiazepines Scrn (NotDetected) Urine Cocaine Screen (NotDetected) U Marijuana (THC) Screen (NotDetected) Disposition Clinical Impression: Suicide attempt Disposition: ADMITTED IP TO THIS [facility] Condition: Fair Referrals: Geraldine Vitale DO [Primary Care Provider] - 1-2 days Time of Disposition: 00:38
[2023-12-31 23:08] LABS: ALT 26 U/L (4-34); AST 27 U/L (14-36); African American GFR (CKD) >90 (>60 ml/min/1.73 sqM); Albumin 3.9 g/dL (3.5-5.0); Alkaline Phosphatase 64 U/L (38-126); Anion Gap 6 mmol/L; Blood Urea Nitrogen 11 mg/dL (7-17); Calcium 9.1 mg/dL (8.4-10.2); Carbon Dioxide 25 mmol/L (22-30); Chloride 107 mmol/L (98-107); Glucose 110 mg/dL (74-99); Non-African American GFR(CKD) >90 (>60 ml/min/1.73 sqM); Potassium 3.9 mmol/L (3.5-5.1); Sodium 138 mmol/L (137-145); Total Bilirubin 0.4 mg/dL (0.2-1.3); Total Protein 6.2 g/dL (6.3-8.2)
[2023-12-31 23:25] LABS: T4, Free (Free Thyroxine) 3.04 ng/dL (0.78-2.19)
[2024-01-01] MEDS ORDERED: NALOXONE 0.4 MG/ML 1 ML VIAL IV PRN (00:38)
[2024-01-01] MEDS ORDERED: ONDANSETRON 4 MG/2 ML VIAL IVP PRN (00:38)
[2024-01-01] MEDS: SODIUM CHLORIDE 0.9% 1,000 ML IV SCH (00:52)
--- NOTE | 2024-01-01 02:33 | P.CNPUL ---
History of Present Illness Consult date: 01/01/24 Reason for consult: other (ICU evaluation, suicide attempt with drug overdose) Chief complaint: Drug overdose and suicide attempt with levothyroxine and Prozac History of present illness: I was asked to evaluate this patient for potential ICU admission. Patient is a 23-year-old white female with past medical history significant for bipolar depression and hypothyroidism. She was transferred from [facility] after suicide attempt and drug overdose. Estimated time of ingestion was around 7 PM last night. She reportedly ingested approximately one half bottle of levothyroxine 100 mcg tablets. Unsure of exact amount of tablets. She also took Prozac, potentially 30, 20 mg tabs. Denies taking any other of her medications. Reportedly no gastric lavage was attempted outside facility. Poison control was involved, and was concerned about potential thyroid storm or serotonin syndrome. Currently, patient is resting comfortably in bed. Her parents are at the bedside. She is alert, oriented, and calm. Not agitated. This is not her first suicide attempt, does not want to elaborate at this time. Nontachycardic or hypertensive. No fevers. No tremors, hyperreflexia, or clonus. No nausea, vomiting, diarrhea, or gastric upset. EKG was reviewed to show normal sinus rhythm. QT/QTc 388/420. TSH less than 0.015, and free T4 3.04. Urine toxicology screen positive for amphetamines and marijuana. She does take phentermine outpatient. CBC and CMP otherwise unremarkable. No electrolyte imbalances. Normal saline infusing at 75 mL/h. She is being admitted to the cardiac stepdown floor with telemetry and monitoring. Review of Systems REVIEW OF SYSTEMS: CONSTITUTIONAL: Denies any recent significant weight loss or weight gain. EYES: Denies change in vision. EARS, NOSE, MOUTH, THROAT: Admits mild headache, denies sore throat. CARDIOVASCULAR: Denies chest pain, palpitations or syncopal episodes. RESPIRATORY: Denies shortness of breath, cough, congestion or hemoptysis. GASTROINTESTINAL: Denies change in appetite, abdominal pain, nausea and vomiting, or diarrhea. GENITOURINARY: Denies hematuria, denies infections. MUSKULOSKELETAL: Denies pain, denies swelling. INTEGUMENTARY: Denies rash, denies eczema. NEUROLOGICAL: Denies recent memory loss, no recent seizure activity. PSYCHIATRIC: Admits depression and hopelessness. This is not her first suicidal attempt. HEMATOLOGIC/LYMPHATIC: Denies anemia, denies enlarged lymph node Past Medical History Past Medical History: GERD/Reflux, Thyroid Disorder Additional Past Medical History / Comment(s): Back problems/pain. History of Any Multi-Drug Resistant Organisms: None Reported Past Surgical History: Adenoidectomy, Section, Cholecystectomy, Ear Surgery, Orthopedic Surgery, Tonsillectomy Additional Past Surgical History / Comment(s): Multiple surgeries to her ears for tube placement, left hand wound closure, Section X2. Past Anesthesia/Blood Transfusion Reactions: No Reported Reaction Additional Past Anesthesia/Blood Transfusion Reaction / Comment(s): Mom slow to wake up. Past Psychological History: Anxiety, Bipolar, Depression Smoking Status: Never smoker Past Alcohol Use History: Occasional Past Drug Use History: Marijuana - Past Family History Mother Family Medical History: Diabetes Mellitus, Hypertension Father History Unknown: Yes Sister(s) Additional Family Medical History / Comment(s): Social anxiety disorder. Medications and Allergies Home Medications Medication Instructions Recorded Confirmed Type Levothyroxine Sodium 100 mcg PO DAILY 03/08/22 05/03/23 History lamoTRIgine [LaMICtal] 100 mg PO BID 09/04/22 05/03/23 History ARIPiprazole IM [Abilify Maintena] 400 mg IM Q28D 12/26/22 05/03/23 History FLUoxetine HCL [PROzac] 20 mg PO DAILY 12/26/22 05/03/23 History Ergocalciferol (Vitamin D2) 1,250 mcg PO BIRD 05/03/23 05/03/23 History [Drisdol (50,000 Iu)] Meloxicam [Mobic] 7.5 mg PO DAILY 05/03/23 05/03/23 History Phentermine HCl [Adipex-P] 37.5 mg PO DAILY 05/03/23 05/03/23 History Allergies Allergy/AdvReac Type Severity Reaction Status Date / Time vancomycin Allergy Anaphylaxis Verified 09/15/23 19:04 lorazepam [From Ativan] AdvReac Rapid Verified 09/15/23 19:04 Heart Rate Physical Exam Vitals: Vital Signs Temp Pulse Resp BP Pulse Ox 01/01/24 00:52 86 16 130/81 96 01/01/24 00:00 85 06/11/24 23:15 78 16 121/59 97 12/31/23 22:07 97.8 F 83 16 125/65 97 Intake and Output 12/31/23 12/31/23 01/01/24 14:59 22:59 06:59 Other: Weight 127.006 kg GENERAL EXAM: Alert and calm, 23-year-old obese white female, comfortable in no apparent distress. Nondiaphoretic, nontachycardic, no tremors. HEAD: Normocephalic and atraumatic EYES: Normal reaction of pupils, equal size. NOSE: Clear with pink turbinates. THROAT: No erythema or exudates. NECK: No masses, no JVD. CHEST: No chest wall deformity. LUNGS: Equal air entry with no crackles, wheeze, rhonchi or dullness. On room air. No conversational dyspnea or accessory muscle use.. CVS: S1 and S2 normal with soft systolic grade 1 murmur, regular rhythm. No extra heart sounds ABDOMEN: No hepatosplenomegaly, active bowel sounds, no guarding or rigidity. SPINE: No scoliosis or deformity SKIN: No rashes CENTRAL NERVOUS SYSTEM: No focal deficits, tone is normal in all 4 extremities. No hyperreflexia or clonus. EXTREMITIES: There is no peripheral edema, clubbing, or cyanosis. Peripheral pulses are intact. Results - Laboratory Findings CBC and BMP: 12/31/23 22:39 12/31/23 22:39 Abnormal lab findings: Abnormal Labs 12/31/23 12/31/23 12/31/23 22:00 22:39 22:54 Glucose 110 H Total Protein 6.2 L TSH <0.015 L Free T4 3.04 H Ur Amphetamines Screen Detected H U Marijuana (THC) Screen Detected H Assessment and Plan Assessment: Suicide attempt and drug overdose, reportedly took one half bottle of levothyroxine 100 mcg tablets, unsure of exact amount of tablets. Also, ingested potentially 30, 20 mg tablets of Prozac. Elevated free T4, 3.04, secondary to above, clinically no signs of thyrotoxicosis at this time Marijuana smoker History of major depression and bipolar disorder, with previous suicide attempts Morbid obesity, with a BMI of 43.9 kg/m, on phentermine outpatient History of hypothyroidism Plan: Patient is being admitted to the selective care unit with continuous telemetry monitoring. Clinically, no current signs of thyrotoxicosis or serotonin syndrome, continue to monitor Hold Serotonergic medications and other potential offending agents. EKGs are being done every 2 hours. Thyroid studies will be repeated in the morning. No need for PTU/methimazole, beta-blockers, steroids, or iodine solution Continue suicide precautions and process safety manager Inpatient psychiatry has been asked to see this patient Poison control is following I spoke to my supervising physician, agrees with above-mentioned plan. Patient will be monitored closely on the floor with continuous telemetry. Time with Patient: Greater than 30
--- NOTE | 2024-01-01 15:10 | P.HPIM ---
History of Present Illness H&P Date: 01/01/24 Chief Complaint: Depression This is a 23-year-old female with past medical history significant for bipolar disorder, previous suicide attempt, hypothyroidism and multiple other medical issues,transferred to [facility] from [facility]. Reports she has been compliant with her medication regimen including Abilify. Denies low or sad days, denies lingering depression. states yesterday she "just snapped" and consumed one half bottle Synthroid and 30 Prozac 20 mg tablets. Her friend Jone happened to walk into the room just as she was completing the task and called 911. Reports mild jitters ,but feels better now. EKG reported sinus rhythm. renal function stable. TSH less than 0.015, free T4 3.04.toxicology screen positive for amphetamines and THC in a patient on Adderall O.P. Poison control notified by ER.receiving IV fluid hydration .Afebrile, no tachycardia, normotensive, no nausea vomiting or diarrhea. Patient has 2 children, states 1 is with her mom and the other is with her friend Jone. Review of Systems Review of Systems All systems: negative Constitutional: Denies chills, Denies fever Eyes: denies blurred vision, denies pain Ears, nose, mouth and throat: Denies headache, Denies sore throat Cardiovascular: Denies chest pain, Denies shortness of breath Respiratory: Denies cough Gastrointestinal: Denies abdominal pain, Denies diarrhea, Denies nausea, Denies vomiting Genitourinary: Denies dysuria, Denies hematuria Musculoskeletal: Denies myalgias Integumentary: Denies pruritus, Denies rash Neurological: Denies numbness, Denies weakness Psychiatric: Reports anxiety, Reports depression, Reports suicidal ideation Endocrine: Denies fatigue, Denies weight change Past Medical History Past Medical History: GERD/Reflux, Thyroid Disorder Additional Past Medical History / Comment(s): Back problems/pain. History of Any Multi-Drug Resistant Organisms: None Reported Past Surgical History: Adenoidectomy, Section, Cholecystectomy, Ear Surgery, Orthopedic Surgery, Tonsillectomy Additional Past Surgical History / Comment(s): Multiple surgeries to her ears for tube placement, left hand wound closure, Section X2. Past Anesthesia/Blood Transfusion Reactions: No Reported Reaction Additional Past Anesthesia/Blood Transfusion Reaction / Comment(s): Mom slow to wake up. Past Psychological History: Anxiety, Bipolar, Depression Smoking Status: Never smoker Past Alcohol Use History: Occasional Past Drug Use History: Marijuana - Past Family History Mother Family Medical History: Diabetes Mellitus, Hypertension Father History Unknown: Yes Sister(s) Additional Family Medical History / Comment(s): Social anxiety disorder. Medications and Allergies Home Medications Medication Instructions Recorded Confirmed Type Levothyroxine Sodium 100 mcg PO DAILY 03/08/22 01/01/24 History lamoTRIgine [LaMICtal] 100 mg PO HS 09/04/22 01/01/24 History ARIPiprazole IM [Abilify Maintena] 400 mg IM Q28D 12/26/22 01/01/24 History FLUoxetine HCL [PROzac] 20 mg PO DAILY 12/26/22 01/01/24 History Dextroamphetamine/Amphetamine 20 mg PO DAILY 01/01/24 01/01/24 History [Adderall] Ibuprofen [Motrin] 800 mg PO Q8H PRN 01/01/24 01/01/24 History Allergies Allergy/AdvReac Type Severity Reaction Status Date / Time vancomycin Allergy Anaphylaxis Verified 01/01/24 09:31 lorazepam [From Ativan] AdvReac Rapid Verified 01/01/24 09:31 Heart Rate Physical Exam Vitals: Vital Signs Temp Pulse Resp BP Pulse Ox 01/01/24 11:37 98.9 F 86 16 119/77 97 01/01/24 06:07 78 16 133/85 97 01/01/24 04:00 81 16 135/79 96 01/01/24 02:50 97.9 F 01/01/24 01:00 86 01/01/24 00:52 86 16 130/81 96 01/01/24 00:00 85 12/31/23 23:15 78 16 121/59 97 12/31/23 22:07 97.8 F 83 16 125/65 97 Intake and Output 12/31/23 01/01/24 01/01/24 22:59 06:59 14:59 Other: Weight 127.006 kg General: well nourished, well developed, NAD. Vitals reviewed Eyes: PERRL, EOMI, conjunctiva normal HENT: normocephalic, mucus membranes moist Neck: supple, no JVD Lungs: normal respiratory effort, no wheezes or rales CV: Regular rate and rhythm, no tachycardia, no murmur. Peripheral pulses 2+ Abdomen: soft, nondistended, no organomegaly Lymph: no cervical or axillary LAD Skin: warm and dry, no diaphoresis. Neuro: A&Ox3, depressed mood and affect, no tremors. Results CBC & Chem 7: 12/31/23 22:39 12/31/23 22:39 Labs: Abnormal Lab Results - Last 24 Hours (Table) 12/31/23 12/31/23 12/31/23 Range/Units 22:00 22:39 22:54 Glucose 110 H (74-99) mg/dL Total Protein 6.2 L (6.3-8.2) g/dL TSH <0.015 L (0.465-4.680) mIU/L Free T4 3.04 H (0.78-2.19) ng/dL Ur Amphetamines Screen Detected H (NotDetected) U Marijuana (THC) Screen Detected H (NotDetected) Assessment and Plan Assessment: Suicide attempt, overdose on levothyroxine and Prozac, in a patient with history of previous suicide attempts Elevated T4 secondary to the above Borderline personality disorder in adult Major depressive disorder recurrent, severe History of hypothyroidism Marijuana use Plan: Continue on current medication regimen ,monitoring and symptomatic treatment. Maintain suicide precautions, safety counselor, psychiatry consult in place. Maintain IV fluid hydration. Continue to monitor for signs of thyrotoxicosis or serotonin syndrome, with serial EKGs and repeat thyroid levels ordered. Follow closely with poison control. The impression and plan of care has been dictated as directed. : I performed a history and examination of this patient, discussed the same with the dictator. I agree with the dictator's note ,documented as a scribe. Any additional findings or plans will be noted.
[2024-01-01] MEDS: ACETAMINOPHEN TAB 325 MG TAB PO PRN (17:29)
--- NOTE | 2024-01-01 19:27 | P.CN ---
Psychiatric Consult - . Consult date: 01/01/24 Consult:: 01/01/24 13:35 IDENTIFYING DATA: This patient is a 23-year-old female, currently lives with her 2 kids in a house, she is unemployed, she is single. REASON FOR REFERRAL: Psychiatry was consulted for overdose suicide attempt HISTORY OF PRESENT ILLNESS: The patient presented to the hospital on 611 initially, was transferred from [facility]. As per ER note patient apparently overdosed on Prozac on at 7 PM the previous night and also overdosed on Synthroid. This was admitted to be a suicide attempt according to patient. Patient's urine drug screen is positive for THC and amphetamines. Nurse taking care of patient did not report any complaints. Patient was seen laying in bed and agreeable to speak to medical technical writer. She claims that she was upset over a recent miscarriage about 2 months ago. Apparently the patient stated that she "exploded" and impulsively overdosed. States that she does have a history of overdosing and suicide attempts. States that she just "snapped". Claims that she was attempting to "mask my emotions" and not dealing with the miscarriage appropriately. She claims that she heard a song that reminded her of her baby and began having suicidal thoughts and overdosed afterwards. States that she was parked out front of her friend's house in a car and states that "my friend saw me overdose and called EMS. She states that she does have a history of bipolar disorder, claims that she does have frequent manic episodes. Denies any problems with sleep or appetite at this time is minimizing her depression and her reason for being in the hospital and overdose. At this time patient denies any suicidal or homical ideations, intent or plan. Patient denies any auditory, visual hallucinations and denies any paranoia or delusions. Patients admits to using marijuana frequently, denies any other recreational drug use. PAST PSYCHIATRIC HISTORY: Patient has a a history of bipolar disorder. Patient is currently on Prozac Lamictal and also receiving Abilify Maintenna 400 mg IM injection q. monthly. She claims that she was last admitted to [address] on the mental health unit in 2019. Patient denies any psychiatric outpatient follow- up, she claims that she gets her medications from her primary care physician.. She claims that she has had several suicide attempts and overdoses in the past, states that the last one was in 2019. PAST MEDICAL HISTORY: Past Medical History: GERD/Reflux, Thyroid Disorder Additional Past Medical History / Comment(s): Back problems/pain. History of Any Multi-Drug Resistant Organisms: None Reported Past Surgical History: Adenoidectomy, Section, Cholecystectomy, Ear Surgery, Orthopedic Surgery, Tonsillectomy Additional Past Surgical History / Comment(s): Multiple surgeries to her ears for tube placement, left hand wound closure, Section X2. Past Anesthesia/Blood Transfusion Reactions: No Reported Reaction Additional Past Anesthesia/Blood Transfusion Reaction / Comment(s): Mom slow to wake up. Past Psychological History: Anxiety, Bipolar, Depression Smoking Status: Never smoker Past Alcohol Use History: Occasional Past Drug Use History: Marijuana ALLERGIES: as per EMR. CHEMICAL DEPENDENCY HISTORY: as per HPI. FAMILY PSYCHIATRIC/SUBSTANCE USE HISTORY: Denies SOCIAL HISTORY: Patient was born and raised in [facility]. Claims that she completed her GED, claims that she has 2 kids, she currently lives alone in a house, she is unemployed she is single, she denies having any legal history. MENTAL STATUS EXAM: General Appearance: Patient appears to be overweight, stated age is alert, pleasant, superficial. Patient appears to have fair hygiene and grooming wearing hospital gown with fair eye contact. Behavior: Patient is calmly lying in bed without any agitated behavior. Superficial and evasive. Speech: Patient's speech is fluent and nonpressured. [place] Mood/Affect: Patient reports their mood is "ok now", affect is congruent Suicidality/Homicidality: Patient denies having any suicidal or homicidal ideation intent or plan. Perceptions: Patient denies any visual hallucinations and denies any auditory hallucinations Though content/process: There is no evidence of any delusional thought content and thought process is linear and goal-directed. Evasive and minimizing her overdose and need for hospitalization. Memory and concentration: AOX3, grossly intact for the purposes of this session. Can spell "WORLD" backwards Judgment and insight: Poor IMPRESSIONS: Suicide attempt by overdose of medications Bipolar disorder, depressed Cannabis use disorder PLAN: -At this time patient DOES meet criteria for inpatient psychiatric admission. -Would recommend the following medication changes/additions: At this time we w ill hold off on psychotropic medications until patient is cleared medically and admitted to the mental health unit -Continue 1:1 sitter for safety -Cannot leave AMA at this time. Patient will need a petition and certification if attempting to leave AMA. -When medically stable, patient is eligible for transfer to a psych bed when available. -Communicated plan to patient's nurse -Psychiatry will sign off at this time -Please contact with any questions. 01/01/24 19:19
[2024-01-02] MEDS ORDERED: LEVOTHYROXINE 50 MCG TAB PO SCH (07:29)
[2024-01-02 10:55] VITALS: RESP 16; TEMP 98.1
--- NOTE | 2024-01-02 12:29 | P.PN ---
Subjective Progress Note Date: 01/02/24 I was asked to evaluate this patient for potential ICU admission. Patient is a 23-year-old white female with past medical history significant for bipolar depression and hypothyroidism. She was transferred from [facility] after suicide attempt and drug overdose. Estimated time of ingestion was around 7 PM last night. She reportedly ingested approximately one half bottle of levothyroxine 100 mcg tablets. Unsure of exact amount of tablets. She also took Prozac, potentially 30, 20 mg tabs. Denies taking any other of her medications. Reportedly no gastric lavage was attempted outside facility. Poison control was involved, and was concerned about potential thyroid storm or serotonin syndrome. Currently, patient is resting comfortably in bed. Her parents are at the bedside. She is alert, oriented, and calm. Not agitated. This is not her first suicide attempt, does not want to elaborate at this time. Nontachycardic or hypertensive. No fevers. No tremors, hyperreflexia, or clonu s. No nausea, vomiting, diarrhea, or gastric upset. EKG was reviewed to show normal sinus rhythm. QT/QTc 388/420. TSH less than 0.015, and free T4 3.04. Urine toxicology screen positive for amphetamines and marijuana. She does take phentermine outpatient. CBC and CMP otherwise unremarkable. No electrolyte imbalances. Normal saline infusing at 75 mL/h. She is being admitted to the cardiac stepdown floor with telemetry and monitoring. On 01/02/2024, I am seeing the patient for a follow-up. The patient is doing well with no specific complaints. No tachycardia. No cardiac arrhythmias. No agitation. No altered mentation. TSH from yesterday was less than 0.01 and the free T4 was 3.04, mildly elevated. No cardiac arrhythmias. She is awake and alert and communicating. She has a sitter at the bedside. She was evaluated by psychiatry yesterday and the patient was found to be a candidate for inpatient psychiatric admission. She currently has a one-to-one sitter and she cannot le ave AMA. No other significant events otherwise for now. She remains on IV fluids normal saline at rate of 75 cc an hour. Objective - Vital Signs Vital signs: Vital Signs Temp 98.4 F 01/02/24 04:00 Pulse 74 01/02/24 04:00 Resp 14 01/02/24 04:00 BP 95/63 01/02/24 04:00 Pulse Ox 98 01/02/24 04:00 FiO2 Intake & Output 01/01/24 01/02/24 01/02/24 18:59 06:59 18:59 Intake Total 120 Balance 120 Weight 127.006 kg Intake: Oral 120 Other: Voiding Method Toilet # Voids 2 - Exam GENERAL EXAM: Alert and calm, 23-year-old obese white female, comfortable in no apparent distress. Nondiaphoretic, nontachycardic, no tremors. HEAD: Normocephalic and atraumatic EYES: Normal reaction of pupils, equal size. NOSE: Clear with pink turbinates. THROAT: No erythema or exudates. NECK: No masses, no JVD. CHEST: No chest wall deformity. LUNGS: Equal air entry with no crackles, wheeze, rhonchi or dullness. On room air. No conversational dyspnea or accessory muscle use.. CVS: S1 and S2 normal with soft systolic grade 1 murmur, regular rhythm. No extra heart sounds ABDOMEN: No hepatosplenomegaly, active bowel sounds, no guarding or rigidity. SPINE: No scoliosis or deformity SKIN: No rashes CENTRAL NERVOUS SYSTEM: No focal deficits, tone is normal in all 4 extremities. No hyperreflexia or clonus. EXTREMITIES: There is no peripheral edema, clubbing, or cyanosis. Peripheral pulses are intact. - Labs CBC & Chem 7: 12/31/23 22:39 12/31/23 22:39 Assessment and Plan Plan: Suicide attempt and drug overdose, reportedly took one half bottle of levothyroxine 100 mcg tablets, unsure of exact amount of tablets. Also, ingested potentially 30, 20 mg tablets of Prozac. Elevated free T4, 3.04, secondary to above, clinically no signs of thyrotoxicosis at this time Marijuana smoker History of major depression and bipolar disorder, with previous suicide attempts Morbid obesity, with a BMI of 43.9 kg/m, on phentermine outpatient History of hypothyroidism Plan: No toxicity noted from intake of Synthroid or Prozac/drug overdose. Nevertheless, this was a suicidal event and the patient meets criteria for inpatient psychiatric treatment. Clinically stable. Hemodynamically stable. No agitation. No altered mentation. No tachycardia. No changes in body temperature. No cardiac arrhythmias. Blood work was noted EKG was noted Thyroid studies were noted. No need for PTU/methimazole, beta-blockers, s teroids, or iodine solution Continue suicide precautions and food safety field specialist Inpatient psychiatry input is appreciated Poison control is following Pulmonary critical care services will sign off and will leave the rest of the management up to the medical and the psychiatry group.
--- NOTE | 2024-01-02 13:28 | P.DS ---
Providers Date of admission: 01/01/24 03:55 Attending physician: Gabriele Vitale MD Consults: 01/01/24 00:38 Consult Physician Urgent Consulting Provider: Orlin Bennett Reason/Comments: Suicide attempt Do you want consulting provider notified?: Yes Primary care physician: Geraldine Vitale Assessment: Final Diagnosis Suicide attempt, overdose on levothyroxine and Prozac, in a patient with history of previous suicide attempts Elevated T4 secondary to the above Borderline personality disorder in adult Major depressive disorder recurrent, severe History of hypothyroidism Marijuana use Discharge Disposition Medically stable for discharge to mental health unit. Monitor thyroid studies. Hospital Course This is a 23-year-old female with past medical history significant for bipolar disorder, previous suicide attempt, hypothyroidism and multiple other medical issues,transferred to [facility] from [facility]. Reports she has been compliant with her medication regimen including Abilify. Denies low or sad days, denies lingering depression. states yesterday she "just snapped" and consumed one half bottle Synthroid and 30 Prozac 20 mg tablets. Her friend Jone happened to walk into the room just as she was completing the task and called 911. Reports mild jitters ,but feels better now. EKG reported sinus rhythm. renal function stable. TSH less than 0.015, free T4 3.04.toxicology sc reen positive for amphetamines and THC in a patient on Adderall O.P. Poison control notified by ER.receiving IV fluid hydration .Afebrile, no tachycardia, normotensive, no nausea vomiting or diarrhea. Patient has 2 children, states 1 is with her mom and the other is with her friend Jone. Was admitted to the medical floor with a psychiatry consultation. Patient was recommended for inpatient psychiatric evaluation and treatment when she is medically stable. She is today with no complaints of chest pain shortness of breath no nausea vomiting or diarrhea abdominal pain. She has no dizziness or lightheadedness. She will be resumed on her levothyroxine as her TSH is low and her T4 is abnormal. Patient is currently afebrile, heart rate of 81, blood pressure 115/68 she is 95% on room air. Her blood work is within normal limits with the exception of a thyroid studies as below. UA is normal. Patient is medically stable for discharge to mental health unit. Please see medication reconciliation for a list of current medications. Thank you for allowing us to participate in the care of this patient. The impression and plan of care has been dictated by Melba Turner, Nurse Practitioner as directed. Dr. Padmini MD I have performed a history and physical examination and medical decision making of this patient, discussed the same with the dictator, and agree with the dictators assessment and plan as written, documented as a scribe. Based on total visit time, I have performed more than 50% of this visit. Patient Condition at Discharge: Fair Plan - Discharge Summary New Discharge Prescriptions: Continue Levothyroxine Sodium 100 mcg PO DAILY No Action ARIPiprazole IM [Abilify Maintena] 400 mg IM Q28D Ibuprofen [Motrin] 800 mg PO Q8H PRN PRN Reason: Pain Dextroamphetamine/Amphetamine [Adderall] 20 mg PO DAILY lamoTRIgine [LaMICtal] 100 mg PO HS FLUoxetine HCL [PROzac] 20 mg PO DAILY Discharge Medication List Levothyroxine Sodium 100 mcg PO DAILY 03/08/22 [History] lamoTRIgine [LaMICtal] 100 mg PO HS 09/04/22 [History] ARIPiprazole IM [Abilify Maintena] 400 mg IM Q28D 12/26/22 [History] FLUoxetine HCL [PROzac] 20 mg PO DAILY 12/26/22 [History] Dextroamphetamine/Amphetamine [Adderall] 20 mg PO DAILY 01/01/24 [History] Ibuprofen [Motrin] 800 mg PO Q8H PRN 01/01/24 [History] Follow up Appointment(s)/Referral(s): Geraldine Vitale DO [Primary Care Provider] - 1-2 days Activity/Diet/Wound Care/Special Instructions: Transfer to psych Discharge Disposition: TRANSFER TO PSYCH HOSP/UNIT
[2024-01-02 13:58] VITALS: BP 116/57; PULSE 78
[2024-01-03] MEDS ORDERED: LEVOTHYROXINE 100 MCG TAB PO SCH (06:30)
== END 2024-01-01 18:34 | DRG 812 ==
LOC: EC 21:54 → 3SCARD 01-01 03:55 → UNDODISIN 01-02 18:27
PROVIDERS: ADMIT Family Medicine; ATTEND Family Medicine
DX: T38.1X1A Poisoning by thyroid hormones and substitutes, accidental (unintentional), initial encounter (principal); T43.222A Poisoning by selective serotonin reuptake inhibitors, intentional self-harm, initial encounter; Z68.41 Body mass index [BMI] 40.0-44.9, adult; F60.3 Borderline personality disorder; Z76.5 Malingerer [conscious simulation]; Z79.1 Long term (current) use of non-steroidal anti-inflammatories (NSAID); Z79.890 Hormone replacement therapy; Z79.899 Other long term (current) drug therapy; Z82.49 Family history of ischemic heart disease and other diseases of the circulatory system; Z91.51 Personal history of suicidal behavior; F31.9 Bipolar disorder, unspecified; Z56.0 Unemployment, unspecified; Z88.1 Allergy status to other antibiotic agents; Z90.49 Acquired absence of other specified parts of digestive tract
CPT/HCPCS: 36415; 80053; 80306; 81003; 82075; 84439; 84443; 84481; 85025; 87635; 99291

== ENCOUNTER 2024-01-02 17:22 | Inpatient (IN) | payer MEDICAID, OTHER ==
[2024-01-02] MEDS ORDERED: MAGNESIUM HYDROXIDE 2,400 MG/30 ML CUP PO PRN (18:15)
[2024-01-02] MEDS ORDERED: MAG HYDROX/AL HYDROX/SIMETH 355 ML BOTTLE PO PRN (18:15)
[2024-01-02] MEDS ORDERED: HALOPERIDOL LACTATE 5 MG/ML 1 ML VIAL IM PRN (18:20)
[2024-01-02] MEDS ORDERED: haloperidoL 5 MG TAB PO PRN (18:20)
[2024-01-02] MEDS ORDERED: hydrOXYzine HCL 50 MG/ML 1 ML VIAL IM PRN (18:22)
[2024-01-02 20:32] LABS: Appearance,Urine Cloudy (Clear); Bacteria,Urine Rare /hpf; Bilirubin,Urine Negative (Negative); Blood,Urine Negative (Negative); Color,Urine Yellow; Glucose,Urine (UA) Negative (Negative); Hyaline Casts,Urine 28 /lpf (0-2); Ketones,Urine Trace (Negative); Leukocyte Esterase,Urine Trace (Negative); Mucus,Urine Many /hpf; Nitrite,Urine Negative (Negative); PH, Urine 5.5 (5.0-8.0); Protein,Urine 1+ (Negative); RBC,Urine 1 /hpf (0-5); Specific Gravity,Urine 1.029 (1.001-1.035); Squamous Epithelial Cell,Urine 33 /hpf (0-4); WBC,Urine 1 /hpf (0-5)
[2024-01-02 20:40] LABS: Amphetamine Screen,Urine Detected (NotDetected); Barbiturate Screen,Urine Not Detected (NotDetected); Benzodiazepines Screen,Urine Detected (NotDetected); Cocaine Screen,Urine Not Detected (NotDetected); Methadone Screen, Urine Not Detected (NotDetected); Opiate Screen,Urine Not Detected (NotDetected); Oxycodone Screen, Urine Not Detected (NotDetected); Phencyclidine Screen,Urine Not Detected (NotDetected); Tricyclic Antidepressant,Urine Not Detected (NotDetected); Urn Cannabinoid Scrn Detected (NotDetected)
[2024-01-02] MEDS: ACETAMINOPHEN TAB 325 MG TAB PO PRN (20:40)
[2024-01-03] MEDS: lamoTRIgine 100 MG TAB PO SCH (08:47)
[2024-01-03] MEDS: MELOXICAM 7.5 MG TAB PO SCH (08:47)
[2024-01-03] MEDS: NICOTINE 14MG/24HR PATCH TRANSDERM SCH (08:47)
--- NOTE | 2024-01-03 12:43 | P.HP ---
Psychiatric H&P - . H&P Date: 01/03/24 History & Physical: Allergies Allergy/AdvReac Type Severity Reaction Status Date / Time vancomycin Allergy Anaphylaxis Verified 01/02/24 19:16 lorazepam [From Ativan] AdvReac Rapid Verified 01/02/24 19:16 Heart Rate Vital Signs Temp 97.6 F 01/03/24 06:42 Pulse 88 01/03/24 06:42 Resp 16 01/03/24 06:42 BP 100/55 01/03/24 06:42 Pulse Ox 98 01/02/24 18:35 FiO2 Intake & Output 01/02/24 01/03/24 01/03/24 18:59 06:59 18:59 Weight 127.006 kg 127.006 kg Laboratory Last Values Urine Color Yellow 01/02/24 20:12 Urine Appearance Cloudy (Clear) H 01/02/24 20:12 Urine pH 5.5 (5.0-8.0) 01/02/24 20:12 Ur Specific [place] 1.029 (1.001-1.035) 01/02/24 20:12 Urine Protein 1+ (Negative) H 01/02/24 20:12 Urine Glucose (UA) Negative (Negative) 01/02/24 20:12 Urine Ketones Trace (Negative) H 01/02/24 20:12 Urine Blood Negative (Negative) 01/02/24 20:12 Urine Nitrite Negative (Negative) 01/02/24 20:12 Urine Bilirubin Negative (Negative) 01/02/24 20:12 Urine Urobilinogen 3.0 mg/dL (<2.0) 01/02/24 20:12 Ur Leukocyte Esterase Trace (Negative) H 01/02/24 20:12 Urine RBC 1 /hpf (0-5) 01/02/24 20:12 Urine WBC 1 /hpf (0-5) 01/02/24 20:12 Ur Squamous Epith Cells 33 /hpf (0-4) H 01/02/24 20:12 Urine Bacteria Rare /hpf (None) H 01/02/24 20:12 Hyaline Casts 28 /lpf (0-2) H 01/02/24 20:12 Urine Mucus Many /hpf (None) H 01/02/24 20:12 Urine HCG, Qual Not Detected (Not Detectd) 01/02/24 20:11 Urine Opiates Screen Not Detected (NotDetected) 01/02/24 20:12 Ur Oxycodone Screen Not Detected (NotDetected) 01/02/24 20:12 Urine Methadone Screen Not Detected (NotDetected) 01/02/24 20:12 Ur Barbiturates Screen Not Detected (NotDetected) 01/02/24 20:12 U Tricyclic Antidepress Not Detected (NotDetected) 01/02/24 20:12 Ur Phencyclidine Scrn Not Detected (NotDetected) 01/02/24 20:12 Ur Amphetamines Screen Detected (NotDetected) H 01/02/24 20:12 U Methamphetamines Scrn Detected (NotDetected) H 01/02/24 20:12 U Benzodiazepines Scrn Detected (NotDetected) H 01/02/24 20:12 Urine Cocaine Screen Not Detected (NotDetected) 01/02/24 20:12 U Marijuana (THC) Screen Detected (NotDetected) H 01/02/24 20:12 01/03/24 09:06 IDENTIFYING DATA: This patient is a 23-year-old female, currently lives with her 2 kids in a house, she is unemployed, she is single. HPI: Patient presented to the hospital on 611 initially, was transferred from [facility]. As per ER note patient apparently overdosed on Prozac on at 7 PM the previous night and also overdosed on Synthroid. This was admitted to be a suicide attempt according to patient. Patient's urine drug screen is positive for THC and amphetamines. Psychiatry was consulted while the patient was on the medical floor, as per consult note, completed by this race and sports book writer, "Nurse taking care of patient did not report any complaints. Patient was seen laying in bed and agreeable to speak to race and sports book writer. She claims that she was upset over a recent miscarriage about 2 months ago. Apparently the patient stated that she "exploded" and impulsively overdosed. States that she does have a history of overdosing and suicide attempts. States that she just "snapped". Claims that she was attempting to "mask my emotions" and not dealing with the miscarriage appropriately. She claims that she heard a song that reminded her of her baby and began having suicidal thoughts and overdosed afterwards. States that she was parked out front of her friend's house in a car and states that "my friend saw me overdose and called EMS. She states that she does have a history of bipolar disorder, claims that she does have frequent manic episodes. Denies any problems with sleep or appetite at this time is minimizing her depression and her reason for being in the hospital and overdose." Upon today's interview, she states that she is ok today. She complains of her back pain, however, medical dr gave her mobic for this. She states that she did not like the services provided at [facility], due to them cancelling her appointments. At this time patient denies any suicidal or homicidal ideations, intent or plan. Patient denies any auditory, visual hallucinations and denies any paranoia or delusions. Patients admits to using marijuana frequently, denies any other recreational drug use. UDS was positive for Marijuana, methamphetamines, benzodiazepines. PAST PSYCHIATRIC HISTORY: Patient has a a history of bipolar disorder. Patient is currently on Prozac Lamictal and also receiving Abilify Maintenna 400 mg IM injection q. monthly. She claims that she was last admitted to [facility] [address] on the mental health unit in 2019. Patient denies any psychiatric outpatient follow- up, she claims that she gets her medications from her primary care physician.. She claims that she has had several suicide attempts and overdoses in the past, states that the last one was in 2019. PMH:As per ER note ALLERGIES: as per EMR CHEMICAL DEPENDENCY HISTORY: as per HPI FAMILY PSYCHIATRIC/SUBSTANCE USE HISTORY: denies SOCIAL HISTORY: Patient was born and raised in [facility]. Claims that she completed her GED, claims that she has 2 kids, she currently lives alone in a house, she is unemployed she is single, she denies having any legal history. MENTAL STATUS EXAM: General Appearance: Patient appears to be overweight, stated age is alert, pleasant, superficial. Patient appears to have fair hygiene and grooming wearing hospital gown with fair eye contact. Behavior: Patient is calmly lying in bed without any agitated behavior. Superficial and evasive. Speech: Patient's speech is fluent and nonpressured. [place] Mood/Affect: Patient reports their mood is "ok ", affect is congruent Suicidality/Homicidality: Patient denies having any suicidal or homicidal ideation intent or plan. Perceptions: Patient denies any visual hallucinations and denies any auditory hallucinations Though content/process: There is no evidence of any delusional thought content and thought process is linear and goal-directed. Evasive and minimizing her overdose and need for hospitalization. Memory and concentration: AOX3, grossly intact for the purposes of this session. Can spell "WORLD" backwards Judgment and insight: Poor STRENGTHS/WEAKNESSES: strength is that patient is resilient. Weakness is that patient has poor judgment and is impulsive INTELLECT: average IMPRESSIONS: Suicide attempt by overdose of medications Bipolar disorder, depressed Cannabis use disorder methamphetamine abuse cluster b personality disorder PLAN: -Patient is admitted under voluntary status to MHU for stabilization of psychiatric symptoms and safety. Patient has signed adult voluntary form and medication consent and is placed in patient's chart. -Medications : continue with Lamictal 200mg daily for mood stabilization, Prozac 20mg daily for mood/anxiety plan to increase over the weekend, Abilify Maintena 400mg IM unsure of last date given, however, it was within the past week or so. Visteral prn for anxiety. - Haldol PRN for agitation/aggression -Patient was counselled on substance abuse and desired to cut back on use -Patient was informed of the risks, benefits and side effects of the medication and patient verbally consented to taking the medications. -Internal Medicine consult to perform medical evaluation and physical. -NRT - nicotine patch -SW on board for discharge planning. Encourage patient to participate in groups to work on coping skills.
[2024-01-03] MEDS: LEVOTHYROXINE 100 MCG TAB PO SCH (12:51)
[2024-01-03] MEDS: FLUoxetine HCL 20 MG CAP PO SCH (12:51)
--- NOTE | 2024-01-04 08:39 | P.PN ---
Subjective Progress Note Date: 01/04/24 Principal diagnosis: Bipolar 1 depressed The patient says she has done well in the past with the current combination which is Abilify maintain a and Lamictal at 200 and Prozac at 20 she says that she just didn't come in for her shot and was over 2 weeks late and then crashed into depression took overdose. Said she was able to sleep last night in fact she is complaining being too sleepy which is probably just a shot caking back in it's unlikely be the reinstitution of the Prozac she said she said one day of Lamictal but that's all. She denies current suicidal thoughts or homicidal Objective: The patient is somewhat sleepy but cooperative and worked with me and acknowledges that it was unwise for her to not get her shot and did not be more careful in the future. Self-care is adequate although minimal a good appetite infection wasn't sure she wanted talk to me because breakfast is being served. She is oriented gait and station normal no pressure to her speech did not look sad was not tearful. Assessment I think her shot his caking back in and since she has done well on Prozac 20 in the past think I'll leave it there rather increase it. Plan: No change in medicine at this time patient is encouraged to go to groups and participate and work on understanding as to why she skipped her shot working through any issues of pride that could keep her from taking her medicine and doing well. We discussed said it's important to see the illnesses just that an illness and not that it makes her wake her or worthless and anybody else just to manage it properly and get on with her life Objective - Vital Signs Vital signs: Vital Signs Temp 97.5 F L 01/04/24 06:00 Pulse 82 01/04/24 06:00 Resp 18 01/04/24 06:00 BP 97/50 01/04/24 06:00 Pulse Ox 95 01/04/24 06:00 FiO2 - Labs Labs: Abnormal Lab Results - Last 24 Hours (Table) 01/03/24 Range/Units 10:50 TSH <0.015 L (0.465-4.680) mIU/L
[2024-01-04] MEDS: FLUoxetine HCL 20 MG CAP PO ONE (09:15)
[2024-01-05] MEDS: FLUoxetine HCL 10 MG CAP PO SCH (08:54)
--- NOTE | 2024-01-05 09:11 | P.PN ---
Subjective Progress Note Date: 01/05/24 Principal diagnosis: Bipolar 1 depressed Subjective: The patient is having semi-psychotic symptoms. She feels like she is in a dream and that nothing about her and even she herself are not real. She points out that when she took an overdose on was whole bottle of Prozac. She is wondering if there could still be some of that Prozac floating around in her blood. She says that she doesn't know the Prozac was helping or not when she took the overdose it wasn't because she felt depressed was just sort of a weird impulsive thing. Objective: Very anxious decent eye contact reasonable response times. She calmed down when we came up was an explanation for her symptoms and a plan. Assessment: Prozac hangs around in the blood for about 5 weeks so probably having the daily Prozac on top was still in there is interacting with her illness and making her feel strange. I did warn her that it will take a couple of days off of Prozac for these symptoms to start to fade a bit. Plan: We are going to continue the other medications and she was actually starting to feel somewhat better yesterday. Objective - Vital Signs Vital signs: Vital Signs Temp 97.5 F L 01/05/24 06:27 Pulse 86 01/05/24 08:50 Resp 18 01/05/24 08:50 BP 148/67 01/05/24 08:50 Pulse Ox 97 01/05/24 08:50 FiO2 - Labs Labs: Abnormal Lab Results - Last 24 Hours (Table) 01/03/24 Range/Units 10:50 Lamotrigine 1.8 L (2.0-15.0) ug/mL
[2024-01-05] MEDS: hydrOXYzine pamoate 25 MG CAP PO PRN (09:14)
[2024-01-06 07:01] VITALS: RESP 14
--- NOTE | 2024-01-06 12:24 | P.PN ---
Progress Note - Text Progress Note Date: 01/06/24 Interval History: Patient was seen wandering the hallways and was directable and agreeable to janes carbajal with abstract writer in the office. Patient states that she has gained insight as to why she thinks she overdosed. She claims it was to get attention from her friend. Dowel Sticker Operator explained Cluster B personality disorder to the patient. Patient states that the medications are going good for her. Patient states she is sleeping good, and her appetite is good. At this time patient denies any suicidal or homicidal ideations, intent or plan. Patient denies any auditory, visual hallucinations and denies any paranoia or delusions. Patient denies any side effects from the medications and has been compliant with meds. MENTAL STATUS EXAM: General Appearance: Patient appears to be overweight, stated age is alert, pleasant, superficial. Patient appears to have fair hygiene and grooming wearing hospital gown with fair eye contact. Behavior: Patient is calmly lying in bed without any agitated behavior. attention seeking, mildly improving Speech: Patient's speech is fluent and nonpressured, mildly improving Mood/Affect: Patient reports their mood is "good ", affect is congruent Suicidality/Homicidality: Patient denies having any suicidal or homicidal ideation intent or plan. Perceptions: Patient denies any visual hallucinations and denies any auditory hallucinations Though content/process: There is no evidence of any delusional thought content and thought process is linear and goal-directed. Memory and concentration: AOX3, grossly intact for the purposes of this session. Judgment and insight: mildly improving IMPRESSIONS: Suicide attempt by overdose of medications Bipolar disorder, depressed Cannabis use disorder methamphetamine abuse cluster b personality disorder PLAN: -Patient is admitted under voluntary status to MHU for stabilization of psychiatric symptoms and safety. Patient has signed adult voluntary form and medication consent and is placed in patient's chart. -Medications : Lamictal 200mg daily for mood stabilization, Abilify Maintena 400mg IM unsure of last date given, however, it was within the past week or so. Visteral prn for anxiety. - Haldol PRN for agitation/aggression -NRT - nicotine patch -SW on board for discharge planning. Encourage patient to participate in groups to work on coping skills. Likely discharge tomorrow.
[2024-01-06 12:44] LABS: Appearance,Urine Clear (Clear); Bilirubin,Urine Negative (Negative); Blood,Urine Negative (Negative); Color,Urine Colorless; Glucose,Urine (UA) Negative (Negative); Ketones,Urine Negative (Negative); Leukocyte Esterase,Urine Negative (Negative); Nitrite,Urine Negative (Negative); PH, Urine 5.5 (5.0-8.0); Protein,Urine Negative (Negative); Specific Gravity,Urine 1.007 (1.001-1.035); Urobilinogen,Urine <2.0 mg/dL (<2.0)
[2024-01-07 06:59] VITALS: BP 97/52; PULSE 77; TEMP 97.3
--- NOTE | 2024-01-07 08:07 | P.DS ---
Providers Date of admission: 01/02/24 18:35 Expected date of discharge: 01/07/24 Attending physician: Orlin Bennett MD Consults: 01/02/24 18:15 Consult Physician Routine Consulting Provider: Geraldine Vitale Consult Reason/Comments: H&P Do you want consulting provider notified?: Yes Primary care physician: Geraldine Vitale - Discharge Diagnosis(es) (1) Suicide attempt by drug overdose Current Visit: Yes Status: Acute Priority: High (2) Bipolar disorder current episode depressed Current Visit: Yes Status: Acute Priority: High (3) Cannabis use disorder Current Visit: Yes Status: Acute Priority: Medium (4) Methamphetamine abuse Current Visit: Yes Status: Acute Priority: Medium (5) Cluster B personality disorder Current Visit: Yes Status: Acute Priority: High Hospital Course: Admission HPI: Admission note was completed by gag writer "this patient is a 23-year-old female, currently lives with her 2 kids in a house, she is unemployed, she is single. Patient presented to the hospital on 611 initially, was transferred from [facility]. As per ER note patient apparently overdosed on Prozac on at 7 PM the previous night and also overdosed on Synthroid. This was admitted to be a suicide attempt according to patient. Patient's urine drug screen is positive for THC and amphetamines. Psychiatry was consulted while the patient was on the medical floor, as per consult note, completed by this gag writer, "Nurse taking care of patient did not report any complaints. Patient was seen laying in bed and agreeable to speak to gag writer. She claims that she was upset over a recent miscarriage about 2 months ago. Apparently the patient stated that she "exploded" and impulsively overdosed. States that she does have a history of overdosing and suicide attempts. States that she just "snapped". Claims that she was attempting to "mask my emotions" and not dealing with the miscarriage appropriately. She claims that she heard a song that reminded her of her baby and began having suicidal thoughts and overdosed afterwards. States that she was parked out front of her friend's house in a car and states that "my friend saw me overdose and called EMS. She states that she does have a history of bipolar disorder, claims that she does have frequent manic episodes. Denies any problems with sleep or appetite at this time is minimizing her depression and her reason for being in the hospital and overdose." Upon today's interview, she states that she is ok today. She complains of her back pain, however, medical dr gave her mobic for this. She states that she did not like the services provided at [facility], due to them cancelling her appointments. At this time patient denies any suicidal or homicidal ideations, intent or plan. Patient denies any auditory, visual hallucinations and denies any paranoia or delusions. Patients admits to using marijuana frequently, denies any other recreational drug use. UDS was positive for Marijuana, methamphetamines, benzodiazepines." Hospital course: Upon admission to the unit patient was directable and agreeable to commence treatment and signed adult voluntary form. Patient got along well with other patients on the unit and followed unit protocol. Patient was compliant with the medications and denied any side effects throughout hospital course. Patient was started on Lamictal her home dose of 200 mg daily for mood stabilization/depression, Prozac was held due to overdose. Can be restarted as an outpatient. Patient is currently on Abilify Maintena 400 mg IM q. monthly, last dose was unknown however patient claims that it was in the past week or so and goes to her primary care physician to get this administered on a monthly basis. Patient spoke of her stressors and engaged in therapy both group and individual. Patient was also seen by medical team for history and physical exam. Throughout the course of the hospitalization patient gradually improved with regards to mood, anxiety, suicidal thoughts, sleep and returned back to their baseline level of functioning. On the day of discharge patient denied any suicidal or homicidal ideations intent or plan denied any auditory or visual hallucinations. Patient endorsed wanting to live for their health and family. The patient denied any access to guns or weapons. Patient denied any paranoia and did not endorse any delusions. Patient does have a significant history of substance abuse and was counseled on abstaining from all substances including alcohol and marijuana. Patient was offered however declined inpatient substance-abuse rehab. Patient elected to do outpatient substance use treatment program through their outpatient provider.. Patient was also counseled on the medications and need for regular compliance and was encouraged to follow-up with their outpatient appointment for mental health and also for primary care. Prior to discharge a family meeting will be arranged by social work administrator to answer any questions and ensure safety upon discharge incuding making sure that guns/weapons are either removed from the home or locked away. Patient will r eturn home today, will be following up with [facility] for outpatient psychiatric follow-up. Mental status exam: General Appearance: Patient appears to be mildly overweight, stated age is alert, pleasant, and cooperative. Patient is in no acute distress and has improved hygiene and grooming Behavior: Patient is calmly seated without any agitated behavior. Speech: Patient's speech is fluent and nonpressured. Mood/Affect: Patient reports their mood is "good", affect is congruent and euthymic. Suicidality/Homicidality: Patient denies having any suicidal or homicidal ideation intent or plan. Perceptions: Patient denies any auditory or visual hallucinations. Though content/process: There is no evidence of any delusional thought content and thought process is linear and goal-directed. More future oriented Memory and concentration: AOX3, grossly intact for the purposes of this session. Can spell "WORLD" backwards correctly. Judgment and insight: Chronically poor, however has improved with guarded prognosis Impression: Suicide attempt by overdose of medications Bipolar disorder depressed Cannabis use disorder Methamphetamine abuse Cluster B personality disorder Plan: -Continue with discharge today as patient has improved and stabilized psychiatrically and is not currently an imminent threat to themself and/or others. Patient will remain at chronically elevated risk for harm to self and/or others due to their impulsivity and substance abuse. -Continue medications: Continue with home dose of Lamictal 200 mg daily for mood stabilization/depression, Vistaril 50 mg daily as needed for anxiety, Abilify maintainer 400 mg IM q. monthly will be continuing to have this administered and monitored by her primary care physician. -Patient was counseled on the need for medication compliance and appropriate follow-up at mental health and also primary care for medical issues. Patient verbalized understanding and agreed. -Social work to help coordinate patients discharge today. also to ensure safe home environment that guns/weapons are either removed from the home or locked away. Social work also to arrange for patients follow up appointments for psychiatric care along with follow up with primary care provider. -Patient counseled on abstaining from recreational drugs and marijuana and alcohol. Was informed/educated on the adverse effects on their physical and mental health. Patient verbally agreed and understood. Patient was offered substance abuse treatment however declined at this time. -Patient was instructed to return to the hospital or seek immediate medical care if their psychiatric or medical symptoms do worsen or reoccur. Allergies Allergy/AdvReac Type Severity Reaction Status Date / Time vancomycin Allergy Anaphylaxis Verified 01/02/24 19:16 lorazepam [From Ativan] AdvReac Rapid Verified 01/02/24 19:16 Heart Rate Laboratory Results Estimated Ave Glu mg/dL 108 mg/dL 01/03/24 10:50 Hemoglobin A1c 5.4 % (<=6.0) 01/03/24 10:50 TSH <0.015 mIU/L (0.465-4.680) L 01/03/24 10:50 Urine Color Colorless 01/06/24 12:30 Urine Appearance Clear (Clear) 01/06/24 12:30 Urine pH 5.5 (5.0-8.0) 01/06/24 12:30 Ur Specific [place] 1.007 (1.001-1.035) 01/06/24 12:30 Urine Protein Negative (Negative) 01/06/24 12:30 Urine Glucose (UA) Negative (Negative) 01/06/24 12:30 Urine Ketones Negative (Negative) 01/06/24 12:30 Urine Blood Negative (Negative) 01/06/24 12:30 Urine Nitrite Negative (Negative) 01/06/24 12:30 Urine Bilirubin Negative (Negative) 01/06/24 12:30 Urine Urobilinogen <2.0 mg/dL (<2.0) 01/06/24 12:30 Ur Leukocyte Esterase Negative (Negative) 01/06/24 12:30 Urine RBC 1 /hpf (0-5) 01/02/24 20:12 Urine WBC 1 /hpf (0-5) 01/02/24 20:12 Ur Squamous Epith Cells 33 /hpf (0-4) H 01/02/24 20:12 Urine Bacteria Rare /hpf (None) H 01/02/24 20:12 Hyaline Casts 28 /lpf (0-2) H 01/02/24 20:12 Urine Mucus Many /hpf (None) H 01/02/24 20:12 Urine HCG, Qual Not Detected (Not Detectd) 01/06/24 12:30 Urine Opiates Screen Not Detected (NotDetected) 01/02/24 20:12 Ur Oxycodone Screen Not Detected (NotDetected) 01/02/24 20:12 Urine Methadone Screen Not Detected (NotDetected) 01/02/24 20:12 Ur Barbiturates Screen Not Detected (NotDetected) 01/02/24 20:12 Lamotrigine 1.8 ug/mL (2.0-15.0) L 01/03/24 10:50 U Tricyclic Antidepress Not Detected (NotDetected) 01/02/24 20:12 Ur Phencyclidine Scrn Not Detected (NotDetected) 01/02/24 20:12 Ur Amphetamines Screen Detected (NotDetected) H 01/02/24 20:12 U Methamphetamines Scrn Detected (NotDetected) H 01/02/24 20:12 U Benzodiazepines Scrn Detected (NotDetected) H 01/02/24 20:12 Urine Cocaine Screen Not Detected (NotDetected) 01/02/24 20:12 U Marijuana (THC) Screen Detected (NotDetected) H 01/02/24 20:12 Vital Signs Temp 97.3 F L 01/07/24 06:27 Pulse 77 01/07/24 06:27 Resp 14 01/07/24 06:27 BP 97/52 01/07/24 06:27 Pulse Ox 97 01/05/24 08:50 FiO2 Patient Condition at Discharge: Stable Plan - Discharge Summary Discharge Rx Participant: No New Discharge Prescriptions: New Meloxicam [Mobic] 7.5 mg PO DAILY 30 Days #30 tab hydrOXYzine pamoate [Vistaril] 50 mg PO DAILY PRN 30 Days #60 cap PRN Reason: Anxiety lamoTRIgine [LaMICtal] 200 mg PO DAILY 30 Days #60 tab Continue Levothyroxine Sodium 100 mcg PO DAILY ARIPiprazole IM [Abilify Maintena] 400 mg IM Q28D Discontinued Dextroamphetamine/Amphetamine [Adderall] 20 mg PO DAILY lamoTRIgine [LaMICtal] 100 mg PO HS FLUoxetine HCL [PROzac] 20 mg PO DAILY Discharge Medication List Levothyroxine Sodium 100 mcg PO DAILY 03/08/22 [History] ARIPiprazole IM [Abilify Maintena] 400 mg IM Q28D 12/26/22 [History] Meloxicam [Mobic] 7.5 mg PO DAILY 30 Days #30 tab 01/07/24 [Rx] hydrOXYzine pamoate [Vistaril] 50 mg PO DAILY PRN 30 Days #60 cap 01/07/24 [Rx] lamoTRIgine [LaMICtal] 200 mg PO DAILY 30 Days #60 tab 01/07/24 [Rx] Follow up Appointment(s)/Referral(s): [employer] [Outside] - 01/13/24 2:00 pm ([place] out of town Dr Jesica Limon 01/13/2024 @ 14:00) [facility] [NON-STAFF] - 1 Week Patient Instructions/Handouts: Depression (DC), Borderline Personality Disorder (DC) Activity/Diet/Wound Care/Special Instructions: Avoid the use of street drugs and alcohol. Take all medications as prescribed. When you are in need of refills on your medications, please contact your medical provider and/or outpatient psychiatrist/provider to have this done. Please go to your scheduled outpatient appointment for aftercare treatment. If symptoms return or become worse, call the crisis line at and/or go to the nearest emergency room for evaluation. National Suicide Hotline 507 Discharge Disposition: HOME SELF-CARE
== END 2024-01-07 09:45 | disposition home or self-care (01) | DRG 753 ==
LOC: 3MHU 18:35 → UNDOADMIN 18:44 → 3MHU 01-05 15:48
PROVIDERS: ADMIT Psychiatry & Neurology Psychiatry; ATTEND Psychiatry & Neurology Psychiatry
DX: F31.30 Bipolar disorder, current episode depressed, mild or moderate severity, unspecified (principal); E66.3 Overweight; F12.10 Cannabis abuse, uncomplicated; F15.10 Other stimulant abuse, uncomplicated; Z68.41 Body mass index [BMI] 40.0-44.9, adult; F60.89 Other specific personality disorders; F41.9 Anxiety disorder, unspecified; M54.9 Dorsalgia, unspecified; T43.222D Poisoning by selective serotonin reuptake inhibitors, intentional self-harm, subsequent encounter; T38.1X2D Poisoning by thyroid hormones and substitutes, intentional self-harm, subsequent encounter; Z79.890 Hormone replacement therapy; Z79.899 Other long term (current) drug therapy; Z56.0 Unemployment, unspecified; Z88.1 Allergy status to other antibiotic agents; Z88.8 Allergy status to other drugs, medicaments and biological substances
CPT/HCPCS: 80175; 80306; 81001; 81003; 81025; 83036; 84443

== ENCOUNTER 2024-01-29 12:12 | Emergency (ER) | payer OTHER ==
[2024-01-29 12:18] VITALS: RESP 18; TEMP 98.7
[2024-01-29 12:23] LABS: Glucose,Whole Blood 101 mg/dL (70-110)
--- NOTE | 2024-01-29 13:03 | ED ---
General Adult HPI - General Chief complaint: Seizure Stated complaint: Seizure Time Seen by Provider: 01/29/24 12:14 Source: patient, EMS, RN notes reviewed, old records reviewed Mode of arrival: EMS Limitations: no limitations - History of Present Illness Initial comments: 23 yo female female presenting with a episode of loss consciousness. This was p receded by lightheadedness and nausea. The patient was noted to have some generalized shaking and thought to maybe represent seizure. She had no urinary incontinence. No tongue biting. There was no reported injury from the patient. She states she had not eaten any breakfast or lunch. - Related Data Home Medications Medication Instructions Recorded Confirmed Levothyroxine Sodium 100 mcg PO DAILY 03/08/22 01/29/24 ARIPiprazole IM [Abilify Maintena] 400 mg IM Q28D 12/26/22 01/29/24 Previous Rx's Medication Instructions Recorded Meloxicam [Mobic] 7.5 mg PO DAILY 30 Days #30 tab 01/07/24 hydrOXYzine pamoate [Vistaril] 50 mg PO DAILY PRN 30 Days #60 cap 01/07/24 lamoTRIgine [LaMICtal] 200 mg PO DAILY 30 Days #60 tab 01/07/24 Allergies Allergy/AdvReac Type Severity Reaction Status Date / Time vancomycin Allergy Anaphylaxis Verified 01/29/24 13:15 lorazepam [From Ativan] AdvReac Rapid Verified 01/29/24 13:15 Heart Rate Review of Systems ROS Statement: Those systems with pertinent positive or pertinent negative responses have been documented in the HPI. ROS Other: All systems not noted in ROS Statement are negative. Past Medical History Past Medical History: GERD/Reflux, Thyroid Disorder Additional Past Medical History / Comment(s): Back problems/pain. History of Any Multi-Drug Resistant Organisms: None Reported Past Surgical History: Adenoidectomy, Section, Cholecystectomy, Ear Surgery, Orthopedic Surgery, Tonsillectomy Additional Past Surgical History / Comment(s): Multiple surgeries to her ears for tube placement, left hand wound closure, Section X2. Past Anesthesia/Blood Transfusion Reactions: No Reported Reaction Additional Past Anesthesia/Blood Transfusion Reaction / Comment(s): Mom slow to wake up. Past Psychological History: Anxiety, Bipolar, Depression Smoking Status: Never smoker Past Alcohol Use History: Occasional Past Drug Use History: Marijuana - Past Family History Mother Family Medical History: Diabetes Mellitus, Hypertension Father History Unknown: Yes Sister(s) Additional Family Medical History / Comment(s): Social anxiety disorder. General Exam Limitations: no limitations General appearance: alert, in no apparent distress Head exam: Present: atraumatic, normocephalic Eye exam: Present: normal appearance, PERRL ENT exam: Present: normal exam Neck exam: Present: normal inspection. Absent: tenderness, meningismus Respiratory exam: Present: normal lung sounds bilaterally. Absent: respiratory distress, wheezes Cardiovascular Exam: Present: regular rate, normal rhythm GI/Abdominal exam: Present: soft. Absent: distended, tenderness, guarding Extremities exam: Present: normal inspection, normal capillary refill Neurological exam: Present: alert, oriented X3, CN II-XII intact. Absent: motor sensory deficit Psychiatric exam: Present: normal affect, normal mood Skin exam: Present: warm, dry, intact. Absent: cyanosis, diaphoretic Course Vital Signs 01/29/24 01/29/24 01/29/24 12:14 12:17 13:53 Temperature 98.7 F Pulse Rate 77 74 84 Respiratory 18 18 18 Rate Blood Pressure 111/75 98/62 117/76 O2 Sat by Pulse 98 97 98 Oximetry Medical Decision Making - Medical Decision Making Was pt. sent in by a medical professional or institution ([facility], CHILD CARE, urgent care, hospital, or alf...) When possible be specific @ -No Did you speak to anyone other than the patient for history (EMS, parent, family, police, friend...)? What history was obtained from this source @ -No Did you review nursing and triage notes (agree or disagree)? Why? @ -I reviewed and agree with nursing and triage notes Were old charts reviewed (outside hosp., previous admission, EMS record, old EKG, old radiological studies, urgent care reports/EKG's, alf records)? Report findings @ -No old charts were reviewed Differential Syncope: Valvular disease, hypertrophic cardiomyopathy, pulmonary embolism, tamponade, tachycardia, bradycardia, OR, hypovolemia, hemorrhage, dissection, anemia, intracranial hemorrhage, seizure, hypoglycemia, carbon monoxide poisoning, this is not meant to be an all-inclusive list. EKG interpreted by me (3pts min.). @Sinus rhythm ventricular rate of 63 VT interval 146, QRS duration 80, QTc [address] segment changes X-rays interpreted by me (1pt min.). @ -None done CT interpreted by me (1pt min.). @ -CT brain negative for intracranial hemorrhage or mass effect. U/S interpreted by me (1pt. min.). @ -None done What testing was considered but not performed or refused? (CT, X-rays, U/S, labs)? Why? @ -None What meds were considered but not given or refused? Why? @ -None Did you discuss the management of the patient with other professionals (professionals i.e. , PA, CHILD CARE, lab, RT, psych nurse, social service coordinator, operations liaison, teacher, electronic intelligence officer, briefcase sewer)? Give summary @ -No Was smoking cessation discussed for >3mins.? @ -No Was critical care preformed (if so, how long)? @ -No Were there social determinants of health that impacted care today? How? (Homelessness, low income, unemployed, alcoholism, drug addiction, transportation, low edu. Level, literacy, decrease access to med. care, retirement, rehab)? @ -No Was there de-escalation of care discussed even if they declined (Discuss DNR or withdrawal of care, Hospice)? DNR status @ -No What co-morbidities impacted this encounter? (DM, HTN, Smoking, COPD, CAD, Can cer, CVA, ARF, Chemo, Hep., AIDS, mental health diagnosis, sleep apnea, morbid obesity)? @ -None Was patient admitted / discharged? Hospital course, mention meds given and route, prescriptions, significant lab abnormalities, going to OR and other pertinent info. @ -23-year-old female with syncopal episode with some features of seizure activity. Given the history with preceding symptoms it does seem as though this was more likely syncope. Patient had a mild headache. Head CT was performed wh ich was negative. She had an EKG showing sinus rhythm. Normal CBC, normal CMP. Urinalysis is unremarkable. Patient does have remote history of seizures and she is instructed that this was more likely syncope but that she should follow closely with her primary care provider Undiagnosed new problem with uncertain prognosis? @ -No Drug Therapy requiring intensive monitoring for toxicity (Heparin, Nitro, Insulin, Cardizem)? @ -No Were any procedures done? @ -No Diagnosis/symptom? @Syncopal episode Acute, or Chronic, or Acute on Chronic? @ acute Uncomplicated (without systemic symptoms) or Complicated (systemic symptoms)? @ -Default Side effects of treatment? @ -No Exacerbation, Progression, or Severe Exacerbation? @ -No Poses a threat to life or bodily function? How? (Chest pain, USA, OR, pneumonia, PE, COPD, DKA, ARF, appy, cholecystitis, CVA, Diverticulitis, Homicidal, Suicidal, threat to staff... and all critical care pts) @ -[low risk at this time - Lab Data Result diagrams: 01/29/24 13:05 01/29/24 13:05 Lab Results 01/29/24 01/29/24 01/29/24 Range/Units 12:21 13:05 13:05 WBC 7.9 (3.8-10.6) k/uL RBC 4.26 (3.80-5.40) m/uL Hgb 13.3 (11.4-16.0) gm/dL Hct 38.9 (34.0-46.0) % MCV 91.2 (80.0-100.0) fL MCH 31.3 (25.0-35.0) pg MCHC 34.3 (31.0-37.0) g/dL RDW 12.5 (11.5-15.5) % Plt Count 247 (150-450) k/uL MPV 8.8 Sodium (137-145) mmol/L Potassium (3.5-5.1) mmol/L Chloride (98-107) mmol/L Carbon Dioxide (22-30) mmol/L Anion Gap mmol/L BUN (7-17) mg/dL Creatinine (0.52-1.04) mg/dL Est GFR (CKD-EPI)AfAm (>60 ml/min/1.73 sqM) Est GFR (CKD-EPI)NonAf (>60 ml/min/1.73 sqM) Glucose (74-99) mg/dL POC Glucose (mg/dL) 101 (70-110) mg/dL POC Glu Licensing Worker ID [email or web address] Calcium (8.4-10.2) mg/dL Magnesium (1.6-2.3) mg/dL Total Bilirubin (0.2-1.3) mg/dL AST (14-36) U/L ALT (4-34) U/L Alkaline Phosphatase (38-126) U/L Total Protein (6.3-8.2) g/dL Albumin (3.5-5.0) g/dL HCG, Quant mIU/mL Urine Color Colorless Urine Appearance Clear (Clear) Urine pH 5.5 (5.0-8.0) Ur Specific [place] 1.008 (1.001-1.035) Urine Protein Negative (Negative) Urine Glucose (UA) Negative (Negative) Urine Ketones Negative (Negative) Urine Blood Negative (Negative) Urine Nitrite Negative (Negative) Urine Bilirubin Negative (Negative) Urine Urobilinogen <2.0 (<2.0) mg/dL Ur Leukocyte Esterase Negative (Negative) 01/29/24 Range/Units 13:05 WBC (3.8-10.6) k/uL RBC (3.80-5.40) m/uL Hgb (11.4-16.0) gm/dL Hct (34.0-46.0) % MCV (80.0-100.0) fL MCH (25.0-35.0) pg MCHC (31.0-37.0) g/dL RDW (11.5-15.5) % Plt Count (150-450) k/uL MPV Sodium 137 (137-145) mmol/L Potassium 4.4 (3.5-5.1) mmol/L Chloride 109 H (98-107) mmol/L Carbon Dioxide 21 L (22-30) mmol/L Anion Gap 7 mmol/L BUN 10 (7-17) mg/dL Creatinine 0.60 (0.52-1.04) mg/dL Est GFR (CKD-EPI)AfAm >90 (>60 ml/min/1.73 sqM) Est GFR (CKD-EPI)NonAf >90 (>60 ml/min/1.73 sqM) Glucose 96 (74-99) mg/dL POC Glucose (mg/dL) (70-110) mg/dL POC Glu Licensing Worker ID Calcium 9.1 (8.4-10.2) mg/dL Magnesium 1.7 (1.6-2.3) mg/dL Total Bilirubin 0.4 (0.2-1.3) mg/dL AST 25 (14-36) U/L ALT 22 (4-34) U/L Alkaline Phosphatase 57 (38-126) U/L Total Protein 6.2 L (6.3-8.2) g/dL Albumin 3.6 (3.5-5.0) g/dL HCG, Quant <2.4 mIU/mL Urine Color Urine Appearance (Clear) Urine pH (5.0-8.0) Ur Specific [place] (1.001-1.035) Urine Protein (Negative) Urine Glucose (UA) (Negative) Urine Ketones (Negative) Urine Blood (Negative) Urine Nitrite (Negative) Urine Bilirubin (Negative) Urine Urobilinogen (<2.0) mg/dL Ur Leukocyte Esterase (Negative) Disposition Clinical Impression: Syncope Disposition: HOME SELF-CARE Condition: Good Instructions (If sedation given, give patient instructions): Syncope (ED) Is patient prescribed a controlled substance at d/c from ED?: No Referrals: Geraldine Vitale DO [Primary Care Provider] - 1-2 days Time of Disposition: 14:30
[2024-01-29] MEDS: SODIUM CHLORIDE 0.9% 1,000 ML IV STA (13:04)
[2024-01-29 13:52] LABS: ALT 22 U/L (4-34); AST 25 U/L (14-36); African American GFR (CKD) >90 (>60 ml/min/1.73 sqM); Albumin 3.6 g/dL (3.5-5.0); Alkaline Phosphatase 57 U/L (38-126); Anion Gap 7 mmol/L; Blood Urea Nitrogen 10 mg/dL (7-17); Calcium 9.1 mg/dL (8.4-10.2); Carbon Dioxide 21 mmol/L (22-30); Chloride 109 mmol/L (98-107); Glucose 96 mg/dL (74-99); Magnesium 1.7 mg/dL (1.6-2.3); Non-African American GFR(CKD) >90 (>60 ml/min/1.73 sqM); Potassium 4.4 mmol/L (3.5-5.1); Sodium 137 mmol/L (137-145); Total Bilirubin 0.4 mg/dL (0.2-1.3); Total Protein 6.2 g/dL (6.3-8.2)
[2024-01-29 13:53] LABS: Appearance,Urine Clear (Clear); Bilirubin,Urine Negative (Negative); Blood,Urine Negative (Negative); Color,Urine Colorless; Glucose,Urine (UA) Negative (Negative); Ketones,Urine Negative (Negative); Leukocyte Esterase,Urine Negative (Negative); Nitrite,Urine Negative (Negative); PH, Urine 5.5 (5.0-8.0); Protein,Urine Negative (Negative); Specific Gravity,Urine 1.008 (1.001-1.035); Urobilinogen,Urine <2.0 mg/dL (<2.0)
[2024-01-29 13:56] LABS: HCT 38.9 % (34.0-46.0); HGB 13.3 gm/dL (11.4-16.0); MCH 31.3 pg (25.0-35.0); MCHC 34.3 g/dL (31.0-37.0); MCV 91.2 fL (80.0-100.0); Mean Platelet Volume 8.8; Platelet Count 247 k/uL (150-450); RBC 4.26 m/uL (3.80-5.40); RDW 12.5 % (11.5-15.5); WBC 7.9 k/uL (3.8-10.6)
[2024-01-29 14:06] VITALS: BP 117/76; PULSE 84
[2024-01-29 14:06] LABS: HCG,Quantitative Serum <2.4 mIU/mL
--- NOTE | 2024-01-29 14:08 | CT ---
EXAMINATION TYPE: CT brain wo con DATE OF EXAM: 01/29/2024 COMPARISON: None HISTORY: 23-year-old female seizure activity TECHNIQUE: Examination was done in axial plane without intravenous contrast. Coronal and sagittal r econstructions performed. CT DLP: 1060.4 mGycm Automated exposure control for dose reduction was used. FINDINGS: There is no evidence of acute intracranial hemorrhage, acute ischemic changes, mass, mass-effect, or extra-axial fluid collection. There is no effacement of cerebral sulci or basal subarachnoid cister ns. There is no hydrocephalus. There is no midline shift. [place]rellana-white matter distinction is preserv ed. Paranasal sinuses and mastoid air cells are well pneumatized. Orbits and globes are intact. Slight ri ghtward nasal septal deviation. IMPRESSION: No acute intracranial abnormality seen.
[2024-01-29 15:30] LABS: Eosinophils # (M) 0.32 k/uL (0-0.7); Lymphocytes # (M) 3.95 k/uL (1.0-4.8); Monocytes # (M) 0.24 k/uL (0-1.0); Neutrophils % (M) 43 %; Nucleated Red Blood Cells 0 /100 WBC (0-0); Stomatocytes Present; Total Cells Counted 100
== END 2024-01-29 14:40 | disposition home or self-care (01) ==
LOC: EC 12:12
DX: R55 Syncope and collapse (principal); Z88.1 Allergy status to other antibiotic agents; Z88.8 Allergy status to other drugs, medicaments and biological substances
CPT/HCPCS: 36415; 70450; 80053; 81003; 83735; 84702; 85025; 93005; 96360; 99285

== ENCOUNTER 2024-02-14 09:38 | Emergency (ER) | payer OTHER ==
[2024-02-14 09:49] VITALS: TEMP 97.7
[2024-02-14] MEDS: SODIUM CHLORIDE 0.9% 1,000 ML IV ONE (10:35)
[2024-02-14 10:42] LABS: Basophils % (A) 0 %; Eosinophils # (A) 0.2 k/uL (0-0.7); Eosinophils % (A) 2 %; HCT 40.9 % (34.0-46.0); HGB 13.4 gm/dL (11.4-16.0); Lymphocytes # (A) 2.3 k/uL (1.0-4.8); Lymphocytes % (A) 33 %; MCHC 32.8 g/dL (31.0-37.0); MCV 91.4 fL (80.0-100.0); Mean Platelet Volume 7.6; Monocytes # (A) 0.3 k/uL (0-1.0); Monocytes % (A) 5 %; Neutrophils # (A) 4.1 k/uL (1.3-7.7); Neutrophils % (A) 58 %; Platelet Count 312 k/uL (150-450); RBC 4.48 m/uL (3.80-5.40); RDW 12.2 % (11.5-15.5); WBC 7.1 k/uL (3.8-10.6)
--- NOTE | 2024-02-14 10:52 | ED ---
General Adult HPI - General Chief complaint: Dizziness Stated complaint: dizzy/chest pain Time Seen by Provider: 02/14/24 10:05 Source: patient, RN notes reviewed Mode of arrival: ambulatory Limitations: no limitations - History of Present Illness Initial comments: 23-year-old female presents to the emergency department for evaluation of lightheadedness and chest discomfort. She states that this started 30 minutes prior to arrival. She reports that she is unsure how long the pain lasted but it is since resolved. Patient states that she has been having this on and off but she is unsure for how long. She describes it as a pressure sensation in her central chest. She denies any shortness of breath. Denies recent illness, fever. - Related Data Home Medications Medication Instructions Recorded Confirmed Levothyroxine Sodium 100 mcg PO DAILY 03/08/22 02/14/24 ARIPiprazole IM [Abilify Maintena] 400 mg IM Q28D 12/26/22 02/14/24 lamoTRIgine [LaMICtal] 25 mg PO DAILY 02/14/24 02/14/24 metFORMIN HCL [Glucophage] 500 mg PO BID 02/14/24 02/14/24 Previous Rx's Medication Instructions Recorded Meloxicam [Mobic] 7.5 mg PO DAILY 30 Days #30 tab 01/07/24 Allergies Allergy/AdvReac Type Severity Reaction Status Date / Time vancomycin Allergy Anaphylaxis Verified 02/14/24 13:07 lorazepam [From Ativan] AdvReac Rapid Verified 02/14/24 13:07 Heart Rate Review of Systems ROS Statement: Those systems with pertinent positive or pertinent negative responses have been documented in the HPI. ROS Other: All systems not noted in ROS Statement are negative. Past Medical History Past Medical History: GERD/Reflux, Thyroid Disorder Additional Past Medical History / Comment(s): Back problems/pain. History of Any Multi-Drug Resistant Organisms: None Reported Past Surgical History: Adenoidectomy, Section, Cholecystectomy, Ear Surgery, Orthopedic Surgery, Tonsillectomy Additional Past Surgical History / Comment(s): Multiple surgeries to her ears for tube placement, left hand wound closure, Section X2. Past Anesthesia/Blood Transfusion Reactions: No Reported Reaction Additional Past Anesthesia/Blood Transfusion Reaction / Comment(s): Mom slow to wake up. Past Psychological History: Anxiety, Bipolar, Depression Smoking Status: Never smoker Past Alcohol Use History: Occasional Past Drug Use History: Marijuana - Past Family History Mother Family Medical History: Diabetes Mellitus, Hypertension Father History Unknown: Yes Sister(s) Additional Family Medical History / Comment(s): Social anxiety disorder. General Exam Limitations: no limitations General appearance: alert, in no apparent distress Head exam: Present: atraumatic, normocephalic, normal inspection Eye exam: Present: normal appearance, PERRL, EOMI. Absent: scleral icterus, conjunctival injection, periorbital swelling ENT exam: Present: normal exam, mucous membranes moist Neck exam: Present: normal inspection. Absent: tenderness, meningismus, lymphadenopathy Respiratory exam: Present: normal lung sounds bilaterally. Absent: respiratory distress, wheezes, rales, rhonchi, stridor Cardiovascular Exam: Present: regular rate, normal rhythm, normal heart sounds. Absent: systolic murmur, diastolic murmur, rubs, gallop, clicks GI/Abdominal exam: Present: soft. Absent: distended, tenderness, guarding, rebound, rigid Extremities exam: Present: normal inspection, full ROM, normal capillary refill. Absent: tenderness, pedal edema, joint swelling, calf tenderness Back exam: Present: normal inspection Neurological exam: Present: alert, oriented X3 Psychiatric exam: Present: normal affect, normal mood Skin exam: Present: warm, dry, intact, normal color. Absent: rash Course Vital Signs 02/14/24 02/14/24 02/14/24 09:47 11:39 14:00 Temperature 97.7 F Pulse Rate 75 76 78 Respiratory 18 16 18 Rate Blood Pressure 112/66 118/71 O2 Sat by Pulse 98 99 98 Oximetry 02/14/24 14:57 Temperature Pulse Rate 85 Respiratory 20 Rate Blood Pressure 115/48 O2 Sat by Pulse 98 Oximetry Medical Decision Making - Medical Decision Making Was pt. sent in by a medical professional or institution (, PA, MOTHER SUPERIOR, urgent care, hospital, or assisted...) When possible be specific @ -No Did you speak to anyone other than the patient for history (EMS, parent, family, police, friend...)? What history was obtained from this source @ -No Did you review nursing and triage notes (agree or disagree)? Why? @ -I reviewed and agree with nursing and triage notes Were old charts reviewed (outside hosp., previous admission, EMS record, old EKG, old radiological studies, urgent care reports/EKG's, assisted records)? Report findings @ -No old charts were reviewed Differential Diagnosis (chest pain, altered mental status, abdominal pain women, abdominal pain men, vaginal bleeding, weakness, fever, dyspnea, syncope, headache, dizziness, GI bleed, back pain, seizure, CVA, palpatations, mental health, musculoskeletal)? @ -Differential Chest Pain: Stable Angina, Unstable Angina, STEMI, NSTEMI Aortic Dissection, Pneumothorax, Musculoskeletal, Esophageal Spasm GERD, Cholecystitis, Pancreatitis, Zoster, this is not meant to be an all-inclusive list. EKG interpreted by me (3pts min.). @ -EKG at 958 shows sinus rhythm rate 69, RI 126, QRS 89, QT/QTc 529321 X-rays interpreted by me (1pt min.). @ -Chest x-ray shows no acute process CT interpreted by me (1pt min.). @ -None done U/S interpreted by me (1pt. min.). @ -None done What testing was considered but not performed or refused? (CT, X-rays, U/S, labs)? Why? @ -None What meds were considered but not given or refused? Why? @ -None Did you discuss the management of the patient with other professionals (professionals i.e. , PA, MOTHER SUPERIOR, lab, RT, psych nurse, social work professor, dress shoe inspector, teacher, airfield services officer, caseworker)? Give summary @ -No Was smoking cessation discussed for >3mins.? @ -No Was critical care preformed (if so, how long)? @ -No Were there social determinants of health that impacted care today? How? (Homelessness, low income, unemployed, alcoholism, drug addiction, transp ortation, low edu. Level, literacy, decrease access to med. care, [facility], rehab)? @ -No Was there de-escalation of care discussed even if they declined (Discuss DNR or withdrawal of care, Hospice)? DNR status @ -No What co-morbidities impacted this encounter? (DM, HTN, Smoking, COPD, CAD, Cancer, CVA, ARF, Chemo, Hep., AIDS, mental health diagnosis, sleep apnea, morbid obesity)? @ -None Was patient admitted / discharged? Hospital course, mention meds given and route, prescriptions, significant lab abnormalities, going to OR and other pertinent info. @ -Discharge. Patient presented to the emergency department for evaluation of chest discomfort. Laboratory studies were obtained. Patient had a negative troponin. Repeat was obtained at 3 hours which was also negative. Patient had a negative D-dimer. Chest x-ray was obtained which showed no acute process. UA showed no evidence of infectious process, negative urine hCG. Patient was advised on findings and will be discharged home. She is understanding agreeable with plan. Patient stable at time of discharge. Case discussed with Dr. Mae. Undiagnosed new problem with uncertain prognosis? @ -No Drug Therapy requiring intensive monitoring for toxicity (Heparin, Nitro, Insulin, Cardizem)? @ -No Were any procedures done? @ -No Diagnosis/symptom? @ -Atypical chest pain, lightheadedness Acute, or Chronic, or Acute on Chronic? @ -acute Uncomplicated (without systemic symptoms) or Complicated (systemic symptoms)? @ -uncomplicated Side effects of treatment? @ -No Exacerbation, Progression, or Severe Exacerbation? @ -No Poses a threat to life or bodily function? How? (Chest pain, USA, SD, pneumonia, PE, COPD, DKA, ARF, appy, cholecystitis, CVA, Diverticulitis, Homicidal, Suicidal, threat to staff... and all critical care pts) @ -No - Lab Data Result diagrams: 02/14/24 10:23 02/14/24 10:23 Lab Results 02/14/24 02/14/24 02/14/24 Range/Units 10:23 10:23 10:23 WBC 7.1 (3.8-10.6) k/uL RBC 4.48 (3.80-5.40) m/uL Hgb 13.4 (11.4-16.0) gm/dL Hct 40.9 (34.0-46.0) % MCV 91.4 (80.0-100.0) fL MCH 30.0 (25.0-35.0) pg MCHC 32.8 (31.0-37.0) g/dL RDW 12.2 (11.5-15.5) % Plt Count 312 (150-450) k/uL MPV 7.6 Neutrophils % 58 % Lymphocytes % 33 % Monocytes % 5 % Eosinophils % 2 % Basophils % 0 % Neutrophils # 4.1 (1.3-7.7) k/uL Lymphocytes # 2.3 (1.0-4.8) k/uL Monocytes # 0.3 (0-1.0) k/uL Eosinophils # 0.2 (0-0.7) k/uL Basophils # 0.0 (0-0.2) k/uL PT 10.0 (10.0-12.5) sec INR 0.9 (<1.2) APTT 26.3 (22.0-30.0) sec D-Dimer (<0.60) mg/L FEU Sodium 140 (137-145) mmol/L Potassium 4.5 (3.5-5.1) mmol/L Chloride 107 (98-107) mmol/L Carbon Dioxide 26 (22-30) mmol/L Anion Gap 7 mmol/L BUN 13 (7-17) mg/dL Creatinine 0.70 (0.52-1.04) mg/dL Est GFR (CKD-EPI)AfAm >90 (>60 ml/min/1.73 sqM) Est GFR (CKD-EPI)NonAf >90 (>60 ml/min/1.73 sqM) Glucose 84 (74-99) mg/dL Calcium 9.5 (8.4-10.2) mg/dL Magnesium 1.7 (1.6-2.3) mg/dL Total Bilirubin 0.4 (0.2-1.3) mg/dL AST 24 (14-36) U/L ALT 24 (4-34) U/L Alkaline Phosphatase 67 (38-126) U/L Troponin I (0.000-0.034) ng/mL Total Protein 6.4 (6.3-8.2) g/dL Albumin 3.9 (3.5-5.0) g/dL Urine Color Urine Appearance (Clear) Urine pH (5.0-8.0) Ur Specific Donovan (1.001-1.035) Urine Protein (Negative) Urine Glucose (UA) (Negative) Urine Ketones (Negative) Urine Blood (Negative) Urine Nitrite (Negative) Urine Bilirubin (Negative) Urine Urobilinogen (<2.0) mg/dL Ur Leukocyte Esterase (Negative) Urine RBC (0-5) /hpf Urine WBC (0-5) /hpf Ur Squamous Epith Cells (0-4) /hpf Amorphous Sediment (None) /hpf Urine Mucus (None) /hpf Urine HCG, Qual (Not Detectd) 02/14/24 02/14/24 02/14/24 Range/Units 10:23 10:23 10:23 WBC (3.8-10.6) k/uL RBC (3.80-5.40) m/uL Hgb (11.4-16.0) gm/dL Hct (34.0-46.0) % MCV (80.0-100.0) fL MCH (25.0-35.0) pg MCHC (31.0-37.0) g/dL RDW (11.5-15.5) % Plt Count (150-450) k/uL MPV Neutrophils % % Lymphocytes % % Monocytes % % Eosinophils % % Basophils % % Neutrophils # (1.3-7.7) k/uL Lymphocytes # (1.0-4.8) k/uL Monocytes # (0-1.0) k/uL Eosinophils # (0-0.7) k/uL Basophils # (0-0.2) k/uL PT (10.0-12.5) sec INR (<1.2) APTT (22.0-30.0) sec D-Dimer (<0.60) mg/L FEU Sodium (137-145) mmol/L Potassium (3.5-5.1) mmol/L Chloride (98-107) mmol/L Carbon Dioxide (22-30) mmol/L Anion Gap mmol/L BUN (7-17) mg/dL Creatinine (0.52-1.04) mg/dL Est GFR (CKD-EPI)AfAm (>60 ml/min/1.73 sqM) Est GFR (CKD-EPI)NonAf (>60 ml/min/1.73 sqM) Glucose (74-99) mg/dL Calcium (8.4-10.2) mg/dL Magnesium (1.6-2.3) mg/dL Total Bilirubin (0.2-1.3) mg/dL AST (14-36) U/L ALT (4-34) U/L Alkaline Phosphatase (38-126) U/L Troponin I <0.012 (0.000-0.034) ng/mL Total Protein (6.3-8.2) g/dL Albumin (3.5-5.0) g/dL Urine Color Light Yellow Urine Appearance Cloudy H (Clear) Urine pH 5.5 (5.0-8.0) Ur Specific Donovan 1.022 (1.001-1.035) Urine Protein Negative (Negative) Urine Glucose (UA) Negative (Negative) Urine Ketones Negative (Negative) Urine Blood Negative (Negative) Urine Nitrite Negative (Negative) Urine Bilirubin Negative (Negative) Urine Urobilinogen <2.0 (<2.0) mg/dL Ur Leukocyte Esterase Negative (Negative) Urine RBC <1 (0-5) /hpf Urine WBC 2 (0-5) /hpf Ur Squamous Epith Cells 5 H (0-4) /hpf Amorphous Sediment Rare H (None) /hpf Urine Mucus Rare H (None) /hpf Urine HCG, Qual Not Detected (Not Detectd) 02/14/24 02/14/24 Range/Units 13:43 13:43 WBC (3.8-10.6) k/uL RBC (3.80-5.40) m/uL Hgb (11.4-16.0) gm/dL Hct (34.0-46.0) % MCV (80.0-100.0) fL MCH (25.0-35.0) pg MCHC (31.0-37.0) g/dL RDW (11.5-15.5) % Plt Count (150-450) k/uL MPV Neutrophils % % Lymphocytes % % Monocytes % % Eosinophils % % Basophils % % Neutrophils # (1.3-7.7) k/uL Lymphocytes # (1.0-4.8) k/uL Monocytes # (0-1.0) k/uL Eosinophils # (0-0.7) k/uL Basophils # (0-0.2) k/uL PT (10.0-12.5) sec INR (<1.2) APTT (22.0-30.0) sec D-Dimer 0.48 (<0.60) mg/L FEU Sodium (137-145) mmol/L Potassium (3.5-5.1) mmol/L Chloride (98-107) mmol/L Carbon Dioxide (22-30) mmol/L Anion Gap mmol/L BUN (7-17) mg/dL Creatinine (0.52-1.04) mg/dL Est GFR (CKD-EPI)AfAm (>60 ml/min/1.73 sqM) Est GFR (CKD-EPI)NonAf (>60 ml/min/1.73 sqM) Glucose (74-99) mg/dL Calcium (8.4-10.2) mg/dL Magnesium (1.6-2.3) mg/dL Total Bilirubin (0.2-1.3) mg/dL AST (14-36) U/L ALT (4-34) U/L Alkaline Phosphatase (38-126) U/L Troponin I <0.012 (0.000-0.034) ng/mL Total Protein (6.3-8.2) g/dL Albumin (3.5-5.0) g/dL Urine Color Urine Appearance (Clear) Urine pH (5.0-8.0) Ur Specific Donovan (1.001-1.035) Urine Protein (Negative) Urine Glucose (UA) (Negative) Urine Ketones (Negative) Urine Blood (Negative) Urine Nitrite (Negative) Urine Bilirubin (Negative) Urine Urobilinogen (<2.0) mg/dL Ur Leukocyte Esterase (Negative) Urine RBC (0-5) /hpf Urine WBC (0-5) /hpf Ur Squamous Epith Cells (0-4) /hpf Amorphous Sediment (None) /hpf Urine Mucus (None) /hpf Urine HCG, Qual (Not Detectd) Disposition Clinical Impression: Atypical chest pain Disposition: HOME SELF-CARE Condition: Stable Instructions (If sedation given, give patient instructions): Dizziness (ED), Noncardiac Chest Pain (ED) Additional Instructions: Please follow up with your primary care provider. Return to the emergency department for new or worsening symptoms. Is patient prescribed a controlled substance at d/c from ED?: No Referrals: Geraldine Vitale DO [Primary Care Provider] - 1-2 days
[2024-02-14 11:00] LABS: Amorphous Sediment,Urine Rare /hpf; Appearance,Urine Cloudy (Clear); Bilirubin,Urine Negative (Negative); Blood,Urine Negative (Negative); Color,Urine Light Yellow; Glucose,Urine (UA) Negative (Negative); INR 0.9 (<1.2); Ketones,Urine Negative (Negative); Leukocyte Esterase,Urine Negative (Negative); Mucus,Urine Rare /hpf; Nitrite,Urine Negative (Negative); PH, Urine 5.5 (5.0-8.0); Partial Thromboplastin Time 26.3 sec (22.0-30.0); Protein,Urine Negative (Negative); RBC,Urine <1 /hpf (0-5); Specific Gravity,Urine 1.022 (1.001-1.035); Squamous Epithelial Cell,Urine 5 /hpf (0-4); Urobilinogen,Urine <2.0 mg/dL (<2.0); WBC,Urine 2 /hpf (0-5)
[2024-02-14 12:34] LABS: ALT 24 U/L (4-34); AST 24 U/L (14-36); African American GFR (CKD) >90 (>60 ml/min/1.73 sqM); Albumin 3.9 g/dL (3.5-5.0); Alkaline Phosphatase 67 U/L (38-126); Anion Gap 7 mmol/L; Blood Urea Nitrogen 13 mg/dL (7-17); Calcium 9.5 mg/dL (8.4-10.2); Carbon Dioxide 26 mmol/L (22-30); Chloride 107 mmol/L (98-107); Glucose 84 mg/dL (74-99); Magnesium 1.7 mg/dL (1.6-2.3); Non-African American GFR(CKD) >90 (>60 ml/min/1.73 sqM); Potassium 4.5 mmol/L (3.5-5.1); Sodium 140 mmol/L (137-145); Total Bilirubin 0.4 mg/dL (0.2-1.3); Total Protein 6.4 g/dL (6.3-8.2)
--- NOTE | 2024-02-14 12:54 | XR ---
EXAMINATION TYPE: XR chest 2V DATE OF EXAM: 02/14/2024 COMPARISON: 10/18/2022 HISTORY: Chest pain TECHNIQUE: Frontal and lateral views of the chest are obtained. FINDINGS: There is no focal air space opacity. No evidence for pneumothorax. No pleural effusion. The cardiac silhouette size is within normal limits. The osseous structures are grossly intact. IMPRESSION: 1. No acute cardiopulmonary process.
[2024-02-14 14:59] VITALS: BP 115/48; PULSE 85; RESP 20
== END 2024-02-14 14:58 | disposition home or self-care (01) ==
LOC: EC 09:38
DX: R07.89 Other chest pain (principal); R42 Dizziness and giddiness; Z88.1 Allergy status to other antibiotic agents; Z88.8 Allergy status to other drugs, medicaments and biological substances
CPT/HCPCS: 36415; 71046; 80053; 81001; 81025; 83735; 84484; 85025; 85379; 85610; 85730; 93005; 96360; 99284

== ENCOUNTER → 2024-03-31 | Outpatient (CLI) | payer OTHER ==
[2024-03-31 19:15] LABS: Amphetamine Screen,Urine Detected (NotDetected); Barbiturate Screen,Urine Not Detected (NotDetected); Benzodiazepines Screen,Urine Detected (NotDetected); Cocaine Screen,Urine Not Detected (NotDetected); Methadone Screen, Urine Not Detected (NotDetected); Opiate Screen,Urine Not Detected (NotDetected); Oxycodone Screen, Urine Not Detected (NotDetected); Phencyclidine Screen,Urine Not Detected (NotDetected); Tricyclic Antidepressant,Urine Not Detected (NotDetected); Urn Cannabinoid Scrn Detected (NotDetected)
== END | disposition home or self-care (01) ==
LOC: LABWHC1 16:19
PROVIDERS: ATTEND Clinical Nurse Specialist Psychiatric/Mental Health, Community
DX: F34.89 Other specified persistent mood disorders (principal); Z79.899 Other long term (current) drug therapy
CPT/HCPCS: 80306

== ENCOUNTER 2024-04-25 18:25 | Emergency (ER) | payer OTHER ==
[2024-04-25 18:34] VITALS: TEMP 97.9
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
[2024-04-25] MEDS: ACETAMINOPHEN TAB 325 MG TAB PO STA (19:04)
[2024-04-25 19:14] LABS: Basophils # (A) 0.1 k/uL (0-0.2); Basophils % (A) 1 %; Eosinophils # (A) 0.5 k/uL (0-0.7); Eosinophils % (A) 5 %; HCT 40.8 % (34.0-46.0); HGB 13.5 gm/dL (11.4-16.0); Lymphocytes # (A) 2.3 k/uL (1.0-4.8); Lymphocytes % (A) 23 %; MCH 30.1 pg (25.0-35.0); MCHC 33.1 g/dL (31.0-37.0); Mean Platelet Volume 8.1; Monocytes # (A) 0.4 k/uL (0-1.0); Monocytes % (A) 4 %; Neutrophils # (A) 6.4 k/uL (1.3-7.7); Neutrophils % (A) 66 %; Platelet Count 261 k/uL (150-450); RBC 4.48 m/uL (3.80-5.40); RDW 12.5 % (11.5-15.5); WBC 9.7 k/uL (3.8-10.6)
--- NOTE | 2024-04-25 19:19 | XR ---
EXAMINATION TYPE: XR chest 2V DATE OF EXAM: 04/25/2024 COMPARISON: 02/14/2024 INDICATION: Syncope TECHNIQUE: Frontal and lateral views of the chest are obtained. FINDINGS: The heart size is normal. The pulmonary vasculature is normal. The lungs are clear. IMPRESSION: 1. No acute pulmonary process. [facility], Workstation: [facility], 04/25/2024 7:17 PM
[2024-04-25 19:25] LABS: ALT 43 U/L (4-34); AST 32 U/L (14-36); African American GFR (CKD) >90 (>60 ml/min/1.73 sqM); Albumin 4.2 g/dL (3.5-5.0); Alkaline Phosphatase 61 U/L (38-126); Anion Gap 6 mmol/L; Blood Urea Nitrogen 14 mg/dL (7-17); Calcium 9.7 mg/dL (8.4-10.2); Carbon Dioxide 25 mmol/L (22-30); Chloride 107 mmol/L (98-107); Glucose 76 mg/dL (74-99); Non-African American GFR(CKD) >90 (>60 ml/min/1.73 sqM); Potassium 4.2 mmol/L (3.5-5.1); Sodium 138 mmol/L (137-145); Total Bilirubin 0.6 mg/dL (0.2-1.3); Total Protein 6.8 g/dL (6.3-8.2)
[2024-04-25 19:27] VITALS: PULSE 96; RESP 19
[2024-04-25 19:28] LABS: Partial Thromboplastin Time 23.8 sec (22.0-30.0); Prothrombin Time 10.5 sec (10.0-12.5)
--- NOTE | 2024-04-25 19:35 | CT ---
EXAMINATION TYPE: CT brain wo con DATE OF EXAM: 04/25/2024 COMPARISON: 01/29/2024 INDICATION: fall DLP: 1102.1 mGycm, Automated exposure control for dose reduction was used. CONTRAST: None CT of the brain is performed utilizing 3 mm thick sections through the posterior fossa and 3 mm thick sections through the remaining calvarium. Study is performed within 24 hours of arrival to the hosp ital. No abnormal hyperdensity is present to suggest an acute intracranial hemorrhage. No mass lesion is evident. No acute infarcts are evident. Ventricles and sulci are appropriate for the patient age. Paranasal sinuses and mastoid air cells within the [id number] are clear. Minimal soft tissue swelling right parietal region may be present. IMPRESSION: 1. No acute intracranial process. Follow up MRI can be performed as clinically indicated. 2. Minimal right parietal superficial soft tissue swelling [facility], Workstation: [facility], 04/25/2024 7:32 PM
[2024-04-25 21:05] VITALS: BP 115/80
== END 2024-04-25 21:05 | disposition home or self-care (01) ==
LOC: EC 18:25
CPT/HCPCS: 36415; 70450; 71046; 80053; 84484; 85025; 85610; 85730; 93005; 99285

== ENCOUNTER 2024-08-05 12:22 | Emergency (ER) | payer OTHER ==
--- NOTE | 2024-08-05 12:47 | ED ---
Abdominal Pain HPI - General Chief Complaint: Abdominal Pain Stated Complaint: abdominal pain Time Seen by Provider: 08/05/24 12:28 Source: patient, RN notes reviewed Mode of arrival: ambulatory Limitations: no limitations - History of Present Illness Initial Comments: Patient is a 24 year old female who is currently 6 weeks presenting for abdominal pain x 2 days. She states that she had a miscarriage in October and is concerned. She states it is diffuse abdominal pain. She also endorses mild dizziness on standing. She denies any vaginal bleeding, diarrhea, constipation, nausea, vomiting, chest pain, or shortness of breath, sick contacts, or dietary changes. She has a history of cholecystectomy and 2 sections. Her last menstrual period was 06/23/25, and states she went to her PCP and her "hcg was a level 6" and she is "unsure if it's an actual ". - Related Data Home Medications Medication Instructions Recorded Confirmed Levothyroxine Sodium 100 mcg PO DAILY 03/08/22 02/14/24 ARIPiprazole IM [Abilify Maintena] 400 mg IM Q28D 12/26/22 02/14/24 lamoTRIgine [LaMICtal] 25 mg PO DAILY 02/14/24 02/14/24 metFORMIN HCL [Glucophage] 500 mg PO BID 02/14/24 02/14/24 Previous Rx's Medication Instructions Recorded Meloxicam [Mobic] 7.5 mg PO DAILY 30 Days #30 tab 01/07/24 Allergies Allergy/AdvReac Type Severity Reaction Status Date / Time vancomycin Allergy Anaphylaxis Verified 08/05/24 12:27 lorazepam [From Ativan] AdvReac Rapid Verified 08/05/24 12:27 Heart Rate Review of Systems ROS Statement: Those systems with pertinent positive or pertinent negative responses have been documented in the HPI. ROS Other: All systems not noted in ROS Statement are negative. Past Medical History Past Medical History: GERD/Reflux, Thyroid Disorder Additional Past Medical History / Comment(s): Back problems/pain. History of Any Multi-Drug Resistant Organisms: None Reported Past Surgical History: Adenoidectomy, Section, Cholecystectomy, Ear Surgery, Orthopedic Surgery, Tonsillectomy Additional Past Surgical History / Comment(s): Multiple surgeries to her ears for tube placement, left hand wound closure, Section X2. Past Anesthesia/Blood Transfusion Reactions: No Reported Reaction Additional Past Anesthesia/Blood Transfusion Reaction / Comment(s): Mom slow to wake up. Past Psychological History: Anxiety, Bipolar, Depression Smoking Status: Never smoker Past Alcohol Use History: Occasional Past Drug Use History: Marijuana - Past Family History Mother Family Medical History: Diabetes Mellitus, Hypertension Father History Unknown: Yes Sister(s) Additional Family Medical History / Comment(s): Social anxiety disorder. General Exam Limitations: no limitations General appearance: alert, in no apparent distress Respiratory exam: Present: normal lung sounds bilaterally. Absent: respiratory distress, wheezes, rales, rhonchi, stridor Cardiovascular Exam: Present: regular rate, normal rhythm, normal heart sounds. Absent: systolic murmur, diastolic murmur, rubs, gallop, clicks GI/Abdominal exam: Present: soft, tenderness, normal bowel sounds. Absent: distended, guarding, rebound, rigid Back exam: Present: normal inspection Neurological exam: Present: alert, oriented X3, CN II-XII intact Skin exam: Present: warm, dry, intact, normal color. Absent: rash Course Vital Signs 08/05/24 12:23 Temperature 97.4 F L Pulse Rate 67 Respiratory 18 Rate Blood Pressure 142/88 O2 Sat by Pulse 100 Oximetry Medical Decision Making - Medical Decision Making Was pt. sent in by a medical professional or institution (HAKEEM Hanson, BIZTALK DEVELOPER, urgent care, hospital, or alf...) When possible be specific @ -No Did you speak to anyone other than the patient for history (EMS, parent, family, police, friend...)? What history was obtained from this source @ -No Did you review nursing and triage notes (agree or disagree)? Why? @ -I reviewed and agree with nursing and triage notes Were old charts reviewed (outside hosp., previous admission, EMS record, old EKG, old radiological studies, urgent care reports/EKG's, alf records)? Report findings @ -No old charts were reviewed Differential Diagnosis (chest pain, altered mental status, abdominal pain women, abdominal pain men, vaginal bleeding, weakness, fever, dyspnea, syncope, headache, dizziness, GI bleed, back pain, seizure, CVA, palpatations, mental health, musculoskeletal)? @ -[Differential Abdominal Pain Women: Appendicitis, Cholecystitis, diverticulosis, ischemic bowel, pancreatitis, hepatitis, UTI, gastroenteritis, AAA, incarcerated hernia, bowel obstruction, constipation, inflammatory bowel, hepatitis, peptic ulcer disease, splenic infarction, perforated viscus, vulvitis, ovarian torsion, PID, kidney stone, placenta abruption, this is not meant to be an all-inclusive list EKG interpreted by me (3pts min.). @ -None X-rays interpreted by me (1pt min.). @ -None done CT interpreted by me (1pt min.). @ -None done U/S interpreted by me (1pt. min.). @ -Ultrasound transvaginal OB no intrauterine What testing was considered but not performed or refused? (CT, X-rays, U/S, labs)? Why? @ -None What meds were considered but not given or refused? Why? @ -None Did you discuss the management of the patient with other professionals (professionals i.e. , PA, BIZTALK DEVELOPER, lab, RT, psych nurse, manager social services, brick handler, teacher, juvenile corrections officer, case specialist)? Give summary @ -No Was smoking cessation discussed for >3mins.? @ -No Was critical care preformed (if so, how long)? @ -No Were there social determinants of health that impacted care today? How? (Homelessness, low income, unemployed, alcoholism, drug addiction, transportation, low edu. Level, literacy, decrease access to med. care, usp, rehab)? @ -No Was there de-escalation of care discussed even if they declined (Discuss DNR or withdrawal of care, Hospice)? DNR status @ -No What co-morbidities impacted this encounter? (DM, HTN, Smoking, COPD, CAD, Cancer, CVA, ARF, Chemo, Hep., AIDS, mental health diagnosis, sleep apnea, morbid obesity)? @ -None Was patient admitted / discharged? Hospital course, mention meds given and route, prescriptions, significant lab abnormalities, going to OR and other pertinent info. @ -Discharge patient urinalysis, ultrasound unremarkable patient hCG is 3.2. Patient not currently will be discharged in stable condition Undiagnosed new problem with uncertain prognosis? @ -No Drug Therapy requiring intensive monitoring for toxicity (Heparin, Nitro, Insulin, Cardizem)? @ -No Were any procedures done? @ -No Diagnosis/symptom? @ -Abdominal pain, test Acute, or Chronic, or Acute on Chronic? @ -Acute Uncomplicated (without systemic symptoms) or Complicated (systemic symptoms)? @ -Uncomplicated Side effects of treatment? @ -No Exacerbation, Progression, or Severe Exacerbation? @ -No Poses a threat to life or bodily function? How? (Chest pain, [place], [place], pneumonia, PE, COPD, DKA, ARF, appy, cholecystitis, CVA, Diverticulitis, Homicidal, Suicidal, threat to staff... and all critical care pts) @ -No - Lab Data Lab Results 08/05/24 08/05/24 08/05/24 Range/Units 14:07 14:07 14:55 HCG, Quant 3.2 mIU/mL Urine Color Light Yellow Urine Appearance Cloudy H (Clear) Urine pH 5.5 (5.0-8.0) Ur Specific [place] 1.023 (1.001-1.035) Urine Protein Negative (Negative) Urine Glucose (UA) Negative (Negative) Urine Ketones Negative (Negative) Urine Blood Negative (Negative) Urine Nitrite Negative (Negative) Urine Bilirubin Negative (Negative) Urine Urobilinogen <2.0 (<2.0) mg/dL Ur Leukocyte Esterase Negative (Negative) Urine RBC <1 (0-5) /hpf Urine WBC <1 (0-5) /hpf Ur Squamous Epith Cells 26 H (0-4) /hpf Urine Mucus Rare H (None) /hpf Urine HCG, Qual Not Detected (Not Detectd) Disposition Clinical Impression: examination or test, negative result, Abdominal pain Disposition: HOME SELF-CARE Condition: Stable Additional Instructions: Please return to the Emergency Department if symptoms worsen or any other concerns. Is patient prescribed a controlled substance at d/c from ED?: No Referrals: Geraldine Vitale DO [Primary Care Provider] - 1-2 days Time of Disposition: 15:35
--- NOTE | 2024-08-05 14:13 | US ---
EXAMINATION TYPE: Transabdominal DATE OF EXAM: 08/05/2024 1:45 PM COMPARISON: NONE CLINICAL INDICATION: Female, 24 years old with history of pain; TECHNIQUE: with grayscale and color Doppler imaging including first trimester . FINDINGS: EXAM MEASUREMENTS: GESTATIONAL AGE / DATING Physician Established: Not yet established Dates by LMP: (6 weeks/1 days) EDC: 03/30/2025 Dates by First Scan: No previous this is first scan Dates by Current Scan for: No IUP seen at this time MATERNAL ANATOMY Uterus: 9.8x3.8x5.1 Right Ovary: 2.6x2.3x2.4cm Left Ovary: 2.1x1.4x1.3cm Post CDS / Adnexa: No FF Presence of free fluid: no Presence of corpus luteal cyst: no Presence of subchorionic bleed: no GESTATION / SURVEY IUP: No IUP seen at this time Date of LMP: 06/23/2024, [id number] Beta HcG (if available): Not available at this time No GS, YS, CRL visualized at time of scan. Endometrium: 1.0cm IMPRESSION: No evidence of intrauterine gestational sac, correlate with B-hCG. If positive, this could represent early , ectopic or spontaneous . Follow up pelvic ultrasound in 5-7 days a nd serial beta hCG studies are recommended. [facility], , 08/05/2024 2:10 PM
[2024-08-05 14:34] LABS: Appearance,Urine Cloudy (Clear); Bilirubin,Urine Negative (Negative); Blood,Urine Negative (Negative); Color,Urine Light Yellow; Glucose,Urine (UA) Negative (Negative); Ketones,Urine Negative (Negative); Leukocyte Esterase,Urine Negative (Negative); Mucus,Urine Rare /hpf; Nitrite,Urine Negative (Negative); PH, Urine 5.5 (5.0-8.0); Protein,Urine Negative (Negative); RBC,Urine <1 /hpf (0-5); Specific Gravity,Urine 1.023 (1.001-1.035); Squamous Epithelial Cell,Urine 26 /hpf (0-4); Urobilinogen,Urine <2.0 mg/dL (<2.0); WBC,Urine <1 /hpf (0-5)
[2024-08-05 15:45] VITALS: BP 114/79; PULSE 82; RESP 16; TEMP 98.4
== END 2024-08-05 15:45 | disposition home or self-care (01) ==
LOC: EC 12:22
DX: O99.611 Diseases of the digestive system complicating pregnancy, first trimester (principal); R10.9 Unspecified abdominal pain; Z32.02 Encounter for pregnancy test, result negative; Z88.1 Allergy status to other antibiotic agents; Z88.8 Allergy status to other drugs, medicaments and biological substances; Z3A.01 Less than 8 weeks gestation of pregnancy
CPT/HCPCS: 36415; 76801; 76817; 81001; 81025; 84702; 99284

== ENCOUNTER 2024-09-08 22:21 | Emergency (ER) | payer OTHER ==
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
[2024-09-08 23:45] LABS: Basophils # (A) 0.1 k/uL (0-0.2); Basophils % (A) 1 %; Eosinophils # (A) 0.3 k/uL (0-0.7); Eosinophils % (A) 3 %; HCT 42.7 % (34.0-46.0); HGB 14.2 gm/dL (11.4-16.0); Lymphocytes # (A) 3.7 k/uL (1.0-4.8); Lymphocytes % (A) 42 %; MCH 29.8 pg (25.0-35.0); MCHC 33.3 g/dL (31.0-37.0); MCV 89.6 fL (80.0-100.0); Monocytes # (A) 0.4 k/uL (0-1.0); Monocytes % (A) 4 %; Neutrophils # (A) 4.3 k/uL (1.3-7.7); Neutrophils % (A) 48 %; Platelet Count 288 k/uL (150-450); RBC 4.76 m/uL (3.80-5.40); RDW 12.4 % (11.5-15.5)
[2024-09-08 23:49] LABS: Appearance,Urine Cloudy (Clear); Bacteria,Urine Rare /hpf; Bilirubin,Urine Negative (Negative); Blood,Urine Negative (Negative); Color,Urine Yellow; Glucose,Urine (UA) Negative (Negative); Ketones,Urine Trace (Negative); Leukocyte Esterase,Urine Negative (Negative); Mucus,Urine Few /hpf; Nitrite,Urine Negative (Negative); Protein,Urine Trace (Negative); RBC,Urine <1 /hpf (0-5); Specific Gravity,Urine 1.028 (1.001-1.035); Squamous Epithelial Cell,Urine 16 /hpf (0-4); Urobilinogen,Urine <2.0 mg/dL (<2.0); WBC,Urine 1 /hpf (0-5)
[2024-09-09 00:03] LABS: ALT 19 U/L (4-34); AST 24 U/L (14-36); African American GFR (CKD) >90 (>60 ml/min/1.73 sqM); Albumin 4.5 g/dL (3.5-5.0); Alkaline Phosphatase 72 U/L (38-126); Anion Gap 12 mmol/L; Blood Urea Nitrogen 7 mg/dL (7-17); Calcium 9.8 mg/dL (8.4-10.2); Carbon Dioxide 27 mmol/L (22-30); Chloride 100 mmol/L (98-107); Glucose 95 mg/dL (74-99); Non-African American GFR(CKD) >90 (>60 ml/min/1.73 sqM); Potassium 3.9 mmol/L (3.5-5.1); Sodium 139 mmol/L (137-145); Total Bilirubin 0.7 mg/dL (0.2-1.3); Total Protein 7.4 g/dL (6.3-8.2)
[2024-09-09 01:05] VITALS: BP 128/76; PULSE 92; RESP 18; TEMP 98.1
== END 2024-09-09 01:05 | disposition home or self-care (01) ==
LOC: EC 22:21
DX: R55 Syncope and collapse (principal); F43.10 Post-traumatic stress disorder, unspecified; Z88.1 Allergy status to other antibiotic agents; Z88.8 Allergy status to other drugs, medicaments and biological substances
CPT/HCPCS: 36415; 80053; 81001; 81025; 85025; 93005; 99284

== ENCOUNTER 2024-09-27 16:56 | Emergency (ER) | payer OTHER ==
--- NOTE | 2024-09-27 17:19 | ED ---
Abdominal Pain HPI - General Source: patient, RN notes reviewed Mode of arrival: ambulatory Limitations: no limitations <Rogelio Arellano - Last Filed: 09/27/24 17:18> <Papi Cobb - Last Filed: 10/16/24 23:20> - General Chief Complaint: Abdominal Pain Stated Complaint: abd pain , consitpation Time Seen by Provider: 09/27/24 17:07 - History of Present Illness Initial Comments: Quick note: This is a 24-year-old female presenting for constipation x 7 days. Patient also endorses sore abdomen and decreased appetite. Denies fever, chills, nausea/vomiting. (Rogelio Arellano) - Related Data Home Medications Medication Instructions Recorded Confirmed Levothyroxine Sodium 100 mcg PO DAILY 03/08/22 02/14/24 ARIPiprazole IM [Abilify Maintena] 400 mg IM Q28D 12/26/22 02/14/24 lamoTRIgine [LaMICtal] 25 mg PO DAILY 02/14/24 02/14/24 metFORMIN HCL [Glucophage] 500 mg PO BID 02/14/24 02/14/24 Previous Rx's Medication Instructions Recorded Meloxicam [Mobic] 7.5 mg PO DAILY 30 Days #30 tab 01/07/24 Allergies Allergy/AdvReac Type Severity Reaction Status Date / Time vancomycin Allergy Anaphylaxis Verified 09/27/24 17:04 lorazepam [From Ativan] AdvReac Rapid Verified 09/27/24 17:04 Heart Rate Review of Systems ROS Other: All systems not noted in ROS Statement are negative. <Rogelio Arellano - Last Filed: 09/27/24 17:18> ROS Other: All systems not noted in ROS Statement are negative. <Papi Cobb - Last Filed: 10/16/24 23:20> ROS Statement: Those systems with pertinent positive or pertinent negative responses have been documented in the HPI. Past Medical History Past Medical History: GERD/Reflux, Thyroid Disorder Additional Past Medical History / Comment(s): Back problems/pain. History of Any Multi-Drug Resistant Organisms: None Reported Past Surgical History: Adenoidectomy, Section, Cholecystectomy, Ear Surgery, Orthopedic Surgery, Tonsillectomy Additional Past Surgical History / Comment(s): Multiple surgeries to her ears for tube placement, left hand wound closure, Section X2. D and C X2 Past Anesthesia/Blood Transfusion Reactions: No Reported Reaction Additional Past Anesthesia/Blood Transfusion Reaction / Comment(s): Mom slow to wake up. Past Psychological History: Anxiety, Bipolar, Depression Smoking Status: Never smoker Past Alcohol Use History: Occasional Past Drug Use History: Marijuana - Past Family History Mother Family Medical History: Diabetes Mellitus, Hypertension Father History Unknown: Yes Sister(s) Additional Family Medical History / Comment(s): Social anxiety disorder. <Rogelio Arellano - Last Filed: 09/27/24 17:18> General Exam Limitations: no limitations <Rogelio Arellano - Last Filed: 09/27/24 17:18> Limitations: no limitations General appearance: alert, in no apparent distress Head exam: Present: atraumatic Eye exam: Present: normal appearance. Absent: scleral icterus, conjunctival injection Neck exam: Present: normal inspection Respiratory exam: Present: normal lung sounds bilaterally. Absent: respiratory distress, wheezes, rales, rhonchi, stridor, accessory muscle use Cardiovascular Exam: Present: regular rate, normal rhythm, normal heart sounds. Absent: systolic murmur, diastolic murmur, rubs, gallop GI/Abdominal exam: Present: soft. Absent: distended, tenderness, guarding, rebound, rigid, mass Extremities exam: Present: normal inspection. Absent: pedal edema, calf tenderness Back exam: Present: normal inspection. Absent: CVA tenderness (R), CVA tenderness (L), vertebral tenderness Neurological exam: Present: alert Skin exam: Present: warm, dry, intact, normal color. Absent: rash <Papi Cobb - Last Filed: 10/16/24 23:20> - General Exam Comments Initial Comments: Visual Physical Exam Vital signs reviewed General: Well-appearing, nontoxic, no acute distress. Head: Normocephalic, atraumatic Eyes: PERRLA, EOMI ENT: Airway patent Chest: Nonlabored breathing Skin: No visual rash, normal skin tone Neuro: Alert and oriented 3 Musculoskeletal: No gross abnormalities (Rogelio Arellano) Course Vital Signs 09/27/24 09/27/24 17:04 21:00 Temperature 98.3 F 98.1 F Pulse Rate 84 77 Respiratory 16 18 Rate Blood Pressure 121/81 119/61 O2 Sat by Pulse 98 100 Oximetry Medical Decision Making <Rogelio Arellano - Last Filed: 09/27/24 17:18> <Papi Cobb - Last Filed: 10/16/24 23:20> - Medical Decision Making I completed the quick note portion of this chart signed NO Arboleda (Rogelio Arellano) Was pt. sent in by a medical professional or institution (HAKEEM Hanson, PASSPORT APPLICATION EXAMINER, urgent care, hospital, or long-term...) When possible be specific @ -[No] Did you speak to anyone other than the patient for history (EMS, parent, family, police, friend...)? What history was obtained from this source @ -[No] Did you review nursing and triage notes (agree or disagree)? Why? @ -[I reviewed and agree with nursing and triage notes] Were old charts reviewed (outside hosp., previous admission, EMS record, old EKG, old radiological studies, urgent care reports/EKG's, long-term records)? Report findings @ -[No old charts were reviewed] Differential Diagnosis (chest pain, altered mental status, abdominal pain women, abdominal pain men, vaginal bleeding, weakness, fever, dyspnea, syncope, headache, dizziness, GI bleed, back pain, seizure, CVA, palpatations, mental health, musculoskeletal)? @ -[Differential Abdominal Pain Women: Appendicitis, Cholecystitis, diverticulosis, ischemic bowel, pancreatitis, hepatitis, UTI, gastroenteritis, AAA, incarcerated hernia, bowel obstruction, constipation, inflammatory bowel, hepatitis, peptic ulcer disease, splenic infarction, perforated viscus, vulvitis, ovarian torsion, PID, kidney stone, placenta abruption, this is not meant to be an all-inclusive list EKG interpreted by me (3pts min.). @ -[As above] X-rays interpreted by me (1pt min.). @ -[None done] CT interpreted by me (1pt min.). @ -[None done] U/S interpreted by me (1pt. min.). @ -[None done] What testing was considered but not performed or refused? (CT, X-rays, U/S, labs)? Why? @ -[None] What meds were considered but not given or refused? Why? @ -[None] Did you discuss the management of the patient with other professionals (professionals i.e. Dr., PA, PASSPORT APPLICATION EXAMINER, lab, RT, psych nurse, social services designee, test facility engineer, teacher, public health officer, director of casework)? Give summary @ -[No] Was smoking cessation discussed for >3mins.? @ -[No] Was critical care preformed (if so, how long)? @ -[No] Were there social determinants of health that impacted care today? How? (Homelessness, low income, unemployed, alcoholism, drug addiction, transportation, low edu. Level, literacy, decrease access to med. care, shelter, rehab)? @ -[No] Was there de-escalation of care discussed even if they declined (Discuss DNR or withdrawal of care, Hospice)? DNR status @ -[No] What co-morbidities impacted this encounter? (DM, HTN, Smoking, COPD, CAD, Cancer, CVA, ARF, Chemo, Hep., AIDS, mental health diagnosis, sleep apnea, morbid obesity)? @ -[None] Was patient admitted / discharged? Hospital course, mention meds given and route, prescriptions, significant lab abnormalities, going to OR and other pertinent info. @ -[Patient is a 24-year-old woman here with history and physical consistent with constipation and also suggestive of internal hemorrhoid. The patient did have relief of symptoms with enema after passing bowel movement. Discussed appropriate further care and follow-up related to constipation and internal hemorrhoid Undiagnosed new problem with uncertain prognosis? @ -[No] Drug Therapy requiring intensive monitoring for toxicity (Heparin, Nitro, Insulin, Cardizem)? @ -[No] Were any procedures done? @ -[No] Diagnosis/symptom? @ -[Acute abdominal pain due to constipation Internal hemorrhoid Acute, or Chronic, or Acute on Chronic? @ -Acute Uncomplicated (without systemic symptoms) or Complicated (systemic symptoms)? @ -[Uncomplicated Side effects of treatment? @ -[No] Exacerbation, Progression, or Severe Exacerbation? @ -[No] Poses a threat to life or bodily function? How? (Chest pain, USA, [place], pneumonia, PE, COPD, DKA, ARF, appy, cholecystitis, CVA, Diverticulitis, Homicidal, Suicidal, threat to staff... and all critical care pts) @ -[No] All treatments are based on ideal body weight as in ED triage (Papi Cobb) - Lab Data Lab Results 09/27/24 Range/Units 17:00 Urine HCG, Qual Not Detected (Not Detectd) Disposition <Rogelio Arellano - Last Filed: 09/27/24 17:18> Is patient prescribed a controlled substance at d/c from ED?: No <Papi Cobb - Last Filed: 10/16/24 23:20> Clinical Impression: Internal hemorrhoid, Constipation Disposition: HOME SELF-CARE Condition: Good Instructions (If sedation given, give patient instructions): Constipation (ED), Hemorrhoids (ED) Referrals: Geraldine Vitale DO [Primary Care Provider] - 1-2 days Juan Ho DO [Medical Doctor] - 1-2 days
--- NOTE | 2024-09-27 18:48 | XR ---
EXAMINATION TYPE: XR KUB DATE OF EXAM: 09/27/2024 6:43 PM COMPARISON: Prior radiograph 03/17/2019. CLINICAL INDICATION: Female, 24 years old with history of Constipation; PHH, pain TECHNIQUE: One radiographic view of the abdomen was obtained. FINDINGS: The bowel gas pattern is nonspecific without dilated loops of small or large bowel. . Fecal material and gas are demonstrated throughout the colon and rectum. There is no evidence for organomegaly or pneumoperitoneum. The osseous structures are intact. No ab normal calcifications are present. Previous cholecystectomy. IMPRESSION: Nonspecific bowel gas pattern without radiographic evidence for acute process. [facility], , 09/27/2024 6:45 PM
[2024-09-27] MEDS: PEG 3350 (236 GM/BTL) + LYTES 4,000 ML BOTTLE PO ONE (20:58)
[2024-09-27 21:01] VITALS: BP 119/61; PULSE 77; RESP 18; TEMP 98.1
== END 2024-09-27 21:00 | disposition home or self-care (01) ==
LOC: EC 16:56
DX: K64.8 Other hemorrhoids (principal); K59.00 Constipation, unspecified; Z88.1 Allergy status to other antibiotic agents; Z88.8 Allergy status to other drugs, medicaments and biological substances
CPT/HCPCS: 74018; 81025; 99284

== ENCOUNTER 2024-10-18 12:43 | Inpatient (IN) | payer MEDICAID, OTHER ==
--- NOTE | 2024-10-18 14:33 | XR ---
EXAMINATION TYPE: XR lumbar spine 2 or 3V DATE OF EXAM: 10/18/2024 CLINICAL HISTORY: pain, so TECHNIQUE: Three views of the lumbar spine are submitted. COMPARISON: CT abdomen and pelvis 09/04/2022, CT lumbar spine 06/23/2021, lumbar spine radiograph 2019 FINDINGS: There are 5 lumbar type vertebral bodies identified. The lumbar spine shows satisfactory alignment w ithout evidence of acute fracture or dislocation. Vertebral body heights are within normal limits. In cidental limbus vertebrae of the anterior superior L4 vertebral body redemonstrated. Disc spaces ar e within normal limits. The overlying soft tissue appears unremarkable. Cholecystectomy clips in rig ht quadrant. IMPRESSION: No acute fracture or dislocation is seen in the lumbar spine. [facility], , 10/18/2024 2:30 PM
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
[2024-10-18] MEDS: ACETAMINOPHEN TAB 500 MG TAB PO STA (14:40)
[2024-10-18 14:48] LABS: Appearance,Urine Cloudy (Clear); Bacteria,Urine Rare /hpf; Bilirubin,Urine Negative (Negative); Blood,Urine Negative (Negative); Color,Urine Yellow; Glucose,Urine (UA) Negative (Negative); Granular Casts,Urine 17 /lpf (0); Hyaline Casts,Urine 37 /lpf (0-2); Ketones,Urine Negative (Negative); Leukocyte Esterase,Urine Negative (Negative); Mucus,Urine Moderate /hpf; Nitrite,Urine Negative (Negative); PH, Urine 5.5 (5.0-8.0); Protein,Urine 1+ (Negative); RBC,Urine <1 /hpf (0-5); Squamous Epithelial Cell,Urine 17 /hpf (0-4); Urobilinogen,Urine <2.0 mg/dL (<2.0); WBC,Urine 2 /hpf (0-5)
[2024-10-18 15:05] LABS: Amphetamine Screen,Urine Detected (NotDetected); Barbiturate Screen,Urine Not Detected (NotDetected); Benzodiazepines Screen,Urine Detected (NotDetected); Cocaine Screen,Urine Not Detected (NotDetected); Methadone Screen, Urine Not Detected (NotDetected); Opiate Screen,Urine Not Detected (NotDetected); Oxycodone Screen, Urine Not Detected (NotDetected); Phencyclidine Screen,Urine Not Detected (NotDetected); Tricyclic Antidepressant,Urine Not Detected (NotDetected); Urn Cannabinoid Scrn Not Detected (NotDetected)
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
[2024-10-18] MEDS: DIPH,PERTUS(ACELL)TETVAC-LF 0.5 ML VIAL IM ONE (16:37)
[2024-10-18] MEDS ORDERED: MAG HYDROX/AL HYDROX/SIMETH 355 ML BOTTLE PO PRN (17:48)
[2024-10-18] MEDS ORDERED: MAGNESIUM HYDROXIDE 2,400 MG/30 ML CUP PO PRN (17:48)
[2024-10-18] MEDS ORDERED: hydrOXYzine pamoate 25 MG CAP PO PRN (17:54)
[2024-10-18] MEDS ORDERED: hydrOXYzine HCL 50 MG/ML 1 ML VIAL IM PRN (17:54)
[2024-10-18] MEDS ORDERED: OLANZapine 10 MG VIAL IM PRN (17:54)
[2024-10-18] MEDS ORDERED: OLANZapine 5 MG TAB PO PRN (17:54)
[2024-10-19] MEDS: LEVOTHYROXINE 100 MCG TAB PO SCH (05:59)
[2024-10-19] MEDS: ACETAMINOPHEN TAB 325 MG TAB PO PRN (06:48)
[2024-10-19] MEDS: DEXTROAMPHETAMINE PO SCH (08:42)
[2024-10-19] MEDS: AMPHETAMINE PO SCH (08:42)
[2024-10-19] MEDS: IBUPROFEN 600 MG TAB PO PRN (08:43)
[2024-10-19 09:51] LABS: Basophils % (A) 0 %; Eosinophils # (A) 0.1 k/uL (0-0.7); Eosinophils % (A) 2 %; HCT 38.4 % (34.0-46.0); HGB 12.4 gm/dL (11.4-16.0); Hypochromasia Slight; Lymphocytes # (A) 2.4 k/uL (1.0-4.8); Lymphocytes % (A) 33 %; MCH 30.1 pg (25.0-35.0); MCHC 32.2 g/dL (31.0-37.0); MCV 93.4 fL (80.0-100.0); Mean Platelet Volume 7.6; Monocytes # (A) 0.4 k/uL (0-1.0); Monocytes % (A) 5 %; Neutrophils # (A) 4.3 k/uL (1.3-7.7); Neutrophils % (A) 58 %; Platelet Count 281 k/uL (150-450); RBC 4.11 m/uL (3.80-5.40); RDW 12.3 % (11.5-15.5); WBC 7.3 k/uL (3.8-10.6)
[2024-10-19 10:07] LABS: ALT 34 U/L (4-34); AST 35 U/L (14-36); African American GFR (CKD) >90 (>60 ml/min/1.73 sqM); Albumin 3.6 g/dL (3.5-5.0); Alkaline Phosphatase 62 U/L (38-126); Anion Gap 6 mmol/L; Blood Urea Nitrogen 11 mg/dL (7-17); Carbon Dioxide 27 mmol/L (22-30); Chloride 103 mmol/L (98-107); Glucose 104 mg/dL (74-99); Non-African American GFR(CKD) 89 (>60 ml/min/1.73 sqM); Sodium 136 mmol/L (137-145); Total Bilirubin 0.8 mg/dL (0.2-1.3); Total Protein 6.1 g/dL (6.3-8.2)
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
[2024-10-19] MEDS: MELOXICAM 7.5 MG TAB PO SCH (13:47)
[2024-10-19] MEDS ORDERED: ONDANSETRON ODT 4 MG TAB PO PRN (15:13)
[2024-10-19] MEDS: ARIPiprazole IM SYRINGE 400 MG (NO CHARGE) PHARMACY STOCK IM ONE (15:42)
[2024-10-19 20:37] VITALS: RESP 16
--- NOTE | 2024-10-20 01:34 | CONS ---
CONSULTATION REASON FOR CONSULTATION: Advice regarding GERD and other medications, requested by psychiatrist. HISTORY OF PRESENT ILLNESS: This is a 24-year-old woman with a past history of GERD, hypothyroidism, was admitted for psychiatric evaluation. The patient had multiple bruises around the neck area as well as some self-inflicted superficial injuries on the right forearm also. There is no history of any fever, rigors, or chills. PAST MEDICAL HISTORY: GERD, hypothyroidism, history of anxiety, bipolar, depression, numerous suicidal attempts. Rest of the history and rest of the chart is also reviewed. HOME MEDICATIONS: Reviewed. Metformin. They are not confirmed yet. Levothyroxine. Dose and rest of the medications reviewed. ALLERGIES: Vancomycin. FAMILY HISTORY: History of diabetes mellitus type 2. SOCIAL HISTORY: History of THC, occasional alcohol. REVIEW OF SYSTEMS: A 14-point review of systems is negative except as mentioned earlier. PHYSICAL EXAMINATION: VITAL SIGNS: Pulse is 86, blood pressure 116/85, and respirations 18. HEENT: Conjunctivae normal. NECK: No JVD. CARDIOVASCULAR: S1, S2. RESPIRATIONS: Breath sounds diminished at the bases. No rhonchi. No crackles. ABDOMEN: Soft and nontender. LEGS: No edema, no cyanosis. NERVOUS SYSTEM: Nonfocal. SKIN: As mentioned earlier, superficial bruises on the neck as well as self-inflicted superficial wounds on the right forearm also present. LABORATORY DATA: Sodium 136. ASSESSMENT: 1. Bipolar with cluster B traits. 2. Superficial abrasions on the right forearm. 3. Gastroesophageal reflux disease. 4. Hypothyroidism. 5. Anxiety, bipolar depression. RECOMMENDATIONS AND DISCUSSION: This is a 24-year-old woman, who presented to the psychiatric unit. The patient is currently medically stable. I recommend to resume the home medications and recommend close followup with primary physician. If there are any signs of infection in the wound, antibiotics may be prescribed. We will follow the patient closely with you. MMODL / IJN: [id number] /
[2024-10-20] MEDS: lamoTRIgine 25 MG TAB PO SCH (08:15)
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
[2024-10-21 08:02] VITALS: BP 131/79; PULSE 134; TEMP 98.2
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
== END 2024-10-21 11:45 | disposition home or self-care (01) | DRG 753 ==
LOC: EC 12:43 → 3MHU 17:46
PROVIDERS: ADMIT Psychiatry & Neurology Psychiatry; ATTEND Psychiatry & Neurology Psychiatry
DX: F31.81 Bipolar II disorder (principal); F31.30 Bipolar disorder, current episode depressed, mild or moderate severity, unspecified; K21.9 Gastro-esophageal reflux disease without esophagitis; F60.89 Other specific personality disorders; R45.851 Suicidal ideations; F15.11 Other stimulant abuse, in remission; Z11.52 Encounter for screening for COVID-19; S50.811A Abrasion of right forearm, initial encounter; S41.119A Laceration without foreign body of unspecified upper arm, initial encounter; S61.511A Laceration without foreign body of right wrist, initial encounter; Y92.002 Bathroom of unspecified non-institutional (private) residence as the place of occurrence of the external cause; X78.9XXA Intentional self-harm by unspecified sharp object, initial encounter; Z91.51 Personal history of suicidal behavior; F41.9 Anxiety disorder, unspecified; E03.9 Hypothyroidism, unspecified; Z90.49 Acquired absence of other specified parts of digestive tract; Z71.51 Drug abuse counseling and surveillance of drug abuser; Z79.890 Hormone replacement therapy; Z79.84 Long term (current) use of oral hypoglycemic drugs; Z82.49 Family history of ischemic heart disease and other diseases of the circulatory system; Z79.899 Other long term (current) drug therapy; Z79.1 Long term (current) use of non-steroidal anti-inflammatories (NSAID); Z71.89 Other specified counseling; Z88.1 Allergy status to other antibiotic agents
CPT/HCPCS: 70450; 72100; 72125; 80053; 80306; 81001; 81025; 82075; 83036; 84443; 85025; 87635; 90471; 90715; 99285

== ENCOUNTER 2025-02-10 23:14 | Emergency (ER) | payer OTHER ==
[2025-02-10 23:23] VITALS: RESP 18
[2025-02-10] MEDS: ACETAMINOPHEN TAB 325 MG TAB PO STA (23:45)
[2025-02-10] MEDS: LIDOCAINE 4% PATCH TOPICAL ONE (23:46)
[2025-02-10] MEDS: IBUPROFEN 600 MG TAB PO STA (23:46)
--- NOTE | 2025-02-11 00:56 | XR ---
EXAMINATION TYPE: XR shoulder complete LT DATE OF EXAM: 02/11/2025 12:32 AM INDICATION: Patient age:Female; 24 years old; Reason for study: pain; pain COMPARISON: Chest radiograph 04/25/2024 TECHNIQUE: The left shoulder was examined in AP, internally rotated and scapular Y projections. . FINDINGS: No evidence of acute osseous pathology, joint dislocation, or soft tissue swelling. The remaining por tions of the visualized chest are unremarkable. IMPRESSION: No acute osseous pathology. [facility], , 02/11/2025 12:54 AM
[2025-02-11] MEDS: ORPHENADRINE 30 MG/ML 2 ML VIAL IM STA (01:08)
--- NOTE | 2025-02-11 01:15 | ED ---
Upper Extremity HPI - General Chief Complaint: Extremity Injury, Upper Stated Complaint: Back pain Time Seen by Provider: 02/10/25 23:24 Source: patient Mode of arrival: ambulatory Limitations: no limitations - History of Present Illness Initial Comments: 24-year-old female presenting with chief complaint of left-sided shoulder and back pain. Patient states that she was sleeping for most of the day and thinks that she slept on her wrong. This evening she went to go stretch and had worsening of this pain. She did not take any pain medication at home. No numbness or tingling. No other injury or trauma. She has increased pain with range of motion. No weakness in the extremities. - Related Data Home Medications Medication Instructions Recorded Confirmed lamoTRIgine [LaMICtal] 25 mg PO DAILY 02/14/24 10/21/24 Previous Rx's Medication Instructions Recorded Meloxicam [Mobic] 7.5 mg PO DAILY 30 Days #30 tab 01/07/24 ARIPiprazole IM [Abilify Maintena] 400 mg IM Q28D 30 Days #1 each 10/21/24 Levothyroxine Sodium 100 mcg PO DAILY 30 Days #30 tab 10/21/24 metFORMIN HCL [Glucophage] 500 mg PO BID 30 Days #60 tab 10/21/24 Cyclobenzaprine [Flexeril] 10 mg PO TID PRN #15 tab 02/11/25 Allergies Allergy/AdvReac Type Severity Reaction Status Date / Time vancomycin Allergy Anaphylaxis Verified 02/10/25 23:23 lorazepam [From Ativan] AdvReac Rapid Verified 02/10/25 23:23 Heart Rate Review of Systems ROS Statement: Those systems with pertinent positive or pertinent negative responses have been documented in the HPI. ROS Other: All systems not noted in ROS Statement are negative. Past Medical History Past Medical History: GERD/Reflux, Thyroid Disorder Additional Past Medical History / Comment(s): Back problems/pain. History of Any Multi-Drug Resistant Organisms: None Reported Past Surgical History: Adenoidectomy, Section, Cholecystectomy, Ear Surgery, Orthopedic Surgery, Tonsillectomy Additional Past Surgical History / Comment(s): Multiple surgeries to her ears for tube placement, left hand wound closure, Section X2. D and C X2 Past Anesthesia/Blood Transfusion Reactions: No Reported Reaction Additional Past Anesthesia/Blood Transfusion Reaction / Comment(s): Mom slow to wake up. Past Psychological History: Anxiety, Bipolar, Depression Smoking Status: Never smoker Past Alcohol Use History: Occasional Past Drug Use History: Marijuana, Methamphetamine - Past Family History Mother Family Medical History: Diabetes Mellitus, Hypertension Father History Unknown: Yes Sister(s) Additional Family Medical History / Comment(s): Social anxiety disorder. General Exam Limitations: no limitations General appearance: alert, in no apparent distress Head exam: Present: atraumatic, normocephalic, normal inspection Eye exam: Present: normal appearance, EOMI. Absent: periorbital swelling Neck exam: Present: normal inspection. Absent: meningismus Respiratory exam: Absent: respiratory distress, stridor, chest wall tenderness, accessory muscle use Cardiovascular Exam: Present: regular rate Left Shoulder Exam: Present: normal inspection, full ROM (Pain with range of motion). Absent: tenderness, swelling, deformity Back exam: Present: tenderness (Near the left shoulder blade) Neurological exam: Present: alert, oriented X3 Psychiatric exam: Present: normal affect, normal mood Skin exam: Present: warm, dry, normal color Course Vital Signs 02/10/25 23:18 Temperature 98.7 F Pulse Rate 93 Respiratory 18 Rate Blood Pressure 106/76 O2 Sat by Pulse 99 Oximetry Medical Decision Making - Medical Decision Making Was pt. sent in by a medical professional or institution (HAKEEM Hanson, PROFESSOR OF CHEMICAL ENGINEERING, urgent care, hospital, or fci...) When possible be specific @ -No Did you speak to anyone other than the patient for history (EMS, parent, family, police, friend...)? What history was obtained from this source @ -No Did you review nursing and triage notes (agree or disagree)? Why? @ -I reviewed and agree with nursing and triage notes Were old charts reviewed (outside hosp., previous admission, EMS record, old EKG, old radiological studies, urgent care reports/EKG's, fci records)? Report findings @ -No old charts were reviewed Differential Diagnosis (chest pain, altered mental status, abdominal pain women, abdominal pain men, vaginal bleeding, weakness, fever, dyspnea, syncope, headache, dizziness, GI bleed, back pain, seizure, CVA, palpatations, mental health, musculoskeletal)? @ - MDM Differential Back Pain: Strain, zoster, cauda equina syndrome, epidural abscess, vertebral osteomyelitis, discitis, fracture, subluxation, disc herniation, DJD, spinal stenosis, dissection, AAA, pancreatitis, peptic ulcer disease, pyelonephritis, kidney stone… this is not meant to be an all-inclusive list. EKG interpreted by me (3pts min.). @ -As above X-rays interpreted by me (1pt min.). @ -None done CT interpreted by me (1pt min.). @ -None done U/S interpreted by me (1pt. min.). @ -None done What testing was considered but not performed or refused? (CT, X-rays, U/S, labs)? Why? @ -None What meds were considered but not given or refused? Why? @ -None Did you discuss the management of the patient with other professionals (professionals i.e. , PA, PROFESSOR OF CHEMICAL ENGINEERING, lab, RT, psych nurse, medical social consultant, casting house worker, teacher, district fire management officer, insurance case manager)? Give summary @ -No Was smoking cessation discussed for >3mins.? @ -No Was critical care preformed (if so, how long)? @ -No Were there social determinants of health that impacted care today? How? (Homelessness, low income, unemployed, alcoholism, drug addiction, transportation, low edu. Level, literacy, decrease access to med. care, alf, rehab)? @ -No Was there de-escalation of care discussed even if they declined (Discuss DNR or withdrawal of care, Hospice)? DNR status @ -No What co-morbidities impacted this encounter? (DM, HTN, Smoking, COPD, CAD, Cancer, CVA, ARF, Chemo, Hep., AIDS, mental health diagnosis, sleep apnea, morbid obesity)? @ -None Was patient admitted / discharged? Hospital course, mention meds given and route, prescriptions, significant lab abnormalities, going to OR and other per tinent info. @ -24-year-old female presented chief complaint of left-sided shoulder and back pain. She was having some soreness from sleeping on it wrong and was worse when she was stretching tonight. Pain with range of motion. No numbness or tingling. X-ray negative for fracture or dislocation. Patient showing no acute signs of distress and has received pain medication. She is educated on today's findings and supportive management at home. Follow-up with PCP. Report back to ER with any new or worsening symptoms. Discussed return parameters and answered all questions. Patient conveyed verbal understanding and agreed to the plan. I discussed this case in detail with my attending Dr. Cobb Undiagnosed new problem with uncertain prognosis? @ -No Drug Therapy requiring intensive monitoring for toxicity (Heparin, Nitro, Insulin, Cardizem)? @ -No Were any procedures done? @ -No Diagnosis/symptom? @ -Muscle strain Acute, or Chronic, or Acute on Chronic? @ -Acute Uncomplicated (without systemic symptoms) or Complicated (systemic symptoms)? @ -Uncomplicated Side effects of treatment? @ -No Exacerbation, Progression, or Severe Exacerbation? @ -No Poses a threat to life or bodily function? How? (Chest pain, [place], [place], pneumonia, PE, COPD, DKA, ARF, appy, cholecystitis, CVA, Diverticulitis, Homicidal, Suicidal, threat to staff... and all critical care pts) @ -Unlikely Disposition Clinical Impression: Muscle strain Disposition: HOME SELF-CARE Condition: Good Instructions (If sedation given, give patient instructions): Muscle Strain (ED) Additional Instructions: Follow-up with PCP. Report back to ER with any new or worsening symptoms. Do not take cyclobenzaprine before driving or operating heavy machinery as it may cause drowsiness. Take Motrin and Tylenol as needed. Prescriptions: Cyclobenzaprine [Flexeril] 10 mg PO TID PRN #15 tab PRN Reason: Spasms Is patient prescribed a controlled substance at d/c from ED?: No Referrals: Reuben De La Cruz MD [Primary Care Provider] - 1-2 days Time of Disposition: 01:28
[2025-02-11 01:42] VITALS: BP 110/84; PULSE 75; TEMP 97.9
== END 2025-02-11 01:45 | disposition home or self-care (01) ==
LOC: EC 23:14
DX: S46.912A Strain of unspecified muscle, fascia and tendon at shoulder and upper arm level, left arm, initial encounter (principal); Z88.8 Allergy status to other drugs, medicaments and biological substances; Z88.1 Allergy status to other antibiotic agents; W18.40XA Slipping, tripping and stumbling without falling, unspecified, initial encounter; Y93.84 Activity, sleeping
CPT/HCPCS: 96372; 99283